=== PATIENT | male | born 1950 | race Caucasian/White ===

== ENCOUNTER 2024-01-04 19:03 | Inpatient (IN) | payer MEDICARE, SELFPAY ==
[2024-01-04] VITALS (9 sets, daily range): BP systolic 107–145; BP diastolic 61–79; BMI 31.9; BMI 32.7
[2024-01-04 14:50] LABS: % Basophils 0.4 % (0-2); % Eosinophils 2.7 % (0-6); % Immature Granulocytes 0.5 % (0-0.5); % Lymphocytes 10.7 % (20.5-51.1); % Monocytes 8.9 % (1.7-9.3); % Neutrophils 76.8 % (42.2-75.2); Absolute Basophils 0.1 10^3/uL (0-0.2); Absolute Eosinophils 0.4 10^3/uL (0-0.7); Absolute Immature Granulocytes 0.1 10^3/uL (0-0.05); Absolute Lymphocytes 1.4 10^3/uL (1.2-3.4); Absolute Monocytes 1.2 10^3/uL (0.1-0.6); Absolute Neutrophils 10.2 10^3/uL (1.4-6.5); Hemoglobin 11.5 g/dL (13.0-18.0); Mean Corp Hgb Conc. 33.8 g/dL (33.0-37.0); Mean Corpuscular Volume 85.6 fL (80.0-94.0); Mean Platelet Volume 10.1 fL (7.4-10.4); Nucleated Red Blood Cells % 0 % (-); Platelet Count 341 10^3/uL (130-400); Red Blood Cell Count 3.97 10^6/uL (4.70-6.10); Red Cell Dist. Width 13.5 % (11.5-14.5); White Blood Cell Count 13.3 10^3/uL (4.8-10.8)
--- NOTE | 2024-01-04 14:50 | ED.GENMED ---
History of Present Illness
General
Chief Complaint: Skin Problem
Source: patient
Exam Limitations: none
Time Seen by Provider: 01/04/24 14:21
Nursing documentation reviewed up to this point in time: agreed with
Travel History
Have you had any contact with someone who has COVID-19?: No
Do you have any symptoms of coronavirus? Fever > 100 degrees, chills, cough, shortness of breath, sore throat, loss of taste or smell, muscle aches, or headache?: No
History of Present Illness
History of Present Illness:
Patient with history of peripheral vascular disease and diabetes, presents to ED secondary to worsening redness, swelling, and warmth, with drainage of his left first toe, after his toenail was clipped by his safety deposit clerk 8 days ago. Denies fever or
chills. Denies nausea or vomiting. Denies direct trauma. Denies previous history of similar symptoms.
Past History
Past History
ED Past Medical History: CAD, COPD, HTN, Hypercholesterolemia, NIDDM and Other (Cataracts, neuropathy, BPH, nephrolithiasis, diverticulosis)
ED Past Surgical History: Cardiac (CABG) and Cholecystectomy
Social History
Tobacco: Former smoker
Alcohol: None
Drug: None
Living: with family
Employment: Retired
Family History
Family History: Other (Noncontributory)
Review of Systems
Review of Systems
Allergies reviewed?: Yes
All Other Systems: ROS reviewed and negative except as documented in HPI and ROS
Constitutional: Reports no symptoms
ABD/GI: Reports no symptoms
Musculoskeletal: Reports no symptoms
Skin: Reports other (toe redness/swelling/drainage)
Phy Exam
Physical Exam
Physical Exam:
Physical Exam
General: no apparent distress, not acutely ill. afebrile
Head: nc/at. eomi
Neck: supple. normal range of motion
Neuro: alert and oriented. no focal neurological deficits
Skin: left 1st toe: erythema/abrasion at tip with minimal foul smelling drainage, with erythema noted up to midcalf with warmth.
Psychiatric: well kept. interactive and cooperative
Extremities: no edema. no calf tenderness.
Course
Orders/Labs/Results
Orders:
Orders
01/04/24 Lunch
1800 calorie (15 carb) Diabetic
At Your Request: Full Participation
01/04/24 14:43
Complete Blood Count/With Diff Urgent
Comprehensive Metabolic Panel Urgent
Lactate Level [Lactic Acid] Urgent
Blood Culture Q30M
BARBARA Source: Blood/Venous
Specimen Description:
01/04/24 14:49
CR Toe(s) Min 2 Vw Left Urgent
Comment:
Reason For Exam: redness/swelling
Indicate Which Toe:: Great
01/04/24 14:50
Piperacillin/Tazo 3.375 Gram [Zosyn] 3.375 gram in 50 ml IV NOW
01/04/24 14:58
Blood Culture Q30M
BARBARA Source: Blood/Venous
Specimen Description:
01/04/24 15:19
Vancomycin [Vancocin] 2,000 mg 0.9% Sodium Chloride 500 ml [Nss] 500 ml IV NOW
01/04/24 18:34
Admit/Transfer Patient As Directed
Co-Sign Provider:
Level of Care: Inpatient admission
Assign to:: Medical/Surgical
Physician / Group: Peña/Hospitalist
Diagnosis: acute osteomyelitis
Reason for Hospitalization: acute osteomyelitis
Expected length of stay greater than two midnights?: Yes
ELOS- Estimated Length of Stay in days: 4
I certify the patient meets the requirements for IP care: Yes
01/04/24 18:39
Code Status As Directed
Resuscitation Status: Full Code
01/04/24 19:45
Acetaminophen [Tylenol] 650 mg PO Q4HPRN PRN
Dextrose 50%-Water [Dextrose 50% Syringe] 12.5 grams IV [id number] PRN
Dextrose 50%-Water [Dextrose 50% Syringe] 12.5 grams IV [id number] PRN
Glucagon [GlucaGen] 1 mg IM PRN PRN
Glucagon [GlucaGen] 1 mg IM PRN PRN
01/04/24 19:45
PODIATRY CONSULT Routine
Consulting Provider: Shante Pollack
Was physician already notified: Yes
Reason for consult: left 1st toe acute osteo and cellulitis, IDDM
Vascular Surgery Consult Routine
Consulting Provider: Rossi Cee
Was physician already notified: Yes
Reason for consult: left 1st toe acute osteo, PVD
Activity As Directed
Activity Level: Out of Bed-Early Mobility
Bedside Glucose Monitoring As Directed
Frequency: AC&HS
Additional Instructions:: Change to q6h if pt on TPN, tube feeding or not eating
Bedside Glucose Monitoring As Directed
Frequency: AC&HS
Additional Instructions:: Change to q6h if pt on TPN, tube feeding or not eating
Elevate Extremity As Directed
Extremity:: LLE
Intake/ Output As Directed
Frequency: Per unit guidelines
Vital Signs As Directed
Frequency: Per unit guidelines
Pulse Ox/spot Check [RESP] Routine
Quantity: 1
Special Instructions: pulse oximetry on admission then every shift if on oxygen.
Call if oxygen saturation < ___ %
Lower Ext Arterial & VELVET US [US Periph Art LOWER Ext w VELVET] Routine
Comment:
Reason For Exam: acute osteomyelitis 1st great toe left foot, PVD
DX Deep Vein Thrombosis Video Routine
01/04/24 20:00
Ipratropium/Albuterol Sulfate [Duoneb] 3 ml INH R Q6
01/04/24 22:00
Ezetimibe [Zetia] 10 mg PO HS
Metoprolol Xl [Toprol Xl] 25 mg PO HS
Piperacillin/Tazo 3.375 Gram [Zosyn] 3.375 gram in 50 ml IV Q6H
insulin glargine U-300 conc [Toujeo SoloStar U-300 Insulin] 65 unit SC HS
01/05/24 05:21
Prothrombin Time IN AM
01/05/24 05:22
Basic Metabolic Panel IN AM
Complete Blood Count/With Diff IN AM
Glycohemoglobin (HgbA1c) IN AM
01/05/24 07:30
Insulin Aspart Corrective Low [Novolog Flexpen-Low Resistance] See Protocol SC AC
Insulin Aspart Corrective Mod [Novolog Flexpen-Moderate Resistance] See Protocol SC AC
Insulin Aspart Pen [Novolog Flexpen] 20 units SC AC
01/05/24 08:00
Cholecalciferol (Vitamin D3) [VITAMIN D3 (cholecalciferol)] 25 mcg PO DAILY
Cyanocobalamin [Vitamin B-12] 500 mcg PO DAILY
Diltiazem Extended Release [Cardizem Cd] 240 mg PO DAILY
Furosemide [Lasix] 40 mg PO BID AT 0800,1600
Lisinopril [Zestril] 10 mg PO DAILY
Pantoprazole [Protonix] 40 mg PO DAILY
01/05/24 18:00
Enoxaparin Sodium [Lovenox] 40 mg SC QPM
Gabapentin [Neurontin] 600 mg PO QPM
Rosuvastatin Calcium [Crestor] 10 mg PO QPM
Abnormal Lab Results
01/04/24
14:43
WBC 13.3 H 10^3/uL
(4.8-10.8)
RBC 3.97 L 10^6/uL
(4.70-6.10)
Hgb 11.5 L g/dL
(13.0-18.0)
Hct 34.0 L %
(39.0-52.0)
Abs Immat Gran (auto) 0.1 H 10^3/uL
(0-0.05)
Absolute Neuts (auto) 10.2 H 10^3/uL
(1.4-6.5)
Absolute Monos (auto) 1.2 H 10^3/uL
(0.1-0.6)
Neutrophils % 76.8 H %
(42.2-75.2)
Lymphocytes % 10.7 L %
(20.5-51.1)
Glucose 131 H mg/dl
(70-99)
01/04/24 14:43
01/04/24 14:43
Vital Signs
Initial and Last Documented VS:
Initial Vital Signs
Temp Pulse Resp BP Pulse Ox
97.9 F 99 18 137/76 98
01/04/24 13:17 01/04/24 13:17 01/04/24 13:17 01/04/24 13:17 01/04/24 13:17
Last Documented Vital Signs
Temp Pulse Resp BP Pulse Ox
97.9 F 72 14 126/66 96
01/05/24 07:00 01/05/24 07:41 01/05/24 07:41 01/05/24 07:00 01/05/24 07:00
MDM/Problems Addressed
MDM/Problems Addressed:
History, exam, and x-ray concerning for severe cellulitis, with likely development of osteomyelitis. Patient will be admitted for IV antibiotics and further treatment.
*Critical Care Note
Total Time (30-74mins, 75-104mins- exclusive of procedures): Not Applicable
ED Attending Note
-
Portions of this chart may have been created with voice recognition software.� Occasional wrong word or��sound alike� substitutions may have occurred due to the inherent limitations of voice recognition software.
Discharge Plan
Departure
Patient Disposition: Admit
Date of Disposition: 01/04/24
Time of Disposition: 17:32
Presentation/result/management discussed w/ accepting MD/DO: Hospitalist
Discharge Problem:
Acute osteomyelitis of toe
Interventions
Interventions:
*Risk Screen - Suicide Last Done: 01/04/24 13:17
*General Assessment Last Done: 01/04/24 14:32
*Neglect/Abuse Screening Last Done: 01/04/24 13:17
ED- Fall Risk Assessment Last Done: 01/04/24 19:08
*ED COVID-19 Vaccine History Last Done: 01/04/24 13:17
*Nursing Disposition Last Done: 01/04/24 19:08
ED-Skin Assessment Last Done: 01/04/24 14:34
Discharge Date and Time
Discharge Date/Time: 01/04/24 19:31
[2024-01-04] MEDS: ZOSYN 50 IV ×2 (14:57→21:52)
[2024-01-04 15:02] LABS: ALT (SGPT) 32 U/L (0-50); AST (SGOT) 24 U/L (17-59); Alkaline Phosphatase 79 U/L (38-126); Blood Urea Nitrogen 20 mg/dl (9-20); Calcium 9.2 mg/dl (8.4-10.2); Carbon Dioxide 26 mmol/L (22-30); Chloride 103 mmol/L (98-107); Glucose 131 mg/dl (70-99); Potassium 4.3 mmol/L (3.5-5.1); Sodium 140 mmol/L (135-145); Total Bilirubin 0.5 mg/dl (0.2-1.3); Total Protein 6.9 g/dl (6.3-8.2); eGFR 58.01
[2024-01-04 15:03] LABS: Lactic Acid 1.2 mmol/L (0.7-2.0)
[2024-01-04] MEDS: VANCOCIN 540 MG IV (15:39)
--- NOTE | 2024-01-04 17:42 | HPS.HSE ---
Family Physician
-
Family Physician: Bony Lafleur
Chief Complaint
-
left first toe redness, swelling, warmth
History of Present Illness
The patient is a 73 yo male with PMH significant for CAD, COPD, HTN, LLE wound/cellulitis and wound care, PVD, HLD, IDDM with peripheral neuropathy, who presents to the ED due to drainage, redness, warmth and swelling from his first left toe, that
he noticed worsening since he had a toenail clipped by his Fish Roe Processor 8 days ago. He has a history of peripheral vascular disease b/l LE , left worse than right, and LLE chronic venous stasis changes, with left LE chronically more swollen and red
than the right side. No fever, no chills, no n/v/d, no abdominal pain, no CP, no SOB. No direct trauma.
WBC 13.3
ED txt: IV Zosyn, IV Vancomycin
Medical History
Past Medical History
Past Medical History: Reports CAD (SC), CHF (HFpEF), COPD, HTN, Hypercholesterolemia, NIDDM and Other (PVD, BPH, Cataracts, neuropathy, nephrolithiasis, diverticulosis)
Past Surgical History: Reports Cardiac (CABG x 3 2018) and Cholecystectomy
Social History
Tobacco: Former Smoker
Alcohol: None
Drug: None
Living: With Family
Employment: Retired
Family History
Family History: Not pertinent
Allergies / Home Medications
Allergies reflects when Allergies were last updated in [facility].
Home Medications with original date entered in [facility]
Allergy/Medication List:
Allergies
Allergy/AdvReac Type Severity Reaction Status Date / Time
No Known Allergies Allergy Verified 01/04/24 13:21
Home Medications
ezetimibe 10 mg tablet 10 mg PO HS High cholesterol 12/22/16
pantoprazole 40 mg tablet,delayed release 40 mg PO DAILY Gastrointestinal issue 05/20/17
aspirin 81 mg chewable tablet 81 mg PO DAILY Blood clot prevention/tx 12/24/16
diltiazem HCl 240 mg capsule,extended release 24 hr 240 mg PO DAILY 01/14/19
cyanocobalamin (vitamin B-12) 1,000 mcg tablet 500 mcg PO DAILY Supplement 03/26/20
rosuvastatin 10 mg tablet 10 mg PO QPM High cholesterol 03/26/20
furosemide 40 mg tablet 40 mg PO BID AT 0800,1700 Fluid retention/Swelling 08/23/22
gabapentin 300 mg capsule 600 mg PO QPM Neurological Condition 08/23/22
insulin glargine U-300 conc 300 unit/mL (1.5 mL) subcutaneous pen (Toujeo SoloStar U-300 Insulin) 65 unit SC HS Diabetes 08/23/22
insulin lispro 100 unit/mL subcutaneous pen (Humalog KwikPen (U-100) Insulin) 20 unit SC AC Diabetes 08/23/22
lisinopril 10 mg tablet 10 mg PO DAILY Blood pressure 08/23/22
metoprolol succinate 25 mg tablet,extended release 24 hr 25 mg PO HS Blood pressure 08/23/22
cholecalciferol (vitamin D3) 25 mcg (1,000 unit) tablet (Vitamin D3) 25 mcg PO DAILY 01/04/24
ipratropium 0.5 mg-albuterol 3 mg (2.5 mg base)/3 mL nebulization soln 3 ml inhalation R Q6 01/04/24
Review of Systems
-
A 12 point ROS was completed and negative except as noted: Yes
Physical Exam
Vital Signs
Vital Signs
Temp Pulse Resp BP Pulse Ox
97.9 F 99 18 122/78 97
01/04/24 13:17 01/04/24 13:17 01/04/24 13:17 01/04/24 17:00 01/04/24 14:43
Physical Exam
General: Well Developed, Well Nourished, No Apparent Distress, Comfortable and Conversant
HEENT: NormoCephalic, Anicteric and Moist mucous membranes
Respiratory: Wheezes (end-expiratory) and Non Labored Respirations
Cardiac: S1/S2 and Regular Rhythm
GI: Soft, Non Tender and Non Distended
Musculoskeletal: No Clubbing, No Cyanosis and Other (LLE redness from foot to above the ankle, chronic venous stasis changed, beef red foot and ankle, swollen on the left, 1st toe with black eschar, bleeding, swollen, erythematous, warm)
Skin: Warm and Dry
Neuro: AO x 3, No Motor Deficits and Nonfocal/grossly intact
Psych: Calm
Laboratory Results
-
01/04/24 14:43
01/04/24 14:43
Laboratory Results
Lactic Acid 1.2 mmol/L (0.7-2.0) 01/04/24 14:43
Total Bilirubin 0.5 mg/dl (0.2-1.3) 01/04/24 14:43
AST 24 U/L (17-59) 01/04/24 14:43
ALT 32 U/L (0-50) 01/04/24 14:43
Alkaline Phosphatase 79 U/L (38-126) 01/04/24 14:43
Data Reviewed
-
Diagnostic Radiology: Report Reviewed by me (Left toe- acute osteomyelitis of the tuft of the distal phalynx of the left great toe, severe cellulitis throughout the left great toe and forefoot)
Impression/Plan
-
IMPRESSION:The patient is a 73 yo male with PMH significant for CAD, COPD, HTN, LLE wound/cellulitis and wound care, PVD, HLD, IDDM with peripheral neuropathy, who presents to the ED due to drainage, redness, warmth and swelling from his first left
toe, that he noticed worsening since he had a toenail clipped by his Fish R[employer] Processor 8 days ago. No fever, no chills, no n/v/d, no abdominal pain, no CP, no SOB. No direct trauma.
WBC 13.3
ED txt: IV Zosyn, IV Vancomycin
# Acute osteomyelitis of the tuft of the distal phalanx of the left great toe with leukocytosis
-IV Vanco, IV Zosyn
-Podiatry consultation- will get ABIs, Vascular Consultation
-wound care, elevate LLE
# Severe cellulitis throughout the left great toe and forefoot.
-IV abx as above
-monitor clinically
#CAD
-takes daily aspirin, hold aspirin for now
#IDDM with Diabetic neuropathy
-home insulin, SSI
#Essential HTN
-IV Diltiazem w hold parameters
#PVD - discuss further imaging
-distal small vessel disease noted in 2018
-check ABIs
#COPD, not in exacerbation
-home meds, monitor pulse oximetry
Full Code
DVT proph-Lovenox
[2024-01-04] MEDS: DUONEB 3 ML INH (20:28)
[2024-01-04 21:44] LABS: Glucose - Point of Care 223 mg/dl (70-99)
[2024-01-04] MEDS: ZETIA 10 MG PO (21:52)
[2024-01-04] MEDS: TOPROL XL 25 MG PO (21:52)
[2024-01-04] MEDS: LANTUS 0.520000000000000018 UNITS SC (21:52)
--- NOTE | 2024-01-04 23:53 | PHA.VAN.IN ---
Assessment
- Assessment
Renal Function: Appears similar to baseline
AUC Dosing Plan
- Dosing Variables
Dosing Weight (kg): 100
Dosing CrCl (ml/min): 59
Vd coefficient (L/kg): 0.6
- Empiric Dosing
Initial / Loading Dose: Vancomycin 2000mg given 01/03 at ~1600
Maintenance Regimen: Vancomycin 1500mg IV Q24h to start 01/04 at 1100
Estimated AUC (mcg*h/mL): 481
Estimated Peak (mcg*h/mL): 34.6
Estimated Trough (mcg/ml): 10.1
Estimated Half Life (H): 13
- Monitoring
No levels ordered at this time: Will follow and order levels prior to steady state.
Pharmacokinetics Vancomycin I
- -
Patient Age: 73
Patient Sex: Male
Vancomycin Day #: 1
Indication: Bone And Joint
Requesting Provider: Dr. Pompa
Pertinent Antimicrobial Allergies:
NKA
Height / Weight:
Height 5 ft 9 in
Actual Weight 100.425 kg
Pertinent Past Medical History: IDDM, PVD, LLE wound/cellulitis, BMI ~33
- Vital Signs / Lab Results
Temp Pulse Resp BP Pulse Ox
98.8 F 90 20 115/61 96
01/04/24 23:00 01/04/24 23:00 01/04/24 23:00 01/04/24 23:00 01/04/24 23:00
Lab Results - Hematology
01/04/24
14:43
WBC 13.3 H
Lab Results - Chemistry
01/04/24
14:43
BUN 20
Creatinine 1.3
Albumin 4.0
01/04/24
14:43
Lactic Acid 1.2
[2024-01-05] MEDS: DUONEB 3 ML INH ×4 (02:03→20:31)
[2024-01-05] MEDS: ZOSYN 50 IV ×4 (04:12→21:56)
[2024-01-05 06:22] LABS: INR 1.27; PT 15.7 Sec (11.4-14.6)
[2024-01-05 06:29] LABS: % Basophils 0.3 % (0-2); % Eosinophils 4.3 % (0-6); % Immature Granulocytes 0.5 % (0-0.5); % Lymphocytes 13.8 % (20.5-51.1); % Monocytes 9.8 % (1.7-9.3); % Neutrophils 71.3 % (42.2-75.2); Absolute Eosinophils 0.4 10^3/uL (0-0.7); Absolute Immature Granulocytes 0.1 10^3/uL (0-0.05); Absolute Lymphocytes 1.3 10^3/uL (1.2-3.4); Absolute Neutrophils 6.9 10^3/uL (1.4-6.5); Hematocrit 31.4 % (39.0-52.0); Hemoglobin 10.4 g/dL (13.0-18.0); Mean Corp Hgb Conc. 33.1 g/dL (33.0-37.0); Mean Corpuscular Hgb 28.9 pg (27.0-31.0); Mean Corpuscular Volume 87.2 fL (80.0-94.0); Mean Platelet Volume 10.8 fL (7.4-10.4); Nucleated Red Blood Cells % 0 % (-); Platelet Count 320 10^3/uL (130-400); Red Cell Dist. Width 13.5 % (11.5-14.5); White Blood Cell Count 9.7 10^3/uL (4.8-10.8)
[2024-01-05 06:45] LABS: Blood Urea Nitrogen 19 mg/dl (9-20); Calcium 8.9 mg/dl (8.4-10.2); Carbon Dioxide 24 mmol/L (22-30); Chloride 104 mmol/L (98-107); Estimated Creatinine Clearance 59 ml/min; Glucose 167 mg/dl (70-99); Potassium 3.8 mmol/L (3.5-5.1); Sodium 139 mmol/L (135-145); eGFR 58.01
[2024-01-05 07:00] VITALS: BP 126/66
--- NOTE | 2024-01-05 07:13 | CON.VAS ---
Medical History
-
Chief Complaint: Left First Toe Wound
History of Present Illness:
80M hx of HTN, HLD, IDDM, CAD p/w 8 day hx of Left first toe wound after foundry metallurgist clipped nail. Denies fevers or chills. On exam, has gangrenous changes to distal phalanx with slight purulence emanating from wound. Denies significant pain. Denies
hx of previous PVD interventions. Xray consistent with possible osteo
Past Medical History
Past Medical History: CAD, HTN, Hypercholesterolemia and IDDM
Past Surgical History: Cardiac
Family History
Family History: Reviewed & Not Pertinent
Allergies / Home Medications
Allergy/AdvReac Type Severity Reaction Status Date / Time
No Known Allergies Allergy Verified 01/04/24 13:21
�Medication �Instructions �Recorded �Confirmed �Type
ezetimibe 10 mg tablet 10 mg PO HS High cholesterol 12/22/16 01/04/24 History
pantoprazole 40 mg tablet,delayed 40 mg PO DAILY Gastrointestinal 12/22/16 01/04/24 History
release issue
aspirin 81 mg chewable tablet 81 mg PO DAILY Blood clot 12/24/16 01/04/24 History
prevention/tx
diltiazem HCl 240 mg 240 mg PO DAILY 01/14/19 01/04/24 Rx
capsule,extended release 24 hr
cyanocobalamin (vitamin B-12) 500 mcg PO DAILY Supplement 03/26/20 01/04/24 History
1,000 mcg tablet
rosuvastatin 10 mg tablet 10 mg PO QPM High cholesterol 03/26/20 01/04/24 History
furosemide 40 mg tablet 40 mg PO BID AT 0800,1700 Fluid 08/23/22 01/04/24 History
retention/Swelling
gabapentin 300 mg capsule 600 mg PO QPM Neurological 08/23/22 01/04/24 History
Condition
insulin glargine U-300 conc 300 65 unit SC HS Diabetes 08/23/22 01/04/24 History
unit/mL (1.5 mL) subcutaneous pen
(Toureshma SoloStar U-300 Insulin)
insulin lispro 100 unit/mL 20 unit SC AC Diabetes 08/23/22 01/04/24 History
subcutaneous pen (Humalog KwikPen
(U-100) Insulin)
lisinopril 10 mg tablet 10 mg PO DAILY Blood pressure 08/23/22 01/04/24 History
metoprolol succinate 25 mg 25 mg PO HS Blood pressure 08/23/22 01/04/24 History
tablet,extended release 24 hr
cholecalciferol (vitamin D3) 25 25 mcg PO DAILY Supplement 01/04/24 01/04/24 History
mcg (1,000 unit) tablet (Vitamin
D3)
ipratropium 0.5 mg-albuterol 3 mg 3 ml inhalation R Q6 01/04/24 01/04/24 History
(2.5 mg base)/3 mL nebulization Lung/Breathing Issues
soln
Physical Exam
Vital Signs
Temp Pulse Resp BP Pulse Ox
98.8 F 90 20 115/61 96
01/04/24 23:00 01/04/24 23:00 01/04/24 23:00 01/04/24 23:00 01/04/24 23:00
Lab Results
01/05/24 05:22
01/05/24 05:22
Physical Exam
General: Well Developed and Well Nourished
HEENT: Normocephalic
Respiratory: Clear
Cardiac: S1/S2 and Regular Rhythm
GI: Soft
Musculoskeletal: No Clubbing and Other (Left first toe wound with gangrenous changes to distal phalanx. purulent drainage expressed )
Skin: Warm
Pulses: Bilateral Femoral: +2, Left Dorsalis Pedis: Doppler, Right Dorsalis Pedis: +2 and Left Posterior Tibial: Doppler
Assessment / Plan
-
80M p/w L first toe wound
-obtain PVR/VELVET; may require LLE angio Pending results
-broad spectrum ABX
-local wound care to toe with betadine paint
-Best medical therapy for PVD- ASA 81, statin, BP control and Daily glucose < 160
-podiatry consultation
[2024-01-05 07:56] LABS: Glucose - Point of Care 157 mg/dl (70-99)
--- NOTE | 2024-01-05 08:29 | PHA.VAN.FU ---
Vancomycin Assessment / Plan
- Assessment
Renal Function: Stable (1.3)
WBC's are: WNL
In the past 24 hrs, patient has been: Afebrile
Concomitant Antimicrobials: piperacillin/tazo
- Dosing Plan
Continue: vancomycin 1500 mg q24h - first dose 1100 today
- Monitoring Plan
No level(s) ordered at this time: will order levels prior to steady state
- Follow Up
Pharmacy will continue to follow.
Vancomycin Follow UP
- -
Patient Age: 73
Patient Sex: Male
Vancomycin Day #: 2
Indication: Bone And Joint
Requesting Provider: Dr. Pompa
Pertinent Antimicrobial Allergies:
NKA
Height / Weight:
Height 5 ft 9 in
Actual Weight 100.425 kg
Pertinent Past Medical History: IDDM, PVD, LLE wound/cellulitis, BMI ~33
- Vital Signs / Lab Results
Temp Pulse Resp BP Pulse Ox
98.8 F 72 14 115/61 96
01/04/24 23:00 01/05/24 07:41 01/05/24 07:41 01/04/24 23:00 01/04/24 23:00
Lab Results - Hematology
01/04/24 01/05/24
14:43 05:22
WBC 13.3 H 9.7
Lab Results - Chemistry
01/04/24 01/05/24
14:43 05:22
BUN 20 19
Creatinine 1.3 1.3
Estimated Creat Clear 59
Albumin 4.0
01/04/24
14:43
Lactic Acid 1.2
[2024-01-05] MEDS: PROTONIX 40 MG PO (09:03)
[2024-01-05] MEDS: LASIX 40 MG PO ×2 (09:03→15:41)
[2024-01-05] MEDS: VITAMIN D3 (cholecalciferol) 25 MCG PO (09:03)
[2024-01-05] MEDS: CARDIZEM CD 240 MG PO (09:03)
[2024-01-05] MEDS: VITAMIN B-12 500 MCG PO (09:03)
[2024-01-05] MEDS: ZESTRIL 10 MG PO (09:03)
[2024-01-05] MEDS: NOVOLOG FLEXPEN 20 UNITS SC ×3 (09:04→17:43)
[2024-01-05] MEDS: NOVOLOG FLEXPEN-LOW RESISTANCE 1 UNITS SC ×2 (09:04→17:43)
[2024-01-05 10:17] LABS: Glycohemoglobin (HgbA1c) 7.8 % (4.0-5.6)
--- NOTE | 2024-01-05 11:31 | W.CS.POD ---
Consult Summary - Podiatry
-
73 yo male with PMH significant for CAD, COPD, HTN, PVD, HLD, IDDM with peripheral neuropathy, LT L/E chronic edema who presents to the ED sent by his PCP Dr. Lafleur due to worsening of LT big toe redness, edematous LT big toe with gangrenous skin
changes with drainage, patient states that he had this wound for about 10 days and getting slowly worse, He is currently on IV Abx improved WBC count form 13 > 9, HE denies nay fever, chills, no chest pain or SOB.
Reviewed PMH, meds and allergies
Exam ; LT foot edematous and diminished pedal pulses
Loss of protective sensation b/l feet
LT hallux erythematous, edematous with scant purulence distal aspect with dry gangrenous changes noted, presence of foul odor,no exposed bone.
no crepitus felt , no Signs of any abscess noted.
Lt Lower leg with chronic skin changes from lymphedema and venous stasis
Xrays show LT hallux distal aspect osteomyelitis
A/P: LT foot cellultis
LT hallux gangrenous changes
Diabetic small vessel disease.
Plan : Cont IV abx
Pending non invasive vascular studies.
Appreciate vascular consult,
Discussed with patient about possibly loosing the toe due to gangrenous changes, Patient understands the situation but would like to save the toe if at all any chance of saving it.
Podiatry will wait till vascular surgery work up if planned
[2024-01-05 11:37] LABS: Glucose - Point of Care 147 mg/dl (70-99)
[2024-01-05] MEDS: VANCOCIN 300 MG IV (12:06)
[2024-01-05] MEDS: VANCOCIN 300 ML IV (12:06)
[2024-01-05] MEDS: NOVOLOG FLEXPEN-LOW RESISTANCE SC (12:07)
--- NOTE | 2024-01-05 12:10 | W.PN.HOSP.TC ---
Today's Communication/Plan
-
.
Assessment / Plan
Assessment / Plan
Physical Exam
General: Well Developed, Well Nourished, No Apparent Distress, Comfortable and Conversant
HEENT: Normocephalic, Anicteric and Moist mucous membranes
Respiratory: Wheezes (end-expiratory) and Non Labored Respirations
Cardiac: S1/S2 and Regular Rhythm
GI: Soft, Non Tender and Non Distended
Musculoskeletal: No Clubbing, No Cyanosis and Other (LLE redness from foot to above the ankle, chronic venous stasis changed, red foot and ankle, swollen on the left, 1st toe with black eschar, swollen, erythematous, warm)
Skin: Warm and Dry
Neuro: AO x 3, No Motor Deficits and Nonfocal/grossly intact
Psych: Calm
73 yo male presented to the ED due to drainage, redness, warmth and swelling from his first left toe, that he noticed worsening since he had a toenail clipped by his Instructional Design Manager 8 days ago. No fever, no chills, no n/v/d, no abdominal pain, no CP, no
SOB. No direct trauma.
# Acute osteomyelitis of the tuft of the distal phalanx of the left great toe with leukocytosis
Mild sepsis POA with tachycardia, leukocytosis, infection on toe
He has significant DM neuropathy so no significant pain but s.t shooting pain in left leg/foot
-IV Vanco, IV Zosyn
- WBC normalized. No fevers
ABIs,
-wound care, elevate LLE
- Will likely need amputation of whole toe to secure complete recovery pending further vascular studies
Appreciate Podiatry, ID and vascular surgery input
# Severe cellulitis throughout the left low extremity
-IV abx as above
-monitor clinically
#CAD
No chest pain
-takes daily aspirin, hold aspirin for now
#IDDM with Diabetic neuropathy
AM BS 157
he follows with Endocrine as OP
HGB A1C 7.8
-home insulin, SSI
#Essential HTN
c/w home meds including Lasix.
-IV Diltiazem w hold parameters
#PVD - known diabetic neuropathy
#COPD, not in exacerbation
-home meds, monitor pulse oximetry
Full Code
DVT proph-Lovenox
Total time spent to see the patient, examine the patient on the floor, review data and lab results, discuss treatment plan with patient, nursing staff around 55 minutes
Anticipated Discharge: > 48 hours
Subjective/Interval History
-
Date of Service: January 05, 2024
No chest pain
No sob
Sometimes shooting pain in left foot
Objective Data
-
Labs:
Laboratory Results
01/05/24 01/05/24
05:21 05:22
WBC 9.7
Hgb 10.4 L
Hct 31.4 L
Plt Count 320
PT 15.7 H
INR 1.27
Sodium 139
Potassium 3.8
Chloride 104
Carbon Dioxide 24
BUN 19
Creatinine 1.3
Glucose 167 H
Calcium 8.9
Vital Signs:
Vital Signs
Temp Pulse Resp BP Pulse Ox
97.9 F 72 14 126/66 96
01/05/24 07:00 01/05/24 07:41 01/05/24 07:41 01/05/24 07:00 01/05/24 07:00
I&O
01/04/24 01/05/24 01/06/24
06:59 06:59 06:59
Intake Total 240 / 240
Output Total 300 / 300
Balance -60 / -60
--- NOTE | 2024-01-05 14:16 | CON.ID ---
Consultation
-
Date/Time Consultation Requested: 01/05/2024 06:26
Date/Time Consultation Performed: 01/05/2024 1413
Requesting Provider: Dr. Ratliff
Performing Provider: Dr. Maynard
Reason for Consultation: Left toe infection
Chief Complaint / Past History
History of Present Illness
Antonio Ramirez is a 73-year-old male with a significant past medical history of CAD and diabetes mellitus with neuropathy being evaluated at the request of Dr. Ratliff in regards to left hallux cellulitis. History is obtained from chart review, along
with patient interview.
Patient reports that he recently had his toenails clipped by his carpenter mine approximately 8 days prior to presentation, although he admits he had had problems with his nail prior to that.. Over the intervening days the toe has grown increasingly
erythematous and swollen. He denies any fevers or chills.
Past History
Additional Past Medical History:
CAD; Hx AR
COPD
HTN
Dyslipidemia
DM with neuropathy
BPH
Nephrolithiasis
Diverticulosis
Additional Past Surgical History:
CABG
Cholecystectomy
Allergy History:
No Known Allergies Allergy (Verified 01/04/24 13:21)
Medications Reviewed: Yes
Current Antibiotics:
Zosyn 3.375 g IV every 6 hours
Vancomycin (dosed per pharmacy)
Social History
Tobacco: Former Smoker
Alcohol: None
Drug: None
Personal:
Living: With Family
Employment: Retired
Review of Systems
Vital Signs
Temp Pulse Resp BP Pulse Ox
97.9 F 80 14 126/66 96
01/05/24 07:00 01/05/24 13:32 01/05/24 13:32 01/05/24 07:00 01/05/24 07:00
Physical Exam
Physical Exam
Constitutional: No Acute Distress, Comfortable and Non-toxic
Eyes: No Conjunctival Hemorrhage and Sclera Anicteric
Oral: No Thrush and No Ulcers
Cardiovascular: S1/S2 and S3/S4; Negative Murmur
Pulmonary: Clear; Negative Wheezes, Rales or Rhonchi
Gastrointestinal: Soft, Non Tender, Non Distended and Normal Bowel Sounds
Extremities: Edema (3+ LLE), Erythema (LLE) and Other (Left hallux with distal gangrene. Toe is markedly swollen and erythematous.)
Skin: Warm and Dry; Negative Rash or Jaundice
Neurological: Awake and Alert
Psychological: Calm
Lab / Diagnostic Study Results
01/05/24 05:22
01/05/24 05:22
Abs Immat Gran (auto) 0.1 10^3/uL (0-0.05) H 01/05/24 05:22
Absolute Neuts (auto) 6.9 10^3/uL (1.4-6.5) H 01/05/24 05:22
Absolute Lymphs (auto) 1.3 10^3/uL (1.2-3.4) 01/05/24 05:22
Absolute Monos (auto) 1.0 10^3/uL (0.1-0.6) H 01/05/24 05:22
Absolute Basos (auto) 0.0 10^3/uL (0-0.2) 01/05/24 05:22
Immature Gran % 0.5 % (0-0.5) 01/05/24 05:22
Neutrophils % 71.3 % (42.2-75.2) 01/05/24 05:22
Lymphocytes % 13.8 % (20.5-51.1) L 01/05/24 05:22
Monocytes % 9.8 % (1.7-9.3) H 01/05/24 05:22
Eosinophils % 4.3 % (0-6) 01/05/24 05:22
Basophils % 0.3 % (0-2) 01/05/24 05:22
PT 15.7 Sec (11.4-14.6) H 01/05/24 05:21
INR 1.27 01/05/24 05:21
Lactic Acid 1.2 mmol/L (0.7-2.0) 01/04/24 14:43
Microbiology Results
Micro:
01/04/24 14:43 Blood Culture - Pending
Blood/Venous
01/04/24 14:58 Blood Culture - Pending
Blood/Venous
01/04/24 22:52 MRSA Screen - Pending
Nose
Imaging:
01/04/2024 X-ray left foot: Acute osteomyelitis of the tuft of the distal phalanx of the left great toe. There is severe cellulitis throughout the left great toe and forefoot. Please see full dictation for additional detail.
Assessment / Plan
Left hallux gangrene
Left hallux cellulitis
Left hallux osteomyelitis
CAD; Hx AR
COPD
HTN
Dyslipidemia
DM with neuropathy
BPH
Nephrolithiasis
Diverticulosis
Recommendations:
Continue current abx. (vanco / zosyn)
Await further vacular workup.
Check MRI to delineate extent of osteomyelitis.
Check ESR and CRP in AM.
Given underlying diabetes and neuropathy, patient is at high risk for limb loss.
[2024-01-05 15:00] VITALS: BP 101/41
[2024-01-05 16:53] LABS: Glucose - Point of Care 150 mg/dl (70-99)
[2024-01-05] MEDS: LOVENOX 40 MG SC (17:46)
[2024-01-05] MEDS: CRESTOR 10 MG PO (17:46)
[2024-01-05] MEDS: NEURONTIN 600 MG PO (20:09)
[2024-01-05] MEDS: TYLENOL 650 MG PO (20:13)
[2024-01-05] MEDS: ZETIA 10 MG PO (21:56)
[2024-01-05] MEDS: TOPROL XL 25 MG PO (21:56)
[2024-01-05] MEDS: LANTUS 0.520000000000000018 UNITS SC (21:56)
[2024-01-05 21:59] LABS: Glucose - Point of Care 112 mg/dl (70-99)
[2024-01-05 23:10] VITALS: BP 117/59
[2024-01-06] MEDS: DUONEB 3 ML INH ×3 (03:46→19:19)
[2024-01-06] MEDS: ZOSYN 50 IV ×4 (03:52→22:41)
[2024-01-06 06:10] LABS: Hematocrit 34.9 % (39.0-52.0); Hemoglobin 11.3 g/dL (13.0-18.0); Mean Corp Hgb Conc. 32.4 g/dL (33.0-37.0); Mean Corpuscular Hgb 28.8 pg (27.0-31.0); Mean Platelet Volume 10.7 fL (7.4-10.4); Platelet Count 357 10^3/uL (130-400); Red Blood Cell Count 3.92 10^6/uL (4.70-6.10); Red Cell Dist. Width 13.6 % (11.5-14.5); White Blood Cell Count 8.5 10^3/uL (4.8-10.8)
[2024-01-06 06:42] LABS: Blood Urea Nitrogen 20 mg/dl (9-20); Calcium 8.9 mg/dl (8.4-10.2); Carbon Dioxide 24 mmol/L (22-30); Chloride 104 mmol/L (98-107); Estimated Creatinine Clearance 59 ml/min; Glucose 125 mg/dl (70-99); Potassium 3.8 mmol/L (3.5-5.1); Sodium 141 mmol/L (135-145); eGFR 58.01
[2024-01-06 07:37] VITALS: BP 132/69
[2024-01-06 08:00] LABS: Glucose - Point of Care 134 mg/dl (70-99)
--- NOTE | 2024-01-06 08:14 | PHA.VAN.FU ---
Vancomycin Assessment / Plan
- Assessment
Renal Function: Stable
WBC's are: WNL
In the past 24 hrs, patient has been: Afebrile
Concomitant Antimicrobials: piperacillin/tazobactam
- Dosing Plan
Adjust Regimen to: Vanc 1500mg Q24H
- Monitoring Plan
No level(s) ordered at this time: consider levels in next few days
- Follow Up
Pharmacy will continue to follow.
Vancomycin Follow UP
- -
Patient Age: 73
Patient Sex: Male
Vancomycin Day #: 3
Indication: Bone And Joint
Requesting Provider: Dr. Pompa / Aleyda
Pertinent Antimicrobial Allergies:
NKDA
Height / Weight:
Height 5 ft 9 in
Actual Weight 100.425 kg
Pertinent Past Medical History: IDDM, PVD, LLE wound/cellulitis, BMI ~33
- Vital Signs / Lab Results
Temp Pulse Resp BP Pulse Ox
98.0 F 88 16 132/69 98
01/06/24 07:37 01/06/24 07:53 01/06/24 07:53 01/06/24 07:37 01/06/24 07:53
Lab Results - Hematology
01/04/24 01/05/24 01/06/24
14:43 05:22 04:58
WBC 13.3 H 9.7 8.5
Lab Results - Chemistry
01/04/24 01/05/24 01/06/24
14:43 05:22 04:58
BUN 20 19 20
Creatinine 1.3 1.3 1.3
Estimated Creat Clear 59 59
Albumin 4.0
01/04/24
14:43
Lactic Acid 1.2
Microbiology Results
01/04/24 14:58 Blood Culture - Preliminary
Blood/Venous No Growth in 24 hours- Final report to follow
01/04/24 14:43 Blood Culture - Preliminary
Blood/Venous No Growth in 24 hours- Final report to follow
--- NOTE | 2024-01-06 08:38 | W.PN.VS ---
Addendum entered and electronically signed by Viet Luque III, MD 01/07/24 09:34:
This patient was seen and examined with JESSIE Dove. I agree with the history and physical exam as well as the assessment and plan. I have the following additions:
73-year-old male
With left hallux gangrene and associated infection, osteomyelitis
I personally reviewed his lower extremity arterial studies which are abnormal on the left including but not limited to reduced VELVET/TBI and distal SFA occlusion
Planning for lower extremity arteriogram with possible endovascular intervention
The technical aspects of this procedure were discussed with him in detail. The benefits and rationale for this approach were discussed with him in detail. Operative risks were discussed with him in detail including but not limited to arterial
access site injury, bleeding, infection, contrast nephropathy, distal embolization, inability to successfully complete endovascular intervention and the need for additional procedures. He expressed clear understanding of our conversation and agrees
to proceed with surgery as detailed above.
Signed:
Viet Luque III, MD
[facility]
[phone] ([phone])
Original Note:
Today's Communication / Plan
-
Seen and assessed with Dr. Luque
Assessment/Plan
-
73-year-old male with left first toe wound, + osteo
Plan:
-Arterial ultrasounds pending
-Likely angiogram tomorrow, will follow-up with patient in team once scans completed
Subjective Data
-
Date of Service: January 06, 2024
Patient seen at bedside this a.m. with Dr. Luque. Patient offers no complaints this time. No events overnight. Toe wound dry and malodorous
Objective Data
-
Vital Signs
Temp Pulse Resp BP Pulse Ox
98.0 F 88 16 132/69 98
01/06/24 07:37 01/06/24 07:53 01/06/24 07:53 01/06/24 07:37 01/06/24 07:53
Intake and Output
01/05/24 01/06/24 01/07/24
06:59 06:59 06:59
Intake Total 240 / 240 20 / 20
Output Total 300 / 300
Balance -60 / -60 20 / 20
Intake:
Oral fluids 240 / 240 20 / 20
Output:
Urine, Voided 300 / 300
Other:
Number of approximated MODERATE 2 1
amounts of urine
Lab Results
01/06/24 04:58
01/06/24 04:58
Calcium 8.9 mg/dl (8.4-10.2) 01/06/24 04:58
Total Bilirubin 0.5 mg/dl (0.2-1.3) 01/04/24 14:43
AST 24 U/L (17-59) 01/04/24 14:43
ALT 32 U/L (0-50) 01/04/24 14:43
Alkaline Phosphatase 79 U/L (38-126) 01/04/24 14:43
Total Protein 6.9 g/dl (6.3-8.2) 01/04/24 14:43
Albumin 4.0 g/dl (3.5-5.0) 01/04/24 14:43
Physical Exam
-
AAOx3
No tachypnea
No tachycardia
Abdomen soft, obese
Bilateral +1 femoral pulses
Nonpalpable distal pulses
Toe wound undressed, dry, malodorous, bone looks to be exposed-redressed
[2024-01-06] MEDS: NOVOLOG FLEXPEN-LOW RESISTANCE SC ×3 (08:48→18:17)
[2024-01-06] MEDS: NOVOLOG FLEXPEN 20 UNITS SC ×3 (08:48→18:18)
[2024-01-06] MEDS: CARDIZEM CD 240 MG PO (08:49)
[2024-01-06] MEDS: PROTONIX 40 MG PO (08:50)
[2024-01-06] MEDS: VITAMIN B-12 500 MCG PO (08:50)
[2024-01-06] MEDS: VITAMIN D3 (cholecalciferol) 25 MCG PO (08:50)
[2024-01-06] MEDS: VANCOCIN 300 MG IV (08:50)
[2024-01-06] MEDS: LASIX 40 MG PO ×2 (08:50→16:59)
[2024-01-06] MEDS: ZESTRIL 10 MG PO (08:50)
[2024-01-06] MEDS: VANCOCIN 300 ML IV (08:50)
[2024-01-06 10:25] VITALS: BMI 32.6
--- NOTE | 2024-01-06 11:55 | W.PN.POD ---
Today's Communication
Today's Communication
Pending VELVET'S
possible angiogram to [facility] by vascular surgery
Assessment / Plan
-
A/P : LT foot cellultis
LT hallux gangrenous changes
Diabetic small vessel disease.
Plan : Cont IV abx
Pending non invasive vascular studies.
Appreciate vascular consult, possible angiogram tomorrow
Podiatry will wait till vascular work up is completed for toe amputation
Discussed with patient about possibly loosing the toe due to gangrenous changes, Patient understands the situation but would like to save the toe if at all any chance of saving it.
Podiatry will follow
Subjective
Chief Complaint
Patient seen at bedside, doing well, no new complaints offered. No fever, chills. improved redness and decreased drainage to Lt big toe
Objective
Temp Pulse Resp BP Pulse Ox
98.0 F 88 16 132/69 98
01/06/24 07:37 01/06/24 08:49 01/06/24 07:53 01/06/24 08:49 01/06/24 07:53
01/06/24 04:58
01/06/24 04:58
Vital Signs and Lab results were reviewed.
LT foot edematous and diminished pedal pulses
Loss of protective sensation b/l feet
LT hallux resolved erythema, edematous, resolved drainage, distal aspect with dry gangrenous changes noted, presence of foul odor,no exposed bone.
no crepitus felt , no Signs of any abscess noted.
Lt Lower leg with chronic skin changes from lymphedema and venous stasis
--- NOTE | 2024-01-06 12:42 | W.PN.HOSP.TC ---
Today's Communication/Plan
-
Monitor vital signs and see plan
VELVET, MRI pending
Continue with antibiotics
Possible angiogram tomorrow pending VELVET's
Assessment / Plan
Assessment / Plan
Physical Exam
General: Well Developed, Well Nourished, No Apparent Distress, Comfortable and Conversant
HEENT: Normocephalic, Anicteric and Moist mucous membranes
Respiratory: Wheezes (end-expiratory) and Non Labored Respirations
Cardiac: S1/S2 and Regular Rhythm
GI: Soft, Non Tender and Non Distended
Musculoskeletal: No Clubbing, No Cyanosis and Other (LLE redness from foot to above the ankle, chronic venous stasis changed, red foot and ankle, swollen on the left, 1st toe with black eschar, swollen, erythematous, warm)
Skin: Warm and Dry
Neuro: AO x 3, No Motor Deficits and Nonfocal/grossly intact
Psych: Calm
73 yo male presented to the ED due to drainage, redness, warmth and swelling from his first left toe, that he noticed worsening since he had a toenail clipped by his Soda Dispenser 8 days ago. No fever, no chills, no n/v/d, no abdominal pain, no CP, no
SOB. No direct trauma.
# Acute osteomyelitis of the tuft of the distal phalanx of the left great toe with leukocytosis
Mild sepsis POA with tachycardia, leukocytosis, infection on toe
He has significant DM neuropathy so no significant pain but s.t shooting pain in left leg/foot
-IV Vanco, IV Zosyn
- WBC normalized. No fevers
ABIs pending
MRI pending
-wound care, elevate LLE
- Will likely need amputation of whole toe to secure complete recovery pending further vascular studies
Appreciate Podiatry, ID and vascular surgery input
# Severe cellulitis throughout the left low extremity
-IV abx as above
-monitor clinically
#CAD
No chest pain
-takes daily aspirin, hold aspirin for now
#IDDM with Diabetic neuropathy
he follows with Endocrine as OP
HGB A1C 7.8
-home insulin, SSI
#Essential HTN
c/w home meds including Lasix.
-IV Diltiazem w hold parameters
#PVD - known diabetic neuropathy
#COPD, not in exacerbation
-home meds, monitor pulse oximetry
Full Code
DVT proph-Lovenox
Total time spent to see the patient, examine the patient on the floor, review data and lab results, discuss treatment plan with patient, nursing staff around 53 minutes
Anticipated Discharge: > 48 hours
Subjective/Interval History
-
Date of Service: January 06, 2024
denies nausea
Objective Data
-
Labs:
Laboratory Results
01/06/24
04:58
WBC 8.5
Hgb 11.3 L
Hct 34.9 L
Plt Count 357
Sodium 141
Potassium 3.8
Chloride 104
Carbon Dioxide 24
BUN 20
Creatinine 1.3
Glucose 125 H
Calcium 8.9
Vital Signs:
Vital Signs
Temp Pulse Resp BP Pulse Ox
98.0 F 88 16 132/69 98
01/06/24 07:37 01/06/24 08:49 01/06/24 07:53 01/06/24 08:49 01/06/24 07:53
I&O
01/05/24 01/06/24 01/07/24
06:59 06:59 06:59
Intake Total 240 / 240 20 / 20
Output Total 300 / 300
Balance -60 / -60 20 / 20
[2024-01-06 12:43] LABS: Glucose - Point of Care 140 mg/dl (70-99)
--- NOTE | 2024-01-06 13:44 | W.PN.ID1 ---
Date of Service
Date of Service: January 06, 2024
Today's Communication
Continue antibiotics.
Assessment / Plan
Left hallux gangrene
Left hallux cellulitis
Left hallux osteomyelitis
CAD; Hx SC
COPD
HTN
Dyslipidemia
DM with neuropathy
BPH
Nephrolithiasis
Diverticulosis
Recommendations:
Continue current abx. (vanco / zosyn)
Await further vacular workup.
Await MRI to delineate extent of osteomyelitis.
Given underlying diabetes and neuropathy, patient is at high risk for limb loss.
����������������������������������������������������������
Chief Complaint
-: Other (Left toe osteomyelitis)
Subjective / Review of Systems
Review of Systems: No Fever and No Chills
Vital Signs / Physical Exam
Vital Signs
Vital Signs
Temp Pulse Resp BP Pulse Ox
98.0 F 88 16 132/69 98
01/06/24 07:37 01/06/24 08:49 01/06/24 07:53 01/06/24 08:49 01/06/24 07:53
Physical Exam
Constitutional: No Acute Distress, Comfortable and Non-toxic
Eyes: Sclera Anicteric
Cardiovascular: S1/S2; Negative S3/S4
Pulmonary: Non Labored
Gastrointestinal: Soft, Non Tender and Non Distended
Wound: Other (Left hallux dressed.)
Neurological: Awake and Alert
Psychological: Calm
Objective Data
Lab Data
Lab Results
01/06/24 04:58
01/06/24 04:58
PT 15.7 Sec (11.4-14.6) H 01/05/24 05:21
INR 1.27 01/05/24 05:21
Estimated Creat Clear 59 ml/min 01/06/24 04:58
Lactic Acid 1.2 mmol/L (0.7-2.0) 01/04/24 14:43
Total Bilirubin 0.5 mg/dl (0.2-1.3) 01/04/24 14:43
AST 24 U/L (17-59) 01/04/24 14:43
ALT 32 U/L (0-50) 01/04/24 14:43
Alkaline Phosphatase 79 U/L (38-126) 01/04/24 14:43
Most recent labs reviewed.
Micro Results:
01/04/24 22:52 MRSA Screen - Final
Nose No Methicillin Resistant Staphylococcus aureus isolated.
01/04/24 14:58 Blood Culture - Preliminary
Blood/Venous No Growth in 24 hours- Final report to follow
01/04/24 14:43 Blood Culture - Preliminary
Blood/Venous No Growth in 24 hours- Final report to follow
Imaging:
01/04/2024 X-ray left foot: Acute osteomyelitis of the tuft of the distal phalanx of the left great toe. There is severe cellulitis throughout the left great toe and forefoot. Please see full dictation for additional detail.
[2024-01-06] MEDS: DUONEB INH (14:18)
--- NOTE | 2024-01-06 16:01 | CM ---
Met with pt at bedside
Pt lives alone in a one story home
Independent, Does own cooking/cleaning
DME - rolling walker in home
SNF - [facility] in past
HH - denies past history
Has ride at d/c
PCP - Dr Linda Lafleur
Pharm - [facility]
Plan - anticipate home no needs vs with HH
[2024-01-06 16:38] VITALS: BP 98/69
[2024-01-06] MEDS: LOVENOX 40 MG SC (17:00)
[2024-01-06] MEDS: CRESTOR 10 MG PO (17:00)
[2024-01-06] MEDS: NEURONTIN 600 MG PO (17:00)
[2024-01-06 17:34] LABS: Glucose - Point of Care 73 mg/dl (70-99)
[2024-01-06 21:47] LABS: Glucose - Point of Care 73 mg/dl (70-99)
[2024-01-06] MEDS: TOPROL XL PO (22:41)
[2024-01-06] MEDS: ZETIA 10 MG PO (22:42)
[2024-01-06] MEDS: TYLENOL 650 MG PO (22:46)
[2024-01-06] MEDS: LANTUS SC (22:53)
[2024-01-06] MEDS: LANTUS 0.100000000000000006 UNITS SC (23:17)
[2024-01-06 23:20] VITALS: BP 111/66
[2024-01-07] VITALS (14 sets, daily range): BP systolic 102–131; BP diastolic 57–76; BMI 32.7
[2024-01-07] MEDS: DUONEB 3 ML INH ×4 (02:18→19:21)
[2024-01-07 02:38] LABS: Glucose - Point of Care 121 mg/dl (70-99)
[2024-01-07] MEDS: ZOSYN 50 IV ×4 (05:20→22:09)
[2024-01-07] MEDS: VANCOCIN 300 ML IV (06:04)
[2024-01-07] MEDS: VANCOCIN 300 MG IV (06:04)
[2024-01-07 06:11] LABS: Glucose - Point of Care 137 mg/dl (70-99)
[2024-01-07 07:12] LABS: % Basophils 0.9 % (0-2); % Immature Granulocytes 0.4 % (0-0.5); % Lymphocytes 23.1 % (20.5-51.1); % Monocytes 10.5 % (1.7-9.3); % Neutrophils 56.1 % (42.2-75.2); Absolute Basophils 0.1 10^3/uL (0-0.2); Absolute Eosinophils 0.6 10^3/uL (0-0.7); Absolute Lymphocytes 1.6 10^3/uL (1.2-3.4); Absolute Monocytes 0.7 10^3/uL (0.1-0.6); Absolute Neutrophils 3.9 10^3/uL (1.4-6.5); Hematocrit 34.9 % (39.0-52.0); Hemoglobin 11.2 g/dL (13.0-18.0); Mean Corp Hgb Conc. 32.1 g/dL (33.0-37.0); Mean Corpuscular Hgb 28.8 pg (27.0-31.0); Mean Corpuscular Volume 89.7 fL (80.0-94.0); Mean Platelet Volume 10.5 fL (7.4-10.4); Nucleated Red Blood Cells % 0 % (-); Platelet Count 339 10^3/uL (130-400); Red Blood Cell Count 3.89 10^6/uL (4.70-6.10); Red Cell Dist. Width 13.7 % (11.5-14.5)
[2024-01-07 07:42] LABS: Blood Urea Nitrogen 19 mg/dl (9-20); Calcium 8.9 mg/dl (8.4-10.2); Carbon Dioxide 27 mmol/L (22-30); Chloride 102 mmol/L (98-107); Estimated Creatinine Clearance 51 ml/min; Glucose 141 mg/dl (70-99); Potassium 4.5 mmol/L (3.5-5.1); Sodium 140 mmol/L (135-145); eGFR 48.85
[2024-01-07 08:02] LABS: Erythrocyte Sed Rate 64 mm/hour (0-20)
--- NOTE | 2024-01-07 08:07 | PHA.VAN.FU ---
Vancomycin Assessment / Plan
- Assessment
Renal Function: SCR Increasing
WBC's are: WNL
In the past 24 hrs, patient has been: Afebrile
Concomitant Antimicrobials: piperacillin/tazobactam
- Dosing Plan
Adjust Regimen to: dosing by level
unclear if patient's increase in SCR is part of normal fluctuation or if patient may be developing ALAN
BUN stable
Will tentatively adjust to dose by level but obtain peak/trough to assess regimen and half-life since patient received 3rd maintenance dose today
- Monitoring Plan
Peak Level: today 01/06 09:30 - will assess with trough tomorrow
Trough Level: 01/07 05:30
- Follow Up
Pharmacy will continue to follow.
Vancomycin Follow UP
- -
Patient Age: 73
Patient Sex: Male
Vancomycin Day #: 4
Indication: Bone And Joint
Requesting Provider: Dr. Pompa / Aleyda
Pertinent Antimicrobial Allergies:
NKDA
Height / Weight:
Height 5 ft 9 in
Actual Weight 100.244 kg
Pertinent Past Medical History: IDDM, PVD, LLE wound/cellulitis, BMI ~33
- Vital Signs / Lab Results
Temp Pulse Resp BP Pulse Ox
97.6 F 80 18 128/75 96
01/07/24 07:40 01/07/24 07:53 01/07/24 07:53 01/07/24 07:40 01/07/24 07:53
Lab Results - Hematology
01/04/24 01/05/24 01/06/24
14:43 05:22 04:58
WBC 13.3 H 9.7 8.5
01/07/24
06:25
WBC 7.0
Lab Results - Chemistry
01/04/24 01/05/24 01/06/24
14:43 05:22 04:58
BUN 20 19 20
Creatinine 1.3 1.3 1.3
Estimated Creat Clear 59 59
Albumin 4.0
01/07/24
06:25
BUN 19
Creatinine 1.5 H
Estimated Creat Clear 51
Albumin
01/04/24
14:43
Lactic Acid 1.2
Microbiology Results
01/04/24 14:58 Blood Culture - Preliminary
Blood/Venous No Growth in 48 hours- Final report to follow
01/04/24 14:43 Blood Culture - Preliminary
Blood/Venous No Growth in 48 hours- Final report to follow
01/04/24 22:52 MRSA Screen - Final
Nose No Methicillin Resistant Staphylococcus aureus isolated.
[2024-01-07 08:16] LABS: Glucose - Point of Care 145 mg/dl (70-99)
[2024-01-07] MEDS: NOVOLOG FLEXPEN SC ×2 (09:06→11:04)
[2024-01-07] MEDS: PROTONIX 40 MG PO (09:09)
[2024-01-07] MEDS: VITAMIN D3 (cholecalciferol) 25 MCG PO (09:09)
[2024-01-07] MEDS: CARDIZEM CD 240 MG PO (09:10)
[2024-01-07] MEDS: LASIX 40 MG PO ×2 (09:10→17:22)
[2024-01-07] MEDS: VITAMIN B-12 500 MCG PO (09:10)
[2024-01-07] MEDS: ZESTRIL PO (09:11)
--- NOTE | 2024-01-07 09:34 | W.SUR.PREOP ---
Pre-Operative Surgical Note
-
I have examined this patient prior to the performance of the scheduled procedure.
The patient's condition is unchanged from the time of the current History and
Physical and the patient is able to undergo the scheduled procedure.
[2024-01-07 10:31] LABS: Vancomycin Peak 27.8 ug/ml (18-26)
--- NOTE | 2024-01-07 11:02 | W.PN.HOSP.TC ---
Today's Communication/Plan
-
Monitor vital signs and see plan
Angio today by vascular
Monitor renal function closely, if continues to get worse then will need nephrology evaluation
Continued antibiotics
MRI, radha's pending
Assessment / Plan
Assessment / Plan
Physical Exam
General: Well Developed, Well Nourished, No Apparent Distress, Comfortable and Conversant
HEENT: Normocephalic, Anicteric and Moist mucous membranes
Respiratory: Wheezes (end-expiratory) and Non Labored Respirations
Cardiac: S1/S2 and Regular Rhythm
GI: Soft, Non Tender and Non Distended
Musculoskeletal: No Clubbing, No Cyanosis and Other (LLE redness from foot to above the ankle, chronic venous stasis changed, red foot and ankle, swollen on the left, 1st toe with black eschar, swollen, erythematous, warm)
Skin: Warm and Dry
Neuro: AO x 3, No Motor Deficits and Nonfocal/grossly intact
Psych: Calm
73 yo male presented to the ED due to drainage, redness, warmth and swelling from his first left toe, that he noticed worsening since he had a toenail clipped by his Coach Tour Driver 8 days ago. No fever, no chills, no n/v/d, no abdominal pain, no CP, no
SOB. No direct trauma.
# Acute osteomyelitis of the tuft of the distal phalanx of the left great toe with leukocytosis
Mild sepsis POA with tachycardia, leukocytosis, infection on toe
He has significant DM neuropathy so no significant pain but s.t shooting pain in left leg/foot
cw abx per ID
- WBC normalized. No fevers
ABIs pending
MRI pending
-wound care, elevate LLE
- Will likely need amputation of whole toe to secure complete recovery pending further vascular studies
Appreciate Podiatry, ID and vascular surgery input
# Severe cellulitis throughout the left low extremity
-IV abx as above
-monitor clinically
renal insufficiency
monitor renal function closely
hold lisinopril
If continues to get worse then will need nephrology evaluation
#CAD
No chest pain
-takes daily aspirin, hold aspirin for now
#IDDM with Diabetic neuropathy
he follows with Endocrine as OP
HGB A1C 7.8
-home insulin, SSI
#Essential HTN
c/w home meds including Lasix.
-IV Diltiazem w hold parameters
#PVD - known diabetic neuropathy
#COPD, not in exacerbation
-home meds, monitor pulse oximetry
Full Code
DVT proph-Lovenox
Total time spent to see the patient, examine the patient on the floor, review data and lab results, discuss treatment plan with patient, nursing staff around 51 minutes
Anticipated Discharge: > 48 hours
Subjective/Interval History
-
Date of Service: January 07, 2024
denies nausea
Objective Data
-
Labs:
Laboratory Results
01/07/24
06:25
WBC 7.0
Hgb 11.2 L
Hct 34.9 L
Plt Count 339
Sodium 140
Potassium 4.5
Chloride 102
Carbon Dioxide 27
BUN 19
Creatinine 1.5 H
Glucose 141 H
Calcium 8.9
Vital Signs:
Vital Signs
Temp Pulse Resp BP Pulse Ox
97.6 F 80 18 128/75 96
01/07/24 07:40 01/07/24 09:10 01/07/24 07:53 01/07/24 09:10 01/07/24 07:53
I&O
01/06/24 01/07/24 01/08/24
06:59 06:59 06:59
Intake Total 1040 / 1040
Balance 1039 / 104
[2024-01-07 13:42] LABS: Glucose - Point of Care 154 mg/dl (70-99)
[2024-01-07] MEDS: DUONEB INH (13:47)
--- NOTE | 2024-01-07 14:40 | W.IMMPOSTOP ---
Surgical Immed Post Op Note
-
Primary Surgeon: Dr. Viet Luque III, MD
Assisting Surgeon: Dr. Isma Pitts MD, PhD (PGY-1)
Pre-op Diagnosis: Critical limb threatening ischemia, gangrene of left hallux with associated osteomyelitis
Post-op Diagnosis: Critical limb threatening ischemia, gangrene of left hallux with associated osteomyelitis
Procedure Performed: Diagnostic arteriogram, intravascular lithotripsy
Anesthesia Type: MAC
Specimen / Cultures: None
Estimated Blood Loss: Minimal
Complications: None
Operative Findings: The patient was brought to the OR and placed in the supine position. Following induction with anesthesia, the patient was prepped and draped in usual sterile fashion. C arm was used to stefanie the superior and inferior borders of
the femoral head and this was marked on the skin level. Ultrasound guidance was used to identify the right NON DESTRUCTIVE TESTING TECHNICIAN. Micropuncture needle was used to access the right NON DESTRUCTIVE TESTING TECHNICIAN. This was upsized to a 6-amharic sheath over a Bentson wire. A schofield's hook
catheter and glidewire were used to access the contralateral left iliofemoral system. Diagnostic arteriogram showed good patency of iliofemoral vessels. The left SFA was diffusely diseased and distal arteriogram showed occlusive disease of the
anterior tibial artery. Wire was used to select the anterior tibial artery and a quick cross catheter was advanced into the vessel. Intravascular lithotripsy was performed along anterior tibial artery diseased segments. After this, intravascular
lithotripsy was performed again in the left SFA. Completion arteriogram showed improved patency and vessel caliber of the left SFA, left anterior tibial artery. At the conclusion of the case, the patient had bilateral DP pulses by doppler. The
patient was transferred to the PACU in stable condition and the sheath was removed in the PACU under manual occlusive pressure.
[2024-01-07 14:42] LABS: Glucose - Point of Care 141 mg/dl (70-99)
--- NOTE | 2024-01-07 15:05 | CM ---
Case management following for d/c planning
OR today for Left lower arteriogram
Will need updated PT and wound care eval post op
CM will follow for needs
Plan - TBD
[2024-01-07] MEDS: NSS 1000 IV (15:37)
--- NOTE | 2024-01-07 15:51 | SUR.PHASEI ---
patient post arteriogram - sheath pulled at 1441, hemostasis at 1501, dry dressing - unable to void, bladder scan for > 850 of urine. straight cath for 1150 of clear yellow urine doppler signals DP bilaterally. dressing dry right groin
[2024-01-07 17:06] LABS: Glucose - Point of Care 147 mg/dl (70-99)
--- NOTE | 2024-01-07 17:18 | OR.RPT ---
Operative Report
Operative Report
Date of Operation: 01/07/2024
Pre Op Diagnosis: Critical limb threatening ischemia, left lower extremity
Post Op Diagnosis: Critical limb threatening ischemia, left lower extremity
Procedure:
1.) Intravascular lithotripsy to left anterior tibial artery stenosis (3.5 mm x 60 mm M5+ Shockwave balloon)
2.) Intravascular lithotripsy to left superficial femoral artery stenosis (7 mm x 60 mm M5+ Shockwave balloon)
3.) Diagnostic aortobiiliac arteriogram
4.) Diagnostic left lower extremity arteriogram
5.) Ultrasound-guided percutaneous access of the right common femoral artery
Surgeon: Viet Luque III, MD
Jewelry Consultant: Isma Pitts MD PhD, PGY1
Anesthesia: Sedation with local
Fluoroscopy:
22.4 min
162 mGy
46.59 Gy.cm2
Complications: None
Estimated Blood Loss: Minimal
History and Indications for Procedure: 73-year-old male with critical limb threatening ischemia of the left lower extremity manifested by left hallux gangrene and associated osteomyelitis.
Procedure in Detail: Antonio Ramirez was correctly identified and placed supine on the operating table. After adequate induction of anesthesia the bilateral groins were prepped and draped in the usual sterile fashion. A timeout was performed with the
nursing and anesthesia staff confirming the patient's identity as well as the nature and laterality of the procedure.
The right common femoral artery was identified under ultrasound guidance. The artery was patent. The superior and inferior aspects of the femoral head were identified with radiographic guidance and marked at the skin level. The proposed puncture
site was infiltrated with local anesthesia. We saved a copy of the ultrasound image to the medical record. Under ultrasound guidance we accessed the right common femoral artery with a micropuncture needle and upsized to a 5 Fr sheath over a Bentson
wire. The wire and a ShepherCarvoyant hook flush catheter were advanced into the distal abdominal aorta and a diagnostic aorto-biiliac arteriogram was performed:
AORTO-ILIAC ARTERIOGRAM:
Aorta: Patent with no significant stenosis identified.
Right common iliac artery: Patent with no significant stenosis identified.
Right external iliac artery: Patent with no significant stenosis identified.
Left common iliac artery: Patent with no significant stenosis identified.
Left external iliac artery: Patent with no significant stenosis identified.
Under roadmap guidance using a Glidewire and the CinsayerCarvoyant hook catheter we selected the left common iliac artery and then the external iliac artery. A catheter was tracked up and over the aortic bifurcation and placed in the distal external iliac
artery. A diagnostic left lower extremity arteriogram was then performed which demonstrated the following:
LEFT LOWER EXTREMITY:
Common femoral artery: Patent with no significant stenosis identified.
Profunda femoral artery: Patent with no significant stenosis identified.
Superficial femoral artery: Diffusely calcified. Areas of heavy calcification and high-grade stenosis in the distal superficial femoral artery.
Popliteal artery: Patent with no significant stenosis identified.
Anterior tibial artery: Patent. Areas of high-grade stenosis identified in the proximal and mid segment. Patent distally. Dominant tibial artery runoff
Tibioperoneal trunk: Patent with no significant stenosis identified
Peroneal artery: Occluded. Distal reconstitution identified however distal artery heavily diseased
Posterior tibial artery: Occluded.
ENDOVASCULAR INTERVENTION: Systemic heparin was administered. Exchanged out for a 6 Fr 45 cm sheath over a Storq wire. Selected the superficial femoral artery and popliteal artery under roadmap guidance with Quickcross catheter and glidewire. The
anterior tibial artery disease was crossed with a Quickcross and Glidewire. The wire and catheter were advanced into the distal anterior tibial artery artery and subtraction angio confirmed proper position in the true lumen. Exchanged out for a
Alsey ST 0.014 wire. Due to the heavily calcified nature of the anterior tibial artery disease and in an effort to modify the calcium to achieve maximum luminal gain with endovascular intervention I elected to proceed with intravascular
lithotripsy. A 3.5 mm x 60 mm M5+ Shockwave balloon was placed across the stenosis under roadmap guidance. Alternating rounds of lithotripsy pulse delivery at sub-nominal pressure and angioplasty at nominal pressure was performed across the
stenosis. In between rounds of pulse delivery and angioplasty the balloon was deflated and repositioned under roadmap guidance. All 300 pulses were delivered. Subsequent arteriogram demonstrated an excellent technical result with a widely patent
anterior tibial artery, brisk flow and no residual stenosis identified.
I then focused my attention on the superficial femoral artery disease. Due to the heavily calcified nature of the superficial femoral artery disease and in an effort to modify the calcium to achieve maximum luminal gain with endovascular
intervention I elected to proceed with intravascular lithotripsy. A 7 mm x 60 mm M5+ Shockwave balloon was placed across the stenosis under roadmap guidance. Alternating rounds of lithotripsy pulse delivery at sub-nominal pressure and angioplasty at
nominal pressure was performed across the stenosis. In between rounds of pulse delivery and angioplasty the balloon was deflated and repositioned under roadmap guidance. All 300 pulses were delivered.
COMPLETION ARTERIOGRAM: Excellent technical result. Widely patent superficial femoral artery with brisk flow and no significant residual stenosis identified. No filling defects or evidence of dissection identified. Widely patent anterior tibial
artery runoff with no residual stenosis identified. The anterior tibial artery continued across the ankle to form the dorsalis pedis artery which supplied the forefoot.
Satisfied with this result we concluded the procedure. The sheath tip was pulled back into the right external iliac artery. Protamine was administered.
The patient tolerated the procedure well and was taken to the recovery area in stable condition.
Attestation: I was present and responsible for the entire procedure.
Signed:
Viet Luque III, MD
[facility]
[phone] (wjer)
[2024-01-07] MEDS: LOVENOX 40 MG SC (17:21)
[2024-01-07] MEDS: CRESTOR 10 MG PO (17:24)
[2024-01-07] MEDS: NEURONTIN 600 MG PO (17:24)
[2024-01-07] MEDS: NOVOLOG FLEXPEN 20 UNITS SC (18:09)
--- NOTE | 2024-01-07 18:26 | W.PN.POD ---
Today's Communication
Today's Communication
Possible LT hallux amputation on 01/09/24
Medical clearance by Hosp service for the amputation.
Assessment / Plan
-
A/P : LT foot cellultis- improved well
LT hallux gangrenous changes
Diabetic small vessel disease.
S/P LT L/E angiogram on 01/06 with lithotripsy of SFA and Ant tib artery
Plan : Cont IV abx
Podiatry will schedule for toe amputation on
Discussed with patient about the toe amputation and discussed all risks and alternatives , no guarantees given to save the limb or life, pt understands to follow my recommendations to stay off the foot and strict Bg control etc to heal heal the
amputation site
Podiatry will follow
Subjective
Chief Complaint
Patient seen at bedside, doing well, no new complaints offered. No fever, chills. improved redness and decreased drainage to Lt big toe
Objective
Temp Pulse Resp BP Pulse Ox
97.9 F 92 16 116/72 95
01/07/24 17:15 01/07/24 18:15 01/07/24 18:15 01/07/24 18:15 01/07/24 18:15
01/07/24 06:25
01/07/24 06:25
Vital Signs and Lab results were reviewed.
LT foot decreasing edema, LT foot warm, well perfused.
Loss of protective sensation b/l feet
LT hallux resolved erythema, decreased edema, resolved drainage, distal aspect with dry gangrenous changes noted, resolved foul odor,no exposed bone.
no crepitus felt , no Signs of any abscess noted.
Lt Lower leg with chronic skin changes from lymphedema and venous stasis
[2024-01-07] MEDS: TOPROL XL PO (21:19)
[2024-01-07 21:52] LABS: Glucose - Point of Care 87 mg/dl (70-99)
[2024-01-07] MEDS: LANTUS SC (22:21)
[2024-01-07] MEDS: TYLENOL 650 MG PO (22:27)
[2024-01-07] MEDS: ZETIA 10 MG PO (22:27)
[2024-01-07] MEDS: LANTUS 0.149999999999999994 UNITS SC (22:30)
[2024-01-08 02:15] VITALS: BP 135/65
[2024-01-08] MEDS: DUONEB 3 ML INH ×4 (02:22→19:22)
[2024-01-08] MEDS: ZOSYN 50 IV ×4 (03:11→21:48)
[2024-01-08 03:17] LABS: Glucose - Point of Care 138 mg/dl (70-99)
[2024-01-08 06:00] VITALS: BMI 32.4
[2024-01-08 06:40] LABS: % Basophils 0.6 % (0-2); % Eosinophils 5.8 % (0-6); % Immature Granulocytes 0.7 % (0-0.5); % Lymphocytes 16.4 % (20.5-51.1); % Monocytes 8.4 % (1.7-9.3); % Neutrophils 68.1 % (42.2-75.2); Absolute Basophils 0.1 10^3/uL (0-0.2); Absolute Eosinophils 0.6 10^3/uL (0-0.7); Absolute Immature Granulocytes 0.1 10^3/uL (0-0.05); Absolute Lymphocytes 1.6 10^3/uL (1.2-3.4); Absolute Monocytes 0.8 10^3/uL (0.1-0.6); Absolute Neutrophils 6.5 10^3/uL (1.4-6.5); Hematocrit 33.4 % (39.0-52.0); Hemoglobin 10.8 g/dL (13.0-18.0); Mean Corp Hgb Conc. 32.3 g/dL (33.0-37.0); Mean Corpuscular Hgb 28.8 pg (27.0-31.0); Mean Corpuscular Volume 89.1 fL (80.0-94.0); Mean Platelet Volume 10.6 fL (7.4-10.4); Nucleated Red Blood Cells % 0 % (-); Platelet Count 364 10^3/uL (130-400); Red Blood Cell Count 3.75 10^6/uL (4.70-6.10); Red Cell Dist. Width 13.8 % (11.5-14.5); White Blood Cell Count 9.6 10^3/uL (4.8-10.8)
[2024-01-08 06:52] LABS: Vancomycin Trough 12.8 ug/ml (5-20)
[2024-01-08 06:59] LABS: Blood Urea Nitrogen 18 mg/dl (9-20); Calcium 9.1 mg/dl (8.4-10.2); Carbon Dioxide 27 mmol/L (22-30); Chloride 104 mmol/L (98-107); Estimated Creatinine Clearance 51 ml/min; Glucose 135 mg/dl (70-99); Potassium 4.4 mmol/L (3.5-5.1); Sodium 141 mmol/L (135-145); eGFR 48.85
[2024-01-08 07:00] VITALS: BP 137/67
[2024-01-08 07:50] LABS: Glucose - Point of Care 130 mg/dl (70-99)
[2024-01-08] MEDS: NOVOLOG FLEXPEN-LOW RESISTANCE SC (08:07)
--- NOTE | 2024-01-08 08:07 | W.PN.VS ---
Addendum entered and electronically signed by Tae Espinoza MD 01/08/24 09:53:
Seen and examined with JAKE Chavis. Agree with findings as noted below. No complaints. Intermittent straight cath last night overnight due to urinary retention. Abdomen soft, nondistended, nontender. Right groin flat, no hematoma. Left foot warm
with excellent dopplerable DP signal. Plan/as discussed and noted below.
Original Note:
Today's Communication / Plan
-
Seen and assessed with Dr. Espinoza
Assessment/Plan
-
POD 1 Intravascular lithotripsy to left anterior tibial artery stenosis (3.5 mm x 60 mm M5+ Shockwave balloon)
Intravascular lithotripsy to left superficial femoral artery stenosis (7 mm x 60 mm M5+ Shockwave balloon)
Plan:
-Groin site clean dry and intact. Patient can follow-up in our office as outpatient
-Amputation per podiatry
Subjective Data
-
Date of Service: January 08, 2024
Patient seen at bedside this a.m. with Dr. Espinoza. Patient offers no complaints at this time. Right foot/toe is wrapped. No events overnight
Objective Data
-
Vital Signs
Temp Pulse Resp BP Pulse Ox
99.3 F 81 16 137/67 95
01/08/24 07:00 01/08/24 07:56 01/08/24 07:56 01/08/24 07:00 01/08/24 07:56
Intake and Output
01/07/24 01/08/24 01/09/24
06:59 06:59 06:59
Intake Total 1040 / 1040 1420 / 1420
Output Total 2350 / 2350
Balance 1040 / 1040 -930 / -930
Intake:
Oral fluids 1040 / 1040 1320 / 1320
IV fluids (Total) 100 / 100
nss 100 / 100
Output:
Urine, Luque 1150 / 1150
Straight cath output 1200 / 1200
Other:
Number of approximated MODERATE 2
amounts of urine
Number of approximated LARGE 1
amounts of urine
Lab Results
01/08/24 06:11
01/08/24 06:11
Calcium 9.1 mg/dl (8.4-10.2) 01/08/24 06:11
Total Bilirubin 0.5 mg/dl (0.2-1.3) 01/04/24 14:43
AST 24 U/L (17-59) 01/04/24 14:43
ALT 32 U/L (0-50) 01/04/24 14:43
Alkaline Phosphatase 79 U/L (38-126) 01/04/24 14:43
Total Protein 6.9 g/dl (6.3-8.2) 01/04/24 14:43
Albumin 4.0 g/dl (3.5-5.0) 01/04/24 14:43
Physical Exam
-
AAOx3
No tachypnea
No tachycardia
Abdomen soft
Groin site clean dry and intact, soft, no ecchymosis
Doppler DP signals
Toe wound wrapped, dry
[2024-01-08] MEDS: VITAMIN D3 (cholecalciferol) 25 MCG PO (08:12)
[2024-01-08] MEDS: LASIX 40 MG PO ×2 (08:12→16:46)
[2024-01-08] MEDS: CARDIZEM CD 240 MG PO (08:12)
[2024-01-08] MEDS: VITAMIN B-12 500 MCG PO (08:12)
[2024-01-08] MEDS: PROTONIX 40 MG PO (08:12)
[2024-01-08] MEDS: NOVOLOG FLEXPEN SC (08:54)
[2024-01-08] MEDS: NOVOLOG FLEXPEN 10 UNITS SC ×3 (09:09→17:21)
--- NOTE | 2024-01-08 09:33 | PHA.VAN.FU ---
Vancomycin Assessment / Plan
- Assessment
Renal Function: Stable
WBC's are: WNL
In the past 24 hrs, patient has been: Afebrile
Concomitant Antimicrobials: piperacillin/tazobactam
- Assessment - Therapeutic Drug Monitoring
Extrapolated Cmax (mcg/mL): 30.6
Peak level was drawn: Appropriately (drawn ~2.5H after end of previous infusion)
Extrapolated Cmin (mcg/mL): 12.9
Trough Drawn: Appropriately
Levels were drawn: At steady state (levels drawn after 3rd maintenance dose of 1500mg Q24H)
Calculated AUC (mcg*h/mL): 493
Calculated ke: 0.0386
Calculated half life (H): 18
Calculated Vd (L): 79 (~0.8 L/kg)
Calculated Vanc CL (ml/min): 51
- Dosing Plan
Adjust Regimen to: Vanc 1250mg Q24H - first dose now then 01/08 0600
New Regimen Predicts: AUC (423), Peak (26.3), Trough (11)
Changed to dose by level after yesterday's dose to ensure levels appropriate before administering further dosing
Will reduce slightly to Vanc 1250mg Q24H to provide lowest possible effective dose with elevated SCR. Additionally, patient s/p arteriogram yesterday.
- Monitoring Plan
No level(s) ordered at this time: follow renal function - low threshold for dose by level if SCR increases
Monitoring Comments: if stable, consider repeat levels in next few days
- Follow Up
Pharmacy will continue to follow.
Vancomycin Follow UP
- -
Patient Age: 73
Patient Sex: Male
Vancomycin Day #: 5
Indication: Bone And Joint
Requesting Provider: Dr. Pompa / Aleyda
Pertinent Antimicrobial Allergies:
NKDA
Height / Weight:
Height 5 ft 9 in
Actual Weight 99.478 kg
Pertinent Past Medical History: IDDM, PVD, LLE wound/cellulitis, BMI ~33
- Vital Signs / Lab Results
Temp Pulse Resp BP Pulse Ox
99.3 F 81 16 137/67 95
01/08/24 07:00 01/08/24 07:56 01/08/24 07:56 01/08/24 07:00 01/08/24 07:56
Lab Results - Hematology
01/06/24 01/07/24 01/08/24
04:58 06:25 06:11
WBC 8.5 7.0 9.6
Lab Results - Chemistry
01/06/24 01/07/24 01/08/24
04:58 06:25 06:11
BUN 20 19 18
Creatinine 1.3 1.5 H 1.5 H
Estimated Creat Clear 59 51 51
Microbiology Results
01/04/24 14:58 Blood Culture - Preliminary
Blood/Venous No Growth in 72 hours- Final report to follow
01/04/24 14:43 Blood Culture - Preliminary
Blood/Venous No Growth in 72 hours- Final report to follow
01/04/24 22:52 MRSA Screen - Final
Nose No Methicillin Resistant Staphylococcus aureus isolated.
Therapeutic Drug Monitoring
Vancomycin Peak 27.8 ug/ml (18-26) H 01/07/24 10:04
Vancomycin Trough 12.8 ug/ml (5-20) 01/08/24 06:11
[2024-01-08 10:49] LABS: Urine Albumin Negative (Neg - Trace); Urine Bilirubin Negative (Negative); Urine Character Clear (Clear); Urine Color Yellow; Urine Glucose Negative (Negative); Urine Ketone 1+ (Negative); Urine Leukocyte Trace (Negative); Urine Nitrite Negative (Negative); Urine Occult Blood 4+ (Negative); Urine Specific Gravity 1.015 (<1.030); Urine Urobilinogen Negative (Neg - 1+)
--- NOTE | 2024-01-08 10:56 | W.PN.HOSP.TC ---
Addendum entered and electronically signed by Jean-Paul Gordon MD 01/08/24 11:23:
aspirin restarted as okay with podiatry
Original Note:
Today's Communication/Plan
-
Monitor vital signs and see plan
Bladder scan as needed
Renal/bladder ultrasound
Start Flomax
Restart baby aspirin if okay with podiatry
Cardiology for risk stratification
Echo
Assessment / Plan
Assessment / Plan
Physical Exam
General: Well Developed, Well Nourished, No Apparent Distress, Comfortable and Conversant
HEENT: Normocephalic, Anicteric and Moist mucous membranes
Respiratory: no wheezing and Non Labored Respirations
Cardiac: S1/S2 and Regular Rhythm
GI: Soft, Non Tender and Non Distended
Musculoskeletal: No Clubbing, No Cyanosis and left lower extremity erythema
Neuro: AO x 3, No Motor Deficits and Nonfocal/grossly intact
Psych: Calm
73 yo male presented to the ED due to drainage, redness, warmth and swelling from his first left toe, that he noticed worsening since he had a toenail clipped by his Customer Service Representative Teller 8 days ago. No fever, no chills, no n/v/d, no abdominal pain, no CP, no
SOB. No direct trauma.
# Acute osteomyelitis of the tuft of the distal phalanx of the left great toe with leukocytosis
Mild sepsis POA with tachycardia, leukocytosis, infection on toe
He has significant DM neuropathy so no significant pain but s.t shooting pain in left leg/foot
cw abx per ID
- WBC normalized. No fevers
ABIs noted
MRI consistent with osteomyelitis of the first distal phalanx
-wound care, elevate LLE
s/p angio 01/06 with intravascular lithotripsy of left anterior tibial artery stenosis and left superficial femoral artery stenosis; plan for possible left hallux amputation 01/08/2022. Given patient extensive cardiac history, consulted cardiology for
risk stratification
echo ordered
# Severe cellulitis throughout the left low extremity
-IV abx as above
-monitor clinically
renal insufficiency
monitor renal function closely
hold lisinopril
Check UA, urine lites, urine eos, renal/bladder ultrasound
If continues to get worse then will need nephrology evaluation
Acute urinary retention
patient does not have any history of BPH however does note problems with urination. Start Flomax
RENAL/BLADDER us
#CAD
HX of CABG
No chest pain
-takes daily aspirin, restart if ok with podiatry
#IDDM with Diabetic neuropathy
he follows with Endocrine as OP
HGB A1C 7.8
-home insulin, SSI
#Essential HTN
c/w home meds including Lasix.
-IV Diltiazem w hold parameters
#PVD - known diabetic neuropathy
#COPD, not in exacerbation
-home meds, monitor pulse oximetry
Full Code
DVT proph-Lovenox
Total time spent to see the patient, examine the patient on the floor, review data and lab results, discuss treatment plan with patient, nursing staff around 52 minutes
Anticipated Discharge: > 48 hours
Subjective/Interval History
-
Date of Service: January 08, 2024
denies pain
Objective Data
-
Labs:
Laboratory Results
01/08/24
06:11
WBC 9.6
Hgb 10.8 L
Hct 33.4 L
Plt Count 364
Sodium 141
Potassium 4.4
Chloride 104
Carbon Dioxide 27
BUN 18
Creatinine 1.5 H
Glucose 135 H
Calcium 9.1
Vital Signs:
Vital Signs
Temp Pulse Resp BP Pulse Ox
99.3 F 81 16 137/67 95
01/08/24 07:00 01/08/24 07:56 01/08/24 07:56 01/08/24 07:00 01/08/24 07:56
I&O
01/07/24 01/08/24 01/09/24
06:59 06:59 06:59
Intake Total 1040 / 1040 1420 / 1420
Output Total 2350 / 2350
Balance 1040 / 1040 -930 / -930
--- NOTE | 2024-01-08 11:12 | W.PN.ID1 ---
Date of Service
Date of Service: January 08, 2024
Today's Communication
Continue Vanco (d#5) / Zosyn (d#5)
Assessment / Plan
Left hallux gangrene
Left hallux cellulitis
Left hallux osteomyelitis
CAD; Hx OK
COPD
HTN
Dyslipidemia
DM with neuropathy
BPH
Nephrolithiasis
Diverticulosis
Recommendations:
Continue Vanco (d#5) / Zosyn (d#5)
Await further procedure per Podiatry.
Given underlying diabetes and neuropathy, patient is at high risk for limb loss.
����������������������������������������������������������
Chief Complaint
-: Other (Left toe osteomyelitis / gangrene)
Vital Signs / Physical Exam
Vital Signs
Vital Signs
Temp Pulse Resp BP Pulse Ox
99.3 F 81 16 137/67 95
01/08/24 07:00 01/08/24 07:56 01/08/24 07:56 01/08/24 07:00 01/08/24 07:56
Physical Exam
Constitutional: No Acute Distress, Comfortable and Non-toxic
Eyes: Sclera Anicteric
Cardiovascular: S1/S2; Negative S3/S4
Pulmonary: Clear and Non Labored
Gastrointestinal: Soft, Non Tender and Non Distended
Wound: Other (Left hallux dressed. No erythema up leg.)
Neurological: Awake and Alert
Psychological: Calm
Objective Data
Lab Data
Lab Results
01/08/24 06:11
01/08/24 06:11
ESR 64 mm/hour (0-20) H 01/07/24 06:25
PT 15.7 Sec (11.4-14.6) H 01/05/24 05:21
INR 1.27 01/05/24 05:21
Estimated Creat Clear 51 ml/min 01/08/24 06:11
Lactic Acid 1.2 mmol/L (0.7-2.0) 01/04/24 14:43
Total Bilirubin 0.5 mg/dl (0.2-1.3) 01/04/24 14:43
AST 24 U/L (17-59) 01/04/24 14:43
ALT 32 U/L (0-50) 01/04/24 14:43
Alkaline Phosphatase 79 U/L (38-126) 01/04/24 14:43
C-Reactive Protein 39.80 mg/L (0.0-10.00) H 01/07/24 06:25
Most recent labs reviewed.
Micro Results:
01/04/24 14:58 Blood Culture - Preliminary
Blood/Venous No Growth in 72 hours- Final report to follow
01/04/24 14:43 Blood Culture - Preliminary
Blood/Venous No Growth in 72 hours- Final report to follow
01/04/24 22:52 MRSA Screen - Final
Nose No Methicillin Resistant Staphylococcus aureus isolated.
Imaging:
01/26 MRI left foot: Signal changes throughout the first distal phalanx including bone marrow edema and enhancement, which is most compatible with osteomyelitis.
01/04/2024 X-ray left foot: Acute osteomyelitis of the tuft of the distal phalanx of the left great toe. There is severe cellulitis throughout the left great toe and forefoot. Please see full dictation for additional detail.
[2024-01-08] MEDS: VANCOCIN 275 MG IV (11:14)
[2024-01-08] MEDS: FLOMAX 0.400000000000000022 MG PO (11:14)
[2024-01-08 11:30] LABS: Urine Sodium 130 mmol/L (30-90)
--- NOTE | 2024-01-08 11:37 | CON.CAR ---
Addendum entered and electronically signed by Nitin Alcantara MD 01/08/24 14:43:
Patient seen and examined in collaboration with SOFTWARE SECURITY CONSULTANT; agree with below.
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
-The patient denies any anginal symptoms.
-Given the urgency of surgery, patient should proceed as scheduled; patient is above average risk (likely moderate to high), but appears to be medically optimized from a cardiac standpoint.
-Will obtain an echocardiogram to reassess baseline cardiac function.
-property assessment monitor.
-Will follow perioperatively.
Original Note:
Consultation
Consultation Request
Date/Time Consultation Requested: 01/08/24 [id number]
Date/Time Consultation Performed: 01/08/24 1138
Requesting Provider: Dr. Gordon
Performing Provider: Saray ROMAN for Dr. Cedillo
Reason for Consultation: pre-op cardiovascular risk assessment
Medical History
-
Chief Complaint: left toe wound
History of Present Illness:
73 y/o male (patient of Dr. Bell) with history of CAD s/p CABG 2019, hypertension, diabetes, COPD, LE edema, mild CM EF 45%, RBBB (seen 04/10/23), and dyslipidemia who is here for left toe wound, which worsened with redness, swelling, and drainage.
He is diagnosed with osteomyelitis and cellulitis and is on ABX. He is seen by vascular and podiatry here. Yesterday, with vascular, he had an arteriogram with intravascular lithotripsy to left anterior tibial artery stenosis and left superficial
femoral arterial stenosis. Plan is for possible left hallux amputation 01/09/2024 with podiatry. We are consulted for pre-op cardiovascular risk assessment.
Past Medical History
Past Medical History: CAD, COPD, HTN, Hypercholesterolemia and IDDM
Social History
Tobacco: Former Smoker
Family History
Family History: Reviewed & Not Pertinent
Allergies / Home Medications
Allergy/AdvReac Type Severity Reaction Status Date / Time
No Known Allergies Allergy Verified 01/04/24 13:21
�Medication �Instructions �Recorded �Confirmed �Type
ezetimibe 10 mg tablet 10 mg PO HS High cholesterol 12/22/16 01/04/24 History
pantoprazole 40 mg tablet,delayed 40 mg PO DAILY Gastrointestinal 12/22/16 01/04/24 History
release issue
aspirin 81 mg chewable tablet 81 mg PO DAILY Blood clot 12/24/16 01/04/24 History
prevention/tx
diltiazem HCl 240 mg 240 mg PO DAILY 01/14/19 01/04/24 Rx
capsule,extended release 24 hr
cyanocobalamin (vitamin B-12) 500 mcg PO DAILY Supplement 03/26/20 01/04/24 History
1,000 mcg tablet
rosuvastatin 10 mg tablet 10 mg PO QPM High cholesterol 03/26/20 01/04/24 History
furosemide 40 mg tablet 40 mg PO BID AT 0800,1700 Fluid 08/23/22 01/04/24 History
retention/Swelling
gabapentin 300 mg capsule 600 mg PO QPM Neurological 08/23/22 01/04/24 History
Condition
insulin glargine U-300 conc 300 65 unit SC HS Diabetes 08/23/22 01/04/24 History
unit/mL (1.5 mL) subcutaneous pen
(Toujeo SoloStar U-300 Insulin)
insulin lispro 100 unit/mL 20 unit SC AC Diabetes 08/23/22 01/04/24 History
subcutaneous pen (Humalog KwikPen
(U-100) Insulin)
lisinopril 10 mg tablet 10 mg PO DAILY Blood pressure 08/23/22 01/04/24 History
metoprolol succinate 25 mg 25 mg PO HS Blood pressure 08/23/22 01/04/24 History
tablet,extended release 24 hr
cholecalciferol (vitamin D3) 25 25 mcg PO DAILY Supplement 01/04/24 01/04/24 History
mcg (1,000 unit) tablet (Vitamin
D3)
ipratropium 0.5 mg-albuterol 3 mg 3 ml inhalation R Q6 01/04/24 01/04/24 History
(2.5 mg base)/3 mL nebulization Lung/Breathing Issues
soln
Review of Systems
-
History Source: Patient
All other systems: Negative unless noted
Respiratory: Trouble Breathing (chronic HAYS)
Skin: Other (toe wound)
Physical Exam
Vital Signs
Temp Pulse Resp BP Pulse Ox
99.3 F 81 16 137/67 95
01/08/24 07:00 01/08/24 07:56 01/08/24 07:56 01/08/24 07:00 01/08/24 07:56
Lab Results
01/08/24 06:11
01/08/24 06:11
Physical Exam
General: Well Developed, Well Nourished and No Apparent Distress
Respiratory: Clear and Non Labored Respirations
Cardiac: Regular Rhythm
Neuro: AO x 3
Impression / Plan
-
LLE wound, left toe osteomyelitis:
-on ABX, s/p vascular procedure
-plan is for left hallux amputation 01/09/2024
-pre-operative risk assessment: patient is at elevated risk for procedure. However, he denies any CP. He has chronic HAYS. He does not appear volume overloaded to assessment. Continue ASA and statin. EKG appears stable overall. Updated echo is
pending.
CAD s/p CABG:
-stable without CP
-continue ASA, statin, and BB
Cardiomyopathy, mild:
-Echo 08/24/22: Left ventricle is mildly dilated. Ejection fraction is 45%. Global hypokinesis. No significant valvular disease. Mildly dilated ascending aorta.
-does not appear volume overloaded to assessment
-repeat echo pending
RBBB:
-chronic, stable
-noted on OP EKG 04/2023
HTN:
-continue meds and monitor
COPD:
-stable without wheezing
Data Reviewed
-
EKG: Tracing Personally Visualized and interpreted
Radiology: Report Reviewed by me (toe xray: ACUTE OSTEOMYELITIS of the tuft of the distal phalanx of the left great toe. 2. Severe cellulitis throughout the left great toe and forefoot.)
Medical Tests (Nuc Med, Echo etc): Report Reviewed by me (Most recent echo as above; repeat echo ordered)
Labs: Labs Reviewed by me
[2024-01-08 12:14] LABS: Glucose - Point of Care 236 mg/dl (70-99)
[2024-01-08] MEDS: NOVOLOG FLEXPEN-LOW RESISTANCE 2 UNITS SC (12:18)
[2024-01-08] MEDS: LOW STRENGTH ASPIRIN 81 MG PO (12:19)
--- NOTE | 2024-01-08 12:49 | CM ---
Case management following for d/c planning
POD#1 - Intravascular lithotripsy to LLE
For possible LT hallux amputation on 01/09/24
PT/OT eval post op
CM will follow for d/c needs
Plan - TBD post op - based on PT/OT evals
[2024-01-08 13:57] LABS: Body Fluid for Eosinophils No Eosinophils seen
[2024-01-08 16:05] VITALS: BP 94/62
[2024-01-08 16:30] VITALS: BP 137/73
[2024-01-08 17:11] LABS: Glucose - Point of Care 190 mg/dl (70-99)
[2024-01-08] MEDS: NEURONTIN 600 MG PO (17:22)
[2024-01-08] MEDS: NOVOLOG FLEXPEN-LOW RESISTANCE 1 UNITS SC (17:22)
[2024-01-08] MEDS: LOVENOX 40 MG SC (17:22)
[2024-01-08] MEDS: CRESTOR 10 MG PO (17:22)
[2024-01-08 19:51] VITALS: BP 147/68
[2024-01-08 21:40] LABS: Glucose - Point of Care 191 mg/dl (70-99)
[2024-01-08] MEDS: TYLENOL 650 MG PO (21:46)
[2024-01-08] MEDS: TOPROL XL 25 MG PO (21:48)
[2024-01-08] MEDS: ZETIA 10 MG PO (21:48)
[2024-01-08] MEDS: LANTUS 0.149999999999999994 UNITS SC (22:18)
[2024-01-08 23:31] VITALS: BP 109/58
[2024-01-09] VITALS (13 sets, daily range): BP systolic 111–140; BP diastolic 64–79; BMI 32.2
[2024-01-09] MEDS: DUONEB 3 ML INH ×4 (01:46→19:25)
[2024-01-09] MEDS: ZOSYN 50 IV ×4 (03:05→21:27)
--- NOTE | 2024-01-09 03:15 | PTCARENOTE ---
Pt woken up for vital signs and antibiotics. Pt encouraged to urinate. Last bladder scan at 0000 was 280mls. Pt kept stating 'relax' and 'I've already been scanned three times today'. This RN educated pt that his bladder is to be scanned Q6Hs d/t
retention. Pt informed that if scan is >400mls and pt is unable to urinate, pt will need to be straight cathed. Pt stated 'yeah you're not doing that'. This RN will attempt to BS pt at 0600. Call ramírez within reach and plan of care ongoing.
[2024-01-09] MEDS: ROBITUSSIN DM 5 ML PO ×2 (04:01→21:27)
[2024-01-09 06:08] LABS: Glucose - Point of Care 215 mg/dl (70-99)
[2024-01-09] MEDS: NOVOLOG FLEXPEN-LOW RESISTANCE 2 UNITS SC (06:14)
[2024-01-09] MEDS: VANCOCIN 275 MG IV (06:15)
[2024-01-09 07:25] LABS: % Basophils 0.5 % (0-2); % Eosinophils 7.6 % (0-6); % Immature Granulocytes 0.4 % (0-0.5); % Lymphocytes 20.8 % (20.5-51.1); % Monocytes 9.9 % (1.7-9.3); % Neutrophils 60.8 % (42.2-75.2); Absolute Eosinophils 0.6 10^3/uL (0-0.7); Absolute Lymphocytes 1.7 10^3/uL (1.2-3.4); Absolute Monocytes 0.8 10^3/uL (0.1-0.6); Absolute Neutrophils 4.9 10^3/uL (1.4-6.5); Hematocrit 35.4 % (39.0-52.0); Hemoglobin 11.4 g/dL (13.0-18.0); Mean Corp Hgb Conc. 32.2 g/dL (33.0-37.0); Mean Corpuscular Hgb 28.7 pg (27.0-31.0); Mean Corpuscular Volume 89.2 fL (80.0-94.0); Mean Platelet Volume 10.7 fL (7.4-10.4); Nucleated Red Blood Cells % 0 % (-); Platelet Count 352 10^3/uL (130-400); Red Blood Cell Count 3.97 10^6/uL (4.70-6.10); Red Cell Dist. Width 13.4 % (11.5-14.5); White Blood Cell Count 8.1 10^3/uL (4.8-10.8)
[2024-01-09 07:41] LABS: Blood Urea Nitrogen 18 mg/dl (9-20); Carbon Dioxide 28 mmol/L (22-30); Chloride 100 mmol/L (98-107); Estimated Creatinine Clearance 55 ml/min; Glucose 202 mg/dl (70-99); Potassium 4.3 mmol/L (3.5-5.1); Sodium 139 mmol/L (135-145); eGFR 53.07
--- NOTE | 2024-01-09 08:21 | PHA.VAN.FU ---
Vancomycin Assessment / Plan
- Assessment
Renal Function: Stable
WBC's are: WNL
In the past 24 hrs, patient has been: Afebrile
Concomitant Antimicrobials: piperacillin/tazobactam
- Dosing Plan
Continue: Vanc 1250mg Q24H
- Monitoring Plan
No level(s) ordered at this time: consider repeat levels following Sat or Sun dose
- Follow Up
Pharmacy will continue to follow.
Vancomycin Follow UP
- -
Patient Age: 73
Patient Sex: Male
Vancomycin Day #: 6
Indication: Bone And Joint
Requesting Provider: Dr. Pompa / Aleyda
Pertinent Antimicrobial Allergies:
NKDA
Height / Weight:
Height 5 ft 9 in
Actual Weight 98.94 kg
Pertinent Past Medical History: IDDM, PVD, LLE wound/cellulitis, BMI ~33
- Vital Signs / Lab Results
Temp Pulse Resp BP Pulse Ox
98.4 F 84 16 125/66 92
01/09/24 08:18 01/09/24 08:18 01/09/24 08:18 01/09/24 08:18 01/09/24 08:18
Lab Results - Hematology
01/07/24 01/08/24 01/09/24
06:25 06:11 06:07
WBC 7.0 9.6 8.1
Lab Results - Chemistry
01/07/24 01/08/24 01/09/24
06:25 06:11 06:07
BUN 19 18 18
Creatinine 1.5 H 1.5 H 1.4 H
Estimated Creat Clear 51 51 55
Lab Results - Urine
01/08/24
10:28
Urine Nitrite (Reflex) Negative
Leukocyte Esterase Rfl Trace A
Ur Squamous Epith Cells 3-5
Microbiology Results
01/04/24 14:58 Blood Culture - Preliminary
Blood/Venous No Growth in 4 days- Final report to follow
01/04/24 14:43 Blood Culture - Preliminary
Blood/Venous No Growth in 4 days- Final report to follow
Therapeutic Drug Monitoring
Vancomycin Peak 27.8 ug/ml (18-26) H 01/07/24 10:04
Vancomycin Trough 12.8 ug/ml (5-20) 01/08/24 06:11
[2024-01-09] MEDS: PROTONIX 40 MG PO (08:53)
[2024-01-09] MEDS: CARDIZEM CD 240 MG PO (08:53)
[2024-01-09] MEDS: LOW STRENGTH ASPIRIN 81 MG PO (08:53)
[2024-01-09] MEDS: VITAMIN B-12 500 MCG PO (08:53)
[2024-01-09] MEDS: FLOMAX 0.400000000000000022 MG PO (08:53)
[2024-01-09] MEDS: LASIX 40 MG PO ×2 (08:53→16:56)
[2024-01-09] MEDS: VITAMIN D3 (cholecalciferol) 25 MCG PO (08:54)
[2024-01-09] MEDS: NOVOLOG FLEXPEN SC ×2 (08:58→11:47)
--- NOTE | 2024-01-09 08:59 | W.PN.CD ---
Today's Communication / Plan
-
-Preoperative risk assessment: Patient is at elevated risk for procedure (likely moderate to high); however, appears to be medically optimized from a cardiac standpoint--can proceed with surgery today as scheduled.
-Echo yesterday revealed an LVEF of 40-45%, no significant valvular disease; small echodensity at the apex seen, thrombus cannot completely be excluded.
-Will obtain a cardiac MRI after surgery for better assessment to see if patient needs to be placed on anticoagulation; proceed with surgery as planned.
Impression / Plan
-
LLE wound, left toe osteomyelitis:
-on ABX, s/p vascular procedure
-plan is for left hallux amputation 01/09/2024
-Preoperative risk assessment: Patient is at elevated risk for procedure (likely moderate to high); however, appears to be medically optimized from a cardiac standpoint--can proceed with surgery today as scheduled.
CAD s/p CABG:
-Denies any anginal symptoms.
-continue ASA, statin, and BB
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
-Echo yesterday revealed an LVEF of 40-45%, no significant valvular disease; small echodensity at the apex seen, thrombus cannot completely be excluded.
-Will obtain a cardiac MRI after surgery for better assessment to see if patient needs to be placed on anticoagulation; proceed with surgery as planned.
-Compensated on examination.
-Continue Toprol-XL, lisinopril, and Lasix; not on Entresto due to renal dysfunction prior to surgery--can reevaluate as outpatient.
-Will add Jardiance for GDMT.
RBBB:
-chronic, stable
-noted on OP EKG 04/2023
HTN:
-continue meds and monitor
COPD:
-Relatively stable.
Physical Exam
Vital Signs/Labs
Vital Signs
Temp Pulse Resp BP Pulse Ox
98.4 F 84 16 125/66 92
01/09/24 08:18 01/09/24 08:18 01/09/24 08:18 01/09/24 08:18 01/09/24 08:18
01/08/24 01/09/24 01/10/24
06:59 06:59 06:59
Actual Weight 99.478 kg 98.94 kg
01/09/24 06:07
01/09/24 06:07
PT 15.7 Sec (11.4-14.6) H 01/05/24 05:21
INR 1.27 01/05/24 05:21
Physical Exam
Constitutional: No acute distress and Comfortable
EENT: Anicteric
Cardiovascular: Rhythm & rate is regular, Systolic murmur absent, Pedal edema present (Trace; significant erythema lower left leg/foot (toes wrapped in gauze)) and S1S2 is normal
Respiratory: Respiratory effort normal and Wheeze Present (Mild expiratory wheeze upper lung green)
GI: Soft
Neuro/Psych: AO x 3
Other: Skin (Left lower leg erythema)
Data Reviewed
-
Date of Service: January 09, 2024
EKG: Tracing Personally Visualized and interpreted (Telemetry: Sinus rhythm)
Echo: Tracing Personally Visualized and interpreted (EF 40-45%)
Medical Tests (PFT, Pathology etc): Discussed with Patient
Labs: Labs Reviewed by me
[2024-01-09 11:43] LABS: Glucose - Point of Care 193 mg/dl (70-99)
[2024-01-09] MEDS: NOVOLOG FLEXPEN-LOW RESISTANCE 1 UNITS SC ×2 (11:58→16:57)
--- NOTE | 2024-01-09 11:58 | W.PN.HOSP.TC ---
Today's Communication/Plan
-
Monitor vital signs and see plan
OR today by Podiatry
Monitor renal function
Bladder scan as needed
Cardiac MRI per cardiology after surgery
cw abx
Assessment / Plan
Assessment / Plan
Physical Exam
General: Well Developed, Well Nourished, No Apparent Distress, Comfortable and Conversant
HEENT: Normocephalic, Anicteric and Moist mucous membranes
Respiratory: no wheezing and Non Labored Respirations
Cardiac: S1/S2 and Regular Rhythm
GI: Soft, Non Tender and Non Distended
Musculoskeletal: No Clubbing, No Cyanosis and left lower extremity erythema
Neuro: AO x 3, No Motor Deficits and Nonfocal/grossly intact
Psych: Calm
73 yo male presented to the ED due to drainage, redness, warmth and swelling from his first left toe, that he noticed worsening since he had a toenail clipped by his [employer] 8 days ago. No fever, no chills, no n/v/d, no abdominal pain, no CP, no
SOB. No direct trauma.
# Acute osteomyelitis of the tuft of the distal phalanx of the left great toe with leukocytosis
Mild sepsis POA with tachycardia, leukocytosis, infection on toe
He has significant DM neuropathy so no significant pain but s.t shooting pain in left leg/foot
cw abx per ID
- WBC normalized. No fevers
ABIs noted
MRI consistent with osteomyelitis of the first distal phalanx
-wound care, elevate LLE
s/p angio 01/06 with intravascular lithotripsy of left anterior tibial artery stenosis and left superficial femoral artery stenosis; plan for possible left hallux amputation 01/08/2022. Given patient extensive cardiac history, consulted cardiology for
risk stratification
echo 01/07 with a EF 40 to 45%, no significant valvular disease, small echodensity at the apex seen, thrombus cannot completely be excluded. Cardiology is okay with patient proceeding surgery with moderate to high risk. Will obtain cardiac MRI after
surgery
# Severe cellulitis throughout the left low extremity
-IV abx as above
-monitor clinically
renal insufficiency
monitor renal function closely
hold lisinopril
no urine eos, renal/bladder ultrasound with moderate prostate hypertrophy.
bladder scan prn
If continues to get worse then will need nephrology evaluation
Acute urinary retention
patient does not have any history of BPH however does note problems with urination. Start Flomax
RENAL/BLADDER US with mod prostate hypertrophy
bladder scan prn with straight cath
#CAD
HX of CABG
No chest pain
-takes daily aspirin, restarted since ok with podiatry
#IDDM with Diabetic neuropathy
he follows with Endocrine as OP
HGB A1C 7.8
-home insulin, SSI
#Essential HTN
c/w home meds including Lasix.
-IV Diltiazem w hold parameters
#PVD - known diabetic neuropathy
#COPD, not in exacerbation
-home meds, monitor pulse oximetry
Full Code
DVT proph-Lovenox
Total time spent to see the patient, examine the patient on the floor, review data and lab results, discuss treatment plan with patient, nursing staff around 51 minutes
Anticipated Discharge: > 48 hours
Subjective/Interval History
-
Date of Service: January 09, 2024
denies pain
Objective Data
-
Labs:
Laboratory Results
01/09/24
06:07
WBC 8.1
Hgb 11.4 L
Hct 35.4 L
Plt Count 352
Sodium 139
Potassium 4.3
Chloride 100
Carbon Dioxide 28
BUN 18
Creatinine 1.4 H
Glucose 202 H
Calcium 9.0
Vital Signs:
Vital Signs
Temp Pulse Resp BP Pulse Ox
97.5 F 101 20 140/73 94
01/09/24 11:14 01/09/24 11:14 01/09/24 11:14 01/09/24 11:14 01/09/24 11:14
I&O
01/08/24 01/09/24 01/10/24
06:59 06:59 06:59
Intake Total 1420 / 1420 1180 / 1180
Output Total 2350 / 2350 2024
Balance -930 / -930 -845 / -845
--- NOTE | 2024-01-09 13:55 | W.PN.ID1 ---
Date of Service
Date of Service: January 09, 2024
Today's Communication
Continue Vanco (d#6) / Zosyn (d#6)
Assessment / Plan
Left hallux gangrene
Left hallux cellulitis
Left hallux osteomyelitis
CAD; Hx [place]
COPD
HTN
Dyslipidemia
DM with neuropathy
BPH
Nephrolithiasis
Diverticulosis
Recommendations:
Continue Vanco (d#6) / Zosyn (d#6)
Patient for left hallux surgery today. Await further cultures/path
Given underlying diabetes and neuropathy, patient is at high risk for limb loss.
����������������������������������������������������������
Chief Complaint
-: Other (Left toe osteomyelitis / gangrene)
Subjective / Review of Systems
Review of Systems: No Fever and No Chills
Vital Signs / Physical Exam
Vital Signs
Vital Signs
Temp Pulse Resp BP Pulse Ox
97.5 F 101 20 140/73 94
01/09/24 11:14 01/09/24 11:14 01/09/24 11:14 01/09/24 11:14 01/09/24 11:14
Physical Exam
Constitutional: No Acute Distress, Comfortable and Non-toxic
Eyes: Sclera Anicteric
Cardiovascular: S1/S2; Negative S3/S4
Pulmonary: Clear and Non Labored
Gastrointestinal: Soft, Non Tender and Non Distended
Wound: Other (Left hallux dressed. No erythema up leg.)
Neurological: Awake and Alert
Psychological: Calm
Objective Data
Lab Data
Lab Results
01/09/24 06:07
01/09/24 06:07
ESR 64 mm/hour (0-20) H 01/07/24 06:25
PT 15.7 Sec (11.4-14.6) H 01/05/24 05:21
INR 1.27 01/05/24 05:21
Estimated Creat Clear 55 ml/min 01/09/24 06:07
Lactic Acid 1.2 mmol/L (0.7-2.0) 01/04/24 14:43
Total Bilirubin 0.5 mg/dl (0.2-1.3) 01/04/24 14:43
AST 24 U/L (17-59) 01/04/24 14:43
ALT 32 U/L (0-50) 01/04/24 14:43
Alkaline Phosphatase 79 U/L (38-126) 01/04/24 14:43
C-Reactive Protein 39.80 mg/L (0.0-10.00) H 01/07/24 06:25
Most recent labs reviewed.
Micro Results:
01/04/24 14:58 Blood Culture - Preliminary
Blood/Venous No Growth in 4 days- Final report to follow
01/04/24 14:43 Blood Culture - Preliminary
Blood/Venous No Growth in 4 days- Final report to follow
01/04/24 22:52 MRSA Screen - Final
Nose No Methicillin Resistant Staphylococcus aureus isolated.
Imaging:
01/26 MRI left foot: Signal changes throughout the first distal phalanx including bone marrow edema and enhancement, which is most compatible with osteomyelitis.
01/04/2024 X-ray left foot: Acute osteomyelitis of the tuft of the distal phalanx of the left great toe. There is severe cellulitis throughout the left great toe and forefoot. Please see full dictation for additional detail.
[2024-01-09 14:47] LABS: Glucose - Point of Care 195 mg/dl (70-99)
--- NOTE | 2024-01-09 15:36 | W.SUR.POST ---
Surgical Immediate Post Op
Note
Pre Op Diagnosis: Lt Hallux dry gangrene
Post Op Diagnosis: Same as above
Procedure Performed: Left partial hallux amputation with primary closure
Primary Surgeon:Dr. Pollack DP
Secondary Surgeons: None
Anesthesia: MAc with local block
Estimated Blood Loss: 2cc's
Fluids: none
Drains/Shunts: None
Specimens/Cultures: LT hallux aerobic and anaerobic cultures and clean bone margins from head of the proximal phalanx sent
Doppler/Duplex/Angio (Y/N): no
Complications: None
Operative Findings: [place], health blood flow from surgical site/deep tissues noted, no deep tissue purulence.
patient stable in PACU with stable vital signs and intact vascular status to LT foot
[2024-01-09 15:45] LABS: Glucose - Point of Care 157 mg/dl (70-99)
--- NOTE | 2024-01-09 16:08 | CM ---
Case management following for d/c planning
Pt for OR today with Podiatry
Will need PT/OT eval post op
Watch for wound care needs post op
CM will continue to follow for d/c needs
Plan - needs TBD post op
[2024-01-09 16:44] LABS: Glucose - Point of Care 179 mg/dl (70-99)
--- NOTE | 2024-01-09 16:46 | PTCARENOTE ---
Received patient from PACU via bed. Pox: 96% 2L NC. Patient denies pain/SOB. Accu check 179. Call ramírez within reach. Plan of care ongoing.
[2024-01-09] MEDS: FLUSH (NSS) 1 FLUSH IV (16:56)
[2024-01-09] MEDS: NOVOLOG FLEXPEN 10 UNITS SC (16:56)
[2024-01-09] MEDS: LOVENOX 40 MG SC (17:00)
[2024-01-09] MEDS: CRESTOR 10 MG PO (17:00)
[2024-01-09] MEDS: NEURONTIN 600 MG PO (17:00)
[2024-01-09] MEDS: COLACE 100 MG PO (21:27)
[2024-01-09] MEDS: ZETIA 10 MG PO (21:27)
[2024-01-09] MEDS: TOPROL XL 25 MG PO (21:27)
[2024-01-09 21:45] LABS: Glucose - Point of Care 299 mg/dl (70-99)
[2024-01-09] MEDS: LANTUS 0.149999999999999994 UNITS SC (21:45)
--- NOTE | 2024-01-09 22:36 | PTCARENOTE ---
Pt unable to void in urinal. Pt bladder scanned for >1000mls. Pt asking for conway instead of being straight cathed since it will be his 5th time. JESSIE Kimbrough notified, conway order placed. 16F conway placed, 1050mls of clear yellow urine drained.
Call ramírez within reach and plan of care ongoing.
[2024-01-10] MEDS: TYLENOL 650 MG PO ×3 (00:58→14:24)
[2024-01-10] MEDS: DUONEB 3 ML INH ×4 (01:17→19:39)
[2024-01-10 03:10] VITALS: BP 124/65
[2024-01-10] MEDS: ZOSYN 50 IV ×4 (04:25→21:20)
[2024-01-10] MEDS: VANCOCIN 275 MG IV (05:54)
[2024-01-10 06:00] VITALS: BMI 32.0
[2024-01-10 07:05] LABS: % Basophils 0.2 % (0-2); % Eosinophils 0.1 % (0-6); % Immature Granulocytes 0.4 % (0-0.5); % Lymphocytes 9.5 % (20.5-51.1); % Monocytes 5.1 % (1.7-9.3); % Neutrophils 84.7 % (42.2-75.2); Absolute Lymphocytes 0.9 10^3/uL (1.2-3.4); Absolute Monocytes 0.5 10^3/uL (0.1-0.6); Absolute Neutrophils 7.7 10^3/uL (1.4-6.5); Hematocrit 32.3 % (39.0-52.0); Hemoglobin 10.4 g/dL (13.0-18.0); Mean Corp Hgb Conc. 32.2 g/dL (33.0-37.0); Mean Corpuscular Hgb 28.7 pg (27.0-31.0); Mean Platelet Volume 11.1 fL (7.4-10.4); Nucleated Red Blood Cells % 0 % (-); Platelet Count 326 10^3/uL (130-400); Red Blood Cell Count 3.63 10^6/uL (4.70-6.10); Red Cell Dist. Width 13.2 % (11.5-14.5); White Blood Cell Count 9.1 10^3/uL (4.8-10.8)
[2024-01-10 07:25] LABS: ALT (SGPT) 36 U/L (0-50); AST (SGOT) 32 U/L (17-59); Albumin 3.5 g/dl (3.5-5.0); Alkaline Phosphatase 67 U/L (38-126); Blood Urea Nitrogen 18 mg/dl (9-20); Carbon Dioxide 26 mmol/L (22-30); Chloride 99 mmol/L (98-107); Estimated Creatinine Clearance 58 ml/min; Glucose 314 mg/dl (70-99); Potassium 4.4 mmol/L (3.5-5.1); Sodium 137 mmol/L (135-145); Total Bilirubin 0.3 mg/dl (0.2-1.3); Total Protein 6.4 g/dl (6.3-8.2); eGFR 58.01
[2024-01-10 07:30] VITALS: BP 128/66
[2024-01-10 07:41] LABS: Glucose - Point of Care 312 mg/dl (70-99)
[2024-01-10] MEDS: VITAMIN B-12 500 MCG PO (08:23)
[2024-01-10] MEDS: FLOMAX 0.400000000000000022 MG PO (08:23)
[2024-01-10] MEDS: LOW STRENGTH ASPIRIN 81 MG PO (08:23)
[2024-01-10] MEDS: CARDIZEM CD 240 MG PO (08:23)
[2024-01-10] MEDS: PROTONIX 40 MG PO (08:23)
[2024-01-10] MEDS: VITAMIN D3 (cholecalciferol) 25 MCG PO (08:24)
[2024-01-10] MEDS: LASIX 40 MG PO ×2 (08:24→15:29)
[2024-01-10] MEDS: NOVOLOG FLEXPEN 10 UNITS SC ×3 (08:24→17:28)
[2024-01-10] MEDS: NOVOLOG FLEXPEN-LOW RESISTANCE 4 UNITS SC (08:25)
[2024-01-10] MEDS: JARDIANCE 10 MG PO (08:32)
[2024-01-10] MEDS: NOVOLIN N vial 0.100000000000000006 UNITS SC (08:40)
--- NOTE | 2024-01-10 09:04 | PHA.VAN.FU ---
Vancomycin Assessment / Plan
- Assessment
Renal Function: SCR Decreasing (1.5->1.4->1.3)
WBC's are: WNL
In the past 24 hrs, patient has been: Afebrile
Concomitant Antimicrobials: PIPERACILLIN-TAZOBACTAM
- Dosing Plan
Continue: VANC 1250 MG Q24H
- Monitoring Plan
Peak Level: 01/10 0900
Trough Level: 01/11 0530
- Follow Up
Pharmacy will continue to follow.
Vancomycin Follow UP
- -
Patient Age: 73
Patient Sex: Male
Vancomycin Day #: 7
Indication: Bone And Joint
Requesting Provider: Dr. Pompa / Aleyda
Pertinent Antimicrobial Allergies:
NKDA
Height / Weight:
Height 5 ft 9 in
Actual Weight 98.203 kg
Pertinent Past Medical History: IDDM, PVD, LLE wound/cellulitis, BMI ~33
- Vital Signs / Lab Results
Temp Pulse Resp BP Pulse Ox
97.5 F 78 19 128/66 92
01/10/24 07:30 01/10/24 08:23 01/10/24 07:30 01/10/24 08:23 01/10/24 07:30
Lab Results - Hematology
01/08/24 01/09/24 01/10/24
06:11 06:07 05:20
WBC 9.6 8.1 9.1
Lab Results - Chemistry
01/08/24 01/09/24 01/10/24
06:11 06:07 05:20
BUN 18 18 18
Creatinine 1.5 H 1.4 H 1.3
Estimated Creat Clear 51 55 58
Albumin 3.5
Microbiology Results
01/09/24 15:25 Gram Stain - Preliminary
Foot - Left
01/04/24 14:58 Blood Culture - Final
Blood/Venous No Growth - Final Report
01/04/24 14:43 Blood Culture - Final
Blood/Venous No Growth - Final Report
Therapeutic Drug Monitoring
Vancomycin Peak 27.8 ug/ml (18-26) H 01/07/24 10:04
Vancomycin Trough 12.8 ug/ml (5-20) 01/08/24 06:11
--- NOTE | 2024-01-10 10:06 | W.PN.CD ---
Today's Communication / Plan
-
-Patient appears to be stable from a cardiac standpoint status-post left partial hallux amputation 01/09/2024.
-Echo on 01/08/2024 revealed an LVEF of 40-45%, no significant valvular disease; small echodensity at the apex seen, thrombus could not completely be excluded.
-Will obtain a cardiac MRI today for better assessment to see if patient needs to be placed on anticoagulation.
Impression / Plan
-
LLE wound, left toe osteomyelitis:
-on ABX, s/p vascular procedure
-Patient appears to be stable from a cardiac standpoint status-post left partial hallux amputation 01/09/2024.
CAD s/p CABG:
-Stable; denies any anginal symptoms.
-continue ASA, statin, and BB
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
-Echo on 01/08/2024 revealed an LVEF of 40-45%, no significant valvular disease; small echodensity at the apex seen, thrombus could not completely be excluded.
-Will obtain a cardiac MRI today for better assessment to see if patient needs to be placed on anticoagulation.
-Compensated on examination.
-Continue Toprol-XL, lisinopril, and Lasix; not on Entresto due to renal dysfunction prior to surgery--can reevaluate as outpatient.
-Will add Jardiance for GDMT.
RBBB:
-chronic, stable
-noted on OP EKG 04/2023
HTN:
-Continue current medication regimen.
COPD:
-Relatively stable.
Physical Exam
Vital Signs/Labs
Vital Signs
Temp Pulse Resp BP Pulse Ox
97.5 F 78 19 128/66 92
01/10/24 07:30 01/10/24 08:23 01/10/24 07:30 01/10/24 08:23 01/10/24 07:30
01/09/24 01/10/24 01/11/24
06:59 06:59 06:59
Actual Weight 98.94 kg 98.203 kg
01/10/24 05:20
01/10/24 05:20
PT 15.7 Sec (11.4-14.6) H 01/05/24 05:21
INR 1.27 01/05/24 05:21
Physical Exam
Constitutional: No acute distress and Comfortable
EENT: Anicteric
Cardiovascular: Rhythm & rate is regular, Systolic murmur absent, Pedal edema present (Trace; left foot erythema) and S1S2 is normal
Respiratory: Respiratory effort normal and Lungs clear to auscul.
GI: Soft
Neuro/Psych: AO x 3
Other: Skin (Left foot erythema)
Data Reviewed
-
Date of Service: January 10, 2024
EKG: Tracing Personally Visualized and interpreted (Telemetry: Sinus rhythm)
Labs: Labs Reviewed by me
--- NOTE | 2024-01-10 12:17 | W.PN.HOSP.TC ---
Today's Communication/Plan
-
Monitor vitals closely plan
Cardiac MRI
Titrate insulin
Monitor renal function
Continue with antibiotics
PT/OT per Podiatry
Assessment / Plan
Assessment / Plan
Physical Exam
General: Well Developed, Well Nourished, No Apparent Distress, Comfortable and Conversant
HEENT: Normocephalic, Anicteric and Moist mucous membranes
Respiratory: no wheezing and Non Labored Respirations
Cardiac: S1/S2 and Regular Rhythm
GI: Soft, Non Tender and Non Distended
Musculoskeletal: left lower extremity erythema
Neuro: AO x 3, No Motor Deficits and Nonfocal/grossly intact
Psych: Calm
73 yo male presented to the ED due to drainage, redness, warmth and swelling from his first left toe, that he noticed worsening since he had a toenail clipped by his [employer] 8 days ago. No fever, no chills, no n/v/d, no abdominal pain, no CP, no
SOB. No direct trauma.
# Acute osteomyelitis of the tuft of the distal phalanx of the left great toe with leukocytosis
Mild sepsis POA with tachycardia, leukocytosis, infection on toe
He has significant DM neuropathy so no significant pain but s.t shooting pain in left leg/foot
cw abx per ID
- WBC normalized. No fevers
ABIs noted
MRI consistent with osteomyelitis of the first distal phalanx
-wound care, elevate LLE
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 tissue pending
echo 01/07 with a EF 40 to 45%, no significant valvular disease, small echodensity at the apex seen, thrombus cannot completely be excluded. Cardiology is okay with patient proceeding surgery with moderate to high risk. cardiac MRI ordered now post
OP
# Severe cellulitis throughout the left low extremity
-IV abx as above
-monitor clinically
renal insufficiency
monitor renal function closely
hold lisinopril
no urine eos, renal/bladder ultrasound with moderate prostate hypertrophy.
bladder scan prn
If continues to get worse then will need nephrology evaluation
Acute urinary retention
patient does not have any history of BPH however does note problems with urination. Started Flomax
RENAL/BLADDER US with mod prostate hypertrophy
now with conway 01/08; voiding trial once more ambulatory. he would need to f/u with urology outpatient
#CAD
HX of CABG
No chest pain
-takes daily aspirin, restarted since ok with podiatry
#IDDM with Diabetic neuropathy
he follows with Endocrine as OP
HGB A1C 7.8
increase insulin back to 52 units. on mealtime insulin as well
NPH given 01/09 to cover until night
#Essential HTN
c/w home meds including Lasix.
#PVD - known diabetic neuropathy
#COPD, not in exacerbation
-home meds, monitor pulse oximetry
Full Code
DVT proph-Lovenox
Total time spent to see the patient, examine the patient on the floor, review data and lab results, discuss treatment plan with patient, nursing staff around 53 minutes
Anticipated Discharge: > 48 hours
Subjective/Interval History
-
Date of Service: January 10, 2024
denies nausea
Objective Data
-
Labs:
Laboratory Results
01/10/24
05:20
WBC 9.1
Hgb 10.4 L
Hct 32.3 L
Plt Count 326
Sodium 137
Potassium 4.4
Chloride 99
Carbon Dioxide 26
BUN 18
Creatinine 1.3
Glucose 314 H
Calcium 9.0
Total Bilirubin 0.3
AST 32
ALT 36
Alkaline Phosphatase 67
Vital Signs:
Vital Signs
Temp Pulse Resp BP Pulse Ox
97.5 F 78 19 128/66 95
01/10/24 07:30 01/10/24 08:23 01/10/24 07:30 01/10/24 08:23 01/10/24 11:20
I&O
01/09/24 01/10/24 01/11/24
06:59 06:59 06:59
Intake Total 1180 / 1180 1800 / 1800
Output Total 2024 / 2024 2140 / 2140
Balance -845 / -845 -340 / -340
[2024-01-10] MEDS: DUONEB INH (13:21)
[2024-01-10 13:40] LABS: Glucose - Point of Care 229 mg/dl (70-99)
[2024-01-10] MEDS: NOVOLOG FLEXPEN-LOW RESISTANCE 2 UNITS SC (13:41)
[2024-01-10 13:53] VITALS: BP 124/60
[2024-01-10] MEDS: COLACE 100 MG PO ×2 (15:29→20:29)
[2024-01-10] MEDS: FLUSH (NSS) 1 FLUSH IV (15:31)
[2024-01-10 15:44] VITALS: BP 114/59
--- NOTE | 2024-01-10 16:18 | CM ---
Case management following for d/c planning
POD 1 amputation of toe
Remains on antibiotics
PT/OT eval pending
Watch for wound care needs
CM will continue to follow for d/c needs
Plan - needs TBD pend PT/OT eval
[2024-01-10 16:50] LABS: Glucose - Point of Care 270 mg/dl (70-99)
[2024-01-10] MEDS: NOVOLOG FLEXPEN-LOW RESISTANCE 3 UNITS SC (17:28)
[2024-01-10] MEDS: CRESTOR 10 MG PO (17:28)
[2024-01-10] MEDS: NEURONTIN 600 MG PO (17:28)
[2024-01-10] MEDS: LOVENOX 40 MG SC (17:29)
--- NOTE | 2024-01-10 17:46 | W.PN.POD ---
Today's Communication
Today's Communication
Patient is stable per podiatry to discharge to home, but he lives alone , he states that he can take care of himself.
Assessment / Plan
-
A/P : S/P t partial hallux amputation POD #1
LT foot cellultis- resolved
Diabetic small vessel disease.
S/P LT L/E angiogram on 01/06 with lithotripsy of SFA and Ant tib artery
Plan : IV abx per ID
Changed surgical dressings applied adaptic, dry gauze and kerlix to Lt foot
Pt can ambulate with wedge shoe to Lt foot and walker
Keep the Lt foot elevated when at rest
He will f/u in my office after discharge
Subjective
Chief Complaint
LT hallux gangrene.
Subjective
Patient seen at bedside, no new complaints offered, he is feeling well, no fever, chills, no pain in LT foot , minimal strike through bleeding noted in surgical dressings
Objective
Temp Pulse Resp BP Pulse Ox
98.0 F 100 18 114/59 94
01/10/24 15:44 01/10/24 15:44 01/10/24 15:44 01/10/24 15:44 01/10/24 15:44
01/10/24 05:20
01/10/24 05:20
Vital Signs and Lab results were reviewed.
Intact vascular status LT foot.
Lt hallux partial amputation site is clean, dry, no oozing, no erythema, well coapted skin incsion, intact sutures noted, no bleeing noted, healthy surgical margins, no necrosis noted
--- NOTE | 2024-01-10 17:58 | W.PN.UPDATE ---
Update Note
Progress Note Update
Cardiac MRI result 01/10/2024:
IMPRESSION: There is no MR evidence for left ventricular apical thrombus.
-No further cardiac recommendations at this time.
-Continue current cardiac medication regimen.
-Outpatient follow-up with Cardiology.
[2024-01-10 19:20] VITALS: BP 110/59
[2024-01-10 20:30] LABS: Glucose - Point of Care 205 mg/dl (70-99)
[2024-01-10] MEDS: TOPROL XL 25 MG PO (21:20)
[2024-01-10] MEDS: ZETIA 10 MG PO (21:20)
[2024-01-10] MEDS: LANTUS 0.520000000000000018 UNITS SC (21:20)
[2024-01-10 23:38] VITALS: BP 103/54
[2024-01-11] VITALS (9 sets, daily range): BP systolic 106–148; BP diastolic 53–85; PULSE 85–91; O2SAT 94–95; BMI 31.9
[2024-01-11] MEDS: DUONEB 3 ML INH ×4 (01:15→18:08)
[2024-01-11] MEDS: ZOSYN 50 IV ×4 (03:59→21:29)
[2024-01-11] MEDS: VANCOCIN 275 MG IV (05:54)
[2024-01-11 08:01] LABS: Glucose - Point of Care 140 mg/dl (70-99)
[2024-01-11] MEDS: NOVOLOG FLEXPEN-LOW RESISTANCE SC (08:18)
[2024-01-11] MEDS: FLOMAX 0.400000000000000022 MG PO (08:18)
[2024-01-11] MEDS: LOW STRENGTH ASPIRIN 81 MG PO (08:18)
[2024-01-11] MEDS: PROTONIX 40 MG PO (08:19)
[2024-01-11] MEDS: CARDIZEM CD 240 MG PO (08:19)
[2024-01-11] MEDS: VITAMIN B-12 500 MCG PO (08:19)
[2024-01-11] MEDS: VITAMIN D3 (cholecalciferol) 25 MCG PO (08:19)
[2024-01-11] MEDS: LASIX 40 MG PO ×2 (08:19→15:10)
[2024-01-11] MEDS: NOVOLOG FLEXPEN 10 UNITS SC ×3 (08:20→17:28)
[2024-01-11] MEDS: JARDIANCE 10 MG PO (08:20)
[2024-01-11] MEDS: COLACE 100 MG PO ×2 (08:20→19:20)
[2024-01-11 09:09] LABS: % Basophils 0.6 % (0-2); % Eosinophils 7.6 % (0-6); % Immature Granulocytes 0.3 % (0-0.5); % Lymphocytes 22.1 % (20.5-51.1); % Monocytes 8.3 % (1.7-9.3); % Neutrophils 61.1 % (42.2-75.2); Absolute Basophils 0.1 10^3/uL (0-0.2); Absolute Eosinophils 0.8 10^3/uL (0-0.7); Absolute Lymphocytes 2.4 10^3/uL (1.2-3.4); Absolute Monocytes 0.9 10^3/uL (0.1-0.6); Absolute Neutrophils 6.5 10^3/uL (1.4-6.5); Hematocrit 34.3 % (39.0-52.0); Hemoglobin 10.9 g/dL (13.0-18.0); Mean Corp Hgb Conc. 31.8 g/dL (33.0-37.0); Mean Corpuscular Hgb 28.8 pg (27.0-31.0); Mean Corpuscular Volume 90.5 fL (80.0-94.0); Mean Platelet Volume 10.9 fL (7.4-10.4); Nucleated Red Blood Cells % 0 % (-); Platelet Count 367 10^3/uL (130-400); Red Blood Cell Count 3.79 10^6/uL (4.70-6.10); Red Cell Dist. Width 13.7 % (11.5-14.5); White Blood Cell Count 10.6 10^3/uL (4.8-10.8)
[2024-01-11 09:23] LABS: Vancomycin Peak 30.7 ug/ml (18-26)
[2024-01-11 09:38] LABS: Blood Urea Nitrogen 22 mg/dl (9-20); Calcium 9.3 mg/dl (8.4-10.2); Carbon Dioxide 29 mmol/L (22-30); Chloride 102 mmol/L (98-107); Estimated Creatinine Clearance 47 ml/min; Glucose 136 mg/dl (70-99); Potassium 3.7 mmol/L (3.5-5.1); Sodium 141 mmol/L (135-145); eGFR 45.21
[2024-01-11 11:49] LABS: Glucose - Point of Care 181 mg/dl (70-99)
[2024-01-11] MEDS: MIRALAX 17 GRAMS PO (12:02)
[2024-01-11] MEDS: NOVOLOG FLEXPEN-LOW RESISTANCE 1 UNITS SC ×2 (12:02→17:29)
--- NOTE | 2024-01-11 12:23 | W.PN.HOSP.TC ---
Today's Communication/Plan
-
Monitor vital signs and see plan
PT/OT
Voiding trial in a.m.
Monitor renal function
Continue with antibiotic
ID to see
Follow cultures
Assessment / Plan
Assessment / Plan
Physical Exam
General: Well Developed, Well Nourished, No Apparent Distress, Comfortable and Conversant
HEENT: Normocephalic, Anicteric and Moist mucous membranes
Respiratory: no wheezing and Non Labored Respirations
Cardiac: S1/S2 and Regular Rhythm
GI: Soft, Non Tender and Non Distended
Musculoskeletal: left lower extremity erythema
Neuro: AO x 3, No Motor Deficits and Nonfocal/grossly intact
Psych: Calm
73 yo male presented to the ED due to drainage, redness, warmth and swelling from his first left toe, that he noticed worsening since he had a toenail clipped by his Continuing Education Specialist 8 days ago. No fever, no chills, no n/v/d, no abdominal pain, no CP, no
SOB. No direct trauma.
# Acute osteomyelitis of the tuft of the distal phalanx of the left great toe with leukocytosis
Mild sepsis POA with tachycardia, leukocytosis, infection on toe
He has significant DM neuropathy so no significant pain but s.t shooting pain in left leg/foot
cw abx per ID
- WBC normalized. No fevers
ABIs noted
MRI consistent with osteomyelitis of the first distal phalanx
-wound care, elevate LLE
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 tissue preliminary growing staph species
echo 01/07 with a EF 40 to 45%, no significant valvular disease, small echodensity at the apex seen, thrombus cannot completely be excluded. Cardiac MRI 01/09 without any thrombus.
# Severe cellulitis throughout the left low extremity
-IV abx as above
-monitor clinically
renal insufficiency
monitor renal function closely
hold lisinopril
no urine eos, renal/bladder ultrasound with moderate prostate hypertrophy.
bladder scan prn
If continues to get worse then will need nephrology evaluation
Acute urinary retention
patient does not have any history of BPH however does note problems with urination. Started Flomax
RENAL/BLADDER US with mod prostate hypertrophy
now with [facility] 01/08; voiding trial once more ambulatory. he would need to f/u with urology outpatient
#CAD
HX of CABG
No chest pain
-takes daily aspirin, restarted since ok with podiatry
#IDDM with Diabetic neuropathy
he follows with Endocrine as OP
HGB A1C 7.8
increase insulin back to 52 units. on mealtime insulin as well
#Essential HTN
c/w home meds including Lasix.
#PVD - known diabetic neuropathy
#COPD, not in exacerbation
-home meds, monitor pulse oximetry
Full Code
DVT proph-Lovenox
Total time spent to see the patient, examine the patient on the floor, review data and lab results, discuss treatment plan with patient, nursing staff around 51 minutes
Anticipated Discharge: > 48 hours
Subjective/Interval History
-
Date of Service: January 11, 2024
denies pain
Objective Data
-
Labs:
Laboratory Results
01/11/24
08:30
WBC 10.6
Hgb 10.9 L
Hct 34.3 L
Plt Count 367
Sodium 141
Potassium 3.7
Chloride 102
Carbon Dioxide 29
BUN 22 H
Creatinine 1.6 H
Glucose 136 H
Calcium 9.3
Vital Signs:
Vital Signs
Temp Pulse Resp BP Pulse Ox
97.5 F 83 17 127/68 95
01/11/24 11:00 01/11/24 11:00 01/11/24 11:00 01/11/24 11:00 01/11/24 11:00
I&O
01/10/24 01/11/24 01/12/24
06:59 06:59 06:59
Intake Total 1800 / 1800 830 / 830
Output Total 2140 / 2140 2800 / 2800
Balance -340 / -340 -1969 / -1969
--- NOTE | 2024-01-11 12:36 | PHA.VAN.FU ---
Vancomycin Assessment / Plan
- Assessment
Renal Function: SCR Increasing (1.5->1.4->1.3->1.6)
WBC's are: WNL
In the past 24 hrs, patient has been: Afebrile
Concomitant Antimicrobials: piperacillin-tazobactam
- Assessment - Therapeutic Drug Monitoring
Extrapolated Cmax (mcg/mL): 30.7
Peak level was drawn: Appropriately
- Dosing Plan
Continue: vanc 1250mg q24 h
- Monitoring Plan
Trough Level: 01/11 0530
- Follow Up
Pharmacy will continue to follow.
Vancomycin Follow UP
- -
Patient Age: 73
Patient Sex: Male
Vancomycin Day #: 8
Indication: Bone And Joint
Requesting Provider: Dr. Pompa / Aleyda
Pertinent Antimicrobial Allergies:
NKDA
Height / Weight:
Height 5 ft 9 in
Actual Weight 97.976 kg
Pertinent Past Medical History: IDDM, PVD, LLE wound/cellulitis, BMI ~33
- Vital Signs / Lab Results
Temp Pulse Resp BP Pulse Ox
97.5 F 83 17 127/68 95
01/11/24 11:00 01/11/24 11:00 01/11/24 11:00 01/11/24 11:00 01/11/24 11:00
Lab Results - Hematology
01/09/24 01/10/24 01/11/24
06:07 05:20 08:30
WBC 8.1 9.1 10.6
Lab Results - Chemistry
01/09/24 01/10/24 01/11/24
06:07 05:20 08:30
BUN 18 18 22 H
Creatinine 1.4 H 1.3 1.6 H
Estimated Creat Clear 55 58 47
Albumin 3.5
Microbiology Results
01/09/24 15:25 Tissue Culture - Preliminary
Foot - Left Staphylococcus species
Gram Stain - Preliminary
01/09/24 15:25 Anaerobic Culture - Preliminary
Foot - Left Culture pending. Anaerobic cultures are examined after 3
days incubation. Additional information to follow.
01/04/24 14:58 Blood Culture - Final
Blood/Venous No Growth - Final Report
01/04/24 14:43 Blood Culture - Final
Blood/Venous No Growth - Final Report
Therapeutic Drug Monitoring
Vancomycin Peak 30.7 ug/ml (18-26) H 01/11/24 08:30
Vancomycin Trough 12.8 ug/ml (5-20) 01/08/24 06:11
--- NOTE | 2024-01-11 13:17 | W.PN.ID1 ---
Date of Service
Date of Service: January 11, 2024
Today's Communication
Continue Vanco/Zosyn pending cx.
Assessment / Plan
Left hallux gangrene
Left hallux cellulitis
Left hallux osteomyelitis
PAD s/p LLE endovascular intervention 01/07/24
CAD; Hx [place]
COPD
HTN
Dyslipidemia
DM with neuropathy
BPH
Nephrolithiasis
Diverticulosis
Recommendations:
01/09/24 s/p left hallux amputation. Await path. Prelim cx Staph species.
Continue Vanco (d#7) / Zosyn (d#7)
Given underlying diabetes and neuropathy, patient is at high risk for limb loss.
����������������������������������������������������������
Chief Complaint
-: Other (Left toe osteomyelitis / gangrene)
Subjective / Review of Systems
No complaints today.
Vital Signs / Physical Exam
Vital Signs
Vital Signs
Temp Pulse Resp BP Pulse Ox
97.5 F 83 17 127/68 95
01/11/24 11:00 01/11/24 11:00 01/11/24 11:00 01/11/24 11:00 01/11/24 11:00
Physical Exam
Constitutional: No Acute Distress
Pulmonary: Clear
Gastrointestinal: Soft, Non Tender and Non Distended
Skin: Dry
Objective Data
Lab Data
Lab Results
01/11/24 08:30
01/11/24 08:30
ESR 64 mm/hour (0-20) H 01/07/24 06:25
PT 15.7 Sec (11.4-14.6) H 01/05/24 05:21
INR 1.27 01/05/24 05:21
Estimated Creat Clear 47 ml/min 01/11/24 08:30
Lactic Acid 1.2 mmol/L (0.7-2.0) 01/04/24 14:43
Total Bilirubin 0.3 mg/dl (0.2-1.3) 01/10/24 05:20
AST 32 U/L (17-59) 01/10/24 05:20
ALT 36 U/L (0-50) 01/10/24 05:20
Alkaline Phosphatase 67 U/L (38-126) 01/10/24 05:20
C-Reactive Protein 39.80 mg/L (0.0-10.00) H 01/07/24 06:25
Most recent labs reviewed.
Micro Results:
01/09/24 15:25 Tissue Culture - Preliminary
Foot - Left Staphylococcus species
Gram Stain - Preliminary
01/09/24 15:25 Anaerobic Culture - Preliminary
Foot - Left Culture pending. Anaerobic cultures are examined after 3
days incubation. Additional information to follow.
01/04/24 14:58 Blood Culture - Final
Blood/Venous No Growth - Final Report
01/04/24 14:43 Blood Culture - Final
Blood/Venous No Growth - Final Report
01/04/24 22:52 MRSA Screen - Final
Nose No Methicillin Resistant Staphylococcus aureus isolated.
Imaging:
01/07/24 MRI left foot: Signal changes throughout the first distal phalanx including bone marrow edema and enhancement, which is most compatible with osteomyelitis.
01/04/2024 X-ray left foot: Acute osteomyelitis of the tuft of the distal phalanx of the left great toe. There is severe cellulitis throughout the left great toe and forefoot. Please see full dictation for additional detail.
[2024-01-11] MEDS: TYLENOL 650 MG PO (14:32)
[2024-01-11 16:52] LABS: Glucose - Point of Care 178 mg/dl (70-99)
[2024-01-11] MEDS: CRESTOR 10 MG PO (17:30)
[2024-01-11] MEDS: NEURONTIN 600 MG PO (17:30)
[2024-01-11] MEDS: LOVENOX 40 MG SC (17:32)
[2024-01-11 21:18] LABS: Glucose - Point of Care 181 mg/dl (70-99)
[2024-01-11] MEDS: LANTUS 0.520000000000000018 UNITS SC (21:32)
[2024-01-11] MEDS: TOPROL XL 25 MG PO (21:32)
[2024-01-11] MEDS: ZETIA 10 MG PO (21:32)
[2024-01-12] MEDS: DUONEB 3 ML INH ×4 (02:28→19:44)
[2024-01-12 03:30] VITALS: BP 113/60
[2024-01-12 03:50] LABS: Glucose - Point of Care 142 mg/dl (70-99)
[2024-01-12] MEDS: ZOSYN 50 IV ×4 (04:54→21:42)
[2024-01-12] MEDS: VANCOCIN 275 MG IV (05:50)
[2024-01-12 06:00] VITALS: BMI 31.7
[2024-01-12 06:27] LABS: % Basophils 0.8 % (0-2); % Eosinophils 10.2 % (0-6); % Immature Granulocytes 0.3 % (0-0.5); % Lymphocytes 22.3 % (20.5-51.1); % Monocytes 10.1 % (1.7-9.3); % Neutrophils 56.3 % (42.2-75.2); Absolute Basophils 0.1 10^3/uL (0-0.2); Absolute Lymphocytes 2.2 10^3/uL (1.2-3.4); Absolute Neutrophils 5.4 10^3/uL (1.4-6.5); Hematocrit 32.7 % (39.0-52.0); Mean Corp Hgb Conc. 33.6 g/dL (33.0-37.0); Mean Corpuscular Hgb 28.8 pg (27.0-31.0); Mean Corpuscular Volume 85.6 fL (80.0-94.0); Mean Platelet Volume 10.7 fL (7.4-10.4); Nucleated Red Blood Cells % 0 % (-); Platelet Count 373 10^3/uL (130-400); Red Blood Cell Count 3.82 10^6/uL (4.70-6.10); Red Cell Dist. Width 13.7 % (11.5-14.5); White Blood Cell Count 9.7 10^3/uL (4.8-10.8)
[2024-01-12 06:46] LABS: Blood Urea Nitrogen 22 mg/dl (9-20); Calcium 9.3 mg/dl (8.4-10.2); Carbon Dioxide 26 mmol/L (22-30); Chloride 103 mmol/L (98-107); Estimated Creatinine Clearance 54 ml/min; Glucose 127 mg/dl (70-99); Potassium 3.6 mmol/L (3.5-5.1); Sodium 140 mmol/L (135-145); eGFR 53.07
[2024-01-12 06:50] LABS: Vancomycin Trough 12.8 ug/ml (5-20)
[2024-01-12 07:30] VITALS: BP 132/74
--- NOTE | 2024-01-12 07:34 | PHA.VAN.FU ---
Vancomycin Assessment / Plan
- Assessment
Renal Function: Stable (but fluctuating, SCr 1.3->1.6->1.4)
WBC's are: WNL
In the past 24 hrs, patient has been: Afebrile
Concomitant Antimicrobials: piperacillin-tazobactam
- Assessment - Therapeutic Drug Monitoring
Extrapolated Cmax (mcg/mL): 32.1
Peak level was drawn: Appropriately
Extrapolated Cmin (mcg/mL): 12.7
Trough Drawn: Appropriately
Levels were drawn: At steady state
Calculated AUC (mcg*h/mL): 504
Calculated ke: 0.0414
Calculated half life (H): 12.7
Calculated Vd (L): 59.93
Calculated Vanc CL (ml/min): 41.32
- Dosing Plan
Continue: vanc 1250 mg q24 h
- Monitoring Plan
Level(s) appropriate: Recheck trough at minimum of weekly intervals (~01/17), Repeat sooner for changes in renal function or clinical status
- Follow Up
Pharmacy will continue to follow.
Vancomycin Follow UP
- -
Patient Age: 73
Patient Sex: Male
Vancomycin Day #: 9
Indication: Bone And Joint
Requesting Provider: Dr. Pompa / Aleyda
Pertinent Antimicrobial Allergies:
NKDA
Height / Weight:
Height 5 ft 9 in
Actual Weight 97.324 kg
Pertinent Past Medical History: IDDM, PVD, LLE wound/cellulitis, BMI ~33
- Vital Signs / Lab Results
Temp Pulse Resp BP Pulse Ox
98.1 F 78 18 113/60 96
01/12/24 03:30 01/12/24 03:30 01/12/24 03:30 01/12/24 03:30 01/12/24 03:30
Lab Results - Hematology
01/09/24 01/10/24 01/11/24
06:07 05:20 08:30
WBC 8.1 9.1 10.6
01/12/24
05:39
WBC 9.7
Lab Results - Chemistry
01/09/24 01/10/24 01/11/24
06:07 05:20 08:30
BUN 18 18 22 H
Creatinine 1.4 H 1.3 1.6 H
Estimated Creat Clear 55 58 47
Albumin 3.5
01/12/24
05:39
BUN 22 H
Creatinine 1.4 H
Estimated Creat Clear 54
Albumin
Microbiology Results
01/09/24 15:25 Tissue Culture - Preliminary
Foot - Left Staphylococcus species
Gram Stain - Preliminary
01/09/24 15:25 Anaerobic Culture - Preliminary
Foot - Left Culture pending. Anaerobic cultures are examined after 3
days incubation. Additional information to follow.
Therapeutic Drug Monitoring
Vancomycin Peak 30.7 ug/ml (18-26) H 01/11/24 08:30
Vancomycin Trough 12.8 ug/ml (5-20) 01/12/24 05:39
[2024-01-12 07:52] LABS: Glucose - Point of Care 128 mg/dl (70-99)
[2024-01-12] MEDS: NOVOLOG FLEXPEN-LOW RESISTANCE SC (08:12)
[2024-01-12] MEDS: VITAMIN D3 (cholecalciferol) 25 MCG PO (08:56)
[2024-01-12] MEDS: VITAMIN B-12 500 MCG PO (08:56)
[2024-01-12] MEDS: MIRALAX 17 GRAMS PO (08:56)
[2024-01-12] MEDS: LASIX 40 MG PO ×2 (08:56→15:24)
[2024-01-12] MEDS: COLACE 100 MG PO ×2 (08:56→19:20)
[2024-01-12] MEDS: LOW STRENGTH ASPIRIN 81 MG PO (08:56)
[2024-01-12] MEDS: PROTONIX 40 MG PO (08:56)
[2024-01-12] MEDS: CARDIZEM CD 240 MG PO (08:57)
[2024-01-12] MEDS: FLOMAX 0.400000000000000022 MG PO (08:57)
[2024-01-12] MEDS: NOVOLOG FLEXPEN 10 UNITS SC ×3 (08:57→17:48)
[2024-01-12] MEDS: JARDIANCE 10 MG PO (09:08)
[2024-01-12 11:43] LABS: Glucose - Point of Care 226 mg/dl (70-99)
[2024-01-12 11:50] VITALS: BP 136/70
--- NOTE | 2024-01-12 11:50 | W.PN.HOSP.TC ---
Today's Communication/Plan
-
Monitor vital signs and see plan
Continue with antibiotics per infectious disease
Monitor renal function
pt/ot
voiding trial today
Assessment / Plan
Assessment / Plan
Physical Exam
General: Well Developed, Well Nourished, No Apparent Distress, Comfortable and Conversant
HEENT: Normocephalic, Anicteric and Moist mucous membranes
Respiratory: no wheezing and Non Labored Respirations
Cardiac: S1/S2 and Regular Rhythm
GI: Soft, Non Tender and Non Distended
Musculoskeletal: left lower extremity erythema
Neuro: AO x 3, No Motor Deficits and Nonfocal/grossly intact
Psych: Calm
73 yo male presented to the ED due to drainage, redness, warmth and swelling from his first left toe, that he noticed worsening since he had a toenail clipped by his Mailing Machine Operator 8 days ago. No fever, no chills, no n/v/d, no abdominal pain, no CP, no
SOB. No direct trauma.
# Acute osteomyelitis of the tuft of the distal phalanx of the left great toe with leukocytosis
Mild sepsis POA with tachycardia, leukocytosis, infection on toe
He has significant DM neuropathy so no significant pain but shooting pain in left leg/foot
cw abx per ID
ABIs noted
MRI consistent with osteomyelitis of the first distal phalanx
-wound care, elevate LLE
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 tissue preliminary growing staph species
echo 01/07 with a EF 40 to 45%, no significant valvular disease, small echodensity at the apex seen, thrombus cannot completely be excluded. Cardiac MRI 01/09 without any thrombus.
# Severe cellulitis throughout the left low extremity
-IV abx as above
-monitor clinically
renal insufficiency
monitor renal function closely
hold lisinopril
no urine eos, renal/bladder ultrasound with moderate prostate hypertrophy.
bladder scan prn
If continues to get worse then will need nephrology evaluation
Constipation
Laxatives
Acute urinary retention
patient does not have any history of BPH however does note problems with urination. Started Flomax
RENAL/BLADDER US with mod prostate hypertrophy
got [facility] 01/08. now [facility] out. voiding trial today
he would need to f/u with urology outpatient
#CAD
HX of CABG
No chest pain
-takes daily aspirin, restarted since ok with podiatry
#IDDM with Diabetic neuropathy
he follows with Endocrine as OP
HGB A1C 7.8
increase insulin back to 52 units. on mealtime insulin as well
#Essential HTN
c/w home meds including Lasix.
#PVD - known diabetic neuropathy
#COPD, not in exacerbation
-home meds, monitor pulse oximetry
Full Code
DVT proph-Lovenox
Total time spent to see the patient, examine the patient on the floor, review data and lab results, discuss treatment plan with patient, nursing staff around 52 minutes
Anticipated Discharge: 24 - 48 hours
Subjective/Interval History
-
Date of Service: January 12, 2024
Denies nausea
Objective Data
-
Labs:
Laboratory Results
01/12/24
05:39
WBC 9.7
Hgb 11.0 L
Hct 32.7 L
Plt Count 373
Sodium 140
Potassium 3.6
Chloride 103
Carbon Dioxide 26
BUN 22 H
Creatinine 1.4 H
Glucose 127 H
Calcium 9.3
Vital Signs:
Vital Signs
Temp Pulse Resp BP Pulse Ox
98.1 F 77 18 132/74 94
01/12/24 07:30 01/12/24 08:01 01/12/24 08:01 01/12/24 07:30 01/12/24 08:01
I&O
01/11/24 01/12/24 01/13/24
06:59 06:59 06:59
Intake Total 830 / 830 1520 / 1520
Output Total 2800 / 2800 1950 / 1950
Balance -1969 / -1970 -430 / -430
[2024-01-12] MEDS: NOVOLOG FLEXPEN-LOW RESISTANCE 2 UNITS SC ×2 (12:59→17:49)
[2024-01-12 15:40] VITALS: BP 132/61
[2024-01-12 17:04] LABS: Glucose - Point of Care 207 mg/dl (70-99)
[2024-01-12] MEDS: NEURONTIN 600 MG PO (17:54)
[2024-01-12] MEDS: CRESTOR 10 MG PO (17:54)
[2024-01-12] MEDS: LOVENOX 40 MG SC (17:54)
[2024-01-12 19:00] VITALS: BP 131/70
[2024-01-12 21:25] LABS: Glucose - Point of Care 183 mg/dl (70-99)
[2024-01-12] MEDS: LANTUS 0.520000000000000018 UNITS SC (21:41)
[2024-01-12] MEDS: ZETIA 10 MG PO (21:42)
[2024-01-12] MEDS: TOPROL XL 25 MG PO (21:42)
[2024-01-12 23:00] VITALS: BP 110/63
[2024-01-13] VITALS (8 sets, daily range): BP systolic 101–147; BP diastolic 67–87; PULSE 88; O2SAT 93; BMI 31.6
[2024-01-13] MEDS: DUONEB 3 ML INH ×4 (01:33→19:50)
[2024-01-13] MEDS: ZOSYN 50 IV ×2 (04:57→11:58)
[2024-01-13] MEDS: VANCOCIN 275 MG IV (05:49)
[2024-01-13 06:37] LABS: % Basophils 0.7 % (0-2); % Immature Granulocytes 0.5 % (0-0.5); % Lymphocytes 26.4 % (20.5-51.1); % Monocytes 10.5 % (1.7-9.3); % Neutrophils 53.9 % (42.2-75.2); Absolute Basophils 0.1 10^3/uL (0-0.2); Absolute Eosinophils 0.7 10^3/uL (0-0.7); Absolute Immature Granulocytes 0.1 10^3/uL (0-0.05); Absolute Lymphocytes 2.4 10^3/uL (1.2-3.4); Absolute Neutrophils 4.9 10^3/uL (1.4-6.5); Hematocrit 35.3 % (39.0-52.0); Hemoglobin 11.6 g/dL (13.0-18.0); Mean Corp Hgb Conc. 32.9 g/dL (33.0-37.0); Mean Corpuscular Hgb 28.7 pg (27.0-31.0); Mean Corpuscular Volume 87.4 fL (80.0-94.0); Mean Platelet Volume 10.9 fL (7.4-10.4); Nucleated Red Blood Cells % 0 % (-); Platelet Count 395 10^3/uL (130-400); Red Blood Cell Count 4.04 10^6/uL (4.70-6.10); Red Cell Dist. Width 13.9 % (11.5-14.5); White Blood Cell Count 9.2 10^3/uL (4.8-10.8)
[2024-01-13 06:47] LABS: Blood Urea Nitrogen 22 mg/dl (9-20); Calcium 9.5 mg/dl (8.4-10.2); Carbon Dioxide 29 mmol/L (22-30); Chloride 102 mmol/L (98-107); Estimated Creatinine Clearance 45 ml/min; Glucose 128 mg/dl (70-99); Sodium 142 mmol/L (135-145); eGFR 42.04
[2024-01-13 07:53] LABS: Glucose - Point of Care 116 mg/dl (70-99)
[2024-01-13] MEDS: LASIX 40 MG PO (08:26)
[2024-01-13] MEDS: PROTONIX 40 MG PO (08:26)
[2024-01-13] MEDS: VITAMIN D3 (cholecalciferol) 25 MCG PO (08:26)
[2024-01-13] MEDS: LOW STRENGTH ASPIRIN 81 MG PO (08:26)
[2024-01-13] MEDS: FLOMAX 0.400000000000000022 MG PO (08:26)
[2024-01-13] MEDS: CARDIZEM CD 240 MG PO (08:26)
[2024-01-13] MEDS: VITAMIN B-12 500 MCG PO (08:26)
[2024-01-13] MEDS: JARDIANCE 10 MG PO (08:26)
[2024-01-13] MEDS: NOVOLOG FLEXPEN 10 UNITS SC ×3 (08:27→17:44)
[2024-01-13] MEDS: NOVOLOG FLEXPEN-LOW RESISTANCE SC (08:27)
[2024-01-13] MEDS: COLACE PO ×2 (08:29→20:12)
[2024-01-13] MEDS: MIRALAX PO (08:30)
--- NOTE | 2024-01-13 08:46 | PHA.VAN.FU ---
Vancomycin Assessment / Plan
- Assessment
Renal Function: SCR Increasing
WBC's are: WNL
In the past 24 hrs, patient has been: Afebrile
Concomitant Antimicrobials: piperacillin/tazobactam
- Dosing Plan
Continue: Vanc 1250mg Q24H
Dosing Comments: consider change to dose by level if SCR continues to increase
- Monitoring Plan
Level(s) appropriate: Recheck trough at minimum of weekly intervals, Repeat sooner for changes in renal function or clinical status
Next Level Due (Date): ~01/17
- Follow Up
Pharmacy will continue to follow.
Vancomycin Follow UP
- -
Patient Age: 73
Patient Sex: Male
Vancomycin Day #: 10
Indication: Bone And Joint
Requesting Provider: Dr. Pompa / Aleyda
Pertinent Antimicrobial Allergies:
NKDA
Height / Weight:
Height 5 ft 9 in
Actual Weight 97.324 kg
Pertinent Past Medical History: IDDM, PVD, LLE wound/cellulitis, BMI ~33
- Vital Signs / Lab Results
Temp Pulse Resp BP Pulse Ox
97.8 F 78 16 130/68 95
01/13/24 07:20 01/13/24 07:55 01/13/24 07:55 01/13/24 07:20 01/13/24 07:55
Lab Results - Hematology
01/11/24 01/12/24 01/13/24
08:30 05:39 05:13
WBC 10.6 9.7 9.2
Lab Results - Chemistry
01/11/24 01/12/24 01/13/24
08:30 05:39 05:13
BUN 22 H 22 H 22 H
Creatinine 1.6 H 1.4 H 1.7 H
Estimated Creat Clear 47 54 45
Microbiology Results
01/09/24 15:25 Anaerobic Culture - Preliminary
Foot - Left Culture pending. Anaerobic cultures are examined after 3
days incubation. Additional information to follow.
01/09/24 15:25 Tissue Culture - Preliminary
Foot - Left Staphylococcus sciuri
Gram Stain - Preliminary
Therapeutic Drug Monitoring
Vancomycin Peak 30.7 ug/ml (18-26) H 01/11/24 08:30
Vancomycin Trough 12.8 ug/ml (5-20) 01/12/24 05:39
--- NOTE | 2024-01-13 11:08 | W.PN.HOSP.TC ---
Today's Communication/Plan
-
Monitor vital signs see plan
Path Pending
Continue with antibiotics
Now voiding; [facility] DC'd
Monitor renal function
Hold lisinopril
Assessment / Plan
Assessment / Plan
Physical Exam
General: Well Developed, Well Nourished, No Apparent Distress, Comfortable and Conversant
HEENT: Normocephalic, Anicteric and Moist mucous membranes
Respiratory: no wheezing and Non Labored Respirations
Cardiac: S1/S2 and Regular Rhythm
GI: Soft, Non Tender and Non Distended
Musculoskeletal: left lower extremity erythema
Neuro: AO x 3, No Motor Deficits and Nonfocal/grossly intact
Psych: Calm
73 yo male presented to the ED due to drainage, redness, warmth and swelling from his first left toe, that he noticed worsening since he had a toenail clipped by his Review Analyst 8 days ago. No fever, no chills, no n/v/d, no abdominal pain, no CP, no
SOB. No direct trauma.
# Acute osteomyelitis of the tuft of the distal phalanx of the left great toe with leukocytosis
Mild sepsis POA with tachycardia, leukocytosis, infection on toe
He has significant DM neuropathy so no significant pain but shooting pain in left leg/foot
cw abx per ID
ABIs noted
MRI consistent with osteomyelitis of the first distal phalanx
-wound care, elevate LLE
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 tissue preliminary growing staph sciuri; path pending
echo 01/07 with a EF 40 to 45%, no significant valvular disease, small echodensity at the apex seen, thrombus cannot completely be excluded. Cardiac MRI 01/09 without any thrombus.
# Severe cellulitis throughout the left low extremity
improving
-IV abx as above
-monitor clinically
renal insufficiency
monitor renal function closely
hold lisinopril
no urine eos, renal/bladder ultrasound with moderate prostate hypertrophy.
bladder scan prn
If continues to get worse then will need nephrology evaluation
Constipation
Laxatives
Acute urinary retention
patient does not have any history of BPH however does note problems with urination. Started Flomax
RENAL/BLADDER US with mod prostate hypertrophy
got [facility] 01/08. now [facility] out. Passed voiding trial.
he would need to f/u with urology outpatient
#CAD
HX of CABG
No chest pain
-takes daily aspirin, restarted since ok with podiatry
#IDDM with Diabetic neuropathy
he follows with Endocrine as OP
HGB A1C 7.8
increase insulin back to 52 units. on mealtime insulin as well
#Essential HTN
c/w home meds including Lasix.
#PVD - known diabetic neuropathy
#COPD, not in exacerbation
-home meds, monitor pulse oximetry
Full Code
DVT proph-Lovenox
Anticipated Discharge: Within 24 hours
Subjective/Interval History
-
Date of Service: January 13, 2024
denies pain
Objective Data
-
Labs:
Laboratory Results
01/13/24
05:13
WBC 9.2
Hgb 11.6 L
Hct 35.3 L
Plt Count 395
Sodium 142
Potassium 4.0
Chloride 102
Carbon Dioxide 29
BUN 22 H
Creatinine 1.7 H
Glucose 128 H
Calcium 9.5
Vital Signs:
Vital Signs
Temp Pulse Resp BP Pulse Ox
97.8 F 78 16 130/68 95
01/13/24 07:20 01/13/24 07:55 01/13/24 07:55 01/13/24 07:20 01/13/24 07:55
I&O
01/12/24 01/13/24 01/14/24
06:59 06:59 06:59
Intake Total 1520 / 1520 1230 / 2190 960 / 960
Output Total 1949 / 1949 2325 / 2325
Balance -430 / -430 -1095 / -135 960 / 960
--- NOTE | 2024-01-13 12:12 | CM ---
Case management following for d/c planning
Chart reviewed and spoke with pt
PT recommending HH
Wound care - post op - discussed with pt and offered choice
Pt requested [facility] - tiger text sent to Liaison
Plan - home with [facility]
[2024-01-13 12:20] LABS: Glucose - Point of Care 191 mg/dl (70-99)
[2024-01-13] MEDS: NOVOLOG FLEXPEN-LOW RESISTANCE 1 UNITS SC ×2 (13:23→17:44)
--- NOTE | 2024-01-13 14:22 | VNURNOTE ---
Home Health Liaison met with patient at 1230 to discuss [facility] nurse/therapy, visits, schedule and homebound status. Patient is agreeable and understands that visits at home will be 2-3 x per week to assess and teach medical management and left foot
wound care.
[facility] brochure provided with contact information. Patient is aware that [facility] will contact him for start of care in 1-2 days after discharge from .
[facility] referral completed in [facility].
--- NOTE | 2024-01-13 14:35 | PN.CDI ---
CDI
- -
CDI:
Physician Documentation Request
Admit Date: 01/04/24 19:03
Dear Doctor Evan,
Patient admitted with sepsis.
01/12 Hospitalist PN: 'renal insufficiency, monitor renal function closely, hold lisinopril, no urine eos, renal/bladder ultrasound with moderate prostate hypertrophy.'
Laboratory Tests
01/10/24 01/11/24 01/12/24 01/13/24
05:20 08:30 05:39 05:13
Creatinine 1.3 1.6 H 1.4 H 1.7 H
Clarify which of the following accurately represents the patient's renal status:
ALAN
Rise in creatinine
Other
Criteria for ALAN*
1 Increase in serum creatinine by > or = to 0.3 mg/dL (> or = to 26.5 micromol/L) within 48 hours, OR
2 Increase in serum creatinine to > or = to 1.5 times baseline, which is known or presumed to have occurred within 7 days, OR
3 Urine volume < 0.5 nL/kg/hour for six hours
Use of terms such as suspected, likely, concern for, or probable (associated with a specific diagnosis that is being evaluated, monitored, or treated as if it exists) are acceptable and can be coded in the inpatient setting, when documented at the
time of discharge.
Thank you,
Joseline Barragan RN, BSN
CDI Specialist
Available via [facility] text
Please use your independent medical judgment in providing your response.
*Source: Kidney Disease: Improving Global Outcomes (KDIGO) 2012
--- NOTE | 2024-01-13 15:26 | W.PN.ID1 ---
Date of Service
Date of Service: January 13, 2024
Today's Communication
Continue antibiotics. Transition to oral Augmentin/doxycycline.
Assessment / Plan
Left hallux gangrene
Left hallux cellulitis
Left hallux osteomyelitis
PAD s/p LLE endovascular intervention 01/07/24
CAD; Hx [place]
COPD
HTN
Dyslipidemia
DM with neuropathy
BPH
Nephrolithiasis
Diverticulosis
Recommendations:
01/09/24 s/p left hallux amputation. Path reviewed; proximal margin negative for osteomyelitis. culture: Staph species.
Transition to Augmentin 500 mg p.o. twice daily / Doxycycline 100 mg p.o. twice daily : For 7 more days.
����������������������������������������������������������
Chief Complaint
-: Other (Left toe osteomyelitis / gangrene)
Subjective / Review of Systems
Review of Systems: No Fever and No Chills
Vital Signs / Physical Exam
Vital Signs
Vital Signs
Temp Pulse Resp BP Pulse Ox
97.7 F 91 16 147/87 96
01/13/24 11:40 01/13/24 13:38 01/13/24 13:38 01/13/24 11:40 01/13/24 13:38
Physical Exam
Constitutional: No Acute Distress
Eyes: Sclera Anicteric
Pulmonary: Clear
Gastrointestinal: Soft, Non Tender and Non Distended
Skin: Dry; Negative Rash or Jaundice
Wound: Other (Left hallux area dressed. No erythema blood.)
Neurological: Awake and Alert
Psychological: Calm
Objective Data
Lab Data
Lab Results
01/13/24 05:13
01/13/24 05:13
ESR 64 mm/hour (0-20) H 01/07/24 06:25
PT 15.7 Sec (11.4-14.6) H 01/05/24 05:21
INR 1.27 01/05/24 05:21
Estimated Creat Clear 45 ml/min 01/13/24 05:13
Lactic Acid 1.2 mmol/L (0.7-2.0) 01/04/24 14:43
Total Bilirubin 0.3 mg/dl (0.2-1.3) 01/10/24 05:20
AST 32 U/L (17-59) 01/10/24 05:20
ALT 36 U/L (0-50) 01/10/24 05:20
Alkaline Phosphatase 67 U/L (38-126) 01/10/24 05:20
C-Reactive Protein 39.80 mg/L (0.0-10.00) H 01/07/24 06:25
Most recent labs reviewed.
Micro Results:
01/09/24 15:25 Anaerobic Culture - Preliminary
Foot - Left Culture pending. Anaerobic cultures are examined after 3
days incubation. Additional information to follow.
01/09/24 15:25 Tissue Culture - Preliminary
Foot - Left Staphylococcus sciuri
Gram Stain - Preliminary
01/04/24 14:58 Blood Culture - Final
Blood/Venous No Growth - Final Report
01/04/24 14:43 Blood Culture - Final
Blood/Venous No Growth - Final Report
01/04/24 22:52 MRSA Screen - Final
Nose No Methicillin Resistant Staphylococcus aureus isolated.
Imaging:
01/07/24 MRI left foot: Signal changes throughout the first distal phalanx including bone marrow edema and enhancement, which is most compatible with osteomyelitis.
01/04/2024 X-ray left foot: Acute osteomyelitis of the tuft of the distal phalanx of the left great toe. There is severe cellulitis throughout the left great toe and forefoot. Please see full dictation for additional detail.
Care Review
Plan reviewed with: Physician (Hospitalist)
--- NOTE | 2024-01-13 15:29 | W.PN.POD ---
Today's Communication
Today's Communication
Patient stable per podiatry to discharge.
HE will f/uin my office next Sunday 01/21
Assessment / Plan
-
A/P : S/P t partial hallux amputation POD #4
LT foot cellultis- resolved
Diabetic small vessel disease.
S/P LT L/E angiogram on 01/06 with lithotripsy of SFA and Ant tib artery
Plan : abx per ID.
Pending Bone path/cultures from surgery
Changed surgical dressings applied adaptic, dry gauze and Kerlix to Lt foot
Pt can ambulate with wedge shoe to Lt foot and walker.
Twice wkly dressings to LT foot with adaptic, dry gauze and Kerlix
Keep the Lt foot elevated when at rest
He will f/u in my office after discharge
Subjective
Chief Complaint
LT hallux gangrene.
Subjective
Patient seen at bedside, no new complaints offered, he is feeling well, no fever, chills, no pain in LT foot , minimal strike through bleeding noted in surgical dressings
Objective
Temp Pulse Resp BP Pulse Ox
97.7 F 91 16 147/87 96
01/13/24 11:40 01/13/24 13:38 01/13/24 13:38 01/13/24 11:40 01/13/24 13:38
01/13/24 05:13
01/13/24 05:13
Vital Signs and Lab results were reviewed.
Intact vascular status LT foot.
Lt hallux partial amputation site is clean, dry, no oozing, no erythema, well coapted skin incision, intact sutures noted, no bleeding noted, healthy surgical margins, no necrosis noted
[2024-01-13 17:35] LABS: Glucose - Point of Care 170 mg/dl (70-99)
[2024-01-13] MEDS: NEURONTIN 600 MG PO (17:44)
[2024-01-13] MEDS: CRESTOR 10 MG PO (17:45)
[2024-01-13] MEDS: LOVENOX 40 MG SC (17:45)
[2024-01-13] MEDS: VIBRAMYCIN 100 MG PO (20:12)
[2024-01-13] MEDS: AUGMENTIN 500 MG/125 MG 1 TABLET PO (20:12)
[2024-01-13 21:28] LABS: Glucose - Point of Care 142 mg/dl (70-99)
[2024-01-13] MEDS: ZETIA 10 MG PO (21:29)
[2024-01-13] MEDS: TOPROL XL 25 MG PO (21:30)
[2024-01-13] MEDS: LANTUS 0.520000000000000018 UNITS SC (21:30)
[2024-01-14] MEDS: DUONEB 3 ML INH ×2 (00:53→08:45)
[2024-01-14 03:14] VITALS: BP 132/76
[2024-01-14 05:46] LABS: % Basophils 0.6 % (0-2); % Eosinophils 5.8 % (0-6); % Immature Granulocytes 0.5 % (0-0.5); % Lymphocytes 24.6 % (20.5-51.1); % Monocytes 9.3 % (1.7-9.3); % Neutrophils 59.2 % (42.2-75.2); Absolute Basophils 0.1 10^3/uL (0-0.2); Absolute Eosinophils 0.5 10^3/uL (0-0.7); Absolute Immature Granulocytes 0.1 10^3/uL (0-0.05); Absolute Lymphocytes 2.3 10^3/uL (1.2-3.4); Absolute Monocytes 0.9 10^3/uL (0.1-0.6); Absolute Neutrophils 5.6 10^3/uL (1.4-6.5); Hematocrit 35.6 % (39.0-52.0); Hemoglobin 11.9 g/dL (13.0-18.0); Mean Corp Hgb Conc. 33.4 g/dL (33.0-37.0); Mean Corpuscular Volume 86.6 fL (80.0-94.0); Mean Platelet Volume 10.5 fL (7.4-10.4); Nucleated Red Blood Cells % 0 % (-); Platelet Count 359 10^3/uL (130-400); Red Blood Cell Count 4.11 10^6/uL (4.70-6.10); Red Cell Dist. Width 14.1 % (11.5-14.5); White Blood Cell Count 9.4 10^3/uL (4.8-10.8)
[2024-01-14 06:00] VITALS: BMI 31.7
[2024-01-14 06:12] LABS: Blood Urea Nitrogen 24 mg/dl (9-20); Calcium 9.7 mg/dl (8.4-10.2); Carbon Dioxide 25 mmol/L (22-30); Chloride 102 mmol/L (98-107); Estimated Creatinine Clearance 50 ml/min; Glucose 158 mg/dl (70-99); Potassium 3.9 mmol/L (3.5-5.1); Sodium 140 mmol/L (135-145); eGFR 48.85
[2024-01-14 07:26] VITALS: BP 137/68
[2024-01-14] MEDS: NOVOLOG FLEXPEN-LOW RESISTANCE SC (07:50)
[2024-01-14] MEDS: NOVOLOG FLEXPEN 10 UNITS SC (07:50)
[2024-01-14 07:51] LABS: Glucose - Point of Care 162 mg/dl (70-99)
[2024-01-14] MEDS: CARDIZEM CD 240 MG PO (07:51)
[2024-01-14] MEDS: VIBRAMYCIN 100 MG PO (07:51)
[2024-01-14] MEDS: LOW STRENGTH ASPIRIN 81 MG PO (07:51)
[2024-01-14] MEDS: PROTONIX 40 MG PO (07:51)
[2024-01-14] MEDS: VITAMIN B-12 500 MCG PO (07:51)
[2024-01-14] MEDS: VITAMIN D3 (cholecalciferol) 25 MCG PO (07:51)
[2024-01-14] MEDS: AUGMENTIN 500 MG/125 MG 1 TABLET PO (07:52)
[2024-01-14] MEDS: JARDIANCE 10 MG PO (07:52)
[2024-01-14] MEDS: FLOMAX 0.400000000000000022 MG PO (07:53)
[2024-01-14] MEDS: COLACE PO (07:53)
[2024-01-14] MEDS: MIRALAX PO (07:53)
[2024-01-14] MEDS: NOVOLOG FLEXPEN-LOW RESISTANCE 11 UNITS SC (07:56)
--- NOTE | 2024-01-14 09:46 | W.PN.HOSP.TC ---
Addendum entered and electronically signed by Jean-Paul Gordon MD 01/14/24 09:55:
Acute kidney injury
Now improving
Original Note:
Today's Communication/Plan
-
Monitor vital signs see plan
Discharge today on p.o. antibiotic
Monitor creatinine
Time of discharge 38 minutes
Assessment / Plan
Assessment / Plan
Physical Exam
General: Well Developed, Well Nourished, No Apparent Distress, Comfortable and Conversant
HEENT: Normocephalic, Anicteric and Moist mucous membranes
Respiratory: no wheezing and Non Labored Respirations
Cardiac: S1/S2 and Regular Rhythm
GI: Soft, Non Tender and Non Distended
Musculoskeletal: left lower extremity erythema
Neuro: AO x 3, No Motor Deficits and Nonfocal/grossly intact
Psych: Calm
73 yo male presented to the ED due to drainage, redness, warmth and swelling from his first left toe, that he noticed worsening since he had a toenail clipped by his Proof Load Mechanic 8 days ago. No fever, no chills, no n/v/d, no abdominal pain, no CP, no
SOB. No direct trauma.
# Acute osteomyelitis of the tuft of the distal phalanx of the left great toe with leukocytosis
Mild sepsis POA with tachycardia, leukocytosis, infection on toe
He has significant DM neuropathy so no significant pain but shooting pain in left leg/foot
cw abx per ID; now PO; path neg
ABIs noted
MRI consistent with osteomyelitis of the first distal phalanx
-wound care, elevate LLE
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 tissue preliminary growing staph sciuri; path pending
echo 01/07 with a EF 40 to 45%, no significant valvular disease, small echodensity at the apex seen, thrombus cannot completely be excluded. Cardiac MRI 01/09 without any thrombus.
# Severe cellulitis throughout the left low extremity
improving
-IV abx as above
-monitor clinically
renal insufficiency
monitor renal function closely
hold lisinopril
no urine eos, renal/bladder ultrasound with moderate prostate hypertrophy.
bladder scan prn
If continues to get worse then will need nephrology evaluation
Constipation
Laxatives
Acute urinary retention
patient does not have any history of BPH however does note problems with urination. Started Flomax
RENAL/BLADDER US with mod prostate hypertrophy
got conway 01/08. now conway out. Passed voiding trial.
he would need to f/u with urology outpatient
#CAD
HX of CABG
No chest pain
-takes daily aspirin, restarted since ok with podiatry
#IDDM with Diabetic neuropathy
he follows with Endocrine as OP
HGB A1C 7.8
increase insulin back to 52 units. on mealtime insulin as well
#Essential HTN
c/w home meds including Lasix.
#PVD - known diabetic neuropathy
#COPD, not in exacerbation
-home meds, monitor pulse oximetry
Full Code
DVT proph-Lovenox
Anticipated Discharge: Today
Subjective/Interval History
-
Date of Service: January 14, 2024
denies pain
Objective Data
-
Labs:
Laboratory Results
01/14/24
05:24
WBC 9.4
Hgb 11.9 L
Hct 35.6 L
Plt Count 359
Sodium 140
Potassium 3.9
Chloride 102
Carbon Dioxide 25
BUN 24 H
Creatinine 1.5 H
Glucose 158 H
Calcium 9.7
Vital Signs:
Vital Signs
Temp Pulse Resp BP Pulse Ox
98.5 F 72 18 137/68 95
01/14/24 07:26 01/14/24 08:46 01/14/24 07:26 01/14/24 07:26 01/14/24 07:26
I&O
01/13/24 01/14/24 01/15/24
06:59 06:59 06:59
Intake Total 1230 / 2190 1680 / 1680
Output Total 2325 / 2325
Balance -1095 / -135 1680 / 1680
--- NOTE | 2024-01-14 09:54 | W.DCSUMMARY ---
Discharge Summary
Discharge Data
Date of Admission: 01/04/24
Date of Discharge: 01/14/24
-
Pending Results: No
Hospital Course
73-year-old male with past medical history of CKD, CAD, CABG, diabetes mellitus, hypertension, diabetic neuropathy, COPD came to the hospital with acute osteomyelitis of distal phalanx of the left great toe. Patient was seen by podiatry throughout
hospitalization. There was also concern of patient having PAD so vascular surgery was consulted. Patient underwent angio on 01/06 with intravascular lithotripsy of the left anterior tibial artery stenosis and left superficial femoral artery
stenosis. Patient tolerated the procedure well. Post vascular intervention patient underwent left partial hallux amputation on 01/08 with podiatry. Pathology later came back negative. Echocardiogram was also done on this hospitalization which
showed EF of 40 to 45% with small echodensity at the apex. Patient was then seen by cardiology and had a cardiac MRI which was negative for any thrombus. Patient initially required IV antibiotics which were later transitioned to oral antibiotics
to complete the course. On this hospitalization he also had acute kidney injury which over time improved proved prior to discharge. He also had acute urinary retention which was likely thought was secondary to prostate hypertrophy which was seen
on renal/bladder ultrasound. Patient was started on Flomax. On discharge patient instructed to follow-up with urology outpatient. Once patient symptoms continue to improve, he was then discharged home with instructions to follow-up with all his
physicians outpatient.
Discharge Plan
-
Patient Disposition: Home with Home Care
Discharge Diagnosis/Procedures: Acute osteomyelitis of the tuft of the distal phalanx of the left great toe s/p left partial hallux amputation
PAD s/p intravascular lithotripsy of left anterior tibial artery stenosis and left superficial femoral artery stenosis
Renal insufficiency
Constipation
Acute urinary retention 2/2 BPH
ALAN
Diet: Diabetic, Carb Controlled
Activity: As tolerated
Driving Restrictions: As prior to admission
Bathing Restrictions: None
Others Tests: Ultrasound: 02/19 @ 2pm
Stand Alone Forms: DC Instr - Vascular OR
Referrals:
Nitin Alcantara MD [Active] -
Hamlet Rodriguez MD [Active] -
Nitin Maynard DO [Active] -
Shante Pollack DPM [Specified Professional Personl] -
Bony Lafleur Jr., DO [Family Provider] - in less than 1 week
Poornima Page CRNP [Specified Professional Personl] - 02/21/24 9:15 am (Vascular follow up)
Prescriptions:
New
docusate sodium 100 mg Capsule
100 mg PO BID Qty: 0 0RF
polyethylene glycol 3350 [HealthyLax] 17 gram Powder In Packet
17 g PO DAILY Qty: 0 0RF
tamsulosin 0.4 mg Capsule
0.4 mg PO DAILY Qty: 30 0RF
amoxicillin-pot clavulanate 500-125 mg Tablet
1 tab PO Q12 Qty: 14 0RF
Jardiance 10 mg Tablet
10 mg PO DAILY Qty: 30 0RF
acetaminophen 325 mg Tablet
650 mg PO Q4HPRN PRN (Reason: mild pain or temp > 100.4 F) Qty: 0 0RF
doxycycline hyclate 100 mg Capsule
100 mg PO BID Qty: 14 0RF
Continued
pantoprazole 40 MG tablet,delayed release (DR/EC)
40 mg PO DAILY
ezetimibe 10 MG tablet
10 mg PO HS
aspirin 81 MG tablet,chewable
81 mg PO DAILY
diltiazem HCl 240 MG capsule,extended release 24hr
240 mg PO DAILY 0RF
cyanocobalamin (vitamin B-12) 1,000 MCG tablet
500 mcg PO DAILY
rosuvastatin 10 MG tablet
10 mg PO QPM
furosemide 40 mg tablet
40 mg PO BID AT 0800,1700
gabapentin 300 mg capsule
600 mg PO QPM
metoprolol succinate 25 mg tablet extended release 24 hr
25 mg PO HS
cholecalciferol (vitamin D3) [Vitamin D3] 25 mcg (1,000 unit) Tablet
25 mcg PO DAILY
ipratropium-albuterol 0.5 mg-3 mg(2.5 mg base)/3 mL solution for nebulization
3 ml inhalation R Q6
Changed
insulin lispro [Humalog KwikPen Insulin] 100 unit/mL insulin pen
10 unit SC AC Qty: 0 0RF
insulin glargine U-300 conc [Toujeo SoloStar U-300 Insulin] 300 unit/mL (1.5 mL) insulin pen
52 unit SC HS Qty: 0 0RF
Held
lisinopril 10 mg tablet
10 mg PO DAILY
Hold Instructions: until BP>140/90
Discharge Orders:
Discharge Patient (As Directed); Ordered 01/14/24
Ordered By: Jean-Paul Gordon
Discharge Date and Time
Discharge Date/Time: 01/14/24 11:10
Print Language: ESTONIAN
--- NOTE | 2024-01-14 10:27 | CM ---
Pt for d/c
Has ride to home
[facility] to follow for d/c needs
Plan - home with [facility]
[2024-01-14 10:51] VITALS: BP 155/78
== END 2024-01-14 11:10 | disposition home health service (06) | DRG 854 ==
LOC: 3 WEST ACU 19:03
PROVIDERS: Internal Medicine; Surgery Vascular Surgery; ADMITTING PHYSICIAN Internal Medicine; ATTENDING PHYSICIAN Internal Medicine; CONSULT PHYSICIAN Internal Medicine; CONSULT PHYSICIAN Internal Medicine Infectious Disease; CONSULT PHYSICIAN Podiatrist Foot & Ankle Surgery; EMERGENCY PHYSICIAN Emergency Medicine; FAMILY PHYSICIAN Family Medicine; OTHER PHYSICIAN Surgery Vascular Surgery
PROC: 04FL3ZZ Fragmentation of Left Femoral Artery, Percutaneous Approach (ICD-10-PCS; 2024-01-07)
PROC: 04FQ3ZZ Fragmentation of Left Anterior Tibial Artery, Percutaneous Approach (ICD-10-PCS; 2024-01-07)
PROC: B41D1ZZ Fluoroscopy of Aorta and Bilateral Lower Extremity Arteries using Low Osmolar Contrast (ICD-10-PCS; 2024-01-07)
PROC: 0Y6Q0Z3 Detachment at Left 1st Toe, Low, Open Approach (ICD-10-PCS; 2024-01-09)
DX: A41.9 Sepsis, unspecified organism (principal); E11.52 Type 2 diabetes mellitus with diabetic peripheral angiopathy with gangrene; I13.0 Hypertensive heart and chronic kidney disease with heart failure and stage 1 through stage 4 chronic kidney disease, or unspecified chronic kidney disease; I50.32 Chronic diastolic (congestive) heart failure; M86.172 Other acute osteomyelitis, left ankle and foot; L03.116 Cellulitis of left lower limb; I70.262 Atherosclerosis of native arteries of extremities with gangrene, left leg; N17.9 Acute kidney failure, unspecified; E11.69 Type 2 diabetes mellitus with other specified complication; I70.222 Atherosclerosis of native arteries of extremities with rest pain, left leg; I25.10 Atherosclerotic heart disease of native coronary artery without angina pectoris; J44.9 Chronic obstructive pulmonary disease, unspecified; E78.00 Pure hypercholesterolemia, unspecified; N18.9 Chronic kidney disease, unspecified; I25.5 Ischemic cardiomyopathy; E11.42 Type 2 diabetes mellitus with diabetic polyneuropathy; I87.2 Venous insufficiency (chronic) (peripheral); R33.8 Other retention of urine; N40.1 Benign prostatic hyperplasia with lower urinary tract symptoms; K59.00 Constipation, unspecified; E11.22 Type 2 diabetes mellitus with diabetic chronic kidney disease; I45.10 Unspecified right bundle-branch block; I25.2 Old myocardial infarction; Z79.4 Long term (current) use of insulin; Z79.82 Long term (current) use of aspirin; Z79.899 Other long term (current) drug therapy; Z87.442 Personal history of urinary calculi; Z87.891 Personal history of nicotine dependence; Z95.1 Presence of aortocoronary bypass graft; Z95.5 Presence of coronary angioplasty implant and graft
CPT/HCPCS: 88305; 88311; 73620; 73660; 73720; 75561; 75625; 75716; 76770; 76937; 80048; 80053; 80202; 81003; 81015; 81099; 82570; 82962; 83036; 83605; 84300; 85025; 85027; 85610; 85652; 86140; 87040; 87070; 87075; 87147; 87176; 87186; 87205; 93005; 93306; 93922; 93925; 94640; 96374; 96375; 97116; 97162; 97166; 97530; 97535; 99284; A9575; C1769; C1894; C9764; C9772; Q9950; Q9967

== ENCOUNTER 2024-02-20 13:17 | Inpatient (IN) | payer MEDICARE, SELFPAY ==
[2024-02-20 09:21] VITALS: BP 148/76
--- NOTE | 2024-02-20 09:55 | ED.GENMED ---
History of Present Illness
General
Chief Complaint: Skin Problem
Source: patient
Exam Limitations: none
Time Seen by Provider: 02/20/24 09:35
Nursing documentation reviewed up to this point in time: agreed with
History of Present Illness
History of Present Illness:
73-year-old male with past medical history of vascular disease, CAD, COPD, diabetes presenting to the emergency department today with concerns of left second toe ulceration. 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
who told go to the ER as he will likely need a toe amputation. Denies any fevers chills chest pain shortness of breath.
Past History
Past History
ED Past Medical History: CAD, COPD, HTN, Hypercholesterolemia, NIDDM and Other (Cataracts, neuropathy, BPH, nephrolithiasis, diverticulosis)
ED Past Surgical History: Cardiac (CABG) and Cholecystectomy
Social History
Tobacco: Former smoker
Alcohol: None
Drug: None
Living: with family
Employment: Retired
Family History
Family History: Other (Noncontributory)
Review of Systems
Review of Systems
Allergies reviewed?: Yes
All Other Systems: ROS reviewed and negative except as documented in HPI and ROS
Phy Exam
Physical Exam
Physical Exam:
GENERAL: Alert , in no apparent distress
EYE: pupils equal and reactive
NECK: Supple, no significant adenopathy.
ENT: o/p clr, mmm.
CARDIAC: Regular rate and rhythm .
LUNGS: Clear breath sounds bilaterally, no acute respiratory distress, no wheezes/rales/rhonchi
ABDOMEN: Soft, without focal tenderness, no r/g, no cvat
NEUROLOGICAL: Alert and oriented, no focal neuro deficits
SKIN: Warm and dry, skin intact.
MUSCULOSKELETAL: Status post amputation to the left great toe at the mid toe the second toe with distal ulceration redness and swelling throughout the toe. No edema, well perfused.
PSYCH: Normal and appropriate interaction.
Course
Orders/Labs/Results
Orders:
Orders
02/20/24 10:24
CR Foot - Left Min 3 Views Urgent
Comment:
Reason For Exam: foot infection 2nd toe
Peripheral Arterial Lower Ext US [US Periph Arterial LOWER Ext] Urgent
Comment:
Reason For Exam: Left leg
02/20/24 10:25
Piperacillin/Tazo 4.5 Gram [Zosyn] 4.5 gram in 100 ml IV NOW
02/20/24 10:52
Vancomycin [Vancocin] 2,000 mg 0.9% Sodium Chloride 500 ml [Nss] 500 ml IV NOW
02/20/24 11:02
CBC/With Diff [Complete Blood Count/With Diff] Urgent
CMP [Comprehensive Metabolic Panel] Urgent
Lactic Acid Urgent
Vital Signs
Initial and Last Documented VS:
Initial Vital Signs
Temp Pulse Resp BP Pulse Ox
98.1 F 80 18 148/76 97
02/20/24 09:21 02/20/24 09:21 02/20/24 09:21 02/20/24 09:21 02/20/24 09:21
Last Documented Vital Signs
Temp Pulse Resp BP Pulse Ox
98.1 F 80 18 148/76 97
02/20/24 09:21 02/20/24 09:21 02/20/24 09:21 02/20/24 09:21 02/20/24 09:21
MDM/Problems Addressed
MDM/Problems Addressed:
73-year-old male presenting to the emergency department today with concerns of left second toe ulceration. He was told that he may need an amputation, sent to the ER for further assessment. Patient with shallow ulcer to left second toe redness and
swelling diffusely. No tenderness. Case discussed with podiatry recommending arterial ultrasound x-ray IV antibiotics and admission.
*Critical Care Note
Total Time (30-74mins, 75-104mins- exclusive of procedures): Not Applicable
ED Attending Note
-
Portions of this chart may have been created with voice recognition software.� Occasional wrong word or��sound alike� substitutions may have occurred due to the inherent limitations of voice recognition software.
Discharge Plan
Departure
Patient Disposition: Admit
Date of Disposition: 02/20/24
Time of Disposition: 11:15
Admit to: Telemetry
Admit to doctor: Kurtis
Presentation/result/management discussed w/ accepting MD/DO: Hospitalist
Patient with high blood pressure during this ER visit?: No
Condition: Good
Covid-19: Not Applicable
Discharge Problem:
Toe ulcer
Prescriptions:
No Action
pantoprazole 40 MG tablet,delayed release (DR/EC)
40 mg PO DAILY
ezetimibe 10 MG tablet
10 mg PO HS
aspirin 81 MG tablet,chewable
81 mg PO DAILY
diltiazem HCl 240 MG capsule,extended release 24hr
240 mg PO DAILY 0RF
cyanocobalamin (vitamin B-12) 1,000 MCG tablet
500 mcg PO DAILY
rosuvastatin 10 MG tablet
10 mg PO QPM
furosemide 40 mg tablet
40 mg PO BID AT 0800,1700
lisinopril 10 mg tablet
10 mg PO DAILYPRN PRN (Reason: high blood pressure )
gabapentin 300 mg capsule
300 mg PO HS
metoprolol succinate 25 mg tablet extended release 24 hr
25 mg PO HS
cholecalciferol (vitamin D3) [Vitamin D3] 25 mcg (1,000 unit) Tablet
25 mcg PO DAILY
ipratropium-albuterol 0.5 mg-3 mg(2.5 mg base)/3 mL solution for nebulization
3 ml inhalation R Q6
tamsulosin 0.4 mg Capsule
0.4 mg PO DAILY Qty: 30 0RF
Jardiance 10 mg Tablet
10 mg PO DAILY Qty: 30 0RF
acetaminophen 325 mg Tablet
650 mg PO Q4HPRN PRN (Reason: mild pain or temp > 100.4 F) Qty: 0 0RF
insulin lispro [Humalog KwikPen Insulin] 100 unit/mL insulin pen
15 unit SC AC
insulin glargine U-300 conc [Toujeo SoloStar U-300 Insulin] 300 unit/mL (1.5 mL) insulin pen
40 unit SC HS
Referrals:
Bony Lafleur Jr., DO [Family Provider] -
Interventions
Interventions:
*Risk Screen - Suicide Last Done: 02/20/24 09:32
*General Assessment Last Done: 02/20/24 09:32
*Neglect/Abuse Screening Last Done: 02/20/24 09:32
ED- Fall Risk Assessment Last Done: 02/20/24 10:08
*ED COVID-19 Vaccine History Last Done: 02/20/24 10:08
ED-Skin Assessment Last Done: 02/20/24 10:08
Discharge Date and Time
Print Language: BELIZEAN
[2024-02-20 10:48] VITALS: BMI 32.2
[2024-02-20] MEDS: ZOSYN 100 IV (11:04)
[2024-02-20 11:19] LABS: % Basophils 0.9 % (0-2); % Eosinophils 4.5 % (0-6); % Immature Granulocytes 0.3 % (0-0.5); % Lymphocytes 20.7 % (20.5-51.1); % Monocytes 10.1 % (1.7-9.3); % Neutrophils 63.5 % (42.2-75.2); Absolute Basophils 0.1 10^3/uL (0-0.2); Absolute Eosinophils 0.4 10^3/uL (0-0.7); Absolute Lymphocytes 1.9 10^3/uL (1.2-3.4); Absolute Monocytes 0.9 10^3/uL (0.1-0.6); Absolute Neutrophils 5.8 10^3/uL (1.4-6.5); Hematocrit 40.1 % (39.0-52.0); Hemoglobin 13.1 g/dL (13.0-18.0); Mean Corp Hgb Conc. 32.7 g/dL (33.0-37.0); Mean Corpuscular Hgb 27.5 pg (27.0-31.0); Mean Corpuscular Volume 84.2 fL (80.0-94.0); Mean Platelet Volume 10.8 fL (7.4-10.4); Nucleated Red Blood Cells % 0 % (-); Platelet Count 341 10^3/uL (130-400); Red Blood Cell Count 4.76 10^6/uL (4.70-6.10); Red Cell Dist. Width 14.3 % (11.5-14.5); White Blood Cell Count 9.2 10^3/uL (4.8-10.8)
[2024-02-20 11:32] LABS: Lactic Acid 1.4 mmol/L (0.7-2.0)
[2024-02-20 11:41] LABS: Blood Urea Nitrogen 28 mg/dl (9-20); Calcium 9.4 mg/dl (8.4-10.2); Carbon Dioxide 23 mmol/L (22-30); Chloride 104 mmol/L (98-107); Estimated Creatinine Clearance 59 ml/min; Glucose 109 mg/dl (70-99); Sodium 139 mmol/L (135-145); eGFR 58.01
[2024-02-20] MEDS: VANCOCIN 540 MG IV (12:23)
--- NOTE | 2024-02-20 12:47 | HPS.HSE ---
Addendum entered and electronically signed by JESSIE Roberts 02/20/24 14:11:
Discussed case with podiatry
Patient does not need MRI
Patient may eat does not need to be n.p.o.
Original Note:
Family Physician
-
Family Physician: Bony Lafleur
Chief Complaint
-
Left great toe swelling/ulceration distal tip
History of Present Illness
73-year-old male from home who lives alone who states for the past 8 days he has noticed swelling to his right second toe with an ulceration at the distal tip. He has been having nurses come to the home for wound care. He saw his surface boss
yesterday who recommended coming into the ER for evaluation but he was unable to come until today. He states his left lower extremity has been chronically erythematous for several months. He denies fever, chills, chest pain, palpitations, pain,
shortness of breath, cough, abdominal pain, nausea, vomiting, diarrhea, urinary symptoms. He is status post left great toe left partial hallux amputation on 01/04/2024 he also underwent at that time intravascular therapy of his left anterior tibial
artery for stenosis and left superficial femoral artery stenosis. He did have an echo showing cardiomyopathy with EF 40 to 45% and a small echodensity at the apex. An MRI was negative for any thrombus. He does a history of acute urinary retention
secondary to BPH and was placed on Flomax. He has past medical history of chronic venous stasis dermatitis left leg greater than right, chronic lymphedema bilateral legs, chronic PAD, CKD 3B, cardiomyopathy EF 40-45%, CAD status post cardiac stent
x 4, CABG x 3 vessel 2020, COPD moderate persistent, former smoker 25-year 1/2 pack a day quit 1994, daily alcohol use 1 beer only, renal insufficiency/CKD 3B, DM2 with diabetic neuropathy, HTN, constipation, BPH with history of urinary frequency,
obesity.
Medical History
Past Medical History
Past Medical History: Reports CAD ([place]), CHF (HFpEF), COPD, HTN, Hypercholesterolemia, NIDDM and Other (PVD, BPH, Cataracts, neuropathy, nephrolithiasis, diverticulosis)
Additional Past Medical History:
BPH, urinary retention
chronic venous stasis dermatitis left leg greater than right,
chronic lymphedema bilateral leg
, chronic PAD
CKD 3B
cardiomyopathy EF 40-45% January 2024
CAD status post cardiac stent x 4/ CABG x 3 vessel 2020
COPD moderate persistent
former smoker 25-year 1/2 pack a day quit 1994
daily alcohol use 1 beer only
renal insufficiency/CKD 3B,
DM2 with diabetic neuropathy
HTN
constipation
Obesity�BMI 32.2 kg
Past Surgical History: Reports Cardiac (CABG x 3 vessel 2020, cardiac stents x 4), Cholecystectomy and Other
Additional Past Surgical History:
post left great toe left partial hallux amputation on 01/04/2024
Social History
Tobacco: Former Smoker (25-year 1.5 pack a day quit 1994)
Alcohol: Daily (1 beer)
Drug: None
Living: Alone (Patient has no living family)
Employment: Retired
Family History
Family History: Not pertinent
Allergies / Home Medications
Allergies reflects when Allergies were last updated in [facility].
Home Medications with original date entered in [facility]
Allergy/Medication List:
Allergies
Allergy/AdvReac Type Severity Reaction Status Date / Time
No Known Allergies Allergy Verified 01/04/24 13:21
Home Medications
ezetimibe 10 mg tablet 10 mg PO HS High cholesterol 12/22/16
pantoprazole 40 mg tablet,delayed release 40 mg PO DAILY Gastrointestinal issue 12/22/16
aspirin 81 mg chewable tablet 81 mg PO DAILY Blood clot prevention/tx 12/24/16
diltiazem HCl 240 mg capsule,extended release 24 hr 240 mg PO DAILY 01/14/19
cyanocobalamin (vitamin B-12) 1,000 mcg tablet 500 mcg PO DAILY Supplement 03/26/20
rosuvastatin 10 mg tablet 10 mg PO QPM High cholesterol 03/26/20
furosemide 40 mg tablet 40 mg PO BID AT 0800,1700 Fluid retention/Swelling 08/23/22
gabapentin 300 mg capsule 600 mg PO QPM Neurological Condition 08/23/22
insulin glargine U-300 conc 300 unit/mL (1.5 mL) subcutaneous pen (Toujeo SoloStar U-300 Insulin) 65 unit SC HS Diabetes 08/23/22
insulin lispro 100 unit/mL subcutaneous pen (Humalog KwikPen (U-100) Insulin) 20 unit SC AC Diabetes 08/23/22
lisinopril 10 mg tablet 10 mg PO DAILY Blood pressure 08/23/22
metoprolol succinate 25 mg tablet,extended release 24 hr 25 mg PO HS Blood pressure 08/23/22
cholecalciferol (vitamin D3) 25 mcg (1,000 unit) tablet (Vitamin D3) 25 mcg PO DAILY 01/04/24
ipratropium 0.5 mg-albuterol 3 mg (2.5 mg base)/3 mL nebulization soln 3 ml inhalation R Q6 01/04/24
Review of Systems
-
History Source: Patient
A 12 point ROS was completed and negative except as noted: Yes
Constitutional: Denies Fever or Fatigue
EENT: Denies Sore Throat or Runny Nose
Respiratory: Reports Other (Chronic expiratory wheezing secondary to chronic COPD); Denies Cough, Hemoptysis or Trouble Breathing
Cardiac: Denies Chest Pain, Diaphoresis, Palpitations or Syncope
Abdomen/GI: Denies Abdominal Pain, Nausea, Vomiting or Diarrhea
: Denies Dysuria, Frequency, Flank Pain, Incontinence or Difficulty Voiding
Musculoskeletal: Reports Edema (Chronic bilateral leg lymphedema left greater than right, chronic left leg venous stasis dermatitis with erythema, swelling to left second toe with distal tip ulceration, status post left great toe partial hallux
amputation 1 month ago site healed well); Denies Joint Pain
Skin: Denies Itching or Rash
Neurological: Denies Dizzy or Headache
Endocrine: Reports No Symptoms
Hematologic/Lymphatic: Reports No Symptoms
Psych: Reports Calm
Physical Exam
Vital Signs
Vital Signs
Temp Pulse Resp BP Pulse Ox
98.1 F 80 18 148/76 97
02/20/24 09:21 02/20/24 09:21 02/20/24 09:21 02/20/24 09:21 02/20/24 09:21
Physical Exam
GI: Soft, Non Tender, Non Distended, Normal Bowel Sounds and No Hepatosplenomegaly
Genito-urinary: Deferred by me
Musculoskeletal: No Clubbing, No Cyanosis, Edema, Left Lower Extremity (Chronic bilateral leg lymphedema left greater than right, chronic left leg venous stasis dermatitis with erythema, swelling to left second toe with distal tip ulceration, status
post left great toe partial hallux amputation 1 month ago site healed wel) and Edema, Right Lower Extremity (Chronic nonpitting peripheral edema/lymphedema); No Edema, Left Upper Extremity or Edema, Right Upper Extremity
Skin: Warm and Dry; No Rash
Neuro: AO x 3, No Motor Deficits, Nonfocal/grossly intact and Cranial Nerves Intact; No DTR's Intact & Symmetrical, Slurred Speech, Facial Droop or Tremors
Psych: Calm
Laboratory Results
-
02/20/24 11:02
02/20/24 11:02
Laboratory Results
Lactic Acid 1.4 mmol/L (0.7-2.0) 02/20/24 11:02
Total Bilirubin Cancelled 02/20/24 11:02
AST Cancelled 02/20/24 11:02
ALT Cancelled 02/20/24 11:02
Alkaline Phosphatase Cancelled 02/20/24 11:02
Data Reviewed
-
Lab Data: Labs Reviewed by me
Impression/Plan
-
Impression/plan:
Admit to MedSurg
#Left second toe worsening ulceration concern for underlying osteo/chronic PAD
#Chronic left leg venous stasis dermatitis
#Patient S/P left great toe partial hallux amputation 01/05/2024
#Hx left leg PAD status post endovascular therapy of left anterior tibial artery stenosis and left superficial femoral artery stenosis
-Consult Dr. Ramirez
-N.p.o. for possible OR
--IV vancomycin
-Continue gabapentin for diabetic neuropathy
-Consult infectious disease
-Consult vascular surgery
Follow CBC, CMP
-MRI foot ? Will discuss with podiatry
-PT/OT/case management as patient lives alone has no emergency chairperson anesthesiology wants to defer to his PCP
Left foot x-ray: Soft tissue swelling second toe with suspected underlying acute osteomyelitis involving the distal phalanx and possible the middle phalanx
as well no soft tissue gas consider MRI of the foot
Arterial ultrasound lower extremity with VELVET:
1. Left ankle-brachial index 1.36, which may be artificially elevated. Left toe brachial index 0.59, compared to 0.42 on prior.
2. Mild stenosis within the proximal and mid SFA with associated spectral Doppler waveform change
3. Doppler signal was demonstrated within the left posterior tibial and dorsal pedis arteries
#CKD 3B
Creat 1.3 appears baseline, CrCl 59
follow bmp
#Daily alcohol use
-Drinks 1 beer daily no current concern for withdrawal
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
#Cardiomyopathy EF 40-45%
#CAD status post cardiac stent x 4/CABG x 3 vessel 2020
-Patient follows with Dr. Bell
-Continue aspirin 81 mg daily, Zetia 10 mg at bedtime, metoprolol succinate 25 mg at bedtime with hold parameters, Crestor 10 mg every afternoon
-Continue Jardiance 10 mg daily
#COPD moderate persistent no acute exacerbation
-Former smoker 25-year 1 and half pack a day quit 1994
Uses DuoNeb 3 times daily at home no history of intubation
Does not follow with pulmonary group
#Renal insufficiency
#BPH with history of urinary retention
-Continue Flomax
-Monitor urinary output
DM2 with diabetic neuropathy
Follows with endocrine as outpatient
A1c 7.8 on 01/04/2024 admission
-Accu-Cheks before meals and at bedtime
-Continue Toujeo 40 units subcu at bedtime will decrease to 20 while inpatient as blood sugars 109, Humalog 15 units with meals
-Continue gabapentin
#HTN-benign
BP 148/76
-Continue home Lasix
-Continue diltiazem to 40 mg daily, metoprolol succinate 25 mg at bedtime hold parameters
#HLD
-Continue Crestor 10 mg every afternoon, Zetia 10 mg at bedtime
#GERD
Continue Protonix daily
#Constipation
-Continue laxatives
#Obesity due to excess calorie consumption�BMI 32.2
Affects all aspects of care
Weight loss recommended
Low-fat 1800 ADA diet
DVT prophylaxis
Subcu heparin
Full code I had discussion with patient as he has no emergency contact no one assigned to make decisions for him he discussed wanting to make his primary care provider the decision maker I discussed creating a POLST form with that provider
--- NOTE | 2024-02-20 13:23 | W.PN.UPDATE ---
Addendum entered and electronically signed by Pasquale Chu MD 02/20/24 17:43:
NPO after midnight for likely podiatry surgery tomorrow. Cardiology consulted for surgical clearance given his significant cardiac history; cardiology to see patient tomorrow morning.
Original Note:
Update Note
Progress Note Update
This note serves as an addendum to the H&P by JESSIE Roberts, on February 20, 2024.
History of Presenting Illness
73-year-old male with past medical history of left great toe left partial hallux amputation on 01/04/2024 he also underwent at that time intravascular therapy of his left anterior tibial artery for stenosis and left superficial femoral artery
stenosis. chronic venous stasis dermatitis left leg greater than right, chronic lymphedema bilateral legs, chronic PAD, CKD 3B, cardiomyopathy EF 40-45%, CAD status post cardiac stent x 4, CABG x 3 vessel 2020, COPD moderate persistent, former
smoker 25-year 1/2 pack a day quit 1994, daily alcohol use 1 beer only, renal insufficiency/CKD 3B, DM2 with diabetic neuropathy, HTN, constipation, BPH with history of urinary frequency, obesity presented for a 1+ week history of swelling and
ulceration at the tip of his right second toe. He saw his vice president corporate communications yesterday who recommended coming into the ER for evaluation but he was unable to come until today. He denied fever, chills, chest pain, palpitations, pain, shortness of breath,
cough, abdominal pain, nausea, vomiting, diarrhea or urinary symptoms.
Vital Signs
AFVSS
Physical Exam
General: Not in acute distress
HEENT: Normocephalic
Respiratory: CTAB
Cardio: S1 and S2. RRR.
GI: Soft, Non Tender, Non Distended, Normal Bowel Sounds
Musculoskeletal: No Cyanosis, Edema, Left Lower Extremity (Chronic bilateral leg lymphedema left greater than right, chronic left leg venous stasis dermatitis with erythema, swelling to left second toe with distal tip ulceration, status post left
great toe partial hallux amputation 1 month ago site healed well) and Edema, Right Lower Extremity (Chronic nonpitting peripheral edema/lymphedema); No Edema, Left Upper Extremity or Edema, Right Upper Extremity
Skin: Warm and Dry
Neuro: AAO x 3, No Motor Deficits, Nonfocal/grossly intact and Cranial Nerves Intact
Psych: Calm
Assessment/Plan
#Left second toe worsening ulceration concern for underlying osteo/chronic PAD
#Chronic left leg venous stasis dermatitis
#Patient S/P left great toe partial hallux amputation 01/05/2024
#Hx left leg PAD status post endovascular therapy of left anterior tibial artery stenosis and left superficial femoral artery stenosis
-Consult Dr. Ramirez
--IV vancomycin
-Continue gabapentin for diabetic neuropathy
-Consult infectious disease, recommendations appreciated
-Consult vascular surgery, recommendations appreciated
Follow CBC, CMP
-PT/OT/case management as patient lives alone has no emergency floral designer salesperson wants to defer to his PCP
Left foot x-ray: Soft tissue swelling second toe with suspected underlying acute osteomyelitis involving the distal phalanx and possible the middle phalanx
as well no soft tissue gas consider MRI of the foot
Arterial ultrasound lower extremity with VELVET:
1. Left ankle-brachial index 1.36, which may be artificially elevated. Left toe brachial index 0.59, compared to 0.42 on prior.
2. Mild stenosis within the proximal and mid SFA with associated spectral Doppler waveform change
3. Doppler signal was demonstrated within the left posterior tibial and dorsal pedis arteries
#CKD 3B
Creat 1.3 appears baseline, CrCl 59
follow bmp
#Daily alcohol use
-Drinks 1 beer daily no current concern for withdrawal
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
#Cardiomyopathy EF 40-45%
#CAD status post cardiac stent x 4/CABG x 3 vessel 2020
-Patient follows with Dr. Bell
-Continue aspirin 81 mg daily, Zetia 10 mg at bedtime, metoprolol succinate 25 mg at bedtime with hold parameters, Crestor 10 mg every afternoon
-Continue Jardiance 10 mg daily
#COPD moderate persistent no acute exacerbation
-Former smoker 25-year 1 and half pack a day quit 1994
Uses DuoNeb 3 times daily at home no history of intubation
Does not follow with pulmonary group
#Renal insufficiency
#BPH with history of urinary retention
-Continue Flomax
-Monitor urinary output
DM2 with diabetic neuropathy
Follows with endocrine as outpatient
A1c 7.8 on 01/04/2024 admission
-Accu-Cheks before meals and at bedtime
-Continue Toujeo 40 units subcu at bedtime will decrease to 20 while inpatient as blood sugars 109, Humalog 15 units with meals
-Continue gabapentin
#HTN-benign
BP 148/76
-Continue home Lasix
-Continue diltiazem to 40 mg daily, metoprolol succinate 25 mg at bedtime hold parameters
#HLD
-Continue Crestor 10 mg every afternoon, Zetia 10 mg at bedtime
#GERD
Continue Protonix daily
#Constipation
-Continue laxatives
#Obesity due to excess calorie consumption�BMI 32.2
Affects all aspects of care
Weight loss recommended
Low-fat 1800 ADA diet
DVT prophylaxis
Subcu heparin
Full code
--- NOTE | 2024-02-20 14:24 | CON.VAS ---
Consultation
Consultation Request
Performing Provider: Rebel
Reason for Consultation: Left second toe wound
Medical History
-
Chief Complaint: Left second toe wound
History of Present Illness:
73-year-old male with past medical history hypertension, CKD 3B, diabetes, cardiomyopathy, CAD, former smoker here with increased swelling to the left lower extremity and left second toe ulceration for the past 8 days. Patient is well-known to the
vascular service, status post IVL to left AT and left SFA on 01/07/2024. This patient states he was doing very well after our last procedure until about a week ago his left lower extremity swelling increased from his baseline swelling and ulcer began
on left second toe tip. He was seen by his senior ui designer a day before his ER admission and was referred to the emergency room. Patient has a long history of bilateral lower extremity venous insufficiency, he does not tolerate wrapping/compression.
Vascular consult for nonhealing toe wound. Patient seen in the ER this afternoon.
Image of toe wound below. Wound is dry. Palpable +1 left DP pulse (baseline from most recent vascular office visit).
Arterial ultrasound:
Left ankle brachial index measures 1.36, which may be artificially elevated. Left toe brachial index measures 0.59, compared to 0.42 on prior.
Mild stenosis within the proximal and mid SFA, with associated spectral Doppler waveform change.
Doppler signal was demonstrated within the left posterior tibial and dorsalis pedis arteries.
Vascular procedures:
01/07/2024-IVL left AT and SFA
Past Medical History
Past Medical History: Other (CAD ([place]), CHF (HFpEF), COPD, HTN, Hypercholesterolemia, NIDDM, CKD3 and Other (PVD, BPH, Cataracts, neuropathy, nephrolithiasis, diverticulosis))
Past Surgical History: Cardiac ( CAD status post cardiac stent x 4/ CABG x 3 vessel 2020) and Other (post left great toe left partial hallux amputation on 01/04/2024)
Social History
Tobacco: Former Smoker
Alcohol: Daily
Living: Alone
Employment: Retired
Family History
Family History: Reviewed & Not Pertinent
Allergies / Home Medications
Allergy/AdvReac Type Severity Reaction Status Date / Time
No Known Allergies Allergy Verified 02/20/24 09:31
�Medication �Instructions �Recorded �Confirmed �Type
ezetimibe 10 mg tablet 10 mg PO HS High cholesterol 12/22/16 02/20/24 History
pantoprazole 40 mg tablet,delayed 40 mg PO DAILY Gastrointestinal 12/22/16 02/20/24 History
release issue
aspirin 81 mg chewable tablet 81 mg PO DAILY Blood clot 12/24/16 02/20/24 History
prevention/tx
cyanocobalamin (vitamin B-12) 500 mcg PO DAILY Supplement 03/26/20 02/20/24 History
1,000 mcg tablet
rosuvastatin 10 mg tablet 10 mg PO QPM High cholesterol 03/26/20 02/20/24 History
furosemide 40 mg tablet 40 mg PO BID AT 0800,1700 Fluid 08/23/22 02/20/24 History
retention/Swelling
gabapentin 300 mg capsule 300 mg PO HS Neurological Condition 08/23/22 02/20/24 History
lisinopril 10 mg tablet 10 mg PO DAILYPRN PRN high blood 08/23/22 02/20/24 History
pressure
metoprolol succinate 25 mg 25 mg PO HS Blood pressure 08/23/22 02/20/24 History
tablet,extended release 24 hr
cholecalciferol (vitamin D3) 25 25 mcg PO DAILY Supplement 01/04/24 02/20/24 History
mcg (1,000 unit) tablet (Vitamin
D3)
ipratropium 0.5 mg-albuterol 3 mg 3 ml inhalation R Q6 01/04/24 02/20/24 History
(2.5 mg base)/3 mL nebulization Lung/Breathing Issues
soln
acetaminophen 325 mg tablet 650 mg (2 x 325 mg) PO Q4HPRN PRN 01/14/24 02/20/24 Rx
mild pain or temp > 100.4 F #0 tabs
diltiazem HCl 240 mg 240 mg PO DAILY Blood Pressure 02/20/24 02/20/24 History
capsule,extended release 24 hr
empagliflozin 10 mg tablet 10 mg PO DAILY Diabetes 02/20/24 02/20/24 History
(Jardiance)
insulin glargine U-300 conc 300 40 unit SC HS Diabetes 02/20/24 02/20/24 History
unit/mL (1.5 mL) subcutaneous pen
(Toujeo SoloStar U-300 Insulin)
insulin lispro 100 unit/mL 15 unit SC AC Diabetes 02/20/24 02/20/24 History
subcutaneous pen (Humalog KwikPen
(U-100) Insulin)
tamsulosin 0.4 mg capsule 0.4 mg PO DAILY Urinary Issue 02/20/24 02/20/24 History
Review of Systems
-
History Source: Patient
All other systems: Negative unless noted
Constitutional: Reports No Symptoms
EENT: Reports No Symptoms
Respiratory: Reports No Symptoms
Cardiac: Reports No Symptoms
Vascular: Denies Leg Pain / Claudication
Abdomen/GI: Reports No Symptoms
: Reports No Symptoms
Musculoskeletal: Reports Edema
Skin: Reports Other (Nonhealing wound left second toe)
Neurological: Reports No Symptoms
Endocrine: Reports No Symptoms
Physical Exam
Vital Signs
Temp Pulse Resp BP Pulse Ox
98.1 F 80 18 148/76 97
02/20/24 09:21 02/20/24 09:21 02/20/24 09:21 02/20/24 09:21 02/20/24 09:21
Lab Results
02/20/24 11:02
02/20/24 11:02
Physical Exam
General: No Apparent Distress
HEENT: Normocephalic and Atraumatic
Respiratory: Non Labored Respirations
Cardiac: Negative JVD
GI: Soft and Non Tender
Musculoskeletal: No Clubbing, No Cyanosis and Edema (Bilateral lower extremity left greater than right)
Skin: Warm
Neuro: Awake, Alert and Oriented
Psych: Calm
Pulses: Left Dorsalis Pedis: +1 (Palpable)
Assessment / Plan
-
73-year-old male with nonhealing left second toe wound
Palpable DP pulse left foot*
Arterial ultrasound improved from prior
Plan:
-Recommend podiatry consult
-No vascular intervention required at this time
Data Reviewed
-
Ultrasound: Discussed with Patient
[2024-02-20 14:50] VITALS: BMI 31.5
[2024-02-20 14:51] VITALS: BP 153/77
[2024-02-20] MEDS: LASIX 40 MG PO (15:28)
[2024-02-20] MEDS: DUONEB 3 ML INH ×2 (15:44→20:12)
--- NOTE | 2024-02-20 16:04 | PHA.VAN.IN ---
Assessment
- Assessment
Renal Function: Appears similar to baseline
- Previous Dosing Experience
Previous Regimen: Vanc 1250mg Q24H
Date of Regimen: January 2024
Provided Trough of: 12.8
Provided AUC of: 504
Patient's SCR is: Similar to previous dosing experience
Patient's weight is: Similar to previous dosing experience
Regimen provided the following additional patient-specific pk:
Extrapolated Cmax (mcg/mL): 32.1 (peak drawn appropriately)
Extrapolated Cmin (mcg/mL): 12.7 (trough drawn appropriately; levels were drawn at steady state after 8th total dose)
Calculated ke: 0.0414
Calculated half life (H): 12.7
Calculated Vd (L): 59.93
Calculated Vanc CL (ml/min): 41.32
Patient was initially started on Vanc 1500mg Q24H during prior admission which provided AUC 493, Cmax 30.6, Cmin 12.9 and half-life ~18H (drawn after 4th total dose)
Regimen was then pre-emptively adjusted to the Vanc 1250mg Q24H to provide lowest effective dose to minimize toxicity
Patient noted to have some accumulation on 1250mg dosing and initial levels on 1500mg may have not fully been at steady state
AUC Dosing Plan
- Empiric Dosing
Initial / Loading Dose: 2000mg - 02/19 12:23
Maintenance Regimen: Vanc 1250mg Q24H starting 02/20 0600 based on prior experience
- Monitoring
No levels ordered at this time: consider levels in next few days
May consider delaying levels slightly as patient recently had therapeutic levels on regimen and may have been a little slower to achieve steady state
Pharmacokinetics Vancomycin I
- -
Patient Age: 73
Patient Sex: Male
Vancomycin Day #: 1
Indication: [facility]
Requesting Provider: Yenni Hernandez
Pertinent Antimicrobial Allergies:
NKDA
Height / Weight:
Height 5 ft 9 in
Actual Weight 96.751 kg
Pertinent Past Medical History: BMI ~31.5, PAD, DM2, CKD
- Vital Signs / Lab Results
Temp Pulse Resp BP Pulse Ox
97.5 F 77 16 153/77 93
02/20/24 14:51 02/20/24 15:45 02/20/24 15:45 02/20/24 14:51 02/20/24 15:45
Lab Results - Hematology
02/20/24
11:02
WBC 9.2
Lab Results - Chemistry
02/20/24
11:02
BUN 28 H
Creatinine 1.3
Estimated Creat Clear 59
Albumin Cancelled
02/20/24
11:02
Lactic Acid 1.4
[2024-02-20 16:20] VITALS: BP 126/67; PULSE 77; O2SAT 96
[2024-02-20 16:36] LABS: Glucose - Point of Care 144 mg/dl (70-99)
--- NOTE | 2024-02-20 16:51 | CON.ID ---
Consultation
-
Date/Time Consultation Requested: 02/20/2024 13:07
Date/Time Consultation Performed: 02/20/2024 1600
Requesting Provider: Liliam Hernandez
Performing Provider: Dr. Maynard
Reason for Consultation: Left second toe ulceration
Chief Complaint / Past History
History of Present Illness
Antonio Rmairez is a 73-year-old man being evaluated at the request of Liliam Hernandez in regards to a left second toe ulceration with suspected cellulitis. History is obtained from chart review, along with patient interview.
The patient is known to the Infectious Diseases service and has a significant past medical history of CAD, diabetes mellitus with neuropathy and PAD. He was evaluated in early August when he had left hallux gangrene and underwent partial left
hallux amputation. Cultures at that time grew a staph species and at discharge she was transitioned to Augmentin and doxycycline for an additional week of therapy.
He reports that he was doing well at home, but approximately 2 weeks ago he developed an ulceration at the tip of his left second toe. He was followed by home care nursing, along with podiatry. He was seen by his account underwriter yesterday, and they
advised admission for further workup of the toe. At this point in time he denies any pain in the area, but notes ongoing neuropathy. He denies any spreading erythema up the leg, although he does have significant chronic left lower extremity venous
insufficiency. He denies any inguinal adenopathy.
Past History
Additional Past Medical History:
CAD; Hx [place]
COPD
HTN
Dyslipidemia
DM with neuropathy
BPH
Nephrolithiasis
Diverticulosis
Additional Past Surgical History:
CABG
Cholecystectomy
left partial hallux amp.
Allergy History:
No Known Allergies Allergy (Verified 02/20/24 09:31)
Medications Reviewed: Yes
Current Antibiotics:
vancomycin
Social History
Tobacco: Former Smoker
Alcohol: None
Drug: None
Personal:
Living: With Family
Employment: Retired
Review of Systems
Vital Signs
Temp Pulse Resp BP Pulse Ox
97.5 F 77 16 153/77 93
02/20/24 14:51 02/20/24 15:45 02/20/24 15:45 02/20/24 14:51 02/20/24 15:45
Physical Exam
Physical Exam
Constitutional: No Acute Distress, Comfortable and Non-toxic
Eyes: No Conjunctival Hemorrhage and Sclera Anicteric
Cardiovascular: S1/S2; Negative S3/S4
Pulmonary: Clear and Non Labored
Gastrointestinal: Soft and Non Tender
Wound: Other (left second toe with overall erythema)
Neurological: Alert and Oriented
Lab / Diagnostic Study Results
02/20/24 11:02
02/20/24 11:02
Abs Immat Gran (auto) 0.0 10^3/uL (0-0.05) 02/20/24 11:02
Absolute Neuts (auto) 5.8 10^3/uL (1.4-6.5) 02/20/24 11:02
Absolute Lymphs (auto) 1.9 10^3/uL (1.2-3.4) 02/20/24 11:02
Absolute Monos (auto) 0.9 10^3/uL (0.1-0.6) H 02/20/24 11:02
Absolute Basos (auto) 0.1 10^3/uL (0-0.2) 02/20/24 11:02
Immature Gran % 0.3 % (0-0.5) 02/20/24 11:02
Neutrophils % 63.5 % (42.2-75.2) 02/20/24 11:02
Lymphocytes % 20.7 % (20.5-51.1) 02/20/24 11:02
Monocytes % 10.1 % (1.7-9.3) H 02/20/24 11:02
Eosinophils % 4.5 % (0-6) 02/20/24 11:02
Basophils % 0.9 % (0-2) 02/20/24 11:02
Lactic Acid 1.4 mmol/L (0.7-2.0) 02/20/24 11:02
Microbiology Results
Imaging:
02/20/2024 left foot x-ray: Soft tissue swelling of the second toe with suspected underlying acute osteomyelitis involving the distal phalanx and possibly the middle phalanx. No soft tissue gas noted. Please see full dictation for additional
detail. Film personally viewed.
Assessment / Plan
Left second toe cellulitis
Suspected left second toe osteomyelitis
CAD; Hx [place]
COPD
HTN
Dyslipidemia
DM with neuropathy
BPH
Nephrolithiasis
Diverticulosis
Recommendations:
Patient reports that he will be going to surgery tomorrow for partial amputation of the second toe.
Would hold on antibiotics for now and check intraoperative cultures to guide any further antibiotic therapy.
Will reinitiate antibiotics in the immediate postop period
Follow white count temperature curve.
Tight glucose control.
Given underlying diabetes with neuropathy, combined with PAD, patient is at high risk for limb loss.
[2024-02-20] MEDS: NOVOLOG FLEXPEN 15 UNITS SC (17:09)
[2024-02-20] MEDS: CRESTOR 10 MG PO (17:09)
[2024-02-20] MEDS: NOVOLOG FLEXPEN-LOW RESISTANCE SC (17:09)
--- NOTE | 2024-02-20 17:36 | W.CS.POD ---
Consult Summary - Podiatry
-
73 yo male with PMH significant for CAD, COPD, HTN, PVD, HLD, IDDM with peripheral neuropathy, LT L/E chronic edema who presents to my clinic with purulent draining LT 2nd distal toe ulcer,and his Lt lower leg had swelling and redness and warm so i
have asked him to get admitted for possible 2nd toe amputation, he had LT partial hallux amputation on 01/09/2024 and he healed hallux amputation very well. WBC count 9, HE denies nay fever, chills, no chest pain or SOB.
Reviewed PMH, meds and allergies
Exam ; LT foot edematous and diminished pedal pulses
Loss of protective sensation b/l feet
LT 2nd toe distal ulceration probing to bone, edematous with scant purulence distal aspect ulcer
no crepitus felt , no Signs of any abscess noted.
Lt Lower leg with chronic skin changes from lymphedema and venous stasis
Xrays show LT 2nd toe middle and distal phalanx osteomyelitis
A/P: LT foot cellultis
LT 2nd toe osteomyelitis
Diabetic small vessel disease.
Plan : Appreciate ID and vascular consult
Reviewed non invasive vascular studies.
No plans of any vascular procedure this time
Will proceed with 2nd toe amputation tomorrow 02/21/24
D/W hosp service and cardiology to clear him for surgery
NPO after breakfast tomorrow AM
Discussed with patient about risks, complications and alteratives with surgery, no guarantees given to save the limb. recurrent infections, more proximal amputations, no healing discussed due to his vascular disease , he understands and willing to
proceed with toe amputation tomorrow.
Podiatry will follow
[2024-02-20] MEDS: HEPARIN 5000 UNITS SC (20:08)
[2024-02-20 21:35] LABS: Glucose - Point of Care 142 mg/dl (70-99)
[2024-02-20] MEDS: LANTUS 0.2 UNITS SC (21:41)
[2024-02-20] MEDS: ZETIA 10 MG PO (21:42)
[2024-02-20] MEDS: NEURONTIN 300 MG PO (21:42)
[2024-02-20] MEDS: TOPROL XL 25 MG PO (21:43)
[2024-02-20 23:21] VITALS: BP 125/72
[2024-02-21] MEDS: DUONEB 3 ML INH ×4 (02:02→19:42)
[2024-02-21 06:00] VITALS: BMI 31.1
[2024-02-21 06:55] LABS: % Basophils 0.7 % (0-2); % Eosinophils 5.3 % (0-6); % Immature Granulocytes 0.5 % (0-0.5); % Lymphocytes 19.9 % (20.5-51.1); % Monocytes 8.8 % (1.7-9.3); % Neutrophils 64.8 % (42.2-75.2); Absolute Basophils 0.1 10^3/uL (0-0.2); Absolute Eosinophils 0.4 10^3/uL (0-0.7); Absolute Lymphocytes 1.6 10^3/uL (1.2-3.4); Absolute Monocytes 0.7 10^3/uL (0.1-0.6); Absolute Neutrophils 5.2 10^3/uL (1.4-6.5); Hematocrit 38.5 % (39.0-52.0); Hemoglobin 12.7 g/dL (13.0-18.0); Mean Corpuscular Hgb 28.5 pg (27.0-31.0); Mean Corpuscular Volume 86.5 fL (80.0-94.0); Mean Platelet Volume 11.2 fL (7.4-10.4); Nucleated Red Blood Cells % 0 % (-); Platelet Count 306 10^3/uL (130-400); Red Blood Cell Count 4.45 10^6/uL (4.70-6.10); Red Cell Dist. Width 14.2 % (11.5-14.5); White Blood Cell Count 8.1 10^3/uL (4.8-10.8)
[2024-02-21 07:14] LABS: ALT (SGPT) 21 U/L (0-50); AST (SGOT) 22 U/L (17-59); Albumin 4.2 g/dl (3.5-5.0); Alkaline Phosphatase 78 U/L (38-126); Blood Urea Nitrogen 25 mg/dl (9-20); Calcium 9.4 mg/dl (8.4-10.2); Carbon Dioxide 25 mmol/L (22-30); Chloride 103 mmol/L (98-107); Estimated Creatinine Clearance 54 ml/min; Glucose 157 mg/dl (70-99); Potassium 4.2 mmol/L (3.5-5.1); Sodium 139 mmol/L (135-145); Total Bilirubin 0.4 mg/dl (0.2-1.3); eGFR 53.07
[2024-02-21 07:26] LABS: Glucose - Point of Care 150 mg/dl (70-99)
[2024-02-21 07:37] VITALS: BP 122/76
--- NOTE | 2024-02-21 08:01 | CON.CAR ---
Addendum entered and electronically signed by Neftaly Chiang MD 02/21/24 11:12:
73 yo male with PMH of CAD/CABG, ICM EF 40-45%, chronic HFmEF, CKD3a is admitted for for partial amputation of the left second toe. We are consulted for pre-operative evaluation. Patient is stable without cardiac complaint, and had another
amputation last month without issue. Exam with RRR, no murmurs. Cr 1.4. EKG: NSR, RBBB, PVC.
He can proceed to OR at intermediate risk. ASA and metoprolol should not be interrupted.
Monitor on tele post op.
Original Note:
Consultation
Consultation Request
Date/Time Consultation Requested: 02/20/2024 18:00
Date/Time Consultation Performed: 02/21/2024 08:00
Requesting Provider: Dr. Chu
Performing Provider: JESSIE Ramires for Dr. Chiang
Reason for Consultation: Pre op risk assessment
Medical History
-
Chief Complaint: Left second toe swelling
History of Present Illness:
Antonio Ramirez is a 73 year old male (known to Dr. Bell, his primary associate professor of literature) with CAD (S/P CABG), HFrEF/ICM, HTN, HLD, NIDDM, CKD, PVD, PAD, and BPH who presented with swelling to distal right toe. He has a wound on that toe. He has been
having nurses come into his home for wound care. His food safety officer recommended evaluation by the ER. He is status post left great toe left partial hallux amputation on 01/04/2024 he also underwent at that time intravascular therapy of his left anterior
tibial artery for stenosis and left superficial femoral artery stenosis. Cardiology has been asked to comment on risk assessment. He is not having chest pain, shortness of breath, or dizziness. He does not apear to be in acute heart failure.
Past Medical History
Past Medical History: CAD (CABG), CHF (ICM), HTN, Hypercholesterolemia, NIDDM, [place], Renal Failure (CKD) and Other (RBBB, PVD/PAD)
Past Surgical History: Cardiac (CABG) and Cholecystectomy
Social History
Tobacco: Former Smoker
Alcohol: Daily (1 beer every day)
Drug: None
Personal: Single
Living: Alone
Employment: Retired
Family History
Family History: Reviewed & Not Pertinent
Allergies / Home Medications
Allergy/AdvReac Type Severity Reaction Status Date / Time
No Known Allergies Allergy Verified 02/20/24 09:31
�Medication �Instructions �Recorded �Confirmed �Type
ezetimibe 10 mg tablet 10 mg PO HS High cholesterol 12/22/16 02/20/24 History
pantoprazole 40 mg tablet,delayed 40 mg PO DAILY Gastrointestinal 12/22/16 02/20/24 History
release issue
aspirin 81 mg chewable tablet 81 mg PO DAILY Blood clot 12/24/16 02/20/24 History
prevention/tx
cyanocobalamin (vitamin B-12) 500 mcg PO DAILY Supplement 03/26/20 02/20/24 History
1,000 mcg tablet
rosuvastatin 10 mg tablet 10 mg PO QPM High cholesterol 03/26/20 02/20/24 History
furosemide 40 mg tablet 40 mg PO BID AT 0800,1700 Fluid 08/23/22 02/20/24 History
retention/Swelling
gabapentin 300 mg capsule 300 mg PO HS Neurological Condition 08/23/22 02/20/24 History
lisinopril 10 mg tablet 10 mg PO DAILYPRN PRN high blood 08/23/22 02/20/24 History
pressure
metoprolol succinate 25 mg 25 mg PO HS Blood pressure 08/23/22 02/20/24 History
tablet,extended release 24 hr
cholecalciferol (vitamin D3) 25 25 mcg PO DAILY Supplement 01/04/24 02/20/24 History
mcg (1,000 unit) tablet (Vitamin
D3)
ipratropium 0.5 mg-albuterol 3 mg 3 ml inhalation R Q6 01/04/24 02/20/24 History
(2.5 mg base)/3 mL nebulization Lung/Breathing Issues
soln
acetaminophen 325 mg tablet 650 mg (2 x 325 mg) PO Q4HPRN PRN 01/14/24 02/20/24 Rx
mild pain or temp > 100.4 F #0 tabs
diltiazem HCl 240 mg 240 mg PO DAILY Blood Pressure 02/20/24 02/20/24 History
capsule,extended release 24 hr
empagliflozin 10 mg tablet 10 mg PO DAILY Diabetes 02/20/24 02/20/24 History
(Jardiance)
insulin glargine U-300 conc 300 40 unit SC HS Diabetes 02/20/24 02/20/24 History
unit/mL (1.5 mL) subcutaneous pen
(Toujeo SoloStar U-300 Insulin)
insulin lispro 100 unit/mL 15 unit SC AC Diabetes 02/20/24 02/20/24 History
subcutaneous pen (Humalog KwikPen
(U-100) Insulin)
tamsulosin 0.4 mg capsule 0.4 mg PO DAILY Urinary Issue 02/20/24 02/20/24 History
Review of Systems
-
History Source: Patient
All other systems: Negative unless noted
Constitutional: No Symptoms
EENT: No Symptoms
Respiratory: No Symptoms
Cardiac: No Symptoms
Abdomen/GI: No Symptoms
: No Symptoms
Musculoskeletal: Joint Swelling (right second toe) and Edema (right second toe)
Skin: No Symptoms
Neurological: No Symptoms
Endocrine: No Symptoms
Hematologic/Lymphatic: No Symptoms
Physical Exam
Vital Signs
Temp Pulse Resp BP Pulse Ox
97.8 F 77 18 122/76 96
02/21/24 07:37 02/21/24 07:37 02/21/24 07:37 02/21/24 07:37 02/21/24 07:37
Lab Results
02/21/24 06:25
02/21/24 06:28
Physical Exam
General: Well Developed, Well Nourished, No Apparent Distress and Comfortable
HEENT: Normocephalic, Anicteric and Moist Mucous Membranes
Respiratory: Clear and Non Labored Respirations
Cardiac: S1/S2 and Regular Rhythm; Negative Peripheral Edema
Breast: Deferred by me
GI: Soft, Non Tender, Non Distended and Normal Bowel Sounds
Rectal: Deferred by Provider
Genito-urinary: No Costovertebral Tender
Musculoskeletal: No Clubbing, No Cyanosis and No Edema
Skin: Warm and Dry
Neuro: AO x 3
Hematologic/Lymphatic: No Lymphadenopathy
Psych: Calm
Impression / Plan
-
BACKGROUND: 73M with CAD (S/P CABG), HFrEF/ICM, HTN, HLD, NIDDM, CKD, PVD, PAD, and BPH who presented with swelling to distal right toe with a known wound.
[employer] Press Operator: Dr. Bell
Pre-op risk assessment: left toe amputation - planned for today, 02/21/2024
-EKG ordered
-Denies anginal symptoms
-Not in acute HF
-Renal function with chronic insufficiency, stable
-COPD & HF without acute exacerbation
CAD s/p CABG
-Denies any anginal symptoms.
-Continue ASA, statin, and BB
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
-Stable without SOB
-GDMT as tolerated
-EDGARD/ARB: Lisinopril on hold (not on Entresto due to renal dysfunction), consider resuming at 2.5mg
-SGLT2: Jardiance
-Beta candy: Metoprolol succinate, stop diltiazem and increase
-Daily weight, I/Os, and sodium restriction
CKD3b, stable
RBBB, chronic, stable, noted on OP EKG 04/2023
HTN, chronic and stable
NIDDM, Hgba1c 7.8% last admission
COPD, stable without wheeze, per primary
DATA:
Echocardiogram, 01/08/2024
Left ventricle is mildly dilated. Global hypokinesis most pronounce in the
apical josé and apex.
Left ventricular ejection fraction is 40-45% by Smith's biplane Stage I
diastolic dysfunction suggestive of abnormal relaxation.
No significant valvular disease.
Mildly dilated ascending aorta.
Echo density seen in the apex suggestive of LV thrombus (best view 89), but in
other views may just be hypokinetic myocardium. Consider confirmation with
Cardiac MRI if clinically indicated.
Cardiac MRI, 01/10/2024
There is no MR evidence for left ventricular apical thrombus.
Thinning and dyskinesis of the left ventricular apex, compatible with previous myocardial infarction.
There is also thinning and postcontrast enhancement of the inferior and inferolateral josé of the mid to basal portion of the left ventricle,
which is likely from previous infarction.
There is a focal wall motion abnormalities described above.
Calculated left ventricular ejection fraction of 30%. There is poor endocardial wall definition because of motion,
making calculation of ejection fraction somewhat difficult. Subjectively, the ejection fraction appears to be slightly greater, probably in the range of 35-40%.
Data Reviewed
-
Radiology: Report Reviewed by me (Foor X ray [left]: Soft tissue swelling of the second toe with suspected underlying acute osteomyelitis involving the distal phalanx, and possibly the middle phalanx as well. No soft tissue gas. Consider further
evaluation with contrast-enhanced MRI of the foot.)
MRI: Report Reviewed by me (As above)
Medical Tests (Nuc Med, Echo etc): Report Reviewed by me (Echo as above)
Labs: Labs Reviewed by me
Old Records: Reviewed
[2024-02-21] MEDS: FLOMAX 0.4 MG PO (08:33)
[2024-02-21] MEDS: LASIX 40 MG PO (08:33)
[2024-02-21] MEDS: HEPARIN 5000 UNITS SC ×2 (08:33→21:50)
[2024-02-21] MEDS: CARDIZEM CD 240 MG PO (08:33)
[2024-02-21] MEDS: LOW STRENGTH ASPIRIN 81 MG PO (08:33)
[2024-02-21] MEDS: PROTONIX 40 MG PO (08:33)
[2024-02-21] MEDS: VITAMIN D3 (cholecalciferol) 25 MCG PO (08:34)
[2024-02-21] MEDS: VITAMIN B-12 500 MCG PO (08:34)
[2024-02-21] MEDS: NOVOLOG FLEXPEN-LOW RESISTANCE 1 UNITS SC ×2 (08:41→12:38)
[2024-02-21] MEDS: NOVOLOG FLEXPEN 15 UNITS SC (08:41)
--- NOTE | 2024-02-21 09:55 | W.PN.HOSP.TC ---
Today's Communication/Plan
-
For partial amputation of the LT second toe today after cardiology clearance
Assessment / Plan
Assessment / Plan
Physical Exam
General: Not in acute distress
HEENT: Normocephalic
Respiratory: CTAB
Cardio: S1 and S2. RRR.
GI: Soft, Non Tender, Non Distended, Normal Bowel Sounds
Musculoskeletal: No Cyanosis. Chronic bilateral leg lymphedema left greater than right, chronic left leg venous stasis dermatitis with erythema, swelling to left second toe with distal tip ulceration, status post left great toe partial hallux
amputation 1 month ago site healed well) and Edema, Right Lower Extremity (Chronic nonpitting peripheral edema/lymphedema)
Skin: Warm and Dry
Neuro: AAO x 3, No Motor Deficits, Nonfocal/grossly intact and Cranial Nerves Intact
Psych: Calm
Assessment/Plan
#Left second toe worsening ulceration concern for underlying osteo/chronic PAD
#Chronic left leg venous stasis dermatitis
#Patient S/P left great toe partial hallux amputation 01/05/2024
#Hx left leg PAD status post endovascular therapy of left anterior tibial artery stenosis and left superficial femoral artery stenosis
-Consulted Dr. Pollack --> going for surgery: partial amputation of the second toe today
-Continue gabapentin for diabetic neuropathy
-Patient received Vancomycin and Zosyn in the ER
-Consulted infectious disease, recommendations appreciated: hold off on antibiotics until after surgery
-Consulted vascular surgery, recommendations appreciated: no vascular intervention recommended at this time
-PT/OT/case management as patient lives alone has no emergency veterans contact representative wants to defer to his PCP
#CKD 3B
Creatinine appears around baseline
Follow bmp
#Daily alcohol use
-Drinks 1 beer daily no current concern for withdrawal
-Continue B12 supplement [employer]
#Cardiomyopathy EF 40-45%
#CAD status post cardiac stent x 4/CABG x 3 vessel 2020
-Patient follows with Dr. Bell
-Continue aspirin 81 mg daily, Zetia 10 mg at bedtime, metoprolol succinate 25 mg at bedtime with hold parameters, Crestor 10 mg every afternoon
-Cardiology consulted for pre-op clearance, evaluation and recommendations appreciated
#COPD moderate persistent no acute exacerbation
-Former smoker 25-year 1 and half pack a day quit 1994
Uses DuoNeb 3 times daily at home no history of intubation
Does not follow with pulmonary group
#Renal insufficiency
#BPH with history of urinary retention
-Continue Flomax
-Monitor urinary output
DM2 with diabetic neuropathy
Follows with endocrine as outpatient
A1c 7.8 on 01/04/2024 admission
-Accu-Cheks before meals and at bedtime
-Continue Toujeo 40 units subcu at bedtime will decrease to 20 while inpatient as blood sugars 109, Humalog 15 units with meals
-Consulted Diabetes HIGH RIGGER, recommendations appreciated
-Continue gabapentin
#HTN-benign
BP 148/76
-Continue home Lasix
-Continue diltiazem to 40 mg daily, metoprolol succinate 25 mg at bedtime hold parameters
#HLD
-Continue Crestor 10 mg every afternoon, Zetia 10 mg at bedtime
#GERD
Continue Protonix daily
#Constipation
-Continue laxatives
#Obesity due to excess calorie consumption�BMI 32.2
Affects all aspects of care
Weight loss recommended
Low-fat 1800 ADA diet
DVT prophylaxis
Subcu heparin
Full code
Anticipated Discharge: > 48 hours
Subjective/Interval History
-
Date of Service: February 21, 2024
Patient was seen and examined. He denied any fever, chest pain or shortness of breath.
Objective Data
-
Labs:
Laboratory Results
02/21/24 02/21/24
06:25 06:28
WBC 8.1
Hgb 12.7 L
Hct 38.5 L
Plt Count 306
Sodium 139
Potassium 4.2
Chloride 103
Carbon Dioxide 25
BUN 25 H
Creatinine 1.4 H
Glucose 157 H
Calcium 9.4
Total Bilirubin 0.4
AST 22
ALT 21
Alkaline Phosphatase 78
Vital Signs:
Vital Signs
Temp Pulse Resp BP Pulse Ox
97.8 F 77 18 122/76 96
02/21/24 07:37 02/21/24 07:37 02/21/24 07:37 02/21/24 07:37 02/21/24 07:37
--- NOTE | 2024-02-21 10:06 | PN.DE.MGMTRT ---
Insulin Management
- -
02/21/2024: Diabetes Management Consult
73 year old male admitted with L 2nd toe ulceration with cellulitis
PMH: CAD, [place], CHF (HFpEF), COPD, HTN, HLD, PVD, Chronic PAD, Neuropathy, CKD 3B, nephrolithiasis, Cataracts, Diverticulosis, BPH/urinary retention, chronic venous stasis dermatitis left leg greater than right, chronic lymphedema bilateral leg,
former smoker 25-year 1/2 pack a day quit 1994, daily alcohol use 1 beer only, DM2 with diabetic neuropathy, Constipation and Obesity. Prior to admission was taking Toujeo 65 units and Humalog 17 units AC with Jardiance 10mg daily.
A1C 7.8%, Cr 1.4, eGFR 53.6, sees Endo Dr. Cruz and uses a CGM- Dexcom G7 for glucose monitoring. States is CGM data shows that his current A1C is 7.1 and that he is 69% in range for this month.
Pt awake, A/O x3, sitting up on bed, very pleasant offers no complaints, able to discuss diabetes mgt.
Pt is NPO for OR today for partial amputation of left 2nd toe.
He was started on AC NovoLog 15 units and Lantus 20 units @ by hospitalist team.
Glucose has been stable and in range since admission. Received reduced dose of Lantus 20 units @ HS, fasting glucose 157 this AM
Will make no changes to current regimen. Resume AC NovoLog 17 units, Lantus at OP dose after OR, and Jardiance 10mg daily, 1st dose tomorrow AM
Cont low corrective and utilize while pt remains NPO
Diabetes History
- -
Type of Diabetes: 2 requiring insulin
Pre-Admission Diabetes Regimen
02/20/24 02/21/24
11:02 06:28
Creatinine 1.3 1.4 H
Insulin Pump Settings
IP Diabetes Regimen
02/20/24 02/20/24 02/20/24
11:02 16:35 21:34
Glucose 109 H
POC Glucose 144 H 142 H
02/21/24 02/21/24
06:28 07:25
Glucose 157 H
POC Glucose 150 H
Patient Education
[2024-02-21 11:41] LABS: Glucose - Point of Care 164 mg/dl (70-99)
[2024-02-21] MEDS: NOVOLOG FLEXPEN SC ×2 (12:12→15:20)
--- NOTE | 2024-02-21 13:35 | W.PN.ID1 ---
Date of Service
Date of Service: February 21, 2024
Today's Communication
vancomycin to begin post operatively
Assessment / Plan
Left second toe cellulitis
Suspected left second toe osteomyelitis
CAD; Hx [place]
COPD
HTN
Dyslipidemia
DM with neuropathy
BPH
Nephrolithiasis
Diverticulosis
Recommendations:
CONS in previous 01/08 culture - methicillin resistant
Patient will be going to surgery today for partial amputation of the second toe.
Would hold on antibiotics for now and check intraoperative cultures to guide any further antibiotic therapy.
Will reinitiate antibiotics in the immediate postop period - vancomycin ordered for this evening
Follow white count temperature curve.
Tight glucose control.
Given underlying diabetes with neuropathy, combined with PAD, patient is at high risk for limb loss.
Chief Complaint
-: Other (osteomyelitis, cellulitis)
Subjective / Review of Systems
afebrile
bp stable
without leukocytosis
cr stable
mrsa screen pending
CONS in previous 01/08 culture - methicillin resistant
Vital Signs / Physical Exam
Vital Signs
Vital Signs
Temp Pulse Resp BP Pulse Ox
97.8 F 77 16 122/76 95
02/21/24 07:37 02/21/24 12:25 02/21/24 12:25 02/21/24 07:37 02/21/24 12:25
Physical Exam
Constitutional: No Acute Distress
Cardiovascular: Regular Rate and S1/S2; Negative Murmur or Rub
Pulmonary: Clear and Symmetric; Negative Wheezes or Rales
Gastrointestinal: Soft, Non Tender, Non Distended and Normal Bowel Sounds
Skin: Warm and Dry; Negative Rash or Jaundice
Objective Data
Lab Data
Lab Results
02/21/24 06:25
02/21/24 06:28
Estimated Creat Clear 54 ml/min 02/21/24 06:28
Lactic Acid 1.4 mmol/L (0.7-2.0) 02/20/24 11:02
Total Bilirubin 0.4 mg/dl (0.2-1.3) 02/21/24 06:28
AST 22 U/L (17-59) 02/21/24 06:28
ALT 21 U/L (0-50) 02/21/24 06:28
Alkaline Phosphatase 78 U/L (38-126) 02/21/24 06:28
Most recent labs reviewed.
Micro Results:
02/20/24 18:10 MRSA Screen - Pending
Nose
Imaging:
02/20/2024 left foot x-ray: Soft tissue swelling of the second toe with suspected underlying acute osteomyelitis involving the distal phalanx and possibly the middle phalanx. No soft tissue gas noted. Please see full dictation for additional
detail. Film personally viewed.
--- NOTE | 2024-02-21 13:51 | PHA.VAN.FU ---
Vancomycin Assessment / Plan
- Assessment
Renal Function: SCR Increasing (1.3->1.4)
WBC's are: WNL
In the past 24 hrs, patient has been: Afebrile
Concomitant Antimicrobials: none
previous dosing experience in January 2024 was 1500 mg q24h then adjusted to 1250 mg q24h on 02/20 (pt never reaceived the 1250 mg on 02/20- he recd 2000 mg around noon on 02/19) Vanc was then DCD - pt went to the OR (partial amputation 2nd toe) Vanc is
to be restarted post op at 8 pm today.
- Dosing Plan
Adjust Regimen to: will change to dose by random level since this a restart
Dosing by Level: Re-dose today (1000 mg x 1 at 2000 today)
Dosing Comments: based on tomorrows level and SCR may be able to move to sched dosing
May be able to move to schedules dosing as previously ordered
- Monitoring Plan
Random Level: order for AM 02/22/24
- Follow Up
Pharmacy will continue to follow.
Vancomycin Follow UP
- -
Patient Age: 73
Patient Sex: Male
Vancomycin Day #: 2
Indication: [facility]
Requesting Provider: Yenni Hernandez
Pertinent Antimicrobial Allergies:
NKDA
Height / Weight:
Height 5 ft 9 in
Actual Weight 95.368 kg
Pertinent Past Medical History: BMI ~31.5, PAD, DM2, CKD
- Vital Signs / Lab Results
Temp Pulse Resp BP Pulse Ox
97.8 F 77 16 122/76 95
02/21/24 07:37 02/21/24 12:25 02/21/24 12:25 02/21/24 07:37 02/21/24 12:25
Lab Results - Hematology
02/20/24 02/21/24
11:02 06:25
WBC 9.2 8.1
Lab Results - Chemistry
02/20/24 02/21/24
11:02 06:28
BUN 28 H 25 H
Creatinine 1.3 1.4 H
Estimated Creat Clear 59 54
Albumin Cancelled 4.2
02/20/24
11:02
Lactic Acid 1.4
[2024-02-21] MEDS: LASIX PO (15:19)
[2024-02-21 15:48] VITALS: BP 131/76
--- NOTE | 2024-02-21 16:38 | CM ---
Addendum entered by Marybel Land 02/21/24 16:44:
DME: nebulizer
Original Note:
Initial assessment completed
Pharmacy verified: [facility] [address], [address], [place]
Verified w/ patient that he does not have a Primary Contact
Patient lives alone in a one floor home w/ basement; 3 steps to enter; bathroom has stall shower with grab bar
Independent with ambulation, stairs, and ADLs; drives'
DME: Continuous Glucose Monitor; has a cane and a walker; does not use them
Transportation: Friend will provide ride home
SNF/Home Health: [facility] 3.5 years ago;
Current with [facility]; wishes to resume when discharged; referral sent via [facility]
Plan: Discharge to home when stable with resumption of home health [facility]
[2024-02-21] MEDS: CRESTOR PO (17:45)
[2024-02-21 18:01] LABS: Glucose - Point of Care 115 mg/dl (70-99)
[2024-02-21] MEDS: NOVOLOG FLEXPEN-LOW RESISTANCE SC (18:05)
--- NOTE | 2024-02-21 18:23 | W.PN.UPDATE ---
Update Note
Progress Note Update
Since OR is backed up with other add on cases , I am rescheduling the surgery tomorrow morning at 8 AM, informed hosp service and floor nurse to resume his evening diet
[2024-02-21] MEDS: ZETIA 10 MG PO (21:36)
[2024-02-21] MEDS: NEURONTIN 300 MG PO (21:36)
[2024-02-21] MEDS: TOPROL XL 50 MG PO (21:37)
[2024-02-21 21:43] LABS: Glucose - Point of Care 248 mg/dl (70-99)
[2024-02-21] MEDS: LANTUS 0.2 UNITS SC (21:46)
[2024-02-21] MEDS: TYLENOL 650 MG PO (21:49)
[2024-02-21 23:29] VITALS: BP 130/67
[2024-02-22] VITALS (9 sets, daily range): BP systolic 119–150; BP diastolic 64–77
[2024-02-22] MEDS: DUONEB 3 ML INH ×3 (02:13→17:57)
[2024-02-22 07:34] LABS: % Basophils 0.8 % (0-2); % Eosinophils 8.1 % (0-6); % Immature Granulocytes 0.2 % (0-0.5); % Lymphocytes 27.1 % (20.5-51.1); % Monocytes 10.2 % (1.7-9.3); % Neutrophils 53.6 % (42.2-75.2); Absolute Basophils 0.1 10^3/uL (0-0.2); Absolute Eosinophils 0.5 10^3/uL (0-0.7); Absolute Lymphocytes 1.7 10^3/uL (1.2-3.4); Absolute Monocytes 0.6 10^3/uL (0.1-0.6); Absolute Neutrophils 3.3 10^3/uL (1.4-6.5); Hematocrit 40.3 % (39.0-52.0); Hemoglobin 13.2 g/dL (13.0-18.0); Mean Corp Hgb Conc. 32.8 g/dL (33.0-37.0); Mean Corpuscular Hgb 28.2 pg (27.0-31.0); Mean Corpuscular Volume 86.1 fL (80.0-94.0); Mean Platelet Volume 11.2 fL (7.4-10.4); Nucleated Red Blood Cells % 0 % (-); Platelet Count 321 10^3/uL (130-400); Red Blood Cell Count 4.68 10^6/uL (4.70-6.10); Red Cell Dist. Width 14.3 % (11.5-14.5); White Blood Cell Count 6.2 10^3/uL (4.8-10.8)
[2024-02-22] MEDS: DUONEB INH ×2 (07:38→07:41)
[2024-02-22 08:08] LABS: ALT (SGPT) 21 U/L (0-50); AST (SGOT) 24 U/L (17-59); Albumin 4.3 g/dl (3.5-5.0); Alkaline Phosphatase 76 U/L (38-126); Blood Urea Nitrogen 24 mg/dl (9-20); Calcium 9.7 mg/dl (8.4-10.2); Carbon Dioxide 27 mmol/L (22-30); Chloride 103 mmol/L (98-107); Estimated Creatinine Clearance 58 ml/min; Glucose 160 mg/dl (70-99); Potassium 4.4 mmol/L (3.5-5.1); Sodium 139 mmol/L (135-145); Total Bilirubin 0.3 mg/dl (0.2-1.3); Total Protein 7.1 g/dl (6.3-8.2); eGFR 58.01
--- NOTE | 2024-02-22 08:55 | W.SUR.POST ---
Surgical Immediate Post Op
Note
Pre Op Diagnosis: left 2nd toe osteomyelitis of distal and middle phalanx
Post Op Diagnosis: same as above
Procedure Performed: Left 2nd partial toe amputation
Primary Surgeon: Dr. Pollack
Secondary Surgeons: None
Anesthesia: MAC with local block
Estimated Blood Loss: 2cc's
Fluids: None
Drains/Shunts: None
Specimens/Cultures: LT 2nd toe bone for pathology with clean margins
Doppler/Duplex/Angio (Y/N): n
Complications: none
Operative Findings: Quinter, healthy bleeding form surgical margins, no deep tissue purulence, normal proximal phalanx head
Patient with stable vital signs and intact vascular status
[2024-02-22 09:01] LABS: Glucose - Point of Care 140 mg/dl (70-99)
--- NOTE | 2024-02-22 09:16 | W.PN.HOSP.TC ---
Today's Communication/Plan
-
Podiatry surgery today
Hold Zetia and Jardiance perioperatively
Assessment / Plan
Assessment / Plan
Physical Exam
Physical Exam was not performed as the patient was not present in his room at the time of attempted patient encounter.
Assessment/Plan
#Left second toe worsening ulceration concern for underlying osteo/chronic PAD
#Chronic left leg venous stasis dermatitis
#Patient S/P left great toe partial hallux amputation 01/05/2024
#Hx left leg PAD status post endovascular therapy of left anterior tibial artery stenosis and left superficial femoral artery stenosis
-Consulted Dr. Pollack --> went for surgery: partial amputation of the second toe today
-Continue gabapentin for diabetic neuropathy
-Hold Zetia and Empagliflozin until patient recovers from surgery
-Patient received Vancomycin and Zosyn in the ER
-Consulted infectious disease, recommendations appreciated: hold off on antibiotics until after surgery
-Consulted vascular surgery, recommendations appreciated: no vascular intervention recommended at this time
-PT/OT/case management as patient lives alone has no emergency sales person wants to defer to his PCP
#Prolonged QTc
-QTc was 616 on 02/21/24, repeat EKG on 02/21/24 showed QTc was 501
-Avoid/minimize QTc-prolonging medications
#CKD 3B
Creatinine appears around baseline
Follow bmp
#Daily alcohol use
-Drinks 1 beer daily no current concern for withdrawal
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
#Cardiomyopathy EF 40-45%
#CAD status post cardiac stent x 4/CABG x 3 vessel 2020
-Patient follows with Dr. Bell
-Continue aspirin 81 mg daily, metoprolol succinate 25 mg at bedtime with hold parameters, Crestor 10 mg every afternoon
-HOLD Zetia due to surgery, until patient recovers
-Cardiology consulted for pre-op clearance, evaluation and recommendations appreciated
#COPD moderate persistent no acute exacerbation
-Former smoker 25-year 1 and half pack a day quit 1994
Uses DuoNeb 3 times daily at home no history of intubation
Does not follow with pulmonary group
#Renal insufficiency
#BPH with history of urinary retention
-Continue Flomax
-Monitor urinary output
DM2 with diabetic neuropathy
Follows with endocrine as outpatient
A1c 7.8 on 01/04/2024 admission
-Accu-Cheks before meals and at bedtime
-Continue Toujeo 40 units subcu at bedtime decrease to 20 while inpatient as blood sugars 109, Humalog 15 units with meals
-Consulted Diabetes DIETETIC AIDE, recommendations appreciated
-Continue gabapentin
-Hold Jardiance perioperatively
#HTN-benign
-Continue home Lasix
-Continue metoprolol succinate 25 mg at bedtime hold parameters
-Diltiazem stopped by cardiology, appreciate cardiology assistance
#HLD
-Continue Crestor 10 mg every afternoon
-Hold Zetia 10 mg at bedtime perioperatively
#GERD
Continue Protonix daily
#Constipation
-Continue laxatives
#Obesity due to excess calorie consumption�BMI 32.2
Affects all aspects of care
Weight loss recommended
Low-fat 1800 ADA diet
DVT prophylaxis
Subcu heparin
Full code
Anticipated Discharge: > 48 hours
Subjective/Interval History
-
Date of Service: February 22, 2024
Patient was not present in his room this morning, was in the operating room at the time of attempted patient encounter.
Objective Data
-
Labs:
Laboratory Results
02/22/24
06:57
WBC 6.2
Hgb 13.2
Hct 40.3
Plt Count 321
Sodium 139
Potassium 4.4
Chloride 103
Carbon Dioxide 27
BUN 24 H
Creatinine 1.3
Glucose 160 H
Calcium 9.7
Total Bilirubin 0.3
AST 24
ALT 21
Alkaline Phosphatase 76
Vital Signs:
Vital Signs
Temp Pulse Resp BP Pulse Ox
97.8 F 76 10 127/77 95
02/22/24 08:50 02/22/24 09:05 02/22/24 09:05 02/22/24 09:05 02/22/24 09:05
I&O
02/21/24 02/22/24 02/23/24
06:59 06:59 06:59
Intake Total 180 / 180
Balance 180 / 180
[2024-02-22] MEDS: FLOMAX 0.4 MG PO (10:18)
[2024-02-22] MEDS: PROTONIX 40 MG PO (10:18)
[2024-02-22] MEDS: LASIX 40 MG PO ×2 (10:20→16:35)
[2024-02-22] MEDS: VITAMIN D3 (cholecalciferol) 25 MCG PO (10:20)
[2024-02-22] MEDS: LOW STRENGTH ASPIRIN 81 MG PO (10:20)
[2024-02-22] MEDS: JARDIANCE PO (10:20)
[2024-02-22] MEDS: HEPARIN 5000 UNITS SC ×2 (10:21→21:46)
[2024-02-22] MEDS: VITAMIN B-12 500 MCG PO (10:22)
[2024-02-22] MEDS: NOVOLOG FLEXPEN 15 UNITS SC ×3 (10:24→18:14)
[2024-02-22 10:29] LABS: Glucose - Point of Care 126 mg/dl (70-99)
[2024-02-22] MEDS: NOVOLOG FLEXPEN-LOW RESISTANCE SC ×3 (10:31→18:14)
[2024-02-22] MEDS: TYLENOL 650 MG PO ×2 (10:32→21:48)
[2024-02-22 11:16] LABS: Glycohemoglobin (HgbA1c) 7.2 % (4.0-5.6)
--- NOTE | 2024-02-22 12:45 | W.PN.ID1 ---
Date of Service
Date of Service: February 22, 2024
Today's Communication
Continue antibiotics
Assessment / Plan
Left second toe cellulitis
Suspected left second toe osteomyelitis
- s/p partial amputation
CAD; Hx ID
COPD
HTN
Dyslipidemia
DM with neuropathy
BPH
Nephrolithiasis
Diverticulosis
Recommendations:
Continue antibiotics. Await further culture data to guide antimicrobial selection/de-escalation.
Await pathology
Tight glucose control.
Given underlying diabetes with neuropathy, combined with PAD, patient is at high risk for limb loss.
Chief Complaint
-: Other (Left second toe osteomyelitis)
Subjective / Review of Systems
Patient seen and examined. Reports feeling well.
Review of Systems: No Fever and No Chills
Vital Signs / Physical Exam
Vital Signs
Vital Signs
Temp Pulse Resp BP Pulse Ox
98.7 F 76 10 127/77 96
02/22/24 09:15 02/22/24 09:05 02/22/24 09:05 02/22/24 09:05 02/22/24 09:15
Physical Exam
Constitutional: No Acute Distress, Comfortable and Non-toxic
Pulmonary: Non Labored
Extremities: Venous Insufficiency
Wound: Other (Left second toe amp site dressed. Small amount of bloody strikethrough.)
Neurological: Awake and Alert
Psychological: Calm
Objective Data
Lab Data
Lab Results
02/22/24 06:57
02/22/24 06:57
Estimated Creat Clear 58 ml/min 02/22/24 06:57
Lactic Acid 1.4 mmol/L (0.7-2.0) 02/20/24 11:02
Total Bilirubin 0.3 mg/dl (0.2-1.3) 02/22/24 06:57
AST 24 U/L (17-59) 02/22/24 06:57
ALT 21 U/L (0-50) 02/22/24 06:57
Alkaline Phosphatase 76 U/L (38-126) 02/22/24 06:57
Most recent labs reviewed.
Micro Results:
02/22/24 08:36 Tissue Culture - Pending
Toe Gram Stain - Pending
02/20/24 18:10 MRSA Screen - Final
Nose No Methicillin Resistant Staphylococcus aureus isolated.
[2024-02-22 13:04] LABS: Glucose - Point of Care 136 mg/dl (70-99)
--- NOTE | 2024-02-22 13:24 | PHA.VAN.IN ---
Assessment
- Assessment
Renal Function: Appears similar to baseline
Maximum Temperature: 98.7
Minimum Temperature: 97.6
- Previous Dosing Experience
Previous Regimen: Vanc 1250mg IV q24h
Date of Regimen: 01/2024
Provided Trough of: 12.7
Provided AUC of: 504
Patient's SCR is: Similar to previous dosing experience
Patient's weight is: Similar to previous dosing experience
This is a restart of Vanc s/p 2nd toe amputation today. Patient last received Vanc 2gm 02/19 at 1223 and no further doses afterwards. Since it's been 48 hrs, will re-load patient.
AUC Dosing Plan
- Monitoring
No levels ordered at this time: Consider levels after 02/24 0600 dose
Plan
- Plan
Initial / Loading Dose: Vanc 2000mg IV x 1 dose today
Maintenance Regimen: Vanc 1250mg IV q24h beginning 02/22
Pharmacokinetics Vancomycin I
- -
Patient Age: 73
Patient Sex: Male
Vancomycin Day #: 1
Requesting Provider: Aleyda
Pertinent Antimicrobial Allergies:
NKDA
Height / Weight:
Height 5 ft 9 in
Actual Weight 95.368 kg
IBW in k.7
Adjusted BW in k.6
Pertinent Past Medical History: BMI ~31.5, PAD, DM2, CKD3B
- Vital Signs / Lab Results
Temp Pulse Resp BP Pulse Ox
98.7 F 76 10 127/77 96
02/22/24 09:15 02/22/24 09:05 02/22/24 09:05 02/22/24 09:05 02/22/24 09:15
Lab Results - Hematology
02/20/24 02/21/24 02/22/24
11:02 06:25 06:57
WBC 9.2 8.1 6.2
Lab Results - Chemistry
02/20/24 02/21/24 02/22/24
11:02 06:28 06:57
BUN 28 H 25 H 24 H
Creatinine 1.3 1.4 H 1.3
Estimated Creat Clear 59 54 58
Albumin Cancelled 4.2 4.3
02/20/24
11:02
Lactic Acid 1.4
Microbiology Results
02/20/24 18:10 MRSA Screen - Final
Nose No Methicillin Resistant Staphylococcus aureus isolated.
[2024-02-22] MEDS: VANCOCIN 540 MG IV (13:58)
--- NOTE | 2024-02-22 14:30 | W.PN.CD ---
Today's Communication / Plan
-
stable post op on current med regimen: continue
please call us back with additional questions
Impression / Plan
-
BACKGROUND: 73M with CAD (S/P CABG), HFrEF/ICM, HTN, HLD, NIDDM, CKD, PVD, PAD, and BPH who presented with swelling to distal right toe with a known wound.
Agricultural Pilot: Dr. Bell
Stable s/p partial toe amputation
-please call us back with additional questions
CAD s/p CABG
-Denies any anginal symptoms.
-Continue ASA, statin, and BB
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
-Stable without SOB
-GDMT as tolerated
-EDGARD/ARB: Lisinopril on hold (not on Entresto due to renal dysfunction), consider resuming at 2.5mg
-SGLT2: Jardiance
-Beta candy: Metoprolol succinate; stopped diltiazem and increased metoprolol to 50mg
-euvolemic: continue lasix 40mg PO bid
CKD3b, stable
RBBB, chronic, stable, noted on OP EKG 04/2023
HTN, chronic and stable
NIDDM, Hgba1c 7.8% last admission
COPD, stable without wheeze, per primary
DATA:
Echocardiogram, 01/08/2024
Left ventricle is mildly dilated. Global hypokinesis most pronounce in the
apical josé and apex.
Left ventricular ejection fraction is 40-45% by Smith's biplane Stage I
diastolic dysfunction suggestive of abnormal relaxation.
No significant valvular disease.
Mildly dilated ascending aorta.
Echo density seen in the apex suggestive of LV thrombus (best view 89), but in
other views may just be hypokinetic myocardium. Consider confirmation with
Cardiac MRI if clinically indicated.
Cardiac MRI, 01/10/2024
There is no MR evidence for left ventricular apical thrombus.
Thinning and dyskinesis of the left ventricular apex, compatible with previous myocardial infarction.
There is also thinning and postcontrast enhancement of the inferior and inferolateral josé of the mid to basal portion of the left ventricle,
which is likely from previous infarction.
There is a focal wall motion abnormalities described above.
Calculated left ventricular ejection fraction of 30%. There is poor endocardial wall definition because of motion,
making calculation of ejection fraction somewhat difficult. Subjectively, the ejection fraction appears to be slightly greater, probably in the range of 35-40%.
Physical Exam
Vital Signs/Labs
Vital Signs
Temp Pulse Resp BP Pulse Ox
98.7 F 76 10 127/77 96
02/22/24 09:15 02/22/24 09:05 02/22/24 09:05 02/22/24 09:05 02/22/24 09:15
02/21/24 02/22/24 02/23/24
06:59 06:59 06:59
Actual Weight 95.368 kg
02/22/24 06:57
02/22/24 06:57
Physical Exam
Constitutional: No acute distress and Comfortable
EENT: Moist mucous membranes
Cardiovascular: Rhythm & rate is regular, JVD pressure is normal, Systolic murmur absent and Pedal edema present
Respiratory: Respiratory effort normal and Lungs clear to auscul.
GI: Soft and Distention absent
Neuro/Psych: AO x 3
Data Reviewed
-
Date of Service: February 22, 2024
EKG: Other (Tele: SR 60s-70s)
Labs: Labs Reviewed by me
[2024-02-22 16:43] LABS: Glucose - Point of Care 68 mg/dl (70-99)
[2024-02-22] MEDS: CRESTOR 10 MG PO (17:12)
[2024-02-22 17:16] LABS: Glucose - Point of Care 77 mg/dl (70-99)
[2024-02-22 20:37] LABS: Glucose - Point of Care 74 mg/dl (70-99)
[2024-02-22 21:38] LABS: Glucose - Point of Care 99 mg/dl (70-99)
[2024-02-22] MEDS: LANTUS SC ×2 (21:46→21:57)
[2024-02-22] MEDS: NEURONTIN 300 MG PO (21:47)
[2024-02-22] MEDS: TOPROL XL 50 MG PO (21:47)
[2024-02-22] MEDS: BENADRYL 25 MG PO (22:55)
[2024-02-23] MEDS: DUONEB 3 ML INH ×4 (01:58→19:29)
[2024-02-23 03:44] VITALS: BP 141/85
[2024-02-23] MEDS: VANCOCIN 275 MG IV (05:45)
[2024-02-23 06:00] VITALS: BMI 30.8
[2024-02-23 07:12] LABS: % Basophils 0.6 % (0-2); % Immature Granulocytes 0.1 % (0-0.5); % Lymphocytes 23.9 % (20.5-51.1); % Monocytes 11.2 % (1.7-9.3); % Neutrophils 57.2 % (42.2-75.2); Absolute Eosinophils 0.5 10^3/uL (0-0.7); Absolute Lymphocytes 1.7 10^3/uL (1.2-3.4); Absolute Monocytes 0.8 10^3/uL (0.1-0.6); Absolute Neutrophils 4.1 10^3/uL (1.4-6.5); Hematocrit 38.4 % (39.0-52.0); Hemoglobin 12.5 g/dL (13.0-18.0); Mean Corp Hgb Conc. 32.6 g/dL (33.0-37.0); Mean Corpuscular Hgb 28.5 pg (27.0-31.0); Mean Corpuscular Volume 87.7 fL (80.0-94.0); Mean Platelet Volume 11.3 fL (7.4-10.4); Nucleated Red Blood Cells % 0 % (-); Platelet Count 286 10^3/uL (130-400); Red Blood Cell Count 4.38 10^6/uL (4.70-6.10); Red Cell Dist. Width 14.3 % (11.5-14.5); White Blood Cell Count 7.1 10^3/uL (4.8-10.8)
[2024-02-23 07:20] VITALS: BP 127/68
[2024-02-23 07:38] LABS: Glucose - Point of Care 155 mg/dl (70-99)
[2024-02-23 07:40] LABS: ALT (SGPT) 18 U/L (0-50); AST (SGOT) 22 U/L (17-59); Alkaline Phosphatase 71 U/L (38-126); Blood Urea Nitrogen 22 mg/dl (9-20); Calcium 9.4 mg/dl (8.4-10.2); Carbon Dioxide 27 mmol/L (22-30); Chloride 102 mmol/L (98-107); Estimated Creatinine Clearance 57 ml/min; Glucose 157 mg/dl (70-99); Potassium 4.7 mmol/L (3.5-5.1); Sodium 138 mmol/L (135-145); Total Bilirubin 0.3 mg/dl (0.2-1.3); Total Protein 6.7 g/dl (6.3-8.2); eGFR 58.01
[2024-02-23] MEDS: NOVOLOG FLEXPEN 15 UNITS SC ×2 (08:40→13:16)
[2024-02-23] MEDS: NOVOLOG FLEXPEN-LOW RESISTANCE 1 UNITS SC ×2 (08:40→13:16)
[2024-02-23] MEDS: VITAMIN B-12 500 MCG PO (08:41)
[2024-02-23] MEDS: HEPARIN 5000 UNITS SC ×2 (08:42→20:56)
[2024-02-23] MEDS: PROTONIX 40 MG PO (08:42)
[2024-02-23] MEDS: LASIX 40 MG PO ×2 (08:42→17:19)
[2024-02-23] MEDS: FLOMAX 0.4 MG PO (08:42)
[2024-02-23] MEDS: LOW STRENGTH ASPIRIN 81 MG PO (08:42)
[2024-02-23] MEDS: VITAMIN D3 (cholecalciferol) 25 MCG PO (08:42)
[2024-02-23] MEDS: SENOKOT-S 1 TABLET PO (08:50)
--- NOTE | 2024-02-23 08:50 | PHA.VAN.FU ---
Vancomycin Assessment / Plan
- Assessment
Renal Function: Stable
WBC's are: Stable
In the past 24 hrs, patient has been: Afebrile
- Monitoring Plan
No level(s) ordered at this time: Consider levels after 02/24 0600 dose.
- Follow Up
Pharmacy will continue to follow.
Vancomycin Follow UP
- -
Patient Age: 73
Patient Sex: Male
Vancomycin Day #: 2
Indication: [facility]
Requesting Provider: Aleyda
Pertinent Antimicrobial Allergies:
NKDA
Height / Weight:
Height 5 ft 9 in
Actual Weight 94.546 kg
IBW in k.7
Adjusted BW in k.6
Pertinent Past Medical History: BMI ~31.5, PAD, DM2, CKD3B
- Vital Signs / Lab Results
Temp Pulse Resp BP Pulse Ox
97.6 F 72 17 141/85 97
02/23/24 03:44 02/23/24 03:44 02/23/24 03:44 02/23/24 03:44 02/23/24 03:44
Lab Results - Hematology
02/20/24 02/21/24 02/22/24
11:02 06:25 06:57
WBC 9.2 8.1 6.2
02/23/24
06:35
WBC 7.1
Lab Results - Chemistry
02/20/24 02/21/24 02/22/24
11:02 06:28 06:57
BUN 28 H 25 H 24 H
Creatinine 1.3 1.4 H 1.3
Estimated Creat Clear 59 54 58
Albumin Cancelled 4.2 4.3
02/23/24
06:35
BUN 22 H
Creatinine 1.3
Estimated Creat Clear 57
Albumin 4.0
02/20/24
11:02
Lactic Acid 1.4
Microbiology Results
02/22/24 08:36 Gram Stain - Preliminary
Toe
02/20/24 18:10 MRSA Screen - Final
Nose No Methicillin Resistant Staphylococcus aureus isolated.
[2024-02-23 11:06] VITALS: BP 121/77
--- NOTE | 2024-02-23 11:06 | W.PN.HOSP.TC ---
Today's Communication/Plan
-
Await further culture data to guide antibiotics
PT/OT
Assessment / Plan
Assessment / Plan
Physical Exam
General: Not in acute distress
HEENT: Normocephalic
Respiratory: CTAB
Cardio: S1 and S2. RRR.
GI: Soft, Non Tender, Non Distended, Normal Bowel Sounds
Musculoskeletal: No Cyanosis. Chronic bilateral leg lymphedema left greater than right, chronic left leg venous stasis dermatitis with erythema, left foot covered in dressing and EDGARD Wrap.
Skin: Warm and Dry
Neuro: AAO x 3, No Motor Deficits, Nonfocal/grossly intact and Cranial Nerves Intact
Psych: Calm
Assessment/Plan
#Left second toe worsening ulceration concern for underlying osteo/chronic PAD status post left 2nd partial toe amputation on February 22, 2024
#Chronic left leg venous stasis dermatitis
#Patient S/P left great toe partial hallux amputation 01/05/2024
#History of left leg PAD status post endovascular therapy of left anterior tibial artery stenosis and left superficial femoral artery stenosis
-Consulted Dr. Pollack (crisis worker) had left 2nd partial toe amputation on 02/22/24
-Continue gabapentin for diabetic neuropathy
-Holding Zetia and Empagliflozin perioperatively
-Patient received Vancomycin and Zosyn in the ER
-Consulted infectious disease, recommendations appreciated: Vancomycin resumed post-op
-Awaiting pathology and further culture data to guide antimicrobial selection/de-escalation
-Consulted vascular surgery, recommendations appreciated: no vascular intervention recommended at this time
-PT/OT/case management as patient lives alone has no emergency account contact associate wants to defer to his PCP
#Prolonged QTc
-QTc was 616 on 02/21/24, repeat EKG on 02/21/24 showed QTc was 501
-Avoid/minimize QTc-prolonging medications
-EKG ordered for 02/24/24 morning to recheck QTc
#Chronic Kidney Disease Stage 3B
Creatinine appears around baseline
Follow bmp
#Daily alcohol use
-Drinks 1 beer daily no current concern for withdrawal
-Continue B12 supplement [employer] OP
#Cardiomyopathy EF 40-45%
#CAD status post cardiac stent x 4/CABG x 3 vessel 2020
-Patient follows with Dr. Bell
-Continue aspirin 81 mg daily, metoprolol succinate 25 mg at bedtime with hold parameters, Crestor 10 mg every afternoon
-HOLD Zetia perioperatively to surgery on 02/22/24
-Cardiology consulted for pre-op clearance, evaluation and recommendations appreciated
#COPD moderate persistent no acute exacerbation
-Former smoker 25-year 1 and half pack a day quit 1994
Uses DuoNeb 3 times daily at home no history of intubation
Does not follow with pulmonary group
#Renal insufficiency
#BPH with history of urinary retention
-Continue Flomax
-Monitor urinary output
DM2 with diabetic neuropathy
Follows with endocrine as outpatient
A1c 7.8 on 01/04/2024 admission
-Accu-Cheks before meals and at bedtime
-Continue Toujeo 40 units subcu at bedtime decrease to 20 while inpatient as blood sugars 109, Humalog 15 units with meals
-Consulted Diabetes RADIATOR REPAIRER, recommendations appreciated
-Will need good glucose control given patient's PAD and amputations
-Continue gabapentin
-Hold Jardiance perioperatively due to risk of periop complications from Jardiance
#HTN-benign
-Continue home Lasix
-Continue metoprolol succinate 25 mg at bedtime hold parameters
-Diltiazem stopped by cardiology, appreciate cardiology assistance
#HLD
-Continue Crestor 10 mg every afternoon
-Hold Zetia 10 mg at bedtime perioperatively
#GERD
Continue Protonix daily
#Constipation
-Continue laxatives
#Obesity due to excess calorie consumption�BMI 32.2
Affects all aspects of care
Weight loss recommended
Low-fat 1800 ADA diet
DVT prophylaxis
Subcu heparin
Full code
Anticipated Discharge: 24 - 48 hours
Subjective/Interval History
-
Date of Service: February 23, 2024
Patient was seen and examined. He denied any pain, dysuria, abdominal pain, fever, chest pain, shortness of breath or any other symptoms or complaints.
Objective Data
-
Labs:
Laboratory Results
02/23/24
06:35
WBC 7.1
Hgb 12.5 L
Hct 38.4 L
Plt Count 286
Sodium 138
Potassium 4.7
Chloride 102
Carbon Dioxide 27
BUN 22 H
Creatinine 1.3
Glucose 157 H
Calcium 9.4
Total Bilirubin 0.3
AST 22
ALT 18
Alkaline Phosphatase 71
Vital Signs:
Vital Signs
Temp Pulse Resp BP Pulse Ox
97.7 F 72 18 121/77 99
02/23/24 11:06 02/23/24 11:06 02/23/24 11:06 02/23/24 11:06 02/23/24 11:06
I&O
02/22/24 02/23/24 02/24/24
06:59 06:59 06:59
Intake Total 180 / 180 1530 / 1530
Output Total 1125 / 1125
Balance 180 / 180 405 / 405
[2024-02-23 11:30] LABS: Glucose - Point of Care 173 mg/dl (70-99)
[2024-02-23 12:19] VITALS: BMI 30.8
[2024-02-23 15:58] VITALS: BP 130/65
[2024-02-23 16:45] LABS: Glucose - Point of Care 75 mg/dl (70-99)
[2024-02-23] MEDS: CRESTOR 10 MG PO (17:19)
[2024-02-23] MEDS: NOVOLOG FLEXPEN-LOW RESISTANCE SC (17:21)
[2024-02-23] MEDS: NOVOLOG FLEXPEN SC (18:01)
[2024-02-23] MEDS: NOVOLOG FLEXPEN 5 UNITS SC (18:08)
[2024-02-23 20:11] VITALS: BP 157/68
[2024-02-23] MEDS: NEURONTIN 300 MG PO (21:00)
[2024-02-23] MEDS: TOPROL XL 50 MG PO (21:01)
[2024-02-23] MEDS: TYLENOL 650 MG PO (21:03)
[2024-02-23 21:48] LABS: Glucose - Point of Care 168 mg/dl (70-99)
[2024-02-23] MEDS: LANTUS 0.2 UNITS SC (22:37)
[2024-02-23 23:00] VITALS: BP 133/73
[2024-02-24] MEDS: DUONEB 3 ML INH ×4 (01:49→19:20)
[2024-02-24 03:46] VITALS: BP 127/81
[2024-02-24] MEDS: VANCOCIN 275 MG IV (05:59)
[2024-02-24 06:00] VITALS: BMI 30.4
[2024-02-24 07:00] VITALS: BP 123/79
[2024-02-24 07:27] LABS: % Basophils 0.5 % (0-2); % Eosinophils 6.6 % (0-6); % Immature Granulocytes 0.3 % (0-0.5); % Lymphocytes 20.8 % (20.5-51.1); % Monocytes 10.8 % (1.7-9.3); Absolute Eosinophils 0.5 10^3/uL (0-0.7); Absolute Lymphocytes 1.6 10^3/uL (1.2-3.4); Absolute Monocytes 0.8 10^3/uL (0.1-0.6); Absolute Neutrophils 4.6 10^3/uL (1.4-6.5); Hematocrit 39.3 % (39.0-52.0); Hemoglobin 12.8 g/dL (13.0-18.0); Mean Corp Hgb Conc. 32.6 g/dL (33.0-37.0); Mean Corpuscular Hgb 27.5 pg (27.0-31.0); Mean Corpuscular Volume 84.5 fL (80.0-94.0); Mean Platelet Volume 11.1 fL (7.4-10.4); Nucleated Red Blood Cells % 0 % (-); Platelet Count 282 10^3/uL (130-400); Red Blood Cell Count 4.65 10^6/uL (4.70-6.10); Red Cell Dist. Width 14.4 % (11.5-14.5); White Blood Cell Count 7.5 10^3/uL (4.8-10.8)
[2024-02-24 07:35] LABS: ALT (SGPT) 20 U/L (0-50); AST (SGOT) 26 U/L (17-59); Albumin 4.1 g/dl (3.5-5.0); Alkaline Phosphatase 76 U/L (38-126); Blood Urea Nitrogen 23 mg/dl (9-20); Calcium 9.5 mg/dl (8.4-10.2); Carbon Dioxide 28 mmol/L (22-30); Chloride 101 mmol/L (98-107); Estimated Creatinine Clearance 53 ml/min; Glucose 181 mg/dl (70-99); Potassium 4.5 mmol/L (3.5-5.1); Sodium 138 mmol/L (135-145); Total Bilirubin 0.4 mg/dl (0.2-1.3); Total Protein 6.8 g/dl (6.3-8.2); eGFR 53.07
[2024-02-24 08:27] LABS: Glucose - Point of Care 161 mg/dl (70-99)
--- NOTE | 2024-02-24 08:27 | PN.DE.MGMTRT ---
Insulin Management
- -
02/24/2024: Diabetes Management F/U:
73 year old male admitted with L 2nd toe ulceration with cellulitis
PMH: CAD, NC, CHF (HFpEF), COPD, HTN, HLD, PVD, Chronic PAD, Neuropathy, CKD 3B, nephrolithiasis, Cataracts, Diverticulosis, BPH/urinary retention, chronic venous stasis dermatitis left leg greater than right, chronic lymphedema bilateral leg,
former smoker 25-year 1/2 pack a day quit 1994, daily alcohol use 1 beer only, DM2 with diabetic neuropathy, Constipation and Obesity. Prior to admission was taking Toujeo 65 units and Humalog 17 units AC with Jardiance 10mg daily.
A1C 7.8%, Cr 1.4, eGFR 53.6, sees Endo Dr. Cruz and uses a CGM- Dexcom G7 for glucose monitoring. States [facility] CGM data shows that his current A1C is 7.1 and that he is 69% in range for this month.
Pt awake, A/O x3, very pleasant and chatty, offers no complaints, able to discuss diabetes mgt.
He is POD #2 s/p partial amputation of left 2nd toe.
02/21 pt had an episode of hypoglycemia as low as 68. 7/21 glucose low again to 75 at same time in the evening, pre-dinner insulin held.
HS glucose up to 168, pt received Lantus 20 units @ HS, fasting glucose 181 this AM
Will increase Lantus to 22 units @ HS. Reduce AC NovoLog to 12 units. Resume Jardiance 10mg daily.
Cont low corrective and
Diabetes History
- -
Type of Diabetes: 2 requiring insulin
Pre-Admission Diabetes Regimen
02/24/24
06:49
Creatinine 1.4 H
Lab Results
Hemoglobin A1c 7.2 % (4.0-5.6) H 02/21/24 06:25
Insulin Pump Settings
IP Diabetes Regimen
02/23/24 02/23/24 02/23/24
11:29 16:44 21:46
Glucose
POC Glucose 173 H 75 168 H
02/24/24
06:49
Glucose 181 H
POC Glucose
Patient Education
[2024-02-24] MEDS: NOVOLOG FLEXPEN 15 UNITS SC (08:32)
[2024-02-24] MEDS: NOVOLOG FLEXPEN-LOW RESISTANCE 1 UNITS SC ×2 (08:32→13:03)
[2024-02-24] MEDS: LASIX 40 MG PO ×2 (08:34→16:32)
[2024-02-24] MEDS: FLOMAX 0.4 MG PO (08:34)
[2024-02-24] MEDS: VITAMIN B-12 500 MCG PO (08:34)
[2024-02-24] MEDS: VITAMIN D3 (cholecalciferol) 25 MCG PO (08:34)
[2024-02-24] MEDS: LOW STRENGTH ASPIRIN 81 MG PO (08:34)
[2024-02-24] MEDS: PROTONIX 40 MG PO (08:34)
[2024-02-24] MEDS: HEPARIN 5000 UNITS SC ×2 (08:34→21:18)
--- NOTE | 2024-02-24 09:33 | W.PN.HOSP.TC ---
Today's Communication/Plan
-
.
Assessment / Plan
Assessment / Plan
Physical Exam
General: Not in acute distress
HEENT: Normocephalic
Respiratory: CTAB
Cardio: S1 and S2. RRR.
GI: Soft, Non Tender, Non Distended, Normal Bowel Sounds
Musculoskeletal: No Cyanosis. Chronic bilateral leg lymphedema left greater than right, chronic left leg venous stasis dermatitis with erythema, left foot covered in dressing and EDGARD Wrap.
Skin: Warm and Dry
Neuro: AAO x 3, No Motor Deficits, Nonfocal/grossly intact and Cranial Nerves Intact
Psych: Calm
Assessment/Plan
#Left second toe worsening ulceration concern for underlying osteo/chronic PAD status post left 2nd partial toe amputation on February 22, 2024 due to left second toe osteomyelitis
#Chronic left leg venous stasis dermatitis
#Patient S/P left great toe partial hallux amputation 01/05/2024
#History of left leg PAD status post endovascular therapy of left anterior tibial artery stenosis and left superficial femoral artery stenosis
-Consulted Dr. Pollack (jack prizer) had left 2nd partial toe amputation on 02/22/24
-Continue gabapentin for diabetic neuropathy
-Held Zetia and Empagliflozin perioperatively, resume
-Patient received Vancomycin and Zosyn in the ER, now on vancomycin only
-Consulted infectious disease, recommendations appreciated: Vancomycin resumed post-op
-Awaiting pathology and further culture data to guide antimicrobial selection/de-escalation
-Consulted vascular surgery, recommendations appreciated: no vascular intervention recommended at this time
-PT/OT/case management as patient lives alone has no emergency contact representative wants to defer to his PCP
#Prolonged QTc
-QTc was 616 on 02/21/24, repeat EKG on 02/21/24 showed QTc was 501
-Avoid/minimize QTc-prolonging medications
-EKG ordered for 02/24/24 morning to recheck QTc
#Chronic Kidney Disease Stage 3B
Creatinine appears around baseline
Follow bmp
#Daily alcohol use
-Drinks 1 beer daily no current concern for withdrawal
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
#Cardiomyopathy EF 40-45%
#CAD status post cardiac stent x 4/CABG x 3 vessel 2020
-Patient follows with Dr. Bell
-Continue aspirin 81 mg daily, metoprolol succinate 25 mg at bedtime with hold parameters, Crestor 10 mg every afternoon
-Held Zetia perioperatively to surgery on 02/22/24
-Cardiology consulted for pre-op clearance, evaluation and recommendations appreciated
Per cardiology:
GDMT as tolerated
-EDGARD/ARB: Lisinopril on hold (not on Entresto due to renal dysfunction), consider resuming at 2.5mg
-SGLT2: Jardiance
-Beta candy: Metoprolol succinate; stopped diltiazem and increased metoprolol to 50mg
-euvolemic: continue Lasix 40mg PO bid
#COPD moderate persistent no acute exacerbation
-Former smoker 25-year 1 and half pack a day quit 1994
Uses DuoNeb 3 times daily at home no history of intubation
Does not follow with pulmonary group
#Renal insufficiency
#BPH with history of urinary retention
-Continue Flomax
-Monitor urinary output
DM2 with diabetic neuropathy
Follows with endocrine as outpatient
A1c 7.8 on 01/04/2024 admission
-Accu-Cheks before meals and at bedtime
-Continue Toujeo 40 units subcu at bedtime decrease to 20 while inpatient as blood sugars 109, Humalog 15 units with meals
-Consulted Diabetes HOME HEALTH OUTREACH COORDINATOR, recommendations appreciated
-Will need good glucose control given patient's PAD and amputations
-Continue gabapentin
-Hold Jardiance perioperatively due to risk of periop complications from Jardiance
#HTN-benign
-Continue home Lasix
-Continue metoprolol succinate 50 mg at bedtime hold parameters
-Diltiazem stopped by cardiology, appreciate cardiology assistance
#HLD
-Continue Crestor 10 mg every afternoon
-Hold Zetia 10 mg at bedtime perioperatively
# CKD stage IIIa
#GERD
Continue Protonix daily
#Constipation
-Continue laxatives
#Obesity due to excess calorie consumption�BMI 32.2
Affects all aspects of care
Weight loss recommended
Low-fat 1800 ADA diet
DVT prophylaxis
Subcu heparin
Full code
Total time spent to see the patient, examine the patient on the floor, review data and lab results, discuss treatment plan with patient, nursing staff around 55 minutes
Anticipated Discharge: 24 - 48 hours
Subjective/Interval History
-
Date of Service: February 24, 2024
Objective Data
-
Labs:
Laboratory Results
02/24/24
06:49
WBC 7.5
Hgb 12.8 L
Hct 39.3
Plt Count 282
Sodium 138
Potassium 4.5
Chloride 101
Carbon Dioxide 28
BUN 23 H
Creatinine 1.4 H
Glucose 181 H
Calcium 9.5
Total Bilirubin 0.4
AST 26
ALT 20
Alkaline Phosphatase 76
Vital Signs:
Vital Signs
Temp Pulse Resp BP Pulse Ox
97.4 F 78 16 123/79 98
02/24/24 07:00 02/24/24 08:01 02/24/24 08:01 02/24/24 07:00 02/24/24 08:01
I&O
02/23/24 02/24/24 02/25/24
06:59 06:59 06:59
Intake Total 1530 / 1530
Output Total 1125 / 1125 1000 / 1000 1000 / 1000
Balance 405 / 405 -1000 / -1000 -1000 / -1000
--- NOTE | 2024-02-24 09:36 | W.PN.POD ---
Addendum entered and electronically signed by Shante Pollack DPM 02/24/24 09:46:
Pending bone cultures, Removed all infected bone form LT 2nd toe , may need another 1 wk po abx
Original Note:
Today's Communication
Today's Communication
Patient stable to discharge per podiatry
Assessment / Plan
-
S/P Lt 2nd partial toe amputation POD # 2
LT foot cellultis- resolved
Diabetic small vessel disease.
S/P LT L/E angiogram on 01/06 with lithotripsy of SFA and Ant tib artery
Plan : abx per ID
Changed surgical dressings applied adaptic, dry gauze and kerlix to Lt foot
Pt can start ambulate with wedge shoe to Lt foot and walker
Keep the Lt foot elevated when at rest
He will f/u in my office after discharge in 1 wk
Subjective
Chief Complaint
Left 2nd toe osteomyelitis
Subjective
Patient at bedside, doing well, no new complaints. No fever, chills, no pain in LT lower leg or foot . No strike through bleeding noted.
Objective
Temp Pulse Resp BP Pulse Ox
97.4 F 78 16 123/79 98
02/24/24 07:00 02/24/24 08:01 02/24/24 08:01 02/24/24 07:00 02/24/24 08:01
02/24/24 06:49
02/24/24 06:49
Vital Signs and Lab results were reviewed.
Intact vascular status LT foot.
Lt 2nd toe partial amputation site is clean, dry, no oozing, no erythema, well coapted skin incision, intact sutures noted, no bleeding noted, healthy surgical margins, no necrosis noted
--- NOTE | 2024-02-24 10:06 | CM ---
Reviewed chart, patient progressing well in PT. Patient feels that he will be able to return home when cleared for discharge.
Plan: Case management will continue to follow and assist with discharge planning. Patient will return home when medically stable.
[2024-02-24 11:00] VITALS: BP 130/76
--- NOTE | 2024-02-24 11:17 | W.PN.ID1 ---
Date of Service
Date of Service: February 24, 2024
Today's Communication
Transition to doxycycline.
Assessment / Plan
Left second toe cellulitis
Suspected left second toe osteomyelitis
- s/p partial amputation (middle and distal phalanx)
CAD; Hx MD
COPD
HTN
Dyslipidemia
DM with neuropathy
BPH
Nephrolithiasis
Diverticulosis
Recommendations:
Patient very interested in being discharged at this point.
He understands that cultures have not been finalized, but would rather not stay. Risks and benefits of transition to an oral regimen have been explained, including the potential for worsening infection, need for return for IV antibiotics, or even
potentially limb loss. He states that he accepts all of these risks.
Will transition to oral doxycycline 100 mg twice daily, to continue for an additional 7 days.
Preliminary culture data only shows rare skin sinai during discussions with microbiology lab.
Patient will be following up with Podiatry in the office.
Tight glucose control.
Given underlying diabetes with neuropathy, combined with PAD, patient is at high risk for limb loss.
Chief Complaint
-: Other (Left second toe osteomyelitis)
Subjective / Review of Systems
Patient seen and examined. No complaints at present.
Review of Systems: No Fever
Vital Signs / Physical Exam
Vital Signs
Vital Signs
Temp Pulse Resp BP Pulse Ox
97.4 F 78 16 123/79 98
02/24/24 07:00 02/24/24 08:01 02/24/24 08:01 02/24/24 07:00 02/24/24 08:01
Physical Exam
Constitutional: No Acute Distress, Comfortable and Non-toxic
Eyes: No Conjunctival Hemorrhage and Sclera Anicteric
Cardiovascular: S1/S2; Negative S3/S4
Pulmonary: Non Labored
Extremities: Venous Insufficiency (Severe; left lower extremity)
Wound: Other (Left foot dressing in place.)
Neurological: Awake and Alert
Psychological: Calm
Objective Data
Lab Data
Lab Results
02/24/24 06:49
02/24/24 06:49
Estimated Creat Clear 53 ml/min 02/24/24 06:49
Lactic Acid 1.4 mmol/L (0.7-2.0) 02/20/24 11:02
Total Bilirubin 0.4 mg/dl (0.2-1.3) 02/24/24 06:49
AST 26 U/L (17-59) 02/24/24 06:49
ALT 20 U/L (0-50) 02/24/24 06:49
Alkaline Phosphatase 76 U/L (38-126) 02/24/24 06:49
Most recent labs reviewed.
Micro Results:
02/22/24 08:36 Tissue Culture - Preliminary
Toe Gram Stain - Preliminary
02/20/24 18:10 MRSA Screen - Final
Nose No Methicillin Resistant Staphylococcus aureus isolated.
Care Review
Plan reviewed with: Physician (Hospitalist)
[2024-02-24 11:58] LABS: Glucose - Point of Care 178 mg/dl (70-99)
[2024-02-24] MEDS: NOVOLOG FLEXPEN 12 UNITS SC ×2 (13:02→17:39)
[2024-02-24 15:00] VITALS: BP 125/71
[2024-02-24 16:51] LABS: Glucose - Point of Care 117 mg/dl (70-99)
[2024-02-24] MEDS: CRESTOR 10 MG PO (17:37)
[2024-02-24] MEDS: NOVOLOG FLEXPEN-LOW RESISTANCE SC (17:39)
[2024-02-24] MEDS: TOPROL XL 50 MG PO (21:19)
[2024-02-24] MEDS: NEURONTIN 300 MG PO (21:19)
[2024-02-24] MEDS: VIBRAMYCIN 100 MG PO (21:19)
--- NOTE | 2024-02-24 21:30 | PTCARENOTE ---
Pt complained of itching in RLE from sheets and gown. Hypoallergenic sheets and hypoallergenic gown provided. Pt requested Benadryl, JESSIE made aware, new order provided, see MAR.
[2024-02-24] MEDS: TYLENOL 650 MG PO (21:33)
[2024-02-24] MEDS: LANTUS 0.22 UNITS SC (21:33)
[2024-02-24 21:34] LABS: Glucose - Point of Care 146 mg/dl (70-99)
[2024-02-24] MEDS: BENADRYL 25 MG PO (22:39)
[2024-02-24 23:26] VITALS: BP 115/66
[2024-02-25] MEDS: DUONEB 3 ML INH ×2 (01:28→07:32)
[2024-02-25 07:00] VITALS: BP 131/81
[2024-02-25 07:18] LABS: Glucose - Point of Care 154 mg/dl (70-99)
--- NOTE | 2024-02-25 07:47 | PN.DE.MGMTRT ---
Insulin Management
- -
02/25/2024: Diabetes Management Follow up
Patient admitted with L 2nd toe ulceration with cellulitis
PMH: CAD, VA, CHF (HFpEF), COPD, HTN, HLD, PVD, Chronic PAD, Neuropathy, CKD 3B, nephrolithiasis, Cataracts, Diverticulosis, BPH/urinary retention, chronic venous stasis dermatitis left leg greater than right, chronic lymphedema bilateral leg,
former smoker 25-year 1/2 pack a day quit 1994, daily alcohol use 1 beer only, DM2 with diabetic neuropathy, constipation and obesity. Prior to admission was taking Toujeo 65 units @ HS and Humalog 17 units AC with Jardiance 10mg daily.
A1C 7.2%, Cr 1.4, eGFR 53.6, sees Endo Dr. Cruz and uses a CGM- Dexcom G7 for glucose monitoring. States his CGM data shows that his current A1C is 7.1 and that he is 69% in range for this month.
Pt awake, A/O x3, very pleasant and chatty, offers no complaints, able to discuss diabetes mgt.
He is POD #3 s/p partial amputation of left 2nd toe.
Glucose trended low, insulin doses reduced. Currently receiving Lantus 22 units @ HS fasting glucose 154 . Novolog 12 units AC with low corrective, and Jardiance 10mg daily Glucose 117 to 178 pre meal.
Discussed with patient lower insulin requirements while here in the hospital; recommended at discharge that he continue his Toujeo and novolog at a lower dose, trend glucose and report to Dr. Cruz for adjustments if needed. He verbalized
understanding.
Diabetes History
- -
Type of Diabetes: 2 requiring insulin
Pre-Admission Diabetes Regimen
Lab Results
Hemoglobin A1c 7.2 % (4.0-5.6) H 02/21/24 06:25
Insulin Pump Settings
IP Diabetes Regimen
02/24/24 02/24/24 02/24/24
08:26 11:57 16:49
POC Glucose 161 H 178 H 117 H
02/24/24 02/25/24
21:32 07:16
POC Glucose 146 H 154 H
Meal type: Dinner
Meal type: Lunch
Meal type: Breakfast
Amount consumed: 100%
Amount consumed: 100%
Amount consumed: 100%
Patient Education
[2024-02-25] MEDS: FLOMAX 0.4 MG PO (07:54)
[2024-02-25] MEDS: LASIX 40 MG PO (07:54)
[2024-02-25] MEDS: PROTONIX 40 MG PO (07:54)
[2024-02-25] MEDS: LOW STRENGTH ASPIRIN 81 MG PO (07:54)
[2024-02-25] MEDS: JARDIANCE 10 MG PO (07:55)
[2024-02-25] MEDS: VITAMIN B-12 500 MCG PO (07:55)
[2024-02-25] MEDS: VITAMIN D3 (cholecalciferol) 25 MCG PO (07:55)
[2024-02-25] MEDS: HEPARIN 5000 UNITS SC (07:56)
[2024-02-25] MEDS: VIBRAMYCIN 100 MG PO (08:03)
[2024-02-25] MEDS: NOVOLOG FLEXPEN 12 UNITS SC (08:07)
[2024-02-25] MEDS: NOVOLOG FLEXPEN-LOW RESISTANCE 1 UNITS SC (08:10)
--- NOTE | 2024-02-25 09:25 | W.DCSUMMARY ---
Discharge Summary
Discharge Data
Date of Admission: 02/20/24
Date of Discharge: 02/25/24
-
Pending Results: No
Hospital Course
73 years old male -presented with a left second toe ulceration with suspected cellulitis. He had history of coronary artery disease, diabetes mellitus with neuropathy and peripheral arterial disease. He was evaluated in early August when he had
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 Cultures at that time grew a staph species and at discharge she was transitioned to Augmentin and doxycycline for an additional week of therapy. He was followed by home care
nursing, along with podiatry doctor. He was advised admission for further workup of the toe. He was diagnosed with left 2nd toe osteomyelitis of the distal and middle phalanx. Patient was evaluated by welt treater and deemed stable for surgical
intervention. Patient was evaluated by vascular surgery with no vascular intervention needed. Pattern Generator Operator recommended to stop Cardizem and to increase metoprolol dose with continuation same dose of Lasix 40 mg twice a day. Blood pressure was
low and patient had acute kidney injury, lisinopril was held and restarted at lower dose. Patient underwent Left 2nd partial toe amputation with primary closure by Dr Pollack on 02/22/24 without complications. Patient was followed by
infectious diseases senior solutions workflow consultant. Patient received intravenous antibiotic. Patient was very interested in being discharged. Patient had discussion with ID doctor and he verbalized understanding to risks and benefits of transition to an oral regimen
of antibiotic before finalizing culture and pathology. Podiatry doctor reported that all infected parts were resected. Patient verbalized understanding to potential side effects of doxycycline including photosensitivity. Patient remained
hemodynamically stable and was discharged in a stable condition.
Physical Exam
General: Not in acute distress
HEENT: Normocephalic
Respiratory: CTAB
Cardio: S1 and S2. RRR.
GI: Soft, Non Tender, Non Distended, Normal Bowel Sounds
Musculoskeletal: No Cyanosis. Chronic bilateral leg lymphedema left greater than right, chronic left leg venous stasis dermatitis with erythema, left foot covered in dressing and EDGARD Wrap.
Skin: Warm and Dry
Neuro: AAO x 3, No Motor Deficits, Nonfocal/grossly intact and Cranial Nerves Intact
Psych: Calm
Total discharge time spent to see the patient, examine the patient on the floor, review data and lab results, discuss discharge plan with patient, nursing staff around 65 minutes
Discharge Plan
-
Patient Disposition: Home with Home Care
Discharge Diagnosis/Procedures: Underlying osteomyelitis/chronic PAD status post left 2nd partial toe amputation on February 22, 2024 due to left second toe osteomyelitis.
You are discharged on Doxycycline. Potential side effects including gastrointestinal problems, photosensitivity(avoid direct sun exposure while on doxycycline)
You are seen by welt treater. You had low normal blood pressure with renal insufficiency, Cardizem was stopped. Metoprolol succinate was increased. Lisinopril dose was reduced.
You will need to follow-up with podiatry doctor for further management and evaluation as pathology and culture from the surgery are still pending.
Diet: Diabetic, Carb Controlled
Referrals:
Shante Pollack DPM [Specified Professional Personl] - in less than 1 week
Bony Lafleur Jr., DO [Family Provider] - in one to two weeks
Poornima Page CRNP [Specified Professional Personl] - 03/26/24 9:45 am
Prescriptions:
New
doxycycline hyclate 100 mg Capsule
100 mg PO BID Qty: 12 0RF
metoprolol succinate 50 mg Tablet Extended Release 24 Hr
50 mg PO HS Qty: 30 0RF
lisinopril 5 mg tablet
5 mg PO DAILY Qty: 30 0RF
Continued
pantoprazole 40 MG tablet,delayed release (DR/EC)
40 mg PO DAILY
ezetimibe 10 MG tablet
10 mg PO HS
aspirin 81 MG tablet,chewable
81 mg PO DAILY
cyanocobalamin (vitamin B-12) 1,000 MCG tablet
500 mcg PO DAILY
rosuvastatin 10 MG tablet
10 mg PO QPM
furosemide 40 mg tablet
40 mg PO BID AT 0800,1700
gabapentin 300 mg capsule
300 mg PO HS
cholecalciferol (vitamin D3) [Vitamin D3] 25 mcg (1,000 unit) Tablet
25 mcg PO DAILY
ipratropium-albuterol 0.5 mg-3 mg(2.5 mg base)/3 mL solution for nebulization
3 ml inhalation R Q6
acetaminophen 325 mg Tablet
650 mg PO Q4HPRN PRN (Reason: mild pain or temp > 100.4 F) Qty: 0 0RF
insulin lispro [Humalog KwikPen Insulin] 100 unit/mL insulin pen
15 unit SC AC
insulin glargine U-300 conc [Toujeo SoloStar U-300 Insulin] 300 unit/mL (1.5 mL) insulin pen
40 unit SC HS
tamsulosin 0.4 mg capsule
0.4 mg PO DAILY
Jardiance 10 mg tablet
10 mg PO DAILY
Discontinued
lisinopril 10 mg tablet
10 mg PO DAILYPRN PRN (Reason: high blood pressure )
metoprolol succinate 25 mg tablet extended release 24 hr
25 mg PO HS
diltiazem HCl 240 MG capsule,extended release 24hr
240 mg PO DAILY
Discharge Orders:
Discharge Patient (As Directed); Ordered 02/25/24
Ordered By: Nilson Ratliff
Discharge Date and Time
Print Language: TELUGU
--- NOTE | 2024-02-25 11:19 | CM ---
Received consult from attending, patient needs resumption of care of [facility]. Spoke with LATASHA Chirinos [facility] liason, referral made. She stated that she will meet with patient.
Plan: Case management will continue to follow and assist with discharge planning. Home with [facility] services.
[2024-02-25 11:20] LABS: Glucose - Point of Care 192 mg/dl (70-99)
--- NOTE | 2024-02-25 11:40 | VNURNOTE ---
Chart reviewed. Met with patient at bedside. He would like to resume [facility] services. Patient is aware that [facility] will contact him within a few days for TAYO visit. Resumption referral updated in [facility]. [facility] Intake aware of pending discharge.
== END 2024-02-25 12:43 | disposition home health service (06) | DRG 617 ==
LOC: 3 WEST ACU 13:17
PROVIDERS: Clinical Nurse Specialist Family Health; Physician Assistant; ADMITTING PHYSICIAN Hospitalist; ATTENDING PHYSICIAN Internal Medicine; CONSULT PHYSICIAN Internal Medicine Infectious Disease; CONSULT PHYSICIAN Podiatrist Foot & Ankle Surgery; EMERGENCY PHYSICIAN Student in an Organized Health Care Education/Training Program; FAMILY PHYSICIAN Family Medicine; OTHER PHYSICIAN Internal Medicine; OTHER PHYSICIAN Nurse Practitioner Acute Care
PROC: 0Y6S0Z2 Detachment at Left 2nd Toe, Mid, Open Approach (ICD-10-PCS; 2024-02-22)
DX: E11.69 Type 2 diabetes mellitus with other specified complication (principal); I13.0 Hypertensive heart and chronic kidney disease with heart failure and stage 1 through stage 4 chronic kidney disease, or unspecified chronic kidney disease; M86.172 Other acute osteomyelitis, left ankle and foot; L97.526 Non-pressure chronic ulcer of other part of left foot with bone involvement without evidence of necrosis; I50.22 Chronic systolic (congestive) heart failure; E11.621 Type 2 diabetes mellitus with foot ulcer; E11.22 Type 2 diabetes mellitus with diabetic chronic kidney disease; E11.42 Type 2 diabetes mellitus with diabetic polyneuropathy; E11.51 Type 2 diabetes mellitus with diabetic peripheral angiopathy without gangrene; J44.9 Chronic obstructive pulmonary disease, unspecified; I25.10 Atherosclerotic heart disease of native coronary artery without angina pectoris; E78.00 Pure hypercholesterolemia, unspecified; E66.09 Other obesity due to excess calories; N18.32 Chronic kidney disease, stage 3b; L03.032 Cellulitis of left toe; N40.1 Benign prostatic hyperplasia with lower urinary tract symptoms; R33.8 Other retention of urine; I87.2 Venous insufficiency (chronic) (peripheral); I89.0 Lymphedema, not elsewhere classified; I25.5 Ischemic cardiomyopathy; I45.10 Unspecified right bundle-branch block; K21.9 Gastro-esophageal reflux disease without esophagitis; K59.00 Constipation, unspecified; N17.9 Acute kidney failure, unspecified; Z89.412 Acquired absence of left great toe; I25.2 Old myocardial infarction; Z95.5 Presence of coronary angioplasty implant and graft; Z95.1 Presence of aortocoronary bypass graft; Z68.30 Body mass index [BMI] 30.0-30.9, adult; Z87.891 Personal history of nicotine dependence; Z79.84 Long term (current) use of oral hypoglycemic drugs; Z79.82 Long term (current) use of aspirin; Z79.4 Long term (current) use of insulin; Z79.899 Other long term (current) drug therapy
CPT/HCPCS: 88305; 88311; 73620; 73630; 80048; 80053; 82962; 83036; 83605; 85025; 87070; 87147; 87176; 87186; 87205; 93005; 93922; 93925; 94640; 96365; 96366; 96367; 97116; 97162; 97166; 97530; 99285

== ENCOUNTER 2024-04-12 18:05 | Inpatient (IN) | payer MEDICARE, SELFPAY ==
[2024-04-12] VITALS (10 sets, daily range): BP systolic 104–138; BP diastolic 63–77; BMI 30.9; BMI 30.4
[2024-04-12 13:05] LABS: % Basophils 0.3 % (0-2); % Eosinophils 3.8 % (0-6); % Immature Granulocytes 0.4 % (0-0.5); % Monocytes 8.8 % (1.7-9.3); % Neutrophils 74.7 % (42.2-75.2); Absolute Basophils 0.1 10^3/uL (0-0.2); Absolute Eosinophils 0.6 10^3/uL (0-0.7); Absolute Immature Granulocytes 0.1 10^3/uL (0-0.05); Absolute Lymphocytes 1.9 10^3/uL (1.2-3.4); Absolute Monocytes 1.4 10^3/uL (0.1-0.6); Absolute Neutrophils 11.9 10^3/uL (1.4-6.5); Hematocrit 34.7 % (39.0-52.0); Hemoglobin 11.5 g/dL (13.0-18.0); Mean Corp Hgb Conc. 33.1 g/dL (33.0-37.0); Mean Corpuscular Hgb 26.7 pg (27.0-31.0); Mean Corpuscular Volume 80.7 fL (80.0-94.0); Mean Platelet Volume 11.4 fL (7.4-10.4); Nucleated Red Blood Cells % 0 % (-); Platelet Count 240 10^3/uL (130-400); Red Cell Dist. Width 15.7 % (11.5-14.5)
[2024-04-12 13:24] LABS: ALT (SGPT) 40 U/L (0-50); AST (SGOT) 36 U/L (17-59); Alkaline Phosphatase 100 U/L (38-126); Blood Urea Nitrogen 35 mg/dl (9-20); Calcium 9.4 mg/dl (8.4-10.2); Carbon Dioxide 20 mmol/L (22-30); Chloride 102 mmol/L (98-107); Estimated Creatinine Clearance 53 ml/min; Glucose 126 mg/dl (70-99); Potassium 4.2 mmol/L (3.5-5.1); Sodium 139 mmol/L (135-145); Total Bilirubin 0.6 mg/dl (0.2-1.3); Total Protein 6.6 g/dl (6.3-8.2); eGFR 53.07
[2024-04-12] MEDS: NSS 1000 IV (13:48)
--- NOTE | 2024-04-12 14:03 | ED.GENMED ---
History of Present Illness
<Sudheer Li PA-C - Last Filed: 04/12/24 14:07>
General
Chief Complaint: Rectal Bleeding
Source: patient
Time Seen by Provider: 04/12/24 13:15
History of Present Illness
History of Present Illness:
73-year-old male with past medical history of hypertension, hyperlipidemia previous DC status post 4 stents, COPD presenting to the emergency department for evaluation of GI bleeding which she states started and has been gradually
worsening. Patient contacted primary care provider who recommended patient come to the ER for further evaluation. Patient denies any history of similar. Notes that he is a former smoker but quit about 20 years ago. No previous colonoscopies.
Family history was negative for any GI related illness or cancer. Patient denies any fevers or infectious symptoms. He is denying any pain at present time and also denying any chest pain, shortness of breath, diaphoresis, exertional dyspnea.
Past History
<Sudheer Li PA-C - Last Filed: 04/12/24 14:07>
Past History
ED Past Medical History: CAD, COPD, HTN, Hypercholesterolemia, NIDDM, DC and Other (Cataracts, neuropathy, BPH, nephrolithiasis, diverticulosis)
ED Past Surgical History: Cardiac (CABG), Cholecystectomy and Orthopedic
Social History
Tobacco: Former smoker
Alcohol: None
Drug: None
Personal: Single
Living: alone
Employment: Retired
Family History
Family History: Other (Noncontributory)
Review of Systems
<Sudheer Li PA-C - Last Filed: 04/12/24 14:07>
Review of Systems
All Other Systems: ROS reviewed and negative except as documented in HPI and ROS
Phy Exam
<Sudheer Li PA-C - Last Filed: 04/12/24 14:07>
Physical Exam
Physical Exam:
GENERAL: Alert , in no apparent distress
EYE: clear conjunctiva b/l
HEAD: NCAT
ENT: mmm.
CARDIAC: Regular rate and rhythm .
LUNGS: Clear breath sounds bilaterally, no acute respiratory distress, no wheezes/rales/rhonchi
ABDOMEN: Soft, diffuse lower abd ttp, no r/g, no cvat
RECTAL EXAM: dark red stool, heme pos
NEUROLOGICAL: Alert and oriented
SKIN: Warm and dry, bruise to left lateral hip and left posterolateral shoulder but patient unsure as to how he got these
MUSCULOSKELETAL: No edema, well perfused.
PSYCH: Normal and appropriate interaction.
Scores
<Sudheer Li PA-C - Last Filed: 04/12/24 14:07>
Heart Failure Risk
Heart Failure Risk Score: Not Applicable
Heart Score for Chest Pain Patients
STEMI patient?: Not applicable
Withdrawal Assessment of Alcohol
Withdrawal Assessment Completed?: Not applicable
Course
<Sudheer Li PA-C - Last Filed: 04/12/24 14:07>
Orders/Labs/Results
Orders:
Orders
04/12/24 12:57
Complete Blood Count/With Diff Urgent
Comprehensive Metabolic Panel Urgent
04/12/24 13:36
CT Abd/pelvis W Iv Cont Urgent
Comment:
Reason For Exam: lower abd pain, GI bleeding
0.9% Sodium Chloride 1000 ml [Nss] 1,000 ml IV BOLUS
04/12/24 13:47
PTT Urgent
Prothrombin Time Urgent
04/12/24 14:32
Type+Screen Urgent
BBK Wristband Number:
04/12/24 17:02
Piperacillin/Tazo 3.375 Gram [Zosyn] 3.375 gram in 50 ml IV NOW
Abnormal Lab Results
04/12/24 04/12/24
12:57 13:47
WBC 16.0 H 10^3/uL
(4.8-10.8)
RBC 4.30 L 10^6/uL
(4.70-6.10)
Hgb 11.5 L g/dL
(13.0-18.0)
Hct 34.7 L %
(39.0-52.0)
MCH 26.7 L pg
(27.0-31.0)
RDW 15.7 H %
(11.5-14.5)
MPV 11.4 H fL
(7.4-10.4)
Abs Immat Gran (auto) 0.1 H 10^3/uL
(0-0.05)
Absolute Neuts (auto) 11.9 H 10^3/uL
(1.4-6.5)
Absolute Monos (auto) 1.4 H 10^3/uL
(0.1-0.6)
Lymphocytes % 12.0 L %
(20.5-51.1)
PT 14.9 H Sec
(11.4-14.6)
Carbon Dioxide 20 L mmol/L
(22-30)
BUN 35 H mg/dl
(9-20)
Creatinine 1.4 H mg/dL
(0.7-1.3)
Glucose 126 H mg/dl
(70-99)
04/12/24 12:57
04/12/24 12:57
Vital Signs
Initial and Last Documented VS:
Initial Vital Signs
Pulse Resp BP Pulse Ox
101 23 115/70 98
04/12/24 12:44 04/12/24 12:44 04/12/24 12:44 04/12/24 12:44
Last Documented Vital Signs
Temp Pulse Resp BP Pulse Ox
98.1 F 83 24 129/70 96
04/12/24 16:58 04/12/24 16:35 04/12/24 16:35 04/12/24 16:35 04/12/24 16:35
<Bill Godinez PA-C - Last Filed: 04/12/24 17:05>
Orders/Labs/Results
Orders:
Orders
04/12/24 12:57
Complete Blood Count/With Diff Urgent
Comprehensive Metabolic Panel Urgent
04/12/24 13:36
CT Abd/pelvis W Iv Cont Urgent
Comment:
Reason For Exam: lower abd pain, GI bleeding
0.9% Sodium Chloride 1000 ml [Nss] 1,000 ml IV BOLUS
04/12/24 13:47
PTT Urgent
Prothrombin Time Urgent
04/12/24 14:32
Type+Screen Urgent
BBK Wristband Number:
04/12/24 17:02
Piperacillin/Tazo 3.375 Gram [Zosyn] 3.375 gram in 50 ml IV NOW
Abnormal Lab Results
04/12/24 04/12/24
12:57 13:47
WBC 16.0 H 10^3/uL
(4.8-10.8)
RBC 4.30 L 10^6/uL
(4.70-6.10)
Hgb 11.5 L g/dL
(13.0-18.0)
Hct 34.7 L %
(39.0-52.0)
MCH 26.7 L pg
(27.0-31.0)
RDW 15.7 H %
(11.5-14.5)
MPV 11.4 H fL
(7.4-10.4)
Abs Immat Gran (auto) 0.1 H 10^3/uL
(0-0.05)
Absolute Neuts (auto) 11.9 H 10^3/uL
(1.4-6.5)
Absolute Monos (auto) 1.4 H 10^3/uL
(0.1-0.6)
Lymphocytes % 12.0 L %
(20.5-51.1)
PT 14.9 H Sec
(11.4-14.6)
Carbon Dioxide 20 L mmol/L
(22-30)
BUN 35 H mg/dl
(9-20)
Creatinine 1.4 H mg/dL
(0.7-1.3)
Glucose 126 H mg/dl
(70-99)
04/12/24 12:57
04/12/24 12:57
Vital Signs
Initial and Last Documented VS:
Initial Vital Signs
Pulse Resp BP Pulse Ox
101 23 115/70 98
04/12/24 12:44 04/12/24 12:44 04/12/24 12:44 04/12/24 12:44
Last Documented Vital Signs
Temp Pulse Resp BP Pulse Ox
98.1 F 83 24 129/70 96
04/12/24 16:58 04/12/24 16:35 04/12/24 16:35 04/12/24 16:35 04/12/24 16:35
<Sudheer Li PA-C - Last Filed: 04/12/24 14:07>
MDM/Problems Addressed
Differential Diagnosis Includes:
diverticular bleed, hemorrhoidal bleeding, UGI bleed, anemia, malignancy
MDM/Problems Addressed:
73-year-old male presenting to the emergency department for evaluation of GI bleeding that is been ongoing since , worsening throughout the weekend. Arrives to the ER hemodynamically stable however during my exam patient's blood pressure is
a little bit on the lower side. He is afebrile. Labs have been initiated on arrival at time of my exam revealed a leukocytosis of 16,000, hemoglobin of 11.5 and mild acute kidney injury. I added on coags, CT scan of the abdomen and pelvis and IV
fluids. Suspect diverticular bleed and lower GI sources most likely. Anticipate admission with need for GI consultation and possible colonoscopy.
<Sudheer Li PA-C - Last Filed: 04/12/24 14:07>
*Pulse Oximetry
Patient hypoxic: no
Data Reviewed
Review of Other/Old Records Reveals: Labs
Source: patient and records
<Bill Godinez PA-C - Last Filed: 04/12/24 17:05>
*Critical Care Note
Total Time (30-74mins, 75-104mins- exclusive of procedures): Not Applicable
<Bill Godinez PA-C - Last Filed: 04/12/24 17:05>
Update Note
Update Note:
Assumed care of patient pending CT scan. CT scan demonstrates acute uncomplicated colitis. Zosyn ordered. Will mid to hospital. Labs reviewed. White count 16,000 hemoglobin 11.5
ED Attending Note
<Sudheer Li PA-C - Last Filed: 04/12/24 14:07>
-
Portions of this chart may have been created with voice recognition software.� Occasional wrong word or��sound alike� substitutions may have occurred due to the inherent limitations of voice recognition software.
Discharge Plan
Departure
Patient Disposition: Admit
Date of Disposition: 04/12/24
Time of Disposition: 17:04
Admit to: Telemetry
Presentation/result/management discussed w/ accepting MD/DO: Hospitalist
Discharge Problem:
Colitis
Prescriptions:
No Action
pantoprazole 40 MG tablet,delayed release (DR/EC)
40 mg PO DAILY
ezetimibe 10 MG tablet
10 mg PO HS
aspirin 81 MG tablet,chewable
81 mg PO DAILY
cyanocobalamin (vitamin B-12) 1,000 MCG tablet
500 mcg PO DAILY
rosuvastatin 10 MG tablet
10 mg PO QPM
furosemide 40 mg tablet
40 mg PO BID AT 0800,1700
gabapentin 300 mg capsule
300 mg PO HS
cholecalciferol (vitamin D3) [Vitamin D3] 25 mcg (1,000 unit) Tablet
25 mcg PO DAILY
ipratropium-albuterol 0.5 mg-3 mg(2.5 mg base)/3 mL solution for nebulization
3 ml inhalation R Q6HPRN PRN (Reason: sob)
insulin lispro [Humalog KwikPen Insulin] 100 unit/mL insulin pen
15 unit SC AC
insulin glargine U-300 conc [Toujeo SoloStar U-300 Insulin] 300 unit/mL (1.5 mL) insulin pen
40 unit SC HS
tamsulosin 0.4 mg capsule
0.4 mg PO DAILY
metoprolol succinate 50 mg Tablet Extended Release 24 Hr
50 mg PO HS Qty: 30 0RF
lisinopril 5 mg tablet
5 mg PO DAILY Qty: 30 0RF
magnesium oxide 400 mg magnesium Tablet
400 mg PO HS
acetaminophen 325 mg tablet
650 mg PO BID
Referrals:
Bony Lafleur Jr., DO [Family Provider] -
Interventions
Interventions:
*Risk Screen - Suicide Last Done: 04/12/24 12:59
*General Assessment Last Done: 04/12/24 12:59
*Neglect/Abuse Screening Last Done: 04/12/24 12:59
*ED COVID-19 Vaccine History Last Done: 04/12/24 12:59
GG-Nincum-Pbugmrqrld Assessment Last Done: 04/12/24 13:02
ED- Cardiac Assessment Last Done: 04/12/24 13:02
ED- Pulmonary Assessment Last Done: 04/12/24 13:02
Discharge Date and Time
Print Language: BELIZEAN
[2024-04-12 14:09] LABS: INR 1.19; PT 14.9 Sec (11.4-14.6)
[2024-04-12 14:10] LABS: APTT 32.1 Sec (23.4-35.0)
[2024-04-12] MEDS: ZOSYN 50 IV (17:31)
--- NOTE | 2024-04-12 17:49 | HPS.HSE ---
Family Physician
-
Family Physician: Bony Lafleur
Chief Complaint
-
Rectal Bleeding
History of Present Illness
Patient is 73 yo male with a hx of CAD with multiple stents, HTN, HLD, CHF, COPD, DM, and CKD, presents with 4 days of rectal bleeding. He first noticed the blood when he was trying to have a bowel movement and says it was bright red blood in the
toilet bowl. He has had 1 episode of this rectal bleeding per day and it has been progressively improving with his bowel movement this morning having the least amount of blood. He also reports cramping abdominal pain that comes and goes randomly and
is across his lower abdomen. He has not been eating since symptoms began because he is scared to eat. He has never had a colonoscopy before. He reports antibiotics about a month ago for recent toe infection. He denies recent travel, changes to his
diet, or unusual food intake. He denies nausea, vomiting, diarrhea, constipation, pain with defecation, fevers, chills, body aches.
Medical History
Past Medical History
Past Medical History: Reports Other
Additional Past Medical History:
Coronary Artery Disease s/p Multiple Stents and CABG
Chronic HFmrEF
Essential Hypertension
Hyperlipidemia
Diabetes Mellitus, Type II
Diabetic Neuropathy
CKD Stage 3B
Chronic Lower Extremity Lymphedema
Chronic Venous Stasis
COPD
BPH
GERD
Past Surgical History: Reports Other
Additional Past Surgical History:
CABG
Cardiac Stents
Cholecystectomy
Partial Amputations of Left 1st and 2nd Toes
Social History
Tobacco: Former Smoker
Alcohol: Occasional (one beer most nights)
Family History
Family History: Not pertinent
Allergies / Home Medications
Allergies reflects when Allergies were last updated in [facility].
Home Medications with original date entered in [facility]
Allergy/Medication List:
Allergies
Allergy/AdvReac Type Severity Reaction Status Date / Time
No Known Allergies Allergy Verified 04/12/24 13:04
Home Medications
ezetimibe 10 mg tablet 10 mg PO HS High cholesterol 12/22/16
pantoprazole 40 mg tablet,delayed release 40 mg PO DAILY Gastrointestinal issue 12/22/16
aspirin 81 mg chewable tablet 81 mg PO DAILY Blood clot prevention/tx 12/24/16
cyanocobalamin (vitamin B-12) 1,000 mcg tablet 500 mcg PO DAILY Supplement 03/26/20
rosuvastatin 10 mg tablet 10 mg PO QPM High cholesterol 03/26/20
furosemide 40 mg tablet 40 mg PO BID AT 0800,1700 Fluid retention/Swelling 08/23/22
gabapentin 300 mg capsule 300 mg PO HS Neurological Condition 08/23/22
cholecalciferol (vitamin D3) 25 mcg (1,000 unit) tablet (Vitamin D3) 25 mcg PO DAILY Supplement 01/04/24
ipratropium 0.5 mg-albuterol 3 mg (2.5 mg base)/3 mL nebulization soln 3 ml inhalation R Q6HPRN PRN sob 01/04/24
insulin glargine U-300 conc 300 unit/mL (1.5 mL) subcutaneous pen (Toujeo SoloStar U-300 Insulin) 40 unit SC HS Diabetes 02/20/24
insulin lispro 100 unit/mL subcutaneous pen (Humalog KwikPen (U-100) Insulin) 15 unit SC AC Diabetes 02/20/24
tamsulosin 0.4 mg capsule 0.4 mg PO DAILY Urinary Issue 02/20/24
acetaminophen 325 mg tablet 650 mg PO BID Pain 04/12/24
lisinopril 5 mg tablet 5 mg PO DAILY Blood Pressure 04/12/24
magnesium oxide 400 mg PO HS Supplement 04/12/24
metoprolol succinate 50 mg tablet,extended release 24 hr 50 mg PO HS Heart Failure 04/12/24
Review of Systems
-
A 12 point ROS was completed and negative except as noted: Yes
Constitutional: Denies Fever or Chills
Respiratory: Denies Cough or Trouble Breathing
Cardiac: Denies Chest Pain or Palpitations
Abdomen/GI: Reports See HPI
Physical Exam
Vital Signs
Vital Signs
Temp Pulse Resp BP Pulse Ox
98.1 F 86 20 129/67 97
04/12/24 16:58 04/12/24 17:30 04/12/24 17:30 04/12/24 17:00 04/12/24 17:30
Physical Exam
General: Comfortable and Conversant
HEENT: Anicteric and Moist mucous membranes
Respiratory: Clear and Non Labored Respirations
Cardiac: S1/S2 and Regular Rhythm
GI: Soft and Tender (Mild bilateral lower regions without rebound or guarding)
Musculoskeletal: No Clubbing, No Cyanosis and Other (+3 pitting edema bilateral lower extremities)
Skin: Warm and Dry
Neuro: Awake, Alert, Oriented and Nonfocal/grossly intact
Psych: Calm
Laboratory Results
-
04/12/24 12:57
04/12/24 12:57
Laboratory Results
PT 14.9 Sec (11.4-14.6) H 04/12/24 13:47
INR 1.19 04/12/24 13:47
APTT 32.1 Sec (23.4-35.0) 04/12/24 13:47
Total Bilirubin 0.6 mg/dl (0.2-1.3) 04/12/24 12:57
AST 36 U/L (17-59) 04/12/24 12:57
ALT 40 U/L (0-50) 04/12/24 12:57
Alkaline Phosphatase 100 U/L (38-126) 04/12/24 12:57
Abd/Pelvis CT Scan:
Acute uncomplicated left-sided colitis, likely of infectious/inflammatory etiology. No convincing ancillary findings to suggest ischemic etiology.
Data Reviewed
-
Lab Data: Labs Reviewed by me
Impression/Plan
-
GI Bleed secondary to Acute Left-Sided Colitis
-Consult GI
-Check stool culture
-Continue Zosyn
-Allow clear liquids
Coronary Artery Disease s/p Multiple Stents and CABG
-Hold aspirin in setting of GI bleed
Chronic HFmrEF
-Echo EF 40-45% in January 2024
-Hold Lasix
-Monitor Is&Os and Daily Weights
Essential Hypertension
-Continue lisinopril and metoprolol
Hyperlipidemia
-Continue ezetimibe
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
-Monitor sugars
-Half usual dose of glargine
-Hold meal time insulin
-Continue gabapentin
CKD Stage 3B
-Creatinine at baseline
COPD, no acute exacerbation
-Continue DuoNeb
BPH
-Continue tamsulosin
DVT proph: SCDs
Code Status: Full Code
--- NOTE | 2024-04-12 19:10 | W.PN.UPDATE ---
Update Note
Progress Note Update
This is addendum to H&P written by Dara Anderson on 04/12/2024.
73-year-old male past medical history of CAD status post CABG, CHF, hypertension, hyperlipidemia, diabetes, CKD, here with rectal bleeding secondary to acute infectious colitis as seen on CT imaging.� Hold aspirin, clear liquids, check stool
studies, Zosyn.� Hold Lasix, reduce insulin.
--- NOTE | 2024-04-12 20:00 | PTCARENOTE ---
Pt arrived to unit from ED and ambulated with x2 assist from stretcher to bed. Pt is AAOx3, reports some SOB with an expiratory wheeze and productive cough with clear sputum. Pt oriented to room, call ramírez within reach, no complaints of pain at
this time. VS on admission stable.
[2024-04-12] MEDS: CRESTOR 10 MG PO (20:03)
[2024-04-12] MEDS: DUONEB 3 ML INH (21:43)
[2024-04-12 21:51] LABS: Glucose - Point of Care 142 mg/dl (70-99)
[2024-04-12 22:41] LABS: Hematocrit 26.1 % (39.0-52.0); Hemoglobin 8.9 g/dL (13.0-18.0)
[2024-04-12] MEDS: LANTUS 0.16 UNITS SC (22:53)
[2024-04-12] MEDS: ZETIA 10 MG PO (22:53)
[2024-04-12] MEDS: TOPROL XL 50 MG PO (22:53)
[2024-04-12] MEDS: NEURONTIN 300 MG PO (22:53)
[2024-04-13] MEDS: ZOSYN 50 IV ×5 (00:13→23:58)
[2024-04-13] MEDS: DUONEB 3 ML INH ×2 (01:08→11:05)
[2024-04-13 03:31] VITALS: BP 138/62
[2024-04-13 06:00] VITALS: BMI 30.1
--- NOTE | 2024-04-13 07:08 | CON.GI ---
Consultation
-
Date/Time Consultation Requested: 04/12/2024 ; 17:47
Date/Time Consultation Performed: 04/13/2024 ; 0700
Requesting Provider: Dr. Sydni Land
Performing Provider: Dr. Robert Armstrong
Reason for Consultation: Colitis, BRBPR
Medical History
Chief Complaint / HPI
Chief Complaint: Rectal Bleeding
History of Present Illness:
Mr Ramirez is a 73 y.o male with past medical history of HTN, HLD, DM II, GERD, CKD, obstructive CAD (s/p stents and prior CABG), HFrEF (w/ EF 40-45%, 01/2024) COPD, and hx of CCY who presented to the ED with rectal bleeding and found to have
left-sided colitis. Gastroenterology has been consulted for further evaluation and management.
Patient states his symptoms stated 4-5 days ago with painless hematochezia. States he had one large episode of bright red bloody stool with blood clots. No abdominal pain but did note mild lower abdominal cramping. Denies any similar symptoms in the
past or prior episodes of GI bleeding. Notes it started to lessen over the past few days but still persistent hematochezia with his daily bowel movements. Denies any diarrhea or changes in bowel habits. No other nausea/vomiting or other fevers,
chills, night sweats or other constitutional symptoms. Does note recent antibiotics prescribed for a toe infection (about one month ago- unable to recall) but no other medication changes, sick contacts, recent history of travel or known spoiled food
intake. Given his persistent bloody stools, he came to the ED for further evaluation. Otherwise, no SOB, fatigue, lightheadedness or weakness. He denies any prior EGD or colonoscopy in the past. No family history of CRC or other known GI malignancy.
In the ED, patient was afebrile and HD-stable. Labs notable for BUN 34 and Photo Specialist. 1.4 and normal LFTs. CBC with WBC 16.0, Hgb 11.5 -> 8.5 (baseline 11-13s), and plts 240. CT Abd/pelvis 04/12/24 w/ IV contrast revealed acute uncomplicated left-sided
colitis, likely of infectious/inflammatory etiology. No convincing ancillary findings to suggest ischemic etiology. Stool cultures were obtained and patient was started on IV Zosyn and admitted to medicine for further management.
Past Medical History
Past Medical History: Other (CAD (s/p stents and CABG), HFrEF, HTN, HLD, DM II, CKD stage IIIb, chronic lower extremity lymphedema, chronic venous stasis, COPD, BPH, GERD)
Past Surgical History: Other (CABG, cardiac stents, hx of CCY, partial amputations of toes (Left 1st and 2nd))
Social History
Tobacco: Former Smoker
Alcohol: Occasional
Family History
Family History: Other (No family history of CRC or other known GI malignancy)
Allergies / Home Medications
Allergy/AdvReac Type Severity Reaction Status Date / Time
No Known Allergies Allergy Verified 04/12/24 13:04
�Medication �Instructions �Recorded
ezetimibe 10 mg tablet 10 mg PO HS High cholesterol 12/22/16
pantoprazole 40 mg tablet,delayed 40 mg PO DAILY Gastrointestinal 12/22/16
release issue
aspirin 81 mg chewable tablet 81 mg PO DAILY Blood clot 12/24/16
prevention/tx
cyanocobalamin (vitamin B-12) 500 mcg PO DAILY Supplement 03/26/20
1,000 mcg tablet
rosuvastatin 10 mg tablet 10 mg PO QPM High cholesterol 03/26/20
furosemide 40 mg tablet 40 mg PO BID AT 0800,1700 Fluid 08/23/22
retention/Swelling
gabapentin 300 mg capsule 300 mg PO HS Neurological Condition 08/23/22
cholecalciferol (vitamin D3) 25 25 mcg PO DAILY Supplement 01/04/24
mcg (1,000 unit) tablet (Vitamin
D3)
ipratropium 0.5 mg-albuterol 3 mg 3 ml inhalation R Q6HPRN PRN sob 01/04/24
(2.5 mg base)/3 mL nebulization
soln
insulin glargine U-300 conc 300 40 unit SC HS Diabetes 02/20/24
unit/mL (1.5 mL) subcutaneous pen
(Tougar[employer]o SoloStar U-300 Insulin)
insulin lispro 100 unit/mL 15 unit SC AC Diabetes 02/20/24
subcutaneous pen (Humalog KwikPen
(U-100) Insulin)
tamsulosin 0.4 mg capsule 0.4 mg PO DAILY Urinary Issue 02/20/24
acetaminophen 325 mg tablet 650 mg PO BID Pain 04/12/24
lisinopril 5 mg tablet 5 mg PO DAILY Blood Pressure 04/12/24
magnesium oxide 400 mg PO HS Supplement 04/12/24
metoprolol succinate 50 mg 50 mg PO HS Heart Failure 04/12/24
tablet,extended release 24 hr
Review of Systems
-
All other systems: A 12 pt ROS was Negative except as stated above in HPI
Vital Signs
Temp Pulse Resp BP Pulse Ox
97.9 F 84 16 138/62 97
04/13/24 03:31 04/13/24 03:31 04/13/24 03:31 04/13/24 03:31 04/13/24 03:31
Physical Exam
Exam
General: No Apparent Distress and Comfortable
HEENT: Anicteric and Moist Mucous Membranes
Respiratory: Clear and Non Labored Respirations
Cardiac: S1/S2 and Regular Rhythm
GI: Soft, Non Tender and Distended
Musculoskeletal: No Edema
Neuro: Awake and AO x 3
Psych: Calm
Results
WBC 16.0 10^3/uL (4.8-10.8) H 04/12/24 12:57
Hgb 8.9 g/dL (13.0-18.0) L D 04/12/24 22:28
Hct 26.1 % (39.0-52.0) L 04/12/24 22:28
MCV 80.7 fL (80.0-94.0) 04/12/24 12:57
Plt Count 240 10^3/uL (130-400) 04/12/24 12:57
Absolute Neuts (auto) 11.9 10^3/uL (1.4-6.5) H 04/12/24 12:57
PT 14.9 Sec (11.4-14.6) H 04/12/24 13:47
INR 1.19 04/12/24 13:47
APTT 32.1 Sec (23.4-35.0) 04/12/24 13:47
Sodium 139 mmol/L (135-145) 04/12/24 12:57
Potassium 4.2 mmol/L (3.5-5.1) 04/12/24 12:57
Chloride 102 mmol/L (98-107) 04/12/24 12:57
Carbon Dioxide 20 mmol/L (22-30) L 04/12/24 12:57
BUN 35 mg/dl (9-20) H 04/12/24 12:57
Creatinine 1.4 mg/dL (0.7-1.3) H 04/12/24 12:57
Calcium 9.4 mg/dl (8.4-10.2) 04/12/24 12:57
Total Bilirubin 0.6 mg/dl (0.2-1.3) 04/12/24 12:57
AST 36 U/L (17-59) 04/12/24 12:57
ALT 40 U/L (0-50) 04/12/24 12:57
Alkaline Phosphatase 100 U/L (38-126) 04/12/24 12:57
Diagnostic Image Results: CT Abd/pelvis 04/12/2024- Impression: Acute uncomplicated left-sided colitis, likely of infectious/inflammatory etiology. No convincing ancillary findings to suggest ischemic etiology. No enlarged lymph nodes, free fluid, or
free air. Diverticulosis coli. Mild to moderate circumferential wall thickening of the colon beginning at the distal transverse colon extending contiguously to the distal descending colon. The bowel is without evidence of obstruction, perforation or
abscess. No pneumatosis or portal venous gas.
Prior GI Procedures: No prior EGD or colonoscopy
Assessment / Plan
-
Mr Ramirez is a 73 y.o male with past medical history of HTN, HLD, DM II, GERD, CKD, obstructive CAD (s/p stents and prior CABG), HFrEF (w/ EF 40-45%, 01/2024) COPD, and hx of CCY who presented to the ED with rectal bleeding and found to have
left-sided colitis. Gastroenterology has been consulted for further evaluation and management.
#Hematochezia
#Left-sided Colitis
#Acute Blood Loss Anemia
#Obstructive CAD (s/p prior CABG)
#Hx of HFrEF
Impression: Patient presenting with multiple episodes of painless hematochezia found to have acute blood loss anemia and CT Abd/pelvis concerning acute, uncomplicated left-sided colitis. No prior hx of GI bleeding in the past and has never had a
prior colonoscopy. No unintentional weight loss or family hx of CRC. Etiology seems most consistent with ischemic colitis given his age, cardiac history, along with territory of involvement on CT imaging involving distal TC to mid-distal DC
involving splenic flexure. Suspect secondary to low blood flow state as no thrombus seen on CT imaging. Much less likely infectious as without any infectious symptomatology and without any abdominal pain or diarrhea which would be atypical. Although
he does have a leukocytosis, suspect this is likely reactive and can be seen in ischemic colitis as well. Much less likely IBD as without any chronicity of symptoms. Although patient does have diverticulosis, doubt diverticular hemorrhage and
further not c/w diverticulitis. No other NSAIDs or other antiplatelets/anticoagulants. Given CT findings and without prior colonoscopy in the past, would benefit from inpatient colonoscopy for further evaluation.
Recommendations:
- Okay for CLD
- Follow-up rest of infectious stool studies: C Diff (-), pending stool culture
- Started on IV Zosyn per primary team, consider de-escalating over next 24-48 hrs
- Send anemia w/u: iron studies, ferritin, retic count, folate, and B12
- Start bowel prep this afternoon with Golytely
- Plan for Colonoscopy tomorrow, 04/14/2024, for further evaluation
- Okay to continue ASA 81 mg from GI standpoint
- Avoidance of all NSAIDs
- Diuretics on hold, avoid periods of hypotension, maintain MAPs > 65
- Rest of care per primary team
GI team will continue to follow while inpatient. Thank you for allowing me to participate in the care of this patient. Please do not hesitate to call for any further questions.
Data Reviewed
-
CT Scan: Report Reviewed by me
Old Records: Reviewed
-
-
Thank you for consultation and allowing me to participate in the patient's care. Please call the corporate health consultant GI physician during the after hours with any questions or concerns.
[2024-04-13 07:32] LABS: Blood Urea Nitrogen 26 mg/dl (9-20); Calcium 9.1 mg/dl (8.4-10.2); Carbon Dioxide 24 mmol/L (22-30); Chloride 103 mmol/L (98-107); Estimated Creatinine Clearance 53 ml/min; Glucose 187 mg/dl (70-99); Magnesium 2.4 mg/dl (1.6-2.3); Potassium 4.6 mmol/L (3.5-5.1); Sodium 139 mmol/L (135-145); eGFR 53.07
[2024-04-13 07:47] VITALS: BP 137/65
[2024-04-13 08:11] LABS: Hematocrit 36.4 % (39.0-52.0); Hemoglobin 12.1 g/dL (13.0-18.0); Mean Corp Hgb Conc. 33.2 g/dL (33.0-37.0); Mean Corpuscular Hgb 27.8 pg (27.0-31.0); Mean Corpuscular Volume 83.5 fL (80.0-94.0); Mean Platelet Volume 11.4 fL (7.4-10.4); Platelet Count 240 10^3/uL (130-400); Red Blood Cell Count 4.36 10^6/uL (4.70-6.10); Red Cell Dist. Width 15.6 % (11.5-14.5); White Blood Cell Count 14.6 10^3/uL (4.8-10.8)
[2024-04-13] MEDS: FLOMAX 0.4 MG PO (08:17)
[2024-04-13] MEDS: ZESTRIL 5 MG PO (08:17)
[2024-04-13] MEDS: NOVOLOG FLEXPEN-MODERATE RESISTANCE 1 UNITS SC ×2 (08:21→12:05)
[2024-04-13 08:22] LABS: Glucose - Point of Care 179 mg/dl (70-99)
--- NOTE | 2024-04-13 08:30 | VNURNOTE ---
Chart reviewed. Patient is current with [facility] nursing. Will continue to follow hospital course and DC plans.
[2024-04-13 08:35] LABS: Glycohemoglobin (HgbA1c) 7.7 % (4.0-5.6)
[2024-04-13] MEDS: LOW STRENGTH ASPIRIN 81 MG PO (10:46)
[2024-04-13 11:01] LABS: Iron 20 ug/dl (49-181); Percent Saturation 8 % (20-50); Total Iron Binding Capacity 244 ug/dl (261-462)
[2024-04-13 11:36] VITALS: BP 121/68
[2024-04-13 11:48] VITALS: BMI 30.1
[2024-04-13 12:05] LABS: Glucose - Point of Care 177 mg/dl (70-99)
[2024-04-13 13:27] LABS: Folate > 20.0 ng/ml (2.76-20); Vitamin B12 > 1000 pg/ml (239-931)
--- NOTE | 2024-04-13 14:25 | W.PN.HOSP.TC ---
Today's Communication/Plan
-
monitor cbc
maintain map >65
colonoscopy tomorrow
golytely today
abx for today, monitor for continuation
Assessment / Plan
Assessment / Plan
Physical Exam
General: Comfortable and Conversant
HEENT: Anicteric and Moist mucous membranes
Respiratory: Clear and Non Labored Respirations
Cardiac: S1/S2 and Regular Rhythm
GI: Soft and Tender (Mild bilateral lower regions without rebound or guarding)
Musculoskeletal: No Clubbing, No Cyanosis and Other (+3 pitting edema bilateral lower extremities)
Skin: Warm and Dry
Neuro: Awake, Alert, Oriented and Nonfocal/grossly intact
Psych: Calm
GI Bleed
Acute Left-Sided Colitis
Hematochezia
Acute blood loss anemia
Iron deficiency anemia
-Consult GI
-Check stool culture
-Continue Zosyn
-Allow clear liquids, n.p.o. after midnight
� Bowel prep for colonoscopy tomorrow
� Okay to continue aspirin 81, continue monitor CBC
� Avoid NSAIDs
� To monitor maps, maintain maps greater than 65
Coronary Artery Disease s/p Multiple Stents and CABG
-Aspirin
� Statin
Chronic HFmrEF
-Echo EF 40-45% in January 2024
-Hold Lasix
-Monitor Is&Os and Daily Weights
�Continue lisinopril, Toprol
Essential Hypertension
-Continue lisinopril and metoprolol
Hyperlipidemia
-Continue ezetimibe
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
-Monitor sugars; hemoglobin A1c 7.7
-Half usual dose of glargine
-Hold meal time insulin
-Continue gabapentin
CKD Stage 3B
-Creatinine at baseline
COPD, no acute exacerbation
-Continue DuoNeb
BPH
-Continue tamsulosin
DVT proph: SCDs
Code Status: Full Code
Anticipated Discharge: > 48 hours
Subjective/Interval History
-
Date of Service: April 13, 2024
No further episodes of medication
Objective Data
-
Labs:
Laboratory Results
04/13/24
06:43
WBC 14.6 H
Hgb 12.1 L D
Hct 36.4 L
Plt Count 240
Sodium 139
Potassium 4.6
Chloride 103
Carbon Dioxide 24
BUN 26 H
Creatinine 1.4 H
Glucose 187 H
Calcium 9.1
Vital Signs:
Vital Signs
Temp Pulse Resp BP Pulse Ox
98.3 F 100 22 121/68 96
04/13/24 11:36 04/13/24 11:36 04/13/24 11:36 04/13/24 11:36 04/13/24 11:36
I&O
04/12/24 04/13/24 04/14/24
06:59 06:59 06:59
Intake Total 580 / 580
Balance 580 / 580
Review of Systems
-
History Source: Patient
All other systems: Reviewed and negative
Data Reviewed
-
CT Scan: Image personally visualized and interpreted and Report Reviewed by me
Labs: Labs Reviewed by me (cbc and bmp )
[2024-04-13 15:07] VITALS: BP 105/59
[2024-04-13 15:36] LABS: Glucose - Point of Care 245 mg/dl (70-99)
[2024-04-13] MEDS: NOVOLOG FLEXPEN-MODERATE RESISTANCE 3 UNITS SC (15:38)
[2024-04-13] MEDS: NULYTELY SOLUTION 4 LITERS PO (15:39)
--- NOTE | 2024-04-13 17:18 | CM ---
Patient seen bedside.
IA completed.
patient lives alone in a 1 floor home with basement. 3 steps to enter.
patient has cane and walker at home.
Patient has nebulizer.
patient drives.
patient current with [facility]
patient was in Eron's home in the past.
PVP: Miquel
Pharmacy: [facility]
Plan: home with [facility], friend will transport.
[2024-04-13 17:23] LABS: Glucose - Point of Care 184 mg/dl (70-99)
[2024-04-13] MEDS: CRESTOR 10 MG PO (17:24)
[2024-04-13 19:30] VITALS: BP 116/64
[2024-04-13 21:30] LABS: Glucose - Point of Care 179 mg/dl (70-99)
[2024-04-13] MEDS: TOPROL XL 50 MG PO (21:31)
[2024-04-13] MEDS: ZETIA 10 MG PO (21:31)
[2024-04-13] MEDS: LANTUS 0.16 UNITS SC (21:32)
[2024-04-13] MEDS: NEURONTIN 300 MG PO (21:32)
--- NOTE | 2024-04-13 21:59 | PTCARENOTE ---
Pt not drinking colon prep, after educated on purpose and necessity. Pt states 'I can't drink all of that.' Encouraged Pt to drink as much as he can. Pt states 'I will try, I know I am a pain in the ass.' report given to Oralia MENDOZA.
--- NOTE | 2024-04-13 22:02 | PTCARENOTE ---
Report given to Oralia MENDOZA
[2024-04-13 23:21] VITALS: BP 108/70
[2024-04-14 00:02] LABS: Hepatitis C Antibody Negative (Negative)
--- NOTE | 2024-04-14 00:48 | PTCARENOTE ---
Pt continues to refuse to drink prep. Educated multiple times on reasoning and that colonoscopy will not be able to happen unless he is clear. [employer] Nette Chung notified, instructed to reach out to GI in AM. Pt BM currently very loose and dark
brown, no blood noted at this time.
[2024-04-14 03:19] VITALS: BP 114/61
[2024-04-14 04:29] VITALS: BMI 29.9
[2024-04-14] MEDS: ZOSYN 50 IV ×4 (05:02→23:02)
[2024-04-14 06:06] LABS: Glucose - Point of Care 153 mg/dl (70-99)
[2024-04-14] MEDS: NOVOLOG FLEXPEN-MODERATE RESISTANCE 1 UNITS SC (06:06)
[2024-04-14 07:15] VITALS: BP 110/92
[2024-04-14 07:55] LABS: Hematocrit 34.2 % (39.0-52.0); Hemoglobin 11.5 g/dL (13.0-18.0); Mean Corp Hgb Conc. 33.6 g/dL (33.0-37.0); Mean Corpuscular Hgb 27.6 pg (27.0-31.0); Mean Corpuscular Volume 82.2 fL (80.0-94.0); Mean Platelet Volume 11.4 fL (7.4-10.4); Platelet Count 251 10^3/uL (130-400); Red Blood Cell Count 4.16 10^6/uL (4.70-6.10); Red Cell Dist. Width 15.5 % (11.5-14.5); White Blood Cell Count 10.9 10^3/uL (4.8-10.8)
[2024-04-14 08:32] LABS: Glucose - Point of Care 141 mg/dl (70-99)
[2024-04-14 08:38] LABS: ALT (SGPT) 80 U/L (0-50); AST (SGOT) 61 U/L (17-59); Albumin 3.1 g/dl (3.5-5.0); Alkaline Phosphatase 102 U/L (38-126); Blood Urea Nitrogen 24 mg/dl (9-20); Calcium 8.6 mg/dl (8.4-10.2); Carbon Dioxide 23 mmol/L (22-30); Chloride 103 mmol/L (98-107); Estimated Creatinine Clearance 47 ml/min; Glucose 153 mg/dl (70-99); Potassium 4.2 mmol/L (3.5-5.1); Sodium 139 mmol/L (135-145); Total Bilirubin 0.5 mg/dl (0.2-1.3); Total Protein 5.5 g/dl (6.3-8.2); eGFR 53.07
--- NOTE | 2024-04-14 08:56 | W.PN.GI.CBS2 ---
Today's Communication / Plan
-
Continue prep today with plans for two-day bowel prep for colonoscopy tomorrow 04/15/2024. See additional recommendations as outlined below.
Assessment / Plan
-
Mr Ramirez is a 73 y.o male with past medical history of HTN, HLD, DM II, GERD, CKD, obstructive CAD (s/p stents and prior CABG), HFrEF (w/ EF 40-45%, 01/2024) COPD, and hx of CCY who presented to the ED with rectal bleeding and found to have
left-sided colitis. Gastroenterology has been consulted for further evaluation and management.
#Hematochezia
#Left-sided Colitis
#Acute Blood Loss Anemia
#Obstructive CAD (s/p prior CABG)
#Hx of HFrEF
Impression: Patient presenting with multiple episodes of painless hematochezia found to have acute blood loss anemia and CT Abd/pelvis concerning acute, uncomplicated left-sided colitis. No prior hx of GI bleeding in the past and has never had a
prior colonoscopy. No unintentional weight loss or family hx of CRC. Etiology seems most consistent with ischemic colitis given his age, cardiac history, along with territory of involvement on CT imaging involving distal TC to mid-distal DC
involving splenic flexure. Suspect secondary to low blood flow state as no thrombus seen on CT imaging. Much less likely infectious as without any infectious symptomatology and without any abdominal pain or diarrhea which would be atypical. Although
he does have a leukocytosis, suspect this is likely reactive and can be seen in ischemic colitis as well. Much less likely IBD as without any chronicity of symptoms. Although patient does have diverticulosis, doubt diverticular hemorrhage and
further not c/w diverticulitis. No other NSAIDs or other antiplatelets/anticoagulants. Given CT findings and without prior colonoscopy in the past, would benefit from inpatient colonoscopy for further evaluation.
Recommendations:
- Continue CLD, keep NPO at MA (EXCEPT for bowel prep)
- Follow-up rest of infectious stool studies: C Diff (-), pending rest of stool cultures
- Started on IV Zosyn per primary team, consider de-escalating over next 24-48 hrs
- Iron studies c/w OLIVER with iron sat 8%, start IV iron while inpatient
- Continue bowel prep this afternoon with Ruth
- Plan for Colonoscopy tomorrow, 04/15/2024, for further evaluation after completion of two-day prep
- Okay to continue ASA 81 mg from GI standpoint
- Avoidance of all NSAIDs
- Diuretics on hold, avoid periods of hypotension, maintain MAPs > 65
- Rest of care per primary team
Discussed with primary internal medicine team this AM.
GI team will continue to follow while inpatient. Thank you for allowing me to participate in the care of this patient. Please do not hesitate to call for any further questions.
Subjective
Subjective
Date of Service: April 14, 2024
- Did not complete prep overnight, drank only 2 cups
- H/h remains stable without further recurrent hematochezia, now with darker stools
Resting comfortably in bed, still wishes to pursue colonoscopy this admission and wants to continue prep. Discussed ongoing prep this afternoon into this evening until stools are clear. Having darker stools with old blood, no further BRBPR.
Otherwise, no abdominal pain, fevers or other constitutional symptoms.
Objective
Data Reviewed
Laboratory Data:
Laboratory Results
04/14/24 07:10
04/14/24 07:10
Laboratory Results
PT 14.9 Sec (11.4-14.6) H 04/12/24 13:47
INR 1.19 04/12/24 13:47
APTT 32.1 Sec (23.4-35.0) 04/12/24 13:47
Magnesium 2.4 mg/dl (1.6-2.3) H 04/13/24 06:43
Total Bilirubin 0.5 mg/dl (0.2-1.3) 04/14/24 07:10
AST 61 U/L (17-59) H 04/14/24 07:10
ALT 80 U/L (0-50) H 04/14/24 07:10
Alkaline Phosphatase 102 U/L (38-126) 04/14/24 07:10
Vital Signs and I&O:
Vital Signs
Temp Pulse Resp BP Pulse Ox
97.8 F 78 20 110/92 97
04/14/24 07:15 04/14/24 07:15 04/14/24 07:15 04/14/24 07:15 04/14/24 07:15
I&O
04/13/24 04/14/24 04/15/24
06:59 06:59 06:59
Intake Total 580 / 580 1080 / 1080
Balance 580 / 580 1080 / 1080
Physical Exam
Physical Exam
HEENT: Anicteric and Moist mucous membranes
Cardiology: Normal Sinus Rhythm
Pulmonary: Other (Normal WOB on room air)
GI: Soft, Distended and Non Tender
Extremities: Warm
Neuro: Non Focal
[2024-04-14] MEDS: FLOMAX 0.4 MG PO (10:07)
[2024-04-14] MEDS: LOW STRENGTH ASPIRIN 81 MG PO (10:07)
[2024-04-14] MEDS: TYLENOL 650 MG PO ×3 (10:07→21:03)
[2024-04-14] MEDS: ZESTRIL PO (10:09)
[2024-04-14 11:19] VITALS: BP 113/64
[2024-04-14 11:38] LABS: Glucose - Point of Care 140 mg/dl (70-99)
[2024-04-14] MEDS: NOVOLOG FLEXPEN-MODERATE RESISTANCE SC ×2 (12:43→16:57)
[2024-04-14 13:58] LABS: Transferrin 188 mg/dL (200-360)
--- NOTE | 2024-04-14 14:04 | W.PN.HOSP.TC ---
Today's Communication/Plan
-
prep for colonoscopy tomorrow
cont abx for now
Assessment / Plan
Assessment / Plan
Physical Exam
General: Comfortable and Conversant
HEENT: Anicteric and Moist mucous membranes
Respiratory: Clear and Non Labored Respirations
Cardiac: S1/S2 and Regular Rhythm
GI: Soft and Tender (Mild bilateral lower regions without rebound or guarding)
Musculoskeletal: No Clubbing, No Cyanosis and Other (+3 pitting edema bilateral lower extremities)
Skin: Warm and Dry
Neuro: Awake, Alert, Oriented and Nonfocal/grossly intact
Psych: Calm
GI Bleed
Acute Left-Sided Colitis
Hematochezia
Acute blood loss anemia
Iron deficiency anemia
-Consult GI
-Check stool culture
-Continue Zosyn
-Allow clear liquids, n.p.o. after midnight
� Bowel prep for colonoscopy tomorrow
� Okay to continue aspirin 81, continue monitor CBC
� Avoid NSAIDs
� To monitor maps, maintain maps greater than 65
Coronary Artery Disease s/p Multiple Stents and CABG
-Aspirin
� Statin
Chronic HFmrEF
-Echo EF 40-45% in January 2024
-Hold Lasix
-Monitor Is&Os and Daily Weights
�Continue lisinopril, Toprol
Transaminitis
-mild
-ctm
Essential Hypertension
-Continue lisinopril and metoprolol
Hyperlipidemia
-Continue ezetimibe
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
-Monitor sugars; hemoglobin A1c 7.7
-Half usual dose of glargine
-Hold meal time insulin
-Continue gabapentin
CKD Stage 3B
-Creatinine at baseline
COPD, no acute exacerbation
-Continue DuoNeb
BPH
-Continue tamsulosin
DVT proph: SCDs
Code Status: Full Code
Anticipated Discharge: 24 - 48 hours
Subjective/Interval History
-
Date of Service: April 14, 2024
Not prepped, stool still not clear
Objective Data
-
Labs:
Laboratory Results
04/14/24
07:10
WBC 10.9 H
Hgb 11.5 L
Hct 34.2 L
Plt Count 251
Sodium 139
Potassium 4.2
Chloride 103
Carbon Dioxide 23
BUN 24 H
Creatinine 1.4 H
Glucose 153 H
Calcium 8.6
Total Bilirubin 0.5
AST 61 H
ALT 80 H
Alkaline Phosphatase 102
Vital Signs:
Vital Signs
Temp Pulse Resp BP Pulse Ox
97.8 F 88 18 113/64 97
04/14/24 11:19 04/14/24 11:19 04/14/24 11:19 04/14/24 11:19 04/14/24 11:19
I&O
04/13/24 04/14/24 04/15/24
06:59 06:59 06:59
Intake Total 580 / 580 1080 / 1080
Balance 580 / 580 1080 / 1080
Review of Systems
-
History Source: Patient
All other systems: Not reviewed unless documented
Data Reviewed
-
CT Scan: Image personally visualized and interpreted and Report Reviewed by me
Labs: Labs Reviewed by me (cbc and bmp )
[2024-04-14 15:37] VITALS: BP 126/70
[2024-04-14 16:41] LABS: Glucose - Point of Care 124 mg/dl (70-99)
[2024-04-14] MEDS: CITROMA 300 ML PO (17:04)
[2024-04-14] MEDS: CRESTOR 10 MG PO (17:30)
[2024-04-14 19:30] VITALS: BP 133/74
[2024-04-14] MEDS: NEURONTIN 300 MG PO (21:03)
[2024-04-14] MEDS: ZETIA 10 MG PO (21:03)
[2024-04-14 21:40] LABS: Glucose - Point of Care 140 mg/dl (70-99)
[2024-04-14] MEDS: TOPROL XL 50 MG PO (21:58)
[2024-04-14] MEDS: LANTUS SC (22:04)
[2024-04-14] MEDS: LANTUS 0.08 UNITS SC (22:53)
[2024-04-14 23:30] VITALS: BP 141/84
[2024-04-15] VITALS (10 sets, daily range): BP systolic 16–130; BP diastolic 50–90; BMI 29.6
[2024-04-15] MEDS: ZOSYN 50 IV ×4 (05:21→23:21)
--- NOTE | 2024-04-15 06:15 | PTCARENOTE ---
Addendum entered by Mihai Soto RN 04/15/24 06:41:
Dr Armstrong spoke with Dr Muñoz and he states he will order additional mag citrate.
Original Note:
Dr Muñoz made aware via TT that pt still has 2 cups of prep remaining and BMs are cloudy yellow/green. No further orders received at this time.
[2024-04-15] MEDS: CITROMA 300 ML PO (06:44)
[2024-04-15 07:46] LABS: Glucose - Point of Care 114 mg/dl (70-99)
[2024-04-15 08:23] LABS: Hematocrit 40.8 % (39.0-52.0); Hemoglobin 13.4 g/dL (13.0-18.0); Mean Corp Hgb Conc. 32.8 g/dL (33.0-37.0); Mean Corpuscular Hgb 27.3 pg (27.0-31.0); Mean Corpuscular Volume 83.3 fL (80.0-94.0); Mean Platelet Volume 11.3 fL (7.4-10.4); Platelet Count 311 10^3/uL (130-400); Red Cell Dist. Width 15.5 % (11.5-14.5); White Blood Cell Count 8.5 10^3/uL (4.8-10.8)
[2024-04-15 08:26] LABS: ALT (SGPT) 83 U/L (0-50); AST (SGOT) 42 U/L (17-59); Albumin 3.8 g/dl (3.5-5.0); Alkaline Phosphatase 102 U/L (38-126); Blood Urea Nitrogen 20 mg/dl (9-20); Calcium 8.8 mg/dl (8.4-10.2); Carbon Dioxide 20 mmol/L (22-30); Chloride 105 mmol/L (98-107); Estimated Creatinine Clearance 55 ml/min; Glucose 122 mg/dl (70-99); Sodium 142 mmol/L (135-145); Total Bilirubin 0.6 mg/dl (0.2-1.3); Total Protein 6.1 g/dl (6.3-8.2); eGFR > 60.00
[2024-04-15] MEDS: NOVOLOG FLEXPEN-MODERATE RESISTANCE SC ×2 (08:41→12:28)
[2024-04-15] MEDS: LOW STRENGTH ASPIRIN 81 MG PO (08:42)
[2024-04-15] MEDS: FLOMAX 0.4 MG PO (08:42)
[2024-04-15] MEDS: ZESTRIL 5 MG PO (08:43)
[2024-04-15] MEDS: TYLENOL 650 MG PO ×2 (08:43→20:50)
[2024-04-15 12:04] LABS: Glucose - Point of Care 122 mg/dl (70-99)
[2024-04-15 14:37] LABS: Glucose - Point of Care 112 mg/dl (70-99)
--- NOTE | 2024-04-15 15:00 | W.PN.HOSP.TC ---
Today's Communication/Plan
-
advance diet
cont iv abx
anticipate dc tomorrow if tolerating diet
Assessment / Plan
Assessment / Plan
Physical Exam
General: Comfortable and Conversant
HEENT: Anicteric and Moist mucous membranes
Respiratory: Clear and Non Labored Respirations
Cardiac: S1/S2 and Regular Rhythm
GI: Soft and Tender (Mild bilateral lower regions without rebound or guarding)
Musculoskeletal: No Clubbing, No Cyanosis and Other (+3 pitting edema bilateral lower extremities)
Skin: Warm and Dry
Neuro: Awake, Alert, Oriented and Nonfocal/grossly intact
Psych: Calm
GI Bleed
Acute Left-Sided Colitis
Hematochezia
Acute blood loss anemia
Iron deficiency anemia
-Consult GI
� Colonoscopy today 04/15 �suspicious for ischemic colitis at the splenic flexure and distal transverse colon, biopsies taken; flat polyp removed; no obvious bleeding noted
-Also cultures
-Continue Zosyn�should continue antibiotics for 7 days
� Low fiber, low residue diet today
� Okay to continue aspirin 81, continue monitor CBC
� Strict avoid NSAIDs
� To monitor maps, maintain maps greater than 65
� Repeat colonoscopy in 8 to 12 weeks to assess for healing
� Follow GI outpatient
Coronary Artery Disease s/p Multiple Stents and CABG
-Aspirin
� Statin
Chronic HFmrEF
-Echo EF 40-45% in January 2024
-Hold Lasix
-Monitor Is&Os and Daily Weights
�Continue lisinopril, Toprol
Transaminitis
-mild
-ctm
Essential Hypertension
-Continue lisinopril and metoprolol
Hyperlipidemia
-Continue ezetimibe
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
-Monitor sugars; hemoglobin A1c 7.7
-Half usual dose of glargine
-Hold meal time insulin
-Continue gabapentin
CKD Stage 3B
-Creatinine at baseline
COPD, no acute exacerbation
-Continue DuoNeb
BPH
-Continue tamsulosin
DVT proph: SCDs
Code Status: Full Code
Anticipated Discharge: Within 24 hours
Subjective/Interval History
-
Date of Service: April 15, 2024
Colonoscopy today
Objective Data
-
Labs:
Laboratory Results
04/15/24
07:30
WBC 8.5
Hgb 13.4
Hct 40.8
Plt Count 311 D
Sodium 142
Potassium 5.0
Chloride 105
Carbon Dioxide 20 L
BUN 20
Creatinine 1.2
Glucose 122 H
Calcium 8.8
Total Bilirubin 0.6
AST 42
ALT 83 H
Alkaline Phosphatase 102
Vital Signs:
Vital Signs
Temp Pulse Resp BP Pulse Ox
97.5 F 87 20 101/90 98
04/15/24 14:30 04/15/24 14:44 04/15/24 14:44 04/15/24 14:44 04/15/24 14:44
I&O
04/14/24 04/15/24 04/16/24
06:59 06:59 06:59
Intake Total 1080 / 1080 230 / 230
Balance 1080 / 1080 230 / 230
Review of Systems
-
History Source: Patient
All other systems: Not reviewed unless documented
Data Reviewed
-
CT Scan: Image personally visualized and interpreted and Report Reviewed by me
Labs: Labs Reviewed by me (cbc and bmp )
--- NOTE | 2024-04-15 16:13 | CM ---
Patient for colonoscopy today.
Plan: home with [facility] when stable..
[2024-04-15 17:31] LABS: Glucose - Point of Care 221 mg/dl (70-99)
[2024-04-15] MEDS: NOVOLOG FLEXPEN-MODERATE RESISTANCE 3 UNITS SC (18:38)
[2024-04-15] MEDS: CRESTOR 10 MG PO (18:38)
[2024-04-15] MEDS: NEURONTIN 300 MG PO (20:48)
[2024-04-15] MEDS: ZETIA 10 MG PO (20:48)
[2024-04-15 21:24] LABS: Glucose - Point of Care 218 mg/dl (70-99)
[2024-04-15] MEDS: LANTUS 0.16 UNITS SC (22:16)
[2024-04-15] MEDS: TOPROL XL 50 MG PO (22:18)
[2024-04-16 03:33] VITALS: BP 113/62
[2024-04-16] MEDS: ZOSYN 50 IV ×2 (05:59→13:06)
[2024-04-16 06:00] VITALS: BMI 29.9
[2024-04-16 07:30] VITALS: BP 124/68
[2024-04-16 07:49] LABS: Glucose - Point of Care 144 mg/dl (70-99)
[2024-04-16] MEDS: LOW STRENGTH ASPIRIN 81 MG PO (07:51)
[2024-04-16] MEDS: FLOMAX 0.4 MG PO (07:51)
[2024-04-16] MEDS: ZESTRIL 5 MG PO (07:51)
[2024-04-16] MEDS: NOVOLOG FLEXPEN-MODERATE RESISTANCE SC (07:52)
[2024-04-16 08:07] LABS: Hematocrit 36.9 % (39.0-52.0); Hemoglobin 11.9 g/dL (13.0-18.0); Mean Corp Hgb Conc. 32.2 g/dL (33.0-37.0); Mean Corpuscular Hgb 26.4 pg (27.0-31.0); Mean Platelet Volume 10.9 fL (7.4-10.4); Platelet Count 360 10^3/uL (130-400); Red Cell Dist. Width 15.5 % (11.5-14.5); White Blood Cell Count 8.9 10^3/uL (4.8-10.8)
[2024-04-16 08:29] LABS: ALT (SGPT) 56 U/L (0-50); AST (SGOT) 26 U/L (17-59); Albumin 3.5 g/dl (3.5-5.0); Alkaline Phosphatase 85 U/L (38-126); Blood Urea Nitrogen 16 mg/dl (9-20); Calcium 8.8 mg/dl (8.4-10.2); Carbon Dioxide 24 mmol/L (22-30); Chloride 104 mmol/L (98-107); Estimated Creatinine Clearance 55 ml/min; Glucose 169 mg/dl (70-99); Potassium 4.2 mmol/L (3.5-5.1); Sodium 141 mmol/L (135-145); Total Bilirubin 0.4 mg/dl (0.2-1.3); Total Protein 6.1 g/dl (6.3-8.2); eGFR > 60.00
--- NOTE | 2024-04-16 10:16 | CM ---
Patient seen bedside.
Patient for d/c home today.
IMM completed.
Plan home with [facility]
[2024-04-16 11:24] VITALS: BP 146/78
[2024-04-16 11:47] LABS: Glucose - Point of Care 221 mg/dl (70-99)
--- NOTE | 2024-04-16 12:14 | W.PN.HOSP.TC ---
Addendum entered and electronically signed by Armani Starr MD 04/17/24 15:14:
[id number]
Original Note:
Today's Communication/Plan
-
- switch to Augmentin to continue 7 day total abx course
� Low fiber, low residue diet
� Okay to continue aspirin 81,
� Strict avoidance NSAIDs
� Repeat colonoscopy in 8 to 12 weeks to assess for healing
� Follow GI outpatient
Assessment / Plan
Assessment / Plan
Physical Exam
General: Comfortable and Conversant
HEENT: Anicteric and Moist mucous membranes
Respiratory: Clear and Non Labored Respirations
Cardiac: S1/S2 and Regular Rhythm
GI: Soft and Tender (Mild bilateral lower regions without rebound or guarding)
Musculoskeletal: No Clubbing, No Cyanosis and Other (+3 pitting edema bilateral lower extremities)
Skin: Warm and Dry
Neuro: Awake, Alert, Oriented and Nonfocal/grossly intact
Psych: Calm
GI Bleed
Acute Left-Sided Colitis
Hematochezia
Acute blood loss anemia
Iron deficiency anemia
-Consult GI
� Colonoscopy today 04/15 �suspicious for ischemic colitis at the splenic flexure and distal transverse colon, biopsies taken; flat polyp removed; no obvious bleeding noted
-cultures NGTD
-Zosyn�switch to augmentin to continue 7 days abx course
� Low fiber, low residue diet - tolerating well
� Okay to continue aspirin 81, continue monitor CBC
� Strict avoidance NSAIDs
� To monitor maps, maintain maps greater than 65
� Repeat colonoscopy in 8 to 12 weeks to assess for healing
� Follow GI outpatient
Coronary Artery Disease s/p Multiple Stents and CABG
-Aspirin
� Statin
Chronic HFmrEF
-Echo EF 40-45% in January 2024
- Lasix
-Monitor Is&Os and Daily Weights
�Continue lisinopril, Toprol
Transaminitis
-mild
-ctm
Essential Hypertension
-Continue lisinopril and metoprolol
Hyperlipidemia
-Continue ezetimibe
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
-Monitor sugars; hemoglobin A1c 7.7
-glargine
-meal time insulin
-Continue gabapentin
CKD Stage 3B
-Creatinine at baseline
COPD, no acute exacerbation
-Continue DuoNeb
BPH
-Continue tamsulosin
DVT proph: SCDs
Code Status: Full Code
More than 30 minutes spent in discharge including
Final examination of the patient
Summarizing hospital stay
Instructions for continuing care to all relevant caregivers
Preparation of discharge records, prescriptions, and referral forms
Total time spent (35 in minutes):
Anticipated Discharge: Today
Subjective/Interval History
-
Date of Service: April 16, 2024
c-scope yest w/ possible ischemic colitis; tolerating low residue diet
Objective Data
-
Labs:
Laboratory Results
04/16/24
07:37
WBC 8.9
Hgb 11.9 L
Hct 36.9 L
Plt Count 360
Sodium 141
Potassium 4.2
Chloride 104
Carbon Dioxide 24
BUN 16
Creatinine 1.2
Glucose 169 H
Calcium 8.8
Total Bilirubin 0.4
AST 26
ALT 56 H
Alkaline Phosphatase 85
Vital Signs:
Vital Signs
Temp Pulse Resp BP Pulse Ox
97.8 F 80 20 146/78 98
04/16/24 11:24 04/16/24 11:24 04/16/24 11:24 04/16/24 11:24 04/16/24 11:24
I&O
04/15/24 04/16/24 04/17/24
06:59 06:59 06:59
Intake Total 230 / 230 1280 / 1280
Balance 230 / 230 1280 / 1280
Review of Systems
-
History Source: Patient
All other systems: Not reviewed unless documented
Data Reviewed
-
CT Scan: Image personally visualized and interpreted and Report Reviewed by me
Medical Tests (Nuc Med, Echo etc): Report Reviewed by me
Labs: Labs Reviewed by me (cbc and bmp )
--- NOTE | 2024-04-16 12:19 | W.DS.TRANS ---
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
-
Discharge Instructions:
Discharge Diagnosis/Procedures possible ischemic colitis.
Diet Low Residue,Low Cholesterol,Low Fat,Diabetic,
Carb Controlled
Activity As tolerated
Additional Activity Low-fiber, low-residue diet today.
Continue antibiotics
Strict avoidance of all NSAIDs
Await pathology results.
Repeat colonoscopy in 8 to 12 weeks to check
healing
Return to GI office at appointment to be
scheduled with Dr. Armstrong after discharge.
Instructions:
Stand-Alone Forms:
Changes to Home Medications: Yes
Discharge Medications:
DC Medications w/original date entered in [facility]
ezetimibe 10 mg tablet 10 mg PO HS High cholesterol 12/22/16
pantoprazole 40 mg tablet,delayed release 40 mg PO DAILY Gastrointestinal issue 12/22/16
aspirin 81 mg chewable tablet 81 mg PO DAILY Blood clot prevention/tx 12/24/16
cyanocobalamin (vitamin B-12) 1,000 mcg tablet 500 mcg PO DAILY Supplement 03/26/20
rosuvastatin 10 mg tablet 10 mg PO QPM High cholesterol 03/26/20
furosemide 40 mg tablet 40 mg PO BID AT 0800,1700 Fluid retention/Swelling 08/23/22
gabapentin 300 mg capsule 300 mg PO HS Neurological Condition 08/23/22
cholecalciferol (vitamin D3) 25 mcg (1,000 unit) tablet (Vitamin D3) 25 mcg PO DAILY Supplement 01/04/24
ipratropium 0.5 mg-albuterol 3 mg (2.5 mg base)/3 mL nebulization soln 3 ml inhalation R Q6HPRN PRN sob 01/04/24
insulin glargine U-300 conc 300 unit/mL (1.5 mL) subcutaneous pen (Toujeo SoloStar U-300 Insulin) 40 unit SC HS Diabetes 02/20/24
insulin lispro 100 unit/mL subcutaneous pen (Humalog KwikPen (U-100) Insulin) 15 unit SC AC Diabetes 02/20/24
tamsulosin 0.4 mg capsule 0.4 mg PO DAILY Urinary Issue 02/20/24
acetaminophen 325 mg tablet 650 mg PO BID Pain 04/12/24
lisinopril 5 mg tablet 5 mg PO DAILY Blood Pressure 04/12/24
magnesium oxide 400 mg PO HS Supplement 04/12/24
metoprolol succinate 50 mg tablet,extended release 24 hr 50 mg PO HS Heart Failure 04/12/24
amoxicillin 875 mg-potassium clavulanate 125 mg tablet 1 tab PO Q12H 4 days #8 tabs 04/16/24
Home Medication Changes
amoxicillin 875 mg-potassium clavulanate 125 mg tablet 1 tab PO Q12H 4 days #8 tabs 04/16/24
Pending Results: No
[2024-04-16] MEDS: NOVOLOG FLEXPEN-MODERATE RESISTANCE 3 UNITS SC (12:52)
== END 2024-04-16 14:36 | disposition home health service (06) | DRG 394 ==
LOC: 4 WEST ACU 18:05
PROVIDERS: Physician Assistant Medical; ADMITTING PHYSICIAN Hospitalist; ATTENDING PHYSICIAN Internal Medicine; EMERGENCY PHYSICIAN Student in an Organized Health Care Education/Training Program; FAMILY PHYSICIAN Family Medicine; OTHER PHYSICIAN Student in an Organized Health Care Education/Training Program
PROC: 0DBL8ZX Excision of Transverse Colon, Via Natural or Artificial Opening Endoscopic, Diagnostic (ICD-10-PCS; 2024-04-15)
PROC: 0DBH8ZZ Excision of Cecum, Via Natural or Artificial Opening Endoscopic (ICD-10-PCS; 2024-04-15)
PROC: 0DBM8ZX Excision of Descending Colon, Via Natural or Artificial Opening Endoscopic, Diagnostic (ICD-10-PCS; 2024-04-15)
PROC: 0DBN8ZX Excision of Sigmoid Colon, Via Natural or Artificial Opening Endoscopic, Diagnostic (ICD-10-PCS; 2024-04-15)
DX: K55.039 Acute (reversible) ischemia of large intestine, extent unspecified (principal); D62 Acute posthemorrhagic anemia; I50.22 Chronic systolic (congestive) heart failure; K92.1 Melena; I13.0 Hypertensive heart and chronic kidney disease with heart failure and stage 1 through stage 4 chronic kidney disease, or unspecified chronic kidney disease; K51.50 Left sided colitis without complications; E11.22 Type 2 diabetes mellitus with diabetic chronic kidney disease; E11.40 Type 2 diabetes mellitus with diabetic neuropathy, unspecified; D50.9 Iron deficiency anemia, unspecified; N18.32 Chronic kidney disease, stage 3b; J44.9 Chronic obstructive pulmonary disease, unspecified; I25.10 Atherosclerotic heart disease of native coronary artery without angina pectoris; Z95.1 Presence of aortocoronary bypass graft; Z95.5 Presence of coronary angioplasty implant and graft; D12.0 Benign neoplasm of cecum; E78.00 Pure hypercholesterolemia, unspecified; I25.2 Old myocardial infarction; I87.8 Other specified disorders of veins; I89.0 Lymphedema, not elsewhere classified; K21.9 Gastro-esophageal reflux disease without esophagitis; K57.30 Diverticulosis of large intestine without perforation or abscess without bleeding; K64.4 Residual hemorrhoidal skin tags; K64.8 Other hemorrhoids; N40.0 Benign prostatic hyperplasia without lower urinary tract symptoms; Z79.4 Long term (current) use of insulin; Z79.82 Long term (current) use of aspirin; Z79.899 Other long term (current) drug therapy; Z87.891 Personal history of nicotine dependence; Z87.442 Personal history of urinary calculi
CPT/HCPCS: 88305; 74177; 80048; 80053; 82607; 82728; 82746; 82962; 83036; 83540; 83550; 83735; 84466; 85014; 85018; 85025; 85027; 85610; 85730; 86803; 86850; 86900; 86901; 87045; 87046; 87324; 87427; 87449; 89055; 94640; 96361; 96365; 99285; Q9967

== ENCOUNTER → 2024-09-04 07:07 | Outpatient (REF) | payer MEDICARE, SELFPAY | LOC: HWRCS 07:07 | PROVIDERS: ATTENDING PHYSICIAN Internal Medicine Cardiovascular Disease; FAMILY PHYSICIAN Family Medicine | DX: I25.10 Atherosclerotic heart disease of native coronary artery without angina pectoris (principal) | CPT/HCPCS: 93306 ==

== ENCOUNTER → 2024-09-18 06:59 | Outpatient (REF) | payer MEDICARE, SELFPAY ==
[2024-09-18 11:20] LABS: ALT (SGPT) 31 U/L (0-50); AST (SGOT) 28 U/L (17-59); Albumin 4.7 g/dl (3.5-5.0); Alkaline Phosphatase 65 U/L (38-126); Blood Urea Nitrogen 28 mg/dl (9-20); Calcium 9.6 mg/dl (8.4-10.2); Carbon Dioxide 26 mmol/L (22-30); Chloride 102 mmol/L (98-107); Glucose 132 mg/dl (70-99); Magnesium 2.5 mg/dl (1.6-2.3); Potassium 4.6 mmol/L (3.5-5.1); Sodium 140 mmol/L (135-145); Total Bilirubin 0.6 mg/dl (0.2-1.3); Total Protein 6.9 g/dl (6.3-8.2); eGFR 53.07
== END ==
LOC: HWLAB 06:59
PROVIDERS: ATTENDING PHYSICIAN Student in an Organized Health Care Education/Training Program; FAMILY PHYSICIAN Family Medicine
DX: I25.10 Atherosclerotic heart disease of native coronary artery without angina pectoris (principal)
CPT/HCPCS: 36415; 80053; 83735

== ENCOUNTER → 2024-09-29 06:50 | Outpatient (REF) | payer MEDICARE, SELFPAY ==
[2024-09-29 10:01] LABS: ALT (SGPT) 154 U/L (0-50); AST (SGOT) 151 U/L (17-59); Albumin 3.7 g/dl (3.5-5.0); Alkaline Phosphatase 81 U/L (38-126); Blood Urea Nitrogen 20 mg/dl (9-20); Calcium 9.5 mg/dl (8.4-10.2); Carbon Dioxide 27 mmol/L (22-30); Chloride 104 mmol/L (98-107); Glucose 190 mg/dl (70-99); Magnesium 2.1 mg/dl (1.6-2.3); Potassium 4.4 mmol/L (3.5-5.1); Sodium 140 mmol/L (135-145); Total Bilirubin 0.3 mg/dl (0.2-1.3); Total Protein 6.1 g/dl (6.3-8.2); eGFR > 60.00
== END ==
LOC: HWLAB 06:50
PROVIDERS: ATTENDING PHYSICIAN Student in an Organized Health Care Education/Training Program; FAMILY PHYSICIAN Family Medicine
DX: I25.10 Atherosclerotic heart disease of native coronary artery without angina pectoris (principal)
CPT/HCPCS: 36415; 80053; 83735

== ENCOUNTER → 2024-10-01 11:08 | Outpatient (REF) | payer MEDICARE, SELFPAY | LOC: DHVS 11:08 | PROVIDERS: ATTENDING PHYSICIAN Registered Nurse; FAMILY PHYSICIAN Family Medicine | DX: I73.9 Peripheral vascular disease, unspecified (principal) | CPT/HCPCS: 93922; 93925 ==

== ENCOUNTER → 2024-12-10 14:21 | Outpatient (REF) | payer MEDICARE, SELFPAY | LOC: RAD 14:21 | PROVIDERS: ATTENDING PHYSICIAN Family Medicine | DX: R22.42 Localized swelling, mass and lump, left lower limb (principal) | CPT/HCPCS: 73701; Q9967 ==

== ENCOUNTER → 2024-12-25 06:34 | Outpatient (REF) | payer MEDICARE, SELFPAY ==
[2024-12-25 10:19] LABS: ALT (SGPT) 27 U/L (0-50); AST (SGOT) 25 U/L (17-59); Albumin 4.5 g/dl (3.5-5.0); Alkaline Phosphatase 61 U/L (38-126); Blood Urea Nitrogen 33 mg/dl (9-20); Calcium 9.7 mg/dl (8.4-10.2); Carbon Dioxide 29 mmol/L (22-30); Chloride 106 mmol/L (98-107); Glucose 155 mg/dl (70-99); Potassium 4.1 mmol/L (3.5-5.1); Sodium 143 mmol/L (135-145); Total Bilirubin 0.4 mg/dl (0.2-1.3); Total Protein 7.2 g/dl (6.3-8.2); eGFR 58.01
== END ==
LOC: HWLAB 06:34
PROVIDERS: ATTENDING PHYSICIAN Nurse Practitioner; FAMILY PHYSICIAN Family Medicine
DX: E78.2 Mixed hyperlipidemia (principal); I25.5 Ischemic cardiomyopathy
CPT/HCPCS: 36415; 80053

== ENCOUNTER → 2025-01-21 07:02 | Outpatient (REF) | payer MEDICARE, SELFPAY ==
[2025-01-21 09:56] LABS: Blood Urea Nitrogen 24 mg/dl (9-20); Calcium 9.3 mg/dl (8.4-10.2); Carbon Dioxide 26 mmol/L (22-30); Chloride 107 mmol/L (98-107); Glucose 158 mg/dl (70-99); Potassium 4.5 mmol/L (3.5-5.1); Sodium 143 mmol/L (135-145); eGFR 57.65
== END ==
LOC: HWLAB 07:02
PROVIDERS: ATTENDING PHYSICIAN Nurse Practitioner; FAMILY PHYSICIAN Family Medicine
DX: E78.2 Mixed hyperlipidemia (principal); I25.5 Ischemic cardiomyopathy
CPT/HCPCS: 36415; 80048

== ENCOUNTER → 2025-02-04 07:14 | Outpatient (REF) | payer MEDICARE, SELFPAY ==
[2025-02-04 10:46] LABS: Blood Urea Nitrogen 29 mg/dl (9-20); Calcium 9.6 mg/dl (8.4-10.2); Carbon Dioxide 27 mmol/L (22-30); Chloride 108 mmol/L (98-107); Glucose 172 mg/dl (70-99); Potassium 4.4 mmol/L (3.5-5.1); Sodium 142 mmol/L (135-145); eGFR 57.65
== END ==
LOC: HWLAB 07:14
PROVIDERS: ATTENDING PHYSICIAN Nurse Practitioner; FAMILY PHYSICIAN Family Medicine
DX: I25.10 Atherosclerotic heart disease of native coronary artery without angina pectoris (principal)
CPT/HCPCS: 36415; 80048

== ENCOUNTER 2025-02-27 19:58 | Inpatient (IN) | payer MEDICARE, SELFPAY ==
[2025-02-27 14:21] VITALS: BP 135/61
--- NOTE | 2025-02-27 15:22 | ED.GENMED ---
History of Present Illness
General
Chief Complaint: Skin Problem
Source: patient
Exam Limitations: none
Time Seen by Provider: 02/27/25 15:10
Nursing documentation reviewed up to this point in time: agreed with
History of Present Illness
History of Present Illness:
Patient is a 74-year-old male with past medical history of COPD diabetes diabetic neuropathy, chronic kidney disease hypertension hyperlipidemia, VA, stents, colitis, iron deficiency anemia, GI bleed, osteomyelitis of toe with amputationx2 presents
to the ER for evaluation. Patient reports he started with redness and swelling to his left foot and lower leg since , 3 days. He denies any pain. He saw his family doctor today who sent him here to the ER. He does complain of swelling to
both legs but reports this is not necessarily new.
Past History
Past History
ED Past Medical History: CAD, COPD, HTN, Hypercholesterolemia, NIDDM, VA and Other (Cataracts, neuropathy, BPH, nephrolithiasis, diverticulosis)
ED Past Surgical History: Cardiac (CABG), Cholecystectomy and Orthopedic
Social History
Tobacco: Former smoker
Alcohol: None
Drug: None
Personal: Single
Living: alone
Employment: Retired
Family History
Family History: Other (Noncontributory)
Phy Exam
General Physical Exam
General Presentation: no apparent distress
General age: appears stated age
General Skin: warm and dry
General Habitus: normal
General Mental: alert
Neurological Exam
Neurological Exam: alert and oriented x3
Musculoskeletal Exam
Musculoskeletal Exam: other (Mild lower extremity swelling however left lower extremity with increased swelling, weeping, there is redness from the foot including toes up to the mid lower leg)
Course
Orders/Labs/Results
Orders:
Orders
02/27/25 15:31
Electrocardiogram (*1) Urgent
Reason for Study: Other
Other Reason for Exam: sepsis
Cardiac Monitoring- Treatment ONCE
EKG- Treatment ONCE
IV Insert/Care/Rem.- Treatment PRN
02/27/25 15:32
Venous Doppler Lwr Ext Bilat [US Periph Venous LOWER Ext Camilo] Urgent
Comment:
Reason For Exam: swelling b/l left greater than right
02/27/25 15:55
Complete Blood Count/With Diff Urgent
Comprehensive Metabolic Panel Urgent
Lactic Acid Q4H
Comment: CANCEL 2nd LACTIC ACID IF 1st LACTIC ACID IS LESS THAN 2
NT-proBNP Urgent
Comment: ADD ON
Blood Culture Q30M
BARBARA Source: Blood/Venous
Specimen Description:
02/27/25 15:58
Blood Culture Q30M
BARBARA Source: Blood/Venous
Specimen Description:
02/27/25 16:03
Ipratropium/Albuterol Sulfate [Duoneb] 3 ml .ROUTE .STK-MED ONE
02/27/25 16:07
Ipratropium/Albuterol Sulfate [Duoneb] 3 ml INH R NOW ONE
02/27/25 16:49
0.9% Sodium Chloride 500 ml [Nss] 500 ml IV BOLUS
02/27/25 17:16
CeFAZolin 1 GRAM [Ancef] 1 gram in 5 ml IV NOW
02/27/25 18:35
Add On- LAB Routine
Tests Added?: BNP
CR Chest - 2 Views Urgent
Comment:
Reason For Exam: Cough, Wheezing
02/27/25 18:49
Admit/Transfer Patient As Directed
Co-Sign Provider:
Level of Care: Inpatient admission
Assign to:: Telemetry
Physician / Group: Shanda
Diagnosis: Cellulitis, CHF
Reason for Telemetry: Acute Heart Failure
Date to Stop Telemetry: 03/02/25
Time to Stop Telemetry: 11:00
Reason for Hospitalization: IV abx, IV diuretics
Expected length of stay greater than two midnights?: Yes
ELOS- Estimated Length of Stay in days: 3
I certify the patient meets the requirements for IP care: Yes
02/27/25 18:50
PRN Pain Medication Management As Directed
May give lesser potent ordered pain med per pt: Yes
preference::
Protocol:: Medication orders for pain may be administered in a
manner that supports deferring to patient preference
when the pt is:
- Requesting an ordered lesser potent pain medication.
Least to most potent pain medications are defined
as: acetaminophen < NSAID < tramadol < opioids
(morphine, oxycodone, hydromorphone).
- Requesting a lesser dose of the same medication IF
ORDERED.
- Requesting a less intrusive route of administration
if both routes are prescribed by the provider (PO <
IV).
02/27/25 18:52
Code Status As Directed
Resuscitation Status: Do not resuscitate
Reached after discussion with pt or family/Healthcare POA: Yes
DNR Bracelet Application ONCE
03/02/25 11:00
DC Protocol for Telemetry ONCE
Abnormal Lab Results
02/27/25
15:55
RBC 3.87 L 10^6/uL
(4.70-6.10)
Hgb 11.7 L g/dL
(13.0-18.0)
Hct 34.9 L %
(39.0-52.0)
RDW 14.6 H %
(11.5-14.5)
MPV 11.5 H fL
(7.4-10.4)
Absolute Lymphs (auto) 0.9 L 10^3/uL
(1.2-3.4)
Absolute Monos (auto) 1.0 H 10^3/uL
(0.1-0.6)
Lymphocytes % 14.0 L %
(20.5-51.1)
Monocytes % 14.9 H %
(1.7-9.3)
BUN 34 H mg/dl
(9-20)
Creatinine 1.4 H mg/dL
(0.7-1.3)
Glucose 343 H mg/dl
(70-99)
02/27/25 15:55
02/27/25 15:55
Vital Signs
Initial and Last Documented VS:
Initial Vital Signs
Temp Pulse Resp BP Pulse Ox
98.1 F 82 16 135/61 95
02/27/25 14:21 02/27/25 14:21 02/27/25 14:21 02/27/25 14:21 02/27/25 14:21
Last Documented Vital Signs
Temp Pulse Resp BP Pulse Ox
98.1 F 99 19 135/61 95
02/27/25 14:21 02/27/25 16:45 02/27/25 18:56 02/27/25 14:21 02/27/25 16:45
MDM/Problems Addressed
Differential Diagnosis Includes:
Not limited to cellulitis, DVT
MDM/Problems Addressed:
Patient is a 74-year-old male presented with swelling of bilateral lower extremities with increasing swelling to left lower extremity and redness for the past 2 days. Patient has circumferential erythema to the left foot and lower leg. Mildly
tender to touch pulses by Doppler no fever with a normal white count however with extensive erythema and circumferential involvement would recommend admission. IV antibiotics ordered. Lactic is normal. Patient's blood sugar is elevated he was
given a small fluid bolus he is a diabetic. Ultrasound pending at this time
Chronic conditions affecting care:
Diabetes, blood sugar elevated here in the ER
*Radiology
Radiology exam reviewed: radiology read reviewed
*Pulse Oximetry
SaO2: 95
Oxygen Mode of Delivery: Room air
Patient hypoxic: no
*EKG
Interpreted by ED Provider?: Yes
Heart Rate: 97
Rate: normal
Rhythm: sinus
Ischemia: no ischemia
*Critical Care Note
Total Time (30-74mins, 75-104mins- exclusive of procedures): Not Applicable
ED Attending Note
-
Portions of this chart may have been created with voice recognition software.� Occasional wrong word or��sound alike� substitutions may have occurred due to the inherent limitations of voice recognition software.
Discharge Plan
Departure
Patient Disposition: Admit
Date of Disposition: 02/27/25
Time of Disposition: 17:08
Admit to: Med/Surg
Admit to doctor: hospitaist
Presentation/result/management discussed w/ accepting MD/DO: Hospitalist
Patient with high blood pressure during this ER visit?: Yes
Condition: Fair
Covid-19: Not Applicable
Discharge Problem:
Cellulitis of left leg
Interventions
Interventions:
*Risk Screen - Suicide Last Done: 02/27/25 14:21
*General Assessment Last Done: 02/27/25 16:10
*Neglect/Abuse Screening Last Done: 02/27/25 14:21
*ED- Fall Risk Assessment Last Done: 02/27/25 16:10
ED-Skin Assessment Last Done: 02/27/25 16:10
[2025-02-27 15:52] VITALS: BMI 33.0
[2025-02-27 16:06] LABS: Hematocrit 34.9 % (39.0-52.0); Hemoglobin 11.7 g/dL (13.0-18.0); Mean Corp Hgb Conc. 33.5 g/dL (33.0-37.0); Mean Corpuscular Volume 90.2 fL (80.0-94.0); Nucleated Red Blood Cells % 0 % (-); Platelet Count 165 10^3/uL (130-400); Red Cell Dist. Width 14.6 % (11.5-14.5)
[2025-02-27] MEDS: DUONEB 3 ML INH ×2 (16:07→22:09)
[2025-02-27 16:27] LABS: ALT (SGPT) 28 U/L (0-50); AST (SGOT) 30 U/L (17-59); Albumin 3.9 g/dl (3.5-5.0); Alkaline Phosphatase 62 U/L (38-126); Blood Urea Nitrogen 34 mg/dl (9-20); Calcium 8.6 mg/dl (8.4-10.2); Carbon Dioxide 26 mmol/L (22-30); Chloride 103 mmol/L (98-107); Estimated Creatinine Clearance 53 ml/min; Glucose 343 mg/dl (70-99); Potassium 4.4 mmol/L (3.5-5.1); Sodium 137 mmol/L (135-145); Total Protein 6.3 g/dl (6.3-8.2); eGFR 52.74
--- NOTE | 2025-02-27 17:19 | HPS.HSE ---
Family Physician
-
Family Physician: Bony Lafleur
Chief Complaint
-
Increasing redness of left lower extremity
History of Present Illness
Patient is a 74 y/o male past medical history of CAD, CHF, CHF, HTN, DM, CKD, COPD and chronic lower extremity lymphedema / venous stasis who presents with increasing redness of the left lower extremity. Patient reports left foot started with
redness on , 2 days ago. He saw his primary care provider today who referred him to the emergency department for evaluation. Patient is complaining about increased lower extremity edema, left greater than right, but does note the right is
more swollen than usual. He reports increased cough with some shortness of breath. He denies fevers, sweats or chills.
Medical History
Past Medical History
Past Medical History: Reports Other
Additional Past Medical History:
Coronary Artery Disease s/p Multiple Stents and CABG
Chronic HFrEF
Essential Hypertension
Hyperlipidemia
Diabetes Mellitus, Type II
Diabetic Neuropathy
CKD Stage 3B
Chronic Lower Extremity Lymphedema
Chronic Venous Stasis
COPD
BPH
GERD
Past Surgical History: Reports Other
Additional Past Surgical History:
CABG
Cardiac Stents
Cholecystectomy
Partial Amputations of Left 1st and 2nd Toes
Social History
Tobacco: Former Smoker (Quit in 2000)
Alcohol: Daily (One beer nightly plus an occasion extra drink)
Family History
Family History: Not pertinent
Allergies / Home Medications
Allergies reflects when Allergies were last updated in [facility].
Home Medications with original date entered in [facility]
Allergy/Medication List:
Allergies
Allergy/AdvReac Type Severity Reaction Status Date / Time
No Known Allergies Allergy Verified 02/27/25 14:21
Home Medications
ezetimibe 10 mg tablet 10 mg PO HS High cholesterol 12/22/16
pantoprazole 40 mg tablet,delayed release 40 mg PO DAILY Gastrointestinal issue 12/22/16
rosuvastatin 10 mg tablet 10 mg PO QPM High cholesterol 03/26/20
furosemide 40 mg tablet 40 mg PO BID AT 0800,1700 Fluid retention/Swelling 08/23/22
gabapentin 300 mg capsule 300 mg PO HS Neurological Condition 08/23/22
cholecalciferol (vitamin D3) 25 mcg (1,000 unit) tablet (Vitamin D3) 25 mcg PO DAILY Supplement 01/04/24
ipratropium 0.5 mg-albuterol 3 mg (2.5 mg base)/3 mL nebulization soln 3 ml inhalation TID 01/04/24
insulin glargine U-300 conc 300 unit/mL (1.5 mL) subcutaneous pen (Toujeo SoloStar U-300 Insulin) 65 unit SC HS Diabetes 02/20/24
insulin lispro 100 unit/mL subcutaneous pen (Humalog KwikPen (U-100) Insulin) See Rx Instructions .Route .COMPLEX Diabetes 02/20/24
tamsulosin 0.4 mg capsule 0.4 mg PO DAILY Urinary Issue 02/20/24
Nitric Oxide 1 cap PO DAILY 02/27/25
acetaminophen 500 mg tablet 500 mg PO DAILY 02/27/25
aspirin 81 mg tablet 81 mg PO DAILY 02/27/25
calcium carbonate 500 mg PO DAILY 02/27/25
cyanocobalamin (vitamin B-12) 500 mcg tablet 500 mcg PO DAILY 02/27/25
folic acid 400 mcg tablet 0.4 mg PO DAILY 02/27/25
ipratropium bromide 21 mcg (0.03 %) nasal spray 2 spray intranasal BID 02/27/25
magnesium chloride 71.5 mg (magnesium chloride) tablet,delayed release (Slow-Mag) 71.5 mg PO HS 02/27/25
sacubitril 49 mg-valsartan 51 mg tablet (Entresto) 1 tab PO BID 02/27/25
spironolactone 25 mg tablet 12.5 mg PO DAILY 02/27/25
Review of Systems
-
A 12 point ROS was completed and negative except as noted: Yes
Constitutional: Denies Fever
Respiratory: Reports Cough and Trouble Breathing
Cardiac: Denies Chest Pain or Palpitations
Physical Exam
Vital Signs
Vital Signs
Temp Pulse Resp BP Pulse Ox
98.1 F 99 28 135/61 95
02/27/25 14:21 02/27/25 16:45 02/27/25 16:45 02/27/25 14:21 02/27/25 16:45
Physical Exam
General: Comfortable and Conversant
HEENT: Anicteric and Moist mucous membranes
Respiratory: Wheezes (Diffuse) and Non Labored Respirations; No Rales
Cardiac: S1/S2 and Regular Rhythm
GI: Soft, Non Tender and Other (Protuberant)
Rectal: Deferred by Provider
Musculoskeletal: No Clubbing, No Cyanosis and Other (+2 pitting edema right lower extremity, +4 edema left lower extremity)
Skin: Other (Left Lower Extremity with significant erythema from toe to just below the knee with increased warmth to touch; Small abrasion 2nd left toe; Partial amputation left 1st and 2nd toes )
Neuro: Awake, Alert, Oriented and Nonfocal/grossly intact
Psych: Calm
Laboratory Results
-
02/27/25 15:55
02/27/25 15:55
Laboratory Results
Lactic Acid Cancelled 02/27/25 19:45
Total Bilirubin 0.4 mg/dl (0.2-1.3) 02/27/25 15:55
AST 30 U/L (17-59) 02/27/25 15:55
ALT 28 U/L (0-50) 02/27/25 15:55
Alkaline Phosphatase 62 U/L (38-126) 02/27/25 15:55
Peripheral Vascular Ultrasound:
1. No evidence of deep venous thrombosis in the visualized bilateral lower extremities as described above.
Data Reviewed
-
Ultrasound: Report Reviewed by me
Lab Data: Labs Reviewed by me
Impression/Plan
-
Left Lower Extremity Cellulitis
-Continue Ancef
-Await blood cultures
Suspect Acute Exacerbation of Chronic HFrEF
-Echo Aug 2024: Moderately reduced left ventricular systolic function with EF 35-40%.
-Check Chest X-Ray and BNP
-Plan for Lasix 40mg IV BID
-Continue spironolactone
-Continue Entresto
Coronary Artery Disease s/p Multiple Stents and CABG
-Continue aspirin
Hyperlipidemia
-Continue Zetia and Crestor
Diabetes Mellitus, Type II, with hyperglycemia in setting of infection
-Check HgbA1c
-Continue glargine
-Monitor sugars and continue coverage insulin
Diabetic Neuropathy
-Continue Gabapentin
CKD Stage 3B
-Creatinine at baseline
-Monitor creatinine closely while on diuretics
COPD, no acute exacerbation
-Continue DuoNeb
BPH
-Continue Flomax
GERD
-Continue Protonix
DVT proph: SC Heparin
Code Status: DNR
[2025-02-27] MEDS: ANCEF 5 IV (18:17)
[2025-02-27] MEDS: NSS 500 IV (18:17)
--- NOTE | 2025-02-27 18:59 | W.PN.UPDATE ---
Addendum entered and electronically signed by Sydni Land MD 02/27/25 23:08:
Cardiac BNP only 380 and CXR does not show pulmonary edema so patient not in CHF exacerbation and will change IV lasix back to normal oral regimen.
Original Note:
Update Note
Progress Note Update
This is an addendum to H&P written by Dara Moreira on 02/27/2025. �Patient seen and examined independently with PA.
74-year-old male past medical history of osteomyelitis of toe status post amputation, lower GI bleeding, iron deficiency anemia, CAD status post multiple stents and CABG, chronic HFrEF, hypertension, hyperlipidemia, diabetes, diabetic neuropathy,
CKD 3B, COPD, BPH, presenting with increased redness and swelling of the left foot.
Patient also with ongoing shortness of breath, wheezing and cough.
Labs show creatinine of 1.4 stable. �Stable anemia.
Venous ultrasound shows no evidence of DVT.
Patient with cellulitis of the left lower extremity. �Patient given IV fluids in ER. �Blood cultures pending. �Cefazolin started.
Patient also with concern for acute CHF exacerbation, less likely COPD. �Stop IV fluids. �Cardiac BNP pending. �Chest x-ray pending. �40 IV Lasix twice daily. Duonebs.
[2025-02-27 19:00] VITALS: BP 118/58; BMI 32.7
--- NOTE | 2025-02-27 19:12 | PHANOTE ---
med rec tech 02/27/25 patient is very confused by the names and doses of his medications. He
[2025-02-27 21:38] LABS: Glucose - Point of Care 289 mg/dl (70-99)
[2025-02-27] MEDS: ENTRESTO 49 MG/51 MG 1 TAB PO (21:49)
[2025-02-27] MEDS: LASIX 40 MG IV (21:50)
[2025-02-27] MEDS: ZETIA 10 MG PO (21:52)
[2025-02-27] MEDS: NEURONTIN 300 MG PO (21:52)
[2025-02-27] MEDS: LANTUS 0.52 UNITS SC (21:53)
--- NOTE | 2025-02-27 22:51 | PTCARENOTE ---
Patient arrived to [facility] from ED. Patient pulled over from stretcher to bed. Patient AAOx3. Patient oriented to room, call ramírez within reach, bed in lowest position. Will continue to monitor.
[2025-02-27 23:00] VITALS: BP 107/56
[2025-02-28] VITALS (7 sets, daily range): BP systolic 100–134; BP diastolic 48–86; PULSE 91–93; O2SAT 97; BMI 32.5
[2025-02-28] MEDS: HEPARIN 5000 UNITS SC ×3 (00:03→16:29)
[2025-02-28] MEDS: ANCEF 10 IV ×3 (00:03→16:28)
[2025-02-28 06:59] LABS: Hematocrit 33.8 % (39.0-52.0); Hemoglobin 11.2 g/dL (13.0-18.0); Mean Corp Hgb Conc. 33.1 g/dL (33.0-37.0); Mean Corpuscular Volume 91.1 fL (80.0-94.0); Platelet Count 168 10^3/uL (130-400); Red Cell Dist. Width 14.5 % (11.5-14.5)
[2025-02-28] MEDS: DUONEB 3 ML INH ×4 (07:22→19:36)
[2025-02-28 07:46] LABS: Blood Urea Nitrogen 32 mg/dl (9-20); Calcium 8.7 mg/dl (8.4-10.2); Carbon Dioxide 27 mmol/L (22-30); Chloride 106 mmol/L (98-107); Estimated Creatinine Clearance 52 ml/min; Glucose 143 mg/dl (70-99); Magnesium 2.3 mg/dl (1.6-2.3); Potassium 4.0 mmol/L (3.5-5.1); Sodium 141 mmol/L (135-145); eGFR 52.74
[2025-02-28 08:16] LABS: Glucose - Point of Care 177 mg/dl (70-99)
[2025-02-28] MEDS: FLOMAX 0.4 MG PO (09:27)
[2025-02-28] MEDS: LOW STRENGTH ASPIRIN 81 MG PO (09:27)
[2025-02-28] MEDS: LASIX 40 MG PO (09:28)
[2025-02-28] MEDS: ALDACTONE 12.5 MG PO (09:28)
[2025-02-28] MEDS: PROTONIX 40 MG PO (09:28)
[2025-02-28] MEDS: NOVOLOG FLEXPEN-MODERATE RESISTANCE 1 UNITS SC (09:32)
--- NOTE | 2025-02-28 10:10 | CM ---
Patient seen at bedside
IA completed
Lives alone in 1 story home, 2 GEMMA
PLOF: independent
DME: Walker, cane, shower chair, nebulizer, grab bars
Has had [facility] in the past, denies Rehab
Denies insecurities
PCP: Bony Lafleur
[facility] [address] [place]
PLAN: home, when stable, CM to follow for needs
[2025-02-28] MEDS: ENTRESTO 49 MG/51 MG 1 TAB PO ×2 (10:14→20:50)
[2025-02-28 11:00] LABS: Glycohemoglobin (HgbA1c) 7.9 % (4.0-5.6)
[2025-02-28 12:04] LABS: Glucose - Point of Care 284 mg/dl (70-99)
[2025-02-28] MEDS: NOVOLOG FLEXPEN-MODERATE RESISTANCE 5 UNITS SC ×2 (12:17→18:12)
--- NOTE | 2025-02-28 14:59 | W.PN.HOSP.TC ---
Today's Communication/Plan
-
Lasix
IV AB
EDGARD bandage
Assessment / Plan
Assessment / Plan
74 y/o male presented with redness and swelling of the left foot. Also has shortness of breath and wheezing.
Ultrasound of the lower extremity-no DVT
CVS: S1-S2 normal
Chest: CTA B/L
Abdomen: Soft, NT / Bowel sounds present
Extremities:B/L LE edema, Left LE redness and edema
# Left lower extremity cellulitis-continue Ancef, compression therapy
# Acute on chronic HFrEF
Echo Aug 2024-EF 35 to 40%
Lasix 40 mg IV twice daily
Continue Entresto, Aldactone
# Coronary disease with 4 stents and bypass surgery
# Hyperlipidemia-continue statin, Zetia
# Diabetes-hemoglobin A1c-7.9
On Lantus 64 units at night along with NovoLog insulin
Continue Lantus 58 units, sliding scale coverage
# Diabetic neuropathy-continue gabapentin
# CKD stage IIIb-watch creatinine while on diuretics
# COPD without exacerbation-continue ipratropium and as needed nebulizer treatments if symptomatic
# Enlarged prostate-continue tamsulosin
# GERD-continue PPI
# Diverticulosis
# History of nephrolithiasis
# Ex-smoker
# DVT prophylaxis-subcutaneous heparin
# DNR
Part of this note was created using voice recognition system. Occasional wrong word or��sound alike� substitutions may have inadvertently occurred due to the inherent limitations of voice recognition software. If noted kindly bring it to my
attention for correction.
Anticipated Discharge: 24 - 48 hours
Subjective/Interval History
-
Date of Service: February 28, 2025
Objective Data
-
Labs:
Laboratory Results
02/28/25
06:38
WBC 5.2
Hgb 11.2 L
Hct 33.8 L
Plt Count 168
Sodium 141
Potassium 4.0
Chloride 106
Carbon Dioxide 27
BUN 32 H
Creatinine 1.4 H
Glucose 143 H
Calcium 8.7
Vital Signs:
Vital Signs
Temp Pulse Resp BP Pulse Ox
98.1 F 79 17 113/58 95
02/28/25 11:31 02/28/25 11:31 02/28/25 11:31 02/28/25 11:31 02/28/25 11:31
I&O
02/27/25 02/28/25 03/01/25
06:59 06:59 06:59
Output Total 480 / 480
Balance -480 / -480
[2025-02-28] MEDS: LASIX 40 MG IV (16:28)
[2025-02-28 17:09] LABS: Glucose - Point of Care 260 mg/dl (70-99)
[2025-02-28] MEDS: CRESTOR 10 MG PO (18:11)
[2025-02-28 21:21] LABS: Glucose - Point of Care 186 mg/dl (70-99)
[2025-02-28] MEDS: NEURONTIN 300 MG PO (21:52)
[2025-02-28] MEDS: ZETIA 10 MG PO (21:53)
[2025-02-28] MEDS: LANTUS 0.58 UNITS SC (21:53)
[2025-03-01] MEDS: HEPARIN 5000 UNITS SC ×4 (00:21→23:33)
[2025-03-01] MEDS: ANCEF 10 IV ×4 (00:21→23:33)
[2025-03-01 03:00] VITALS: BP 123/68
[2025-03-01 06:00] VITALS: BMI 32.5
[2025-03-01 06:44] LABS: Hematocrit 35.3 % (39.0-52.0); Hemoglobin 11.7 g/dL (13.0-18.0); Mean Corp Hgb Conc. 33.1 g/dL (33.0-37.0); Mean Corpuscular Volume 90.5 fL (80.0-94.0); Platelet Count 192 10^3/uL (130-400); Red Cell Dist. Width 14.4 % (11.5-14.5)
[2025-03-01 07:05] LABS: Blood Urea Nitrogen 27 mg/dl (9-20); Calcium 9.1 mg/dl (8.4-10.2); Carbon Dioxide 29 mmol/L (22-30); Chloride 105 mmol/L (98-107); Estimated Creatinine Clearance 61 ml/min; Glucose 123 mg/dl (70-99); Potassium 4.0 mmol/L (3.5-5.1); Sodium 141 mmol/L (135-145); eGFR > 60.00
[2025-03-01] MEDS: DUONEB 3 ML INH ×4 (07:05→19:49)
[2025-03-01] MEDS: FLOMAX 0.4 MG PO (07:39)
[2025-03-01] MEDS: LOW STRENGTH ASPIRIN 81 MG PO (07:39)
[2025-03-01] MEDS: PROTONIX 40 MG PO (07:39)
[2025-03-01] MEDS: ALDACTONE 12.5 MG PO (07:40)
[2025-03-01] MEDS: LASIX 40 MG IV ×2 (07:40→15:09)
[2025-03-01] MEDS: ENTRESTO 49 MG/51 MG 1 TAB PO ×2 (07:41→20:52)
[2025-03-01 07:44] LABS: Glucose - Point of Care 153 mg/dl (70-99)
[2025-03-01] MEDS: NOVOLOG FLEXPEN-MODERATE RESISTANCE 1 UNITS SC ×3 (07:45→17:05)
[2025-03-01 07:50] VITALS: BP 125/62
[2025-03-01 08:08] VITALS: BMI 32.5
[2025-03-01 11:14] VITALS: BP 124/70
[2025-03-01 12:01] LABS: Glucose - Point of Care 186 mg/dl (70-99)
--- NOTE | 2025-03-01 13:44 | CON.CAR ---
Addendum entered and electronically signed by Berto Juares MD 03/01/25 15:14:
I saw and examined the patient.
The DEPUTY ATTORNEY GENERAL's note was reviewed and I agree with the note.
Comment: 73 year old male (known to Dr. Medrano, his primary paint laboratory technician) with CAD (S/P CABG 2018), HFrEF/ICM, HTN, HLD, NIDDM, CKD, PVD, PAD, and BPH who presented with redness and swelling to his left lower extremity. He was found to have left
lower extremity cellulitis. Cardiology was consulted for acute on chronic HFrEF.
He only endorses extreme shortness of breath is when he is exerting himself. Otherwise, at baseline he has no shortness of breath. He will try for some diuresis, but, likely does not need much.
- IV Lasix
Original Note:
Consultation
Consultation Request
Date/Time Consultation Requested: 03/01/2025 13:30
Date/Time Consultation Performed: 03/01/2025 13:45
Requesting Provider: Dr. Monterroso
Performing Provider: JESSIE Ramires for Dr. Juares
Reason for Consultation: Acute on chronic HFrEF
Medical History
-
Chief Complaint: Redness and swelling to left foot
History of Present Illness:
Antonio Ramirez is a 73 year old male (known to Dr. Medrano, his primary paint laboratory technician) with CAD (S/P CABG 2018), HFrEF/ICM, HTN, HLD, NIDDM, CKD, PVD, PAD, and BPH who presented with redness and swelling to his left lower extremity. He was found to
have left lower extremity cellulitis. Cardiology was consulted for acute on chronic HFrEF. He denies shortness of breath, chest pain, and dizziness. He has an elevated proBNP and his weight is up about 5 kg compared to last year. He reports
medication adherence. Sometimes he has a little bit more fluid or salt than he should.
He had a previous echocardiogram which raised the question of apical thrombus. He had an MRI that had issues with assessment of LV function due to image quality but he thrombus was not seen.
Past Medical History
Past Medical History: Arrhythmias (PVCs), CAD (CABG), CHF (HFrEF, ICM), COPD, HTN, Hypercholesterolemia and Other (RBBB, PAD/PVD, BPH)
Past Surgical History: Cardiac, Cholecystectomy and Orthopedic
Social History
Tobacco: Former Smoker
Alcohol: Daily (One beer everyday)
Drug: None
Personal: Single
Living: Alone
Employment: Retired
Family History
Family History: Reviewed & Not Pertinent
Allergies / Home Medications
Allergy/AdvReac Type Severity Reaction Status Date / Time
No Known Allergies Allergy Verified 02/27/25 14:21
�Medication �Instructions �Recorded �Confirmed �Type
ezetimibe 10 mg tablet 10 mg PO HS High cholesterol 12/22/16 02/27/25 History
pantoprazole 40 mg tablet,delayed 40 mg PO DAILY Gastrointestinal 12/22/16 02/27/25 History
release issue
rosuvastatin 10 mg tablet 10 mg PO QPM High cholesterol 03/26/20 02/27/25 History
furosemide 40 mg tablet 40 mg PO BID AT 0800,1700 Fluid 08/23/22 02/27/25 History
retention/Swelling
gabapentin 300 mg capsule 300 mg PO HS Neurological Condition 08/23/22 02/27/25 History
cholecalciferol (vitamin D3) 25 25 mcg PO DAILY Supplement 01/04/24 02/27/25 History
mcg (1,000 unit) tablet (Vitamin
D3)
ipratropium 0.5 mg-albuterol 3 mg 3 ml inhalation TID Lung/Breathing 01/04/24 02/27/25 History
(2.5 mg base)/3 mL nebulization Issues
soln
insulin glargine U-300 conc 300 65 unit SC HS Diabetes 02/20/24 02/27/25 History
unit/mL (1.5 mL) subcutaneous pen
(Toujeo SoloStar U-300 Insulin)
insulin lispro 100 unit/mL See Rx Instructions .Route 02/20/24 02/27/25 History
subcutaneous pen (Humalog KwikPen .COMPLEX Diabetes
(U-100) Insulin)
tamsulosin 0.4 mg capsule 0.4 mg PO DAILY Urinary Issue 02/20/24 02/27/25 History
Nitric Oxide 1 cap PO DAILY Supplement 02/27/25 History
acetaminophen 500 mg tablet 500 mg PO DAILY Pain 02/27/25 02/27/25 History
aspirin 81 mg tablet 81 mg PO DAILY Blood Clot 02/27/25 02/27/25 History
Prevention/Tx
calcium carbonate 500 mg PO DAILY Supplement 02/27/25 02/27/25 History
cyanocobalamin (vitamin B-12) 500 500 mcg PO DAILY Supplement 02/27/25 02/27/25 History
mcg tablet
folic acid 400 mcg tablet 0.4 mg PO DAILY Supplement 02/27/25 02/27/25 History
ipratropium bromide 21 mcg (0.03 2 spray intranasal BID 02/27/25 02/27/25 History
%) nasal spray Lung/Breathing Issues
magnesium chloride 71.5 mg 71.5 mg PO HS Supplement 02/27/25 02/27/25 History
(magnesium chloride)
tablet,delayed release (Slow-Mag)
sacubitril 49 mg-valsartan 51 mg 1 tab PO BID Heart Failure 02/27/25 02/27/25 History
tablet (Entresto)
spironolactone 25 mg tablet 12.5 mg PO DAILY Heart Failure 02/27/25 02/27/25 History
Review of Systems
-
History Source: Patient
All other systems: Negative unless noted
Constitutional: No Symptoms
EENT: No Symptoms
Respiratory: No Symptoms
Cardiac: No Symptoms
Abdomen/GI: No Symptoms
: No Symptoms
Musculoskeletal: Edema
Skin: Other (redness )
Neurological: No Symptoms
Endocrine: No Symptoms
Hematologic/Lymphatic: No Symptoms
Physical Exam
Vital Signs
Temp Pulse Resp BP Pulse Ox
97.3 F 86 14 124/70 96
03/01/25 11:14 03/01/25 11:14 03/01/25 11:14 03/01/25 11:14 03/01/25 11:14
Lab Results
03/01/25 06:13
03/01/25 06:13
Wfy-R-Wklxpismgoj Pept 382 pg/ml 02/27/25 15:55
Physical Exam
General: Well Developed, Well Nourished, No Apparent Distress and Comfortable
HEENT: Normocephalic, Anicteric and Moist Mucous Membranes
Respiratory: Clear and Non Labored Respirations
Cardiac: S1/S2, Regular Rhythm and Peripheral Edema (+2 LE edema)
Breast: Deferred by me
GI: Soft, Non Tender, Non Distended and Normal Bowel Sounds
Rectal: Deferred by Provider
Genito-urinary: No Costovertebral Tender
Musculoskeletal: No Clubbing and No Cyanosis
Skin: Warm and Dry
Neuro: AO x 3
Hematologic/Lymphatic: No Lymphadenopathy
Psych: Calm
Impression / Plan
-
I/P: 74M wiht CAD (S/P CABG 2019), HFrEF/ICM, HTN, HLD, NIDDM, CKD, PVD, PAD, and BPH who presented with redness and swelling to his left lower extremity.
Outpatient paint laboratory technician: Dr. Medrano
HFrEF (EF 35-40%), acute on chronic
Ischemic cardiomyopathy
- Diuresis with furosemide 40 mg IV twice daily, this requires intensive monitoring
- GDMT as tolerated:
-Diuretic: Furosemide 40 mg twice daily
-EDGARD/ARB/ARNI: Sacubitril�valsartan 49-51 mg twice daily
-SGLT2 inhibitor: Reports cost issues in the past, case management to [facility]
-Aldosterone agonist: Spironolactone 12.5 mg daily
-Beta candy: Was on metoprolol succinate 25 mg daily at his last outpatient office visit
-Isosorbide/Hydralazine:�Not currently indicated
-ICD: Not indicated
- Trend daily weight, I/O, and BMP with diuresis
- Heart failure education
- Update echocardiogram
Left lower extremity cellulitis, on Ancef, per primary
CAD
- Stable without chest
PVCs, resume beta-candy
CKD3b, chronic, stable
RBBB, chronic, stable, noted on OP EKG 04/2023
HTN, chronic and stable
NIDDM, Hgba1c 7.9%
COPD, stable without wheeze, per primary
Former smoker, continued cessation recommended
SUBJECTIVE:
As above.
DATA:
Transthoracic echocardiogram, 09/04/2024:
Moderately reduced left ventricular systolic function. Left ventricular
ejection fraction is 35-40%.
Echodensity in LV at apical septum is again visualized.
No significant valve disease.
Compared to 01/08/24: prior study was performed with contrast. Contrast not used
on current study. Echodensity in LV at apical septum is again visualized.
Cardiac MRI 01/2024 did not show evidence of thrombus. EF looks 35-40% compared
to 40-45% on prior contrast enhanced study.
Data Reviewed
-
EKG: Report Reviewed by me (Sinus rhythm, PVCs, rate 97)
Medical Tests (Nuc Med, Echo etc): Report Reviewed by me
Labs: Labs Reviewed by me
Old Records: Reviewed
--- NOTE | 2025-03-01 14:47 | CM ---
Patient to return to home when stable, no needs, Jardiance 10 mg per month has zero copay, and Farxiga 10mg per month has zero copay.
Plan; Home no needs when stable.
[2025-03-01 14:56] VITALS: BP 144/85
[2025-03-01] MEDS: TOPROL XL 25 MG PO (15:09)
[2025-03-01] MEDS: FARXIGA 10 MG PO (15:09)
--- NOTE | 2025-03-01 15:34 | W.PN.HOSP.TC ---
Today's Communication/Plan
-
IV Lasix
Antibiotics
Compression therapy
Assessment / Plan
Assessment / Plan
74 y/o male presented with redness and swelling of the left foot. Also has shortness of breath and wheezing.
Ultrasound of the lower extremity-no DVT
CVS: S1-S2 normal
Chest: CTA B/L
Abdomen: Soft, NT / Bowel sounds present
Extremities:B/L LE edema look much better today, left LE redness and edema also looks better
# Left lower extremity cellulitis-continue Ancef, compression therapy
# Acute on chronic HFrEF
Echo Aug 2024-EF 35 to 40%
Lasix 40 mg IV twice daily
Continue Entresto, Aldactone
Weight has not changed much.
Cardiology has been consulted
# Coronary disease with 4 stents and bypass surgery
# Hyperlipidemia-continue statin, Zetia
# Diabetes-hemoglobin A1c-7.9
On Lantus 64 units at night along with NovoLog insulin
Continue Lantus 59 units, sliding scale coverage
# Diabetic neuropathy-continue gabapentin
# CKD stage IIIb-watch creatinine while on diuretics
# COPD without exacerbation-continue ipratropium and as needed nebulizer treatments if symptomatic
# Enlarged prostate-continue tamsulosin
# GERD-continue PPI
# Diverticulosis
# History of nephrolithiasis
# Ex-smoker
# DVT prophylaxis-subcutaneous heparin
# DNR
Discussed with patient's PCP or from his phone
Discussed cardiology
Part of this note was created using voice recognition system. Occasional wrong word or��sound alike� substitutions may have inadvertently occurred due to the inherent limitations of voice recognition software. If noted kindly bring it to my
attention for correction.
Anticipated Discharge: 24 - 48 hours
Subjective/Interval History
-
Date of Service: March 01, 2025
Objective Data
-
Labs:
Laboratory Results
03/01/25
06:13
WBC 5.1
Hgb 11.7 L
Hct 35.3 L
Plt Count 192
Sodium 141
Potassium 4.0
Chloride 105
Carbon Dioxide 29
BUN 27 H
Creatinine 1.2
Glucose 123 H
Calcium 9.1
Vital Signs:
Vital Signs
Temp Pulse Resp BP Pulse Ox
97.4 F 81 16 144/85 96
03/01/25 14:56 03/01/25 15:16 03/01/25 15:16 03/01/25 14:56 03/01/25 14:56
I&O
02/28/25 03/01/25 03/02/25
06:59 06:59 06:59
Intake Total 1170 / 1170
Output Total 480 / 480
Balance 690 / 690
[2025-03-01 16:38] LABS: Glucose - Point of Care 195 mg/dl (70-99)
[2025-03-01] MEDS: CRESTOR 10 MG PO (17:04)
[2025-03-01 19:15] VITALS: BP 133/78
[2025-03-01] MEDS: NEURONTIN 300 MG PO (22:00)
[2025-03-01] MEDS: ZETIA 10 MG PO (22:01)
[2025-03-01 22:13] LABS: Glucose - Point of Care 131 mg/dl (70-99)
[2025-03-01] MEDS: LANTUS 0.59 UNITS SC (22:14)
[2025-03-01 23:15] VITALS: BP 125/71
[2025-03-02 02:50] VITALS: BP 103/62
[2025-03-02 05:33] VITALS: BMI 31.9
[2025-03-02] MEDS: DUONEB 3 ML INH ×4 (07:12→19:22)
[2025-03-02 07:16] LABS: Blood Urea Nitrogen 25 mg/dl (9-20); Calcium 9.1 mg/dl (8.4-10.2); Carbon Dioxide 30 mmol/L (22-30); Chloride 104 mmol/L (98-107); Estimated Creatinine Clearance 56 ml/min; Glucose 110 mg/dl (70-99); Magnesium 2.1 mg/dl (1.6-2.3); Potassium 3.9 mmol/L (3.5-5.1); Sodium 140 mmol/L (135-145); eGFR 57.65
[2025-03-02 07:25] VITALS: BP 116/72
[2025-03-02 07:38] LABS: Glucose - Point of Care 103 mg/dl (70-99)
[2025-03-02] MEDS: ALDACTONE 12.5 MG PO (07:44)
[2025-03-02] MEDS: NOVOLOG FLEXPEN-MODERATE RESISTANCE SC (07:44)
[2025-03-02] MEDS: ENTRESTO 49 MG/51 MG 1 TAB PO ×2 (07:45→20:37)
[2025-03-02] MEDS: PROTONIX 40 MG PO (07:45)
[2025-03-02] MEDS: LOW STRENGTH ASPIRIN 81 MG PO (07:45)
[2025-03-02] MEDS: FLOMAX 0.4 MG PO (07:46)
[2025-03-02] MEDS: FARXIGA 10 MG PO (07:46)
[2025-03-02] MEDS: TOPROL XL 25 MG PO (07:46)
[2025-03-02] MEDS: HEPARIN 5000 UNITS SC ×3 (07:47→23:52)
[2025-03-02] MEDS: LASIX 40 MG IV ×2 (07:49→16:25)
[2025-03-02] MEDS: ANCEF 10 IV ×3 (07:50→23:52)
--- NOTE | 2025-03-02 08:55 | W.PN.CD ---
Today's Communication / Plan
-
Continue IV diuresis
Can likely switch to p.o. tomorrow
Impression / Plan
-
I/P: 74M wiht CAD (S/P CABG 2019), HFrEF/ICM, HTN, HLD, NIDDM, CKD, PVD, PAD, and BPH who presented with redness and swelling to his left lower extremity.
Outpatient batch unloader: Dr. Medrano
HFrEF (EF 35-40%), acute on chronic
Ischemic cardiomyopathy
- Severe exacerbation. Diuresis with furosemide 40 mg IV twice daily, this requires intensive monitoring
- GDMT as tolerated:
-Diuretic: Furosemide 40 mg twice daily
-EDGARD/ARB/ARNI: Sacubitril�valsartan 49-51 mg twice daily
-SGLT2 inhibitor: Reports cost issues in the past, case management to [facility]
-Aldosterone agonist: Spironolactone 12.5 mg daily
-Beta candy: Was on metoprolol succinate 25 mg daily at his last outpatient office visit
-Isosorbide/Hydralazine:�Not currently indicated
-ICD: Not indicated
- Trend daily weight, I/O, and BMP with diuresis
- Heart failure education
Left lower extremity cellulitis, on Ancef, per primary
CAD
- Stable without chest pain
PVCs, resume beta-candy
CKD3b, chronic, stable
RBBB, chronic, stable, noted on OP EKG 04/2023
HTN, chronic and stable
NIDDM, Hgba1c 7.9%
COPD, stable without wheeze, per primary
Former smoker, continued cessation recommended
SUBJECTIVE:
Lower extremity swelling has dramatically improved.
Physical Exam
Vital Signs/Labs
Vital Signs
Temp Pulse Resp BP Pulse Ox
97.4 F 80 21 116/72 96
03/02/25 07:25 03/02/25 07:25 03/02/25 07:25 03/02/25 07:25 03/02/25 07:25
03/01/25 03/02/25 03/03/25
06:59 06:59 06:59
Actual Weight 214 lb 210 lb
03/01/25 06:13
03/02/25 06:16
Magnesium 2.1 mg/dl (1.6-2.3) 03/02/25 06:16
02/27/25
15:55
Wsf-L-Xxawclxcobn Pept 382
Physical Exam
Constitutional: No acute distress and Comfortable
Cardiovascular: Rhythm & rate is regular, Pedal edema present, S1S2 is normal and Murmur/rub/gallop absent
Respiratory: Respiratory effort normal and Crackles Present
Neuro/Psych: AO x 3
Data Reviewed
-
Date of Service: March 02, 2025
Medical Decision Making: Reviewed Test Results, Independent Historian Assessment, Test Interpretation and Review of Case with other Provider
EKG: Tracing Personally Visualized and interpreted
Echo: Report Reviewed by me
X-Ray/CT/US/MRI/NUC/PET: Image Personally Visualized and interpreted
Labs: Labs Reviewed by me
--- NOTE | 2025-03-02 11:27 | CM ---
Patient seen at bedside
offered VN-he was agreeable, options reviewed
prefer [facility] as he had in past
tt liaison, referral to be entered in [facility]
PLAN: Home with [facility] when stable
[2025-03-02 11:40] VITALS: BP 111/62
--- NOTE | 2025-03-02 11:55 | VNURNOTE ---
Home Health Liaison met with patient at bedside to discuss [facility] nurse/therapy, visits, schedule and homebound status. Patient is agreeable and understands that visits at home will be 2-3 x per week to assess and teach medical management. Patient
is familiar with [facility], had us in the past. He is aware that [facility] will contact them for start of care in 1-2 days after discharge from .
[facility] referral completed in [facility].
[2025-03-02 12:01] LABS: Glucose - Point of Care 192 mg/dl (70-99)
[2025-03-02] MEDS: NOVOLOG FLEXPEN-MODERATE RESISTANCE 1 UNITS SC ×2 (12:56→17:12)
[2025-03-02 14:55] VITALS: BP 112/69
--- NOTE | 2025-03-02 15:17 | W.PN.HOSP.TC ---
Today's Communication/Plan
-
Diuresis
Assessment / Plan
Assessment / Plan
74 y/o male presented with redness and swelling of the left foot. Also has shortness of breath and wheezing.
Ultrasound of the lower extremity-no DVT
CVS: S1-S2 normal
Chest: CTA B/L
Abdomen: Soft, NT / Bowel sounds present
Extremities:B/L LE edema look much better today, left LE redness and edema also looks better
# Left lower extremity cellulitis-continue Ancef, compression therapy
# Acute on chronic HFrEF
Echo Aug 2024-EF 35 to 40%
Lasix 40 mg IV twice daily
Continue Entresto, Aldactone
Weight better
Cardiology has been consulted
# Coronary disease with 4 stents and bypass surgery
# Hyperlipidemia-continue statin, Zetia
# Diabetes-hemoglobin A1c-7.9
On Lantus 64 units at night along with NovoLog insulin
Continue Lantus 62 units, sliding scale coverage
# Diabetic neuropathy-continue gabapentin
# CKD stage IIIb-watch creatinine while on diuretics
# COPD without exacerbation-continue ipratropium and as needed nebulizer treatments if symptomatic
# Enlarged prostate-continue tamsulosin
# GERD-continue PPI
# Diverticulosis
# History of nephrolithiasis
# Ex-smoker
# DVT prophylaxis-subcutaneous heparin
# DNR
D/W Cardiology.
Part of this note was created using voice recognition system. Occasional wrong word or��sound alike� substitutions may have inadvertently occurred due to the inherent limitations of voice recognition software. If noted kindly bring it to my
attention for correction.
Anticipated Discharge: Within 24 hours
Subjective/Interval History
-
Date of Service: March 02, 2025
Objective Data
-
Labs:
Laboratory Results
03/02/25
06:16
Sodium 140
Potassium 3.9
Chloride 104
Carbon Dioxide 30
BUN 25 H
Creatinine 1.3
Glucose 110 H
Calcium 9.1
Vital Signs:
Vital Signs
Temp Pulse Resp BP Pulse Ox
97.5 F 83 16 112/69 97
03/02/25 14:55 03/02/25 15:00 03/02/25 15:00 03/02/25 14:55 03/02/25 14:55
I&O
03/01/25 03/02/25 03/03/25
06:59 06:59 06:59
Intake Total 1170 / 1170 1280 / 1280
Output Total 480 / 480
Balance 690 / 690 1280 / 1280
[2025-03-02 17:10] LABS: Glucose - Point of Care 196 mg/dl (70-99)
[2025-03-02] MEDS: CRESTOR 10 MG PO (17:13)
[2025-03-02 19:00] VITALS: BP 114/65
[2025-03-02] MEDS: TYLENOL 650 MG PO (20:43)
[2025-03-02 20:46] LABS: Glucose - Point of Care 247 mg/dl (70-99)
[2025-03-02] MEDS: LANTUS 0.62 UNITS SC (21:42)
[2025-03-02] MEDS: NEURONTIN 300 MG PO (21:43)
[2025-03-02] MEDS: ZETIA 10 MG PO (21:43)
[2025-03-02 22:52] VITALS: BP 115/69
[2025-03-03 03:00] VITALS: BP 108/65
[2025-03-03 06:00] VITALS: BMI 31.1
[2025-03-03] MEDS: DUONEB 3 ML INH ×2 (07:05→10:58)
[2025-03-03 07:33] LABS: Blood Urea Nitrogen 29 mg/dl (9-20); Calcium 9.3 mg/dl (8.4-10.2); Carbon Dioxide 32 mmol/L (22-30); Chloride 102 mmol/L (98-107); Estimated Creatinine Clearance 51 ml/min; Glucose 67 mg/dl (70-99); Potassium 4.1 mmol/L (3.5-5.1); Sodium 141 mmol/L (135-145); eGFR 52.74
[2025-03-03 07:38] VITALS: BP 108/64
[2025-03-03 07:46] LABS: Glucose - Point of Care 81 mg/dl (70-99)
[2025-03-03] MEDS: FARXIGA 10 MG PO (07:46)
[2025-03-03] MEDS: ALDACTONE 12.5 MG PO (07:46)
[2025-03-03] MEDS: PROTONIX 40 MG PO (07:46)
[2025-03-03] MEDS: NOVOLOG FLEXPEN-MODERATE RESISTANCE SC ×2 (07:46→11:53)
[2025-03-03] MEDS: FLOMAX 0.4 MG PO (07:46)
[2025-03-03] MEDS: LOW STRENGTH ASPIRIN 81 MG PO (07:46)
[2025-03-03] MEDS: ENTRESTO 49 MG/51 MG 1 TAB PO (07:46)
[2025-03-03] MEDS: TOPROL XL 25 MG PO (07:48)
[2025-03-03] MEDS: ANCEF 10 IV (07:48)
[2025-03-03] MEDS: HEPARIN 5000 UNITS SC (07:48)
--- NOTE | 2025-03-03 08:40 | W.PN.CD ---
Today's Communication / Plan
-
Hold Lasix today. Resume PO Lasix 40mg BID tomorrow. Will not increase home dose given that he has had ALAN when we do this in the past.
He will be dilligent about sodium/fluid intake and daily weights.
GDMT: Farxiga, Metoprolol 25 daily, med dose Entresto, [place] 12.5
OK for discharge from CV standpoint. We will sign off. Please call with questions.
Impression / Plan
-
I/P: 74M wiht CAD (S/P CABG 2018), HFrEF/ICM, HTN, HLD, NIDDM, CKD, PVD, PAD, and BPH who presented with redness and swelling to his left lower extremity.
Outpatient chief radiologic technologist: Dr. Medrano
HFrEF (EF 35-40%), acute on chronic
Ischemic cardiomyopathy
- Severe exacerbation. S/p IV diuresis
- GDMT as tolerated:
-Diuretic: Hold today for Cr bump. Resume PO Lasix 40mg BID (home dose) tomorrow. He says when we have tried to go up on PO Lasix at home in the past, he gets an ALAN. He will be dilligent about salt/fluid intake and daily weights.
-EDGARD/ARB/ARNI: Sacubitril�valsartan 49-51 mg twice daily
-SGLT2 inhibitor: Farxiga 10mg daily
-Aldosterone agonist: Spironolactone 12.5 mg daily
-Beta candy: Was on metoprolol succinate 25 mg daily at his last outpatient office visit
-Isosorbide/Hydralazine:�Not currently indicated
-ICD: Not indicated
- Trend daily weight, I/O, and BMP with diuresis
- Heart failure education
Left lower extremity cellulitis, on Ancef, per primary
CAD
- Stable without chest pain
PVCs, resume beta-candy
CKD3b, chronic, stable
RBBB, chronic, stable, noted on OP EKG 04/2023
HTN, chronic and stable
NIDDM, Hgba1c 7.9%
COPD, stable without wheeze, per primary
Former smoker, continued cessation recommended
SUBJECTIVE:
No CV complaints. LE edema continues to improve.
Physical Exam
Vital Signs/Labs
Vital Signs
Temp Pulse Resp BP Pulse Ox
97.3 F 79 16 108/64 99
03/03/25 07:38 03/03/25 07:38 03/03/25 07:38 03/03/25 07:38 03/03/25 07:38
03/02/25 03/03/25 03/04/25
06:59 06:59 06:59
Actual Weight 210 lb 204 lb 9 oz
03/03/25 06:47
Magnesium 2.1 mg/dl (1.6-2.3) 03/02/25 06:16
02/27/25
15:55
Lxd-W-Pzcvrvsvnam Pept 382
Physical Exam
Constitutional: No acute distress and Comfortable
Cardiovascular: Rhythm & rate is regular, Pedal edema present (trace), S1S2 is normal and Murmur/rub/gallop absent
Respiratory: Respiratory effort normal and Lungs clear to auscul.
Neuro/Psych: AO x 3
Data Reviewed
-
Date of Service: March 03, 2025
Medical Decision Making: Reviewed Test Results, Independent Historian Assessment, Test Interpretation and Review of Case with other Provider
EKG: Tracing Personally Visualized and interpreted
Echo: Report Reviewed by me
Labs: Labs Reviewed by me
[2025-03-03 08:42] LABS: Hematocrit 39.5 % (39.0-52.0); Hemoglobin 12.9 g/dL (13.0-18.0); Mean Corp Hgb Conc. 32.7 g/dL (33.0-37.0); Mean Corpuscular Volume 90.2 fL (80.0-94.0); Platelet Count 246 10^3/uL (130-400); Red Cell Dist. Width 14.2 % (11.5-14.5)
[2025-03-03 11:44] LABS: Glucose - Point of Care 140 mg/dl (70-99)
[2025-03-03 11:45] VITALS: BP 105/66
--- NOTE | 2025-03-03 12:28 | CM ---
Patient seen at bedside
CM consult completed for Jardiance 10mg/Farxiga 10mg pricing
Called [place] pharmacist at [facility] - both are covered 0 copay-tt hospitalist
IMM explained & signed
[facility] referral in [facility] & accepted
PLAN: Home with [facility]
Friend to transport
--- NOTE | 2025-03-03 13:07 | W.PN.HOSP.TC ---
Today's Communication/Plan
-
Discharge
Assessment / Plan
Assessment / Plan
74 y/o male presented with redness and swelling of the left foot. Also has shortness of breath and wheezing.
Ultrasound of the lower extremity-no DVT
CVS: S1-S2 normal
Chest: CTA B/L
Abdomen: Soft, NT / Bowel sounds present
Extremities:B/L edema almost resolved. Redness much much better.
# Left lower extremity cellulitis-much better most likely was secondary to fluid retention. Change Ancef to p.o., compression therapy to be continued as outpatient this was stressed to the patient. He was noncompliant with compression therapy
# Acute on chronic HFrEF
Echo Aug 2024-EF 35 to 40%
Lasix changed to p.o. to start tomorrow
BMP in 1 week as outpatient
Continue Entresto, Aldactone
Weight better
Cardiology has been consulted
# Coronary disease with 4 stents and bypass surgery
# Hyperlipidemia-continue statin, Zetia
# Diabetes-hemoglobin A1c-7.9
On Lantus 64 units at night along with NovoLog insulin
Continue Lantus 64 units for discharge
# Diabetic neuropathy-continue gabapentin
# CKD stage IIIb-watch creatinine while on diuretics
# COPD without exacerbation-continue ipratropium and as needed nebulizer treatments if symptomatic
# Enlarged prostate-continue tamsulosin
# GERD-continue PPI
# Diverticulosis
# History of nephrolithiasis
# Ex-smoker
# DVT prophylaxis-subcutaneous heparin
# DNR
D/W Cardiology.
Discussed with nursing
More than 30 minutes spent in discharge including
Final examination of the patient
Summarizing hospital stay
Instructions for continuing care to all relevant caregivers
Preparation of discharge records, prescriptions, and referral forms
Total time spent (in minutes): 37 min
Part of this note was created using voice recognition system. Occasional wrong word or��sound alike� substitutions may have inadvertently occurred due to the inherent limitations of voice recognition software. If noted kindly bring it to my
attention for correction.
Anticipated Discharge: Today
Subjective/Interval History
-
Date of Service: March 03, 2025
Objective Data
-
Labs:
Laboratory Results
03/03/25
06:47
WBC 5.7
Hgb 12.9 L
Hct 39.5
Plt Count 246 D
Sodium 141
Potassium 4.1
Chloride 102
Carbon Dioxide 32 H
BUN 29 H
Creatinine 1.4 H
Glucose 67 L
Calcium 9.3
Vital Signs:
Vital Signs
Temp Pulse Resp BP Pulse Ox
97.4 F 85 16 105/66 96
03/03/25 11:45 03/03/25 11:45 03/03/25 11:45 03/03/25 11:45 03/03/25 11:45
I&O
03/02/25 03/03/25 03/04/25
06:59 06:59 06:59
Intake Total 1280 / 1280 1200 / 1200
Output Total 1125 / 1125
Balance 1280 / 1280 75 / 75
--- NOTE | 2025-03-03 13:42 | W.DS.TRANS ---
Addendum entered and electronically signed by Owen Monterroso MD 03/03/25 14:34:
Dictation- [id number]
Original Note:
DC Summary - Load Checker
-
Discharge Instructions:
Sleep Apnea Risk Intermediate
Discharge Diagnosis/Procedures LLE Cellulitis
Acute on chronic HFrEF
Coronary disease with 4 stents and bypass
surgery
Hyperlipidemia
Diabetes
CKD
Enlarged Prostate
GERD
Diet 2 Gram Sodium,Restrict fluids to 64 oz
Activity As tolerated
Driving Restrictions As prior to admission
Blood Work BMP 1 week ( ASK pcp for script)
Other Services VN
Specialty Instructions Weigh Daily
Instructions:
Stand-Alone Forms:
Changes to Home Medications: Yes
Discharge Medications:
DC Medications w/original date entered in [employer]
ezetimibe 10 mg tablet 10 mg PO HS High cholesterol 12/22/16
pantoprazole 40 mg tablet,delayed release 40 mg PO DAILY Gastrointestinal issue 12/22/16
rosuvastatin 10 mg tablet 10 mg PO QPM High cholesterol 03/26/20
furosemide 40 mg tablet 40 mg PO BID AT 0800,1700 Fluid retention/Swelling 08/23/22
gabapentin 300 mg capsule 300 mg PO HS Neurological Condition 08/23/22
cholecalciferol (vitamin D3) 25 mcg (1,000 unit) tablet (Vitamin D3) 25 mcg PO DAILY Supplement 01/04/24
ipratropium 0.5 mg-albuterol 3 mg (2.5 mg base)/3 mL nebulization soln 3 ml inhalation TID Lung/Breathing Issues 01/04/24
insulin glargine U-300 conc 300 unit/mL (1.5 mL) subcutaneous pen (Toujeo SoloStar U-300 Insulin) 65 unit SC HS Diabetes 02/20/24
insulin lispro 100 unit/mL subcutaneous pen (Humalog KwikPen (U-100) Insulin) See Rx Instructions .Route .COMPLEX Diabetes 02/20/24
tamsulosin 0.4 mg capsule 0.4 mg PO DAILY Urinary Issue 02/20/24
acetaminophen 500 mg tablet 500 mg PO DAILY Pain 02/27/25
aspirin 81 mg tablet 81 mg PO DAILY Blood Clot Prevention/Tx 02/27/25
calcium carbonate 500 mg PO DAILY Supplement 02/27/25
cyanocobalamin (vitamin B-12) 500 mcg tablet 500 mcg PO DAILY Supplement 02/27/25
folic acid 400 mcg tablet 0.4 mg PO DAILY Supplement 02/27/25
ipratropium bromide 21 mcg (0.03 %) nasal spray 2 spray intranasal BID Lung/Breathing Issues 02/27/25
magnesium chloride 71.5 mg (magnesium chloride) tablet,delayed release (Slow-Mag) 71.5 mg PO HS Supplement 02/27/25
sacubitril 49 mg-valsartan 51 mg tablet (Entresto) 1 tab PO BID Heart Failure 02/27/25
spironolactone 25 mg tablet 12.5 mg PO DAILY Heart Failure 02/27/25
empagliflozin 10 mg tablet (Jardiance) 10 mg PO DAILY Heart disease/condition #60 tabs 03/03/25
metoprolol succinate 25 mg tablet,extended release 24 hr 25 mg PO DAILY #30 tabs 03/03/25
Keflex 500 mg PO QID #13 tablets 03/03/25
Home Medication Changes
new
empagliflozin 10 mg tablet (Jardiance) 10 mg PO DAILY Heart disease/condition #60 tabs 03/03/25
metoprolol succinate 25 mg tablet,extended release 24 hr 25 mg PO DAILY #30 tabs 03/03/25
Pending Results: No
[2025-03-03] MEDS: DUONEB INH (15:05)
== END 2025-03-03 15:05 | disposition home health service (06) | DRG 602 ==
LOC: 3 WEST ACU 19:58
PROVIDERS: Nurse Practitioner; Physician Assistant Medical; ADMITTING PHYSICIAN Hospitalist; ATTENDING PHYSICIAN Hospitalist; CONSULT PHYSICIAN Internal Medicine Cardiovascular Disease; EMERGENCY PHYSICIAN Emergency Medicine; FAMILY PHYSICIAN Family Medicine
DX: L03.116 Cellulitis of left lower limb (principal); I50.23 Acute on chronic systolic (congestive) heart failure; I13.0 Hypertensive heart and chronic kidney disease with heart failure and stage 1 through stage 4 chronic kidney disease, or unspecified chronic kidney disease; N18.32 Chronic kidney disease, stage 3b; E11.22 Type 2 diabetes mellitus with diabetic chronic kidney disease; E78.00 Pure hypercholesterolemia, unspecified; N40.0 Benign prostatic hyperplasia without lower urinary tract symptoms; K21.9 Gastro-esophageal reflux disease without esophagitis; E11.40 Type 2 diabetes mellitus with diabetic neuropathy, unspecified; E11.65 Type 2 diabetes mellitus with hyperglycemia; J44.9 Chronic obstructive pulmonary disease, unspecified; Z87.891 Personal history of nicotine dependence; Z66 Do not resuscitate; E11.51 Type 2 diabetes mellitus with diabetic peripheral angiopathy without gangrene; I25.10 Atherosclerotic heart disease of native coronary artery without angina pectoris; I45.10 Unspecified right bundle-branch block; I89.0 Lymphedema, not elsewhere classified; I87.8 Other specified disorders of veins; Z95.1 Presence of aortocoronary bypass graft; Z95.5 Presence of coronary angioplasty implant and graft; Z79.4 Long term (current) use of insulin; Z79.82 Long term (current) use of aspirin
CPT/HCPCS: 71046; 80048; 80053; 82962; 83036; 83605; 83735; 83880; 85025; 85027; 87040; 87070; 93005; 93306; 93970; 94640; 96374; 97162; 97167; 99285

== ENCOUNTER → 2025-03-29 06:58 | Outpatient (REF) | payer MEDICARE, SELFPAY ==
[2025-03-29 09:39] LABS: Hematocrit 40.2 % (39.0-52.0); Hemoglobin 13.2 g/dL (13.0-18.0); Mean Corp Hgb Conc. 32.8 g/dL (33.0-37.0); Mean Corpuscular Volume 92.0 fL (80.0-94.0); Nucleated Red Blood Cells % 0 % (-); Platelet Count 192 10^3/uL (130-400); Red Cell Dist. Width 14.2 % (11.5-14.5); Reticulocyte Count 1.3 % (0.4-2.8)
[2025-03-29 09:55] LABS: ALT (SGPT) 30 U/L (0-50); AST (SGOT) 27 U/L (17-59); Albumin 4.3 g/dl (3.5-5.0); Alkaline Phosphatase 56 U/L (38-126); Amylase 85 U/L (30-110); Blood Urea Nitrogen 28 mg/dl (9-20); Calcium 9.5 mg/dl (8.4-10.2); Carbon Dioxide 29 mmol/L (22-30); Chloride 104 mmol/L (98-107); GGTP 17 U/L (15-73); Glucose 140 mg/dl (70-99); HDL Cholesterol 42 mg/dl; Iron 59 ug/dl (49-181); LDL Cholesterol, Calculated 59 mg/dl; Lipase 46 U/L (23-300); Magnesium 2.4 mg/dl (1.6-2.3); Potassium 4.3 mmol/L (3.5-5.1); Sodium 139 mmol/L (135-145); Total Protein 6.7 g/dl (6.3-8.2); Uric Acid 6.7 mg/dl (3.5-8.5); Very Low Density Lipoprotein 20 mg/dl (0-30); eGFR 57.65
[2025-03-29 09:58] LABS: C-Reactive Protein < 5.00 mg/L (0.0-10.00)
[2025-03-29 10:04] LABS: Total Iron Binding Capacity 348 ug/dl (261-462)
[2025-03-29 10:05] LABS: Microalb - Urine Creatinine 87.400 mg/dl
[2025-03-29 10:10] LABS: Microalbumin, Random Urine 2.6 mg/dl (0.6-1.7)
[2025-03-29 10:15] LABS: Vitamin D, 25-OH*** 67.3 ng/mL (30-80)
[2025-03-29 10:29] LABS: TSH 2.91 uIU/ml (0.47-4.68)
[2025-03-29 10:33] LABS: Ferritin 13.5 ng/ml (17.9-464.0)
[2025-03-29 11:04] LABS: Folate > 20.0 ng/ml (2.76-20); Vitamin B12 955 pg/ml (239-931)
[2025-03-29 11:56] LABS: Glycohemoglobin (HgbA1c) 7.6 % (4.0-5.6)
[2025-03-29 15:30] LABS: Rheumatoid Agglutinin Less Than 10 IU (<10 IU)
[2025-03-29 22:34] LABS: Urine Character Clear (Clear)
[2025-03-29 23:24] LABS: Urine Red Blood Cell 0-2 /HPF (0-2); Urine Squamous Cell 0-2 /LPF (Few); Urine White Cell 0-2 /HPF (0-5)
== END ==
LOC: HWLAB 06:58
PROVIDERS: ATTENDING PHYSICIAN Family Medicine
DX: E11.9 Type 2 diabetes mellitus without complications (principal); E78.5 Hyperlipidemia, unspecified; R94.5 Abnormal results of liver function studies; R74.8 Abnormal levels of other serum enzymes; E03.9 Hypothyroidism, unspecified; M10.9 Gout, unspecified; E60 Dietary zinc deficiency; E55.9 Vitamin D deficiency, unspecified; M12.9 Arthropathy, unspecified; D64.9 Anemia, unspecified; E53.8 Deficiency of other specified B group vitamins; E61.1 Iron deficiency; E83.42 Hypomagnesemia; N39.0 Urinary tract infection, site not specified
CPT/HCPCS: 36415; 80053; 80061; 81003; 81015; 82043; 82150; 82306; 82550; 82570; 82607; 82728; 82746; 82977; 83036; 83540; 83550; 83690; 83735; 84439; 84443; 84550; 84630; 85025; 85045; 85652; 86140; 86430

== ENCOUNTER → 2025-04-07 08:29 | Outpatient (REF) | payer MEDICARE, SELFPAY | LOC: RAD 08:29 | PROVIDERS: ATTENDING PHYSICIAN Physician Assistant; FAMILY PHYSICIAN Family Medicine | DX: I73.9 Peripheral vascular disease, unspecified (principal) | CPT/HCPCS: 93922; 93925 ==